=== PATIENT | male | born 1965 ===

== ENCOUNTER 2016-11-27 22:53 | Inpatient (IN) | payer MEDICARE, MEDICAID ==
[2016-11-27 22:53] VITALS: BMI 21.9
--- NOTE | 2016-11-27 23:18 | C.PDOC ---
History Of Present Illness pt with increased anasarca, c/o fall about 5 days ago. Denies loc and remembers the event. States that he has been "swelling up" worse than usual . Speaking in complete sentences. No f/c/n/v. no chest pain or palpitations Time Seen by Provider: 11/27/16 23:18 Chief Complaint (Nursing): Back Pain History Per: Patient, EMS History/Exam Limitations: no limitations Onset/Duration Of Symptoms: Days (5) Current Symptoms Are (Timing): Still Present Quality Of Discomfort: Dull, Aching Severity: Moderate Pain Scale Rating Of: 4 Previous Symptoms: Back Pain Associated Symptoms: None Exacerbating Factor(s): Movement Recent travel outside of the [place]: No Additional History Per: Patient Past Medical History Reviewed: Historical Data, Nursing Documentation, Vital Signs Vital Signs: Last Vital Signs Temp 98.1 F 11/27/16 23:15 Pulse 97 H 11/27/16 23:15 Resp 18 11/27/16 23:15 BP 164/115 H 11/27/16 23:15 Pulse Ox 97 11/28/16 00:12 - Medical History PMH: Anemia, Anxiety, Arthritis (hands and legs), Asthma, Back Problems, CAD, CHF (chronic LV Sys EF 39% on Mugga evaluated by EP for possible ICD), Depression, Diabetes, Gastritis, HTN, Hypercholesterolemia, Pneumonia Denies: Chronic Kidney Disease - [facility] Procedures CENTRAL VENOUS CATHETER PLACEMENT WITH GUIDANCE (10/12/13) CORONAR ARTERIOGR-2 CATH (10/17/14) INFLUENZA VACCINATION (09/24/13) LEFT HEART CARDIAC CATH (10/17/14) LT HEART ANGIOCARDIOGRAM (10/17/14) VACCINATION NEC (09/24/13) Family History: States: Diabetes - Social History Hx Tobacco Use: No Hx Alcohol Use: No Hx Substance Use: No - Immunization History Hx Tetanus Toxoid Vaccination: No Hx Influenza Vaccination: No Hx Pneumococcal Vaccination: No Review Of Systems Constitutional: Negative for: Fever, Chills ENT: Negative for: Throat Pain Cardiovascular: Negative for: Chest Pain, Palpitations Respiratory: Positive for: Shortness of Breath (mild) Gastrointestinal: Positive for: Abdominal Pain. Negative for: Nausea, Vomiting Genitourinary: Negative for: Dysuria Musculoskeletal: Positive for: Back Pain Skin: Positive for: Bruising (right lat abd). Negative for: Rash, Lesions Neurological: Negative for: Altered Mental Status Psych: Negative for: Anxiety Physical Exam - Physical Exam Appears: Non-toxic Skin: Warm, Dry, Ecchymosis (r lower abd) Head: Atraumatic Eye(s): bilateral: Normal Inspection Oral Mucosa: Moist Neck: Supple Chest: Symmetrical Cardiovascular: Rhythm Regular Respiratory: Decreased Breath Sounds, Rales (bases), Rhonchi (few), No Wheezing Gastrointestinal/Abdominal: Soft, Distention, No Guarding, Other (3x5 cm abrassion r lower abd) ED Course And Treatment - Laboratory Results Result Diagrams: 11/28/16 00:29 11/28/16 00:29 ECG: Interpreted By Me, Viewed By Me ECG Rhythm: Sinus Rhythm (95), Nonspecific Changes O2 Sat by Pulse Oximetry: 97 Pulse Ox Interpretation: Normal - Radiology CXR: Interpreted by Me, Viewed By Me CXR Interpretation: Yes: Other (top nl heart unchnaged from 03/07). No: Infiltrates, Fracture, Pnemothorax Progress Note: cardiac work up, vbg, lasix Critical Care Time - Critical Care Note Total Time (in mins): 40 Documented critical care: time excludes all time spent performing seperately billable procedures. Disposition Discussed With Dr.: Chino Whitt Comment: accepted the pt [facility] is service and took over the care at 1:35 AM Doctor Will See Patient In The: ED Counseled Patient/Family Regarding: Studies Performed, Diagnosis - Disposition Disposition: HOSPITALIZED Disposition Time: 23:18 Condition: GUARDED - POA Present On Arrival: Poor Glycemic Control - Clinical Impression Clinical Impression: Low back pain, Diabetes mellitus, Congestive heart failure (CHF), Hyperkalemia , Anasarca, Acute renal failure Decision To Admit - Pt Status Changed To: Hospital Disposition Of: Inpatient - Admit Certification Admit to Inpatient:: After my assessment, the patient will require hospitalization for at least two midnights. This is because of the severity of symptoms shown, intensity of services needed, and/or the medical risk in this patient being treated as an outpatient. - InPatient: Physician Admission Certification:: After my assessment, the patient will require hospitalization for at least two midnights. This is because of the severity of symptoms shown, intensity of services needed, and/or the medical risk in this patient being treated as an outpatient. - . Bed Request Type: Telemetry Admitting Physician: Chino Whitt Patient Diagnosis: Low back pain, Diabetes mellitus, Congestive heart failure (CHF), Hyperkalemia , Anasarca, Acute renal failure
[2016-11-28 00:32] LABS: BASO # 0.1 K/uL (0.0-0.2); BASO % 0.7 % (0.0-2.0); EOS # 0.1 K/uL (0.0-0.7); EOS % 1.6 % (0.0-4.0); HEMATOCRIT 27.5 % (35.0-51.0); LYMPH # 0.6 K/uL (1.0-4.3); LYMPH % 7.4 % (20.0-40.0); MEAN CORPUSCULAR HEMOGLOBIN 29.2 pg (27.0-31.0); MEAN CORPUSCULAR HGB CONC 31.4 g/dL (33.0-37.0); MEAN PLATELET VOLUME 10.6 fL (7.2-11.7); MONO # 0.9 K/uL (0.0-0.8); MONO % 11.2 % (0.0-10.0); NRBC % 0.1 % (0.0-2.0); PLATELET COUNT 234 K/uL (130-400); RED CELL DISTRIBUTION WIDTH 16.6 % (11.5-14.5); WHITE BLOOD COUNT 7.6 K/uL (4.8-10.8)
[2016-11-28 00:45] LABS: VENOUS BLOOD GAS BASE EXCESS -7.9 mmol/L (0.0-2.0); VENOUS BLOOD GAS PCO2 31 mmHg (40-60); VENOUS BLOOD PH 7.34 (7.32-7.43)
[2016-11-28 00:55] LABS: CHLORIDE 104 mmol/L (98-107); SODIUM 135 mmol/L (132-148)
[2016-11-28 00:57] LABS: GFR AFRICAN-AMERICAN 26
[2016-11-28 00:58] LABS: ALB/GLOB RATIO 0.7 (1.0-2.1); ALKALINE PHOSPHATASE 666 U/L (38-126); ALT/SGPT 52 U/L (21-72); AST/SGOT 39 U/L (17-59); BILIRUBIN,TOTAL 0.6 mg/dL (0.2-1.3); BLOOD UREA NITROGEN 68 mg/dL (9-20); CALCIUM 7.7 mg/dl (8.6-10.4); CARBON DIOXIDE 16 mmol/L (22-30); GLUCOSE,RANDOM 246 mg/dL (75-110); TOTAL PROTEIN 6.3 g/dL (6.3-8.3)
[2016-11-28 01:18] LABS: POTASSIUM 6.8 mmol/L (3.6-5.2)
[2016-11-28] MEDS ORDERED: Calcium Gluconate 4.65 MEQ in Dextrose 5% In Water 100 ML IVPB STA (01:20)
[2016-11-28] MEDS ORDERED: Sod Polystyrene Sulf 15 gm/60 ml Oral Susp PO ONE ×2 (01:20→21:07)
[2016-11-28] MEDS ORDERED: Albuterol-Ipratrop 3 mg / 0.5 (3 ml) UD ONE ×2 (01:32→02:00)
[2016-11-28] MEDS ORDERED: Calcium Gluconate 4.65 mEq/10 ml Inj ONE (01:33)
[2016-11-28] MEDS ORDERED: Sod Polystyrene Sulf 15 gm/60 ml Oral Susp ONE (01:33)
[2016-11-28 01:34] LABS: EOSINOPHIL 1 % (0-4); NEUTROPHIL 86 % (50-75); TOTAL CELLS COUNTED 100
[2016-11-28] MEDS: Albuterol-Ipratrop 3 mg / 0.5 (3 ml) UD IH SCH ×3 (01:44→03:38)
[2016-11-28] MEDS ORDERED: Nitroglycerin 2% Ointment Foilpak UD TOP ONE ×2 (03:23→03:24)
[2016-11-28] MEDS ORDERED: metOLazone 2.5 MG TAB PO ONE (03:24)
--- NOTE | 2016-11-28 03:50 | CT ---
EXAM: CT Abdomen and Pelvis Without Intravenous Contrast CLINICAL HISTORY: 51 years old, male; Pain; Abdominal pain; Additional info: Ac renal failure TECHNIQUE: Axial computed tomography images of the abdomen and pelvis without intravenous contrast. This CT exam was performed using one or more of the following dose reduction techniques: automated exposure control, adjustment of the mA and/or kV according to patient size, and/or use of iterative reconstruction technique. Coronal and sagittal reformatted images were created and reviewed. EXAM DATE/TIME: 11/28/2016 1:31 AM COMPARISON: No relevant prior studies available. FINDINGS: There are small bilateral pleural effusions. There is a small pericardial effusion. Cardiomegaly. Left lower lung infiltrate. Consolidation in the lingula and left lower lung. The liver, spleen, and pancreas appear grossly normal on this non-contrast study. Bilateral mild perinephric stranding. No hydronephrosis. No obstructing calculi. Urinary bladder is distended. Punctate calcification along the anterior aspect. The bowel appears grossly normal. A normal appendix is identified series 2 images 73 through 78. Diffuse extensive subcutaneous edema. Line and intravenous contrast limits evaluation for walled off fluid collection. IMPRESSION: Findings as described above supportive of diffuse edematous state. Findings include pleural and pericardial effusions, extensive subcutaneous edema. Bilateral perinephric stranding. This may be a chronic finding however urinalysis could be performed to exclude infectious/inflammatory process. Left lung infiltrate/atelectasis.
[2016-11-28] MEDS ORDERED: Oxycodone/Acetaminophen 5/325 mg Tab PO STA (04:27)
[2016-11-28] MEDS ORDERED: Oxycodone/Acetaminophen 5/325 mg Tab ONE (04:34)
[2016-11-28 04:40] LABS: RBC URINE 2 /hpf (0-3); URINE BILIRUBIN NEGATIVE (NEGATIVE); URINE BLOOD NEGATIVE (NEGATIVE); URINE COLOR Yellow (YELLOW); URINE GLUCOSE (UA) 3+ mg/dL (Normal); URINE KETONE NEGATIVE (NEGATIVE); URINE LEUKOCYTE ESTERASE NEG Leu/uL (Negative); URINE PROTEIN 3+ mg/dL (NEGATIVE); URINE UROBILINOGEN NORMAL mg/dL (0.2-1.0); WBC URINE 2 /hpf (0-5)
[2016-11-28 04:44] LABS: CREATININE, RANDOM URINE 23.5 mg/dL
[2016-11-28 05:40] LABS: BASO % 0.4 % (0.0-2.0); EOS % 0.4 % (0.0-4.0); HEMATOCRIT 28.3 % (35.0-51.0); LYMPH # 0.6 K/uL (1.0-4.3); LYMPH % 5.6 % (20.0-40.0); MEAN CELL VOLUME 92.1 fL (80.0-94.0); MEAN CORPUSCULAR HEMOGLOBIN 29.1 pg (27.0-31.0); MEAN CORPUSCULAR HGB CONC 31.6 g/dL (33.0-37.0); MEAN PLATELET VOLUME 10.1 fL (7.2-11.7); MONO # 1.1 K/uL (0.0-0.8); PLATELET COUNT 274 K/uL (130-400); RED CELL DISTRIBUTION WIDTH 16.5 % (11.5-14.5); WHITE BLOOD COUNT 9.9 K/uL (4.8-10.8)
[2016-11-28 05:46] LABS: INR 1.1
[2016-11-28 05:51] LABS: BILIRUBIN,TOTAL 0.6 mg/dL (0.2-1.3); TOTAL PROTEIN 6.9 g/dL (6.3-8.3)
[2016-11-28 05:52] LABS: CALCIUM 8.2 mg/dl (8.6-10.4)
[2016-11-28 06:03] LABS: ALB/GLOB RATIO 0.8 (1.0-2.1); POTASSIUM 6.3 mmol/L (3.6-5.2)
--- NOTE | 2016-11-28 06:09 | CP.PCM.HP ---
History of Present Illness - History of Present Illness History of Present Illness: This is a 51 yo M with PMH significant for CHF (EF 34%), HTN and DM that presented to the ED with a chief complaint of leg swelling and sob. He states that this has been going on for the last four days but that it has just gotten too much and he needed to come in. He states that at baseline he gets tired/sob with ADLs. Pt states that he has had no changes in his medications. He admits to needing to sleep with 4 pillows at night and even then he does not sleep well. Pt has had no recent fevers, chills, chest pain, nausea, vomiting, diarrhea or headaches. He does admit to not making that much urine recently and states that he was recently seen over at [facility] [place] and was told that his kidneys are not working well. PSHx: Left hallux amputation (2011), left inguinal hernia repairs x 2, left eye surgery "for retina" (Mar 2014) PMHx: CHF, HTN, DM FHx: Mom - DM, alive. Dad- DM, at age 73 Social Hx: nonsmoker, last drink 1 year ago - denies heavy drinking in past, denies illicit drug use. Lives with mom, unemployed Allergies: PCN - swelling and rash PMD: Dr. Lynda Ng Present on Admission - Present on Admission Any Indicators Present on Admission: No Review of Systems - Constitutional Constitutional: absent: Chills, Fever - EENT Eyes: absent: Blurred Vision, Dry Eye - Cardiovascular Cardiovascular: absent: Chest Pain, Palpitations - Respiratory Respiratory: absent: Cough, Dyspnea - Gastrointestinal Gastrointestinal: absent: Diarrhea, Nausea, Vomiting - Genitourinary Genitourinary: Voiding Freq/Small Amts - Musculoskeletal Musculoskeletal: absent: Muscle Weakness, Stiffness - Integumentary Integumentary: absent: Pruritus, Rash - Neurological Neurological: absent: Numbness, Tingling Past Patient History - Infectious Disease Hx of Infectious Diseases: None - Tetanus Immunizations Tetanus Immunization: Unknown - Past Medical History & Family History Past Medical History?: Yes - Past Social History Smoking Status: Never Smoked - CARDIAC Hx Congestive Heart Failure: Yes (chronic LV Sys EF 39% on Mugga evaluated by EP for possible ICD) Hx Hypercholesterolemia: Yes Hx Hypertension: Yes - PULMONARY Hx Asthma: Yes Hx Pneumonia: Yes - NEUROLOGICAL Hx Neurological Disorder: No - HEENT Hx HEENT Problems: Yes Other/Comment: left eye blind, Rt. eye vision blurred, uses eyeglasses for reading - RENAL Hx Chronic Kidney Disease: No - ENDOCRINE/METABOLIC Hx Endocrine Disorders: Yes Hx Diabetes Mellitus Type 2: Yes (for 15 years) - HEMATOLOGICAL/ONCOLOGICAL Hx Anemia: Yes - INTEGUMENTARY Hx Dermatological Problems: No - MUSCULOSKELETAL/RHEUMATOLOGICAL Hx Arthritis: Yes (hands and legs) - GASTROINTESTINAL Hx Gastritis: Yes - GENITOURINARY/GYNECOLOGICAL Hx Genitourinary Disorders: No - PSYCHIATRIC Hx Anxiety: Yes Hx Depression: Yes Hx Substance Use: No - SURGICAL HISTORY Hx Amputation: Yes (left big toe) Other/Comment: hernia surgery, left knee surgery - ANESTHESIA Hx Anesthesia: Yes Hx Anesthesia Reactions: No Hx Malignant Hyperthermia: No Meds Allergies/Adverse Reactions: Allergies Allergy/AdvReac Type Severity Reaction Status Date / Time Penicillins Allergy Verified 03/09/16 13:01 Physical Exam - Constitutional Appears: Non-toxic, No Acute Distress - Head Exam Head Exam: ATRAUMATIC, NORMOCEPHALIC - Eye Exam Eye Exam: Normal appearance Pupil Exam: PERRL - ENT Exam ENT Exam: Mucous Membranes Moist - Neck Exam Additional comments: JVD present - Respiratory Exam Respiratory Exam: Rales - Cardiovascular Exam Cardiovascular Exam: +S1, +S2 - GI/Abdominal Exam GI & Abdominal Exam: Normal Bowel Sounds, Soft - Extremities Exam Extremities exam: Positive for: pedal edema - Back Exam Back exam: NORMAL INSPECTION - Neurological Exam Neurological exam: Alert, Oriented x3 - Skin Skin Exam: Dry, Warm Additional comments: Significant and diffuse anasarca. 4+ pitting edema in his extremities. Results - Vital Signs Recent Vital Signs: Last Vital Signs Temp 98.2 F 11/28/16 04:35 Pulse 119 H 11/28/16 04:35 Resp 16 11/28/16 04:35 BP 176/87 H 11/28/16 04:35 Pulse Ox 94 L 11/28/16 04:35 - Labs Result Diagrams: 11/28/16 05:36 11/28/16 05:36 Labs: Laboratory Results - last 24 hr 11/28/16 11/28/16 04:33 05:36 WBC 9.9 RBC 3.07 L Hgb 8.9 L Hct 28.3 L MCV 92.1 MCH 29.1 MCHC 31.6 L RDW 16.5 H Plt Count 274 MPV 10.1 Neut % (Auto) 82.6 H Lymph % (Auto) 5.6 L Anson % (Auto) 11.0 H Eos % (Auto) 0.4 Baso % (Auto) 0.4 Neut # 8.2 H Lymph # 0.6 L Anson # 1.1 H Eos # 0.0 Baso # 0.0 PT 11.8 INR 1.1 APTT 25 Sodium 133 Potassium 6.3 H* Chloride 106 Carbon Dioxide 13 L Anion Gap 20 BUN 64 H Creatinine 3.2 H Est GFR ( Amer) 25 Est GFR (Non-Af Amer) 21 Random Glucose 268 H Calcium 8.2 L Total Bilirubin 0.6 AST 32 ALT 55 Alkaline Phosphatase 712 H Total Protein 6.9 Albumin 3.0 L Globulin 4.0 H Albumin/Globulin Ratio 0.8 L Urine Color Yellow Urine Clarity Clear Urine pH 6.0 Ur Specific Deland 1.010 Urine Protein 3+ H Urine Glucose (UA) 3+ H Urine Ketones Negative Urine Blood Negative Urine Nitrate Negative Urine Bilirubin Negative Urine Urobilinogen Normal Ur Leukocyte Esterase Neg Urine WBC (Auto) 2 Urine RBC (Auto) 2 Ur Random Creatinine 23.5 U Random Total Protein 850.0 H Ur Random Sodium 45 Assessment & Plan - Assessment and Plan (Free Text) Assessment: Acute on chronic systolic heart failure - Significant anasarca, 4+ pitting on all extremities - BNP - [id number] - CXR - cardiomegaly, venous congestion - f/u official read - CT abd/pelvis - Findings as described above supportive of diffuse edematous state. Findings include pleural and pericardial effusions, extensive subcutaneous edema.Bilateral perinephric stranding. This may be a chronic finding however urinalysis could be performed to exclude infectious/ inflammatory process. Left lung infiltrate/atelectasis. Please see full report - Cardio consult (Sukumar) - help appreciate - f/u recs - Echo - f/u results - AM labs - f/u - Lasix 80mg BID - Metolazone 2.5mg daily - Coreg 6.25mg BID Anasarca - Likely due to CHF exacerbation - See above AMINA - Cr 3.1 - AM labs - Continue to diurese - Nephro (Isidro) consulted - help appreciated - f/u recs - Greco inserted Hyperkalemia - 6.8 on admission - Given Ca gluconate and kayexelate in ED - Lasix 80mg BID - AM labs - f/u HTN - 164/115 on admission, persisting on repeats - Coreg 6.25mg BID - Lasix 80mg BID - Metolazone 2.5mg daily DM - Restart home regimen - Levemir 16 units HS - Novolog 8 units TID PPX - Heparin - Protonix
[2016-11-28 06:30] LABS: BASOPHIL 1 % (0-2); EOSINOPHIL 1 % (0-4); NEUTROPHIL 82 % (50-75); TOTAL CELLS COUNTED 100
[2016-11-28] MEDS ORDERED: (Novolog) Insulin Aspart, Recombinant 100 u/ml 10 ml vial ONE (08:08)
[2016-11-28] MEDS: (Novolog) Insulin Aspart, Recombinant 100 u/ml 10 ml vial SC SCH ×3 (08:08→17:02)
[2016-11-28] MEDS ORDERED: Sod Polystyrene Sulf 15 gm/60 ml Oral Susp PO STA ×2 (09:16→09:35)
--- NOTE | 2016-11-28 09:21 | RAD ---
PROCEDURE: CHEST RADIOGRAPH, 1 VIEW HISTORY: Abdominal pain COMPARISON: None available. FINDINGS: LUNGS: Mild venous congestion. Patchy airspace opacity in the left mid to lower lung zone with associated small left pleural effusion. Right hilar prominence. PLEURA: As above. CARDIOVASCULAR: Cardiomegaly. OSSEOUS STRUCTURES: No significant abnormalities. VISUALIZED UPPER ABDOMEN: Normal. OTHER FINDINGS: None. IMPRESSION: Mild venous congestion. Patchy airspace opacity in the left mid to lower lung zone with associated small left pleural effusion. Right hilar prominence.
--- NOTE | 2016-11-28 09:41 | CP.PCM.PN ---
<Tj Albarran - Last Filed: 11/28/16 20:53> Subjective - Date & Time of Evaluation Date of Evaluation: 11/28/16 Time of Evaluation: 07:50 - Subjective Subjective: PGY1 Medicine Note - Dr. Burgos Patient seen and examined at bedside. No overnight events per nursing. Patient resting comfortably, no acute distress. Tolerating diet, +BM. Produces minimal urine (was told [place] [facility] [place] Patient c/o b/l numbness/tingling in his toes (chronic). Denies f/c, chest pain, abdominal pain , n/v, d/c, or any additional complaints. Objective - Vital Signs/Intake and Output Vital Signs (last 24 hours): Temp Pulse Resp BP Pulse Ox 97.7 F 95 H 14 142/77 95 11/28/16 06:45 11/28/16 08:55 11/28/16 08:55 11/28/16 08:55 11/28/16 08:55 Intake and Output: 11/28/16 11/28/16 06:59 18:59 Output Total 900 Balance -900 - Medications Medications: Current Medications Carvedilol (Coreg) 6.25 mg PO BID LONG Furosemide (Lasix) 80 mg IVP BID LONG Heparin Sodium (Porcine) (Heparin) 5,000 units SC Q8 LONG Calcium Gluconate 2,000 mg/ (Sodium Chloride) 270 mls @ 100 mls/hr IVPB ONCE ONE Stop: 11/28/16 12:00 Insulin Aspart (Novolog) 8 unit SC TIDAC [facility] Last Admin: 11/28/16 08:08 Dose: 8 unit Insulin Detemir (Levemir) 16 unit SC HS LONG Metolazone (Zaroxolyn) 2.5 mg PO DAILY LONG Pantoprazole Sodium (Protonix Inj) 40 mg IVP DAILY LONG - Labs Labs: 11/28/16 05:36 11/28/16 05:36 PT 11.8 SECONDS (9.7-12.2) 11/28/16 05:36 INR 1.1 11/28/16 05:36 APTT 25 SECONDS (21-34) 11/28/16 05:36 - Additional Findings Additional findings: - Constitutional Appears: Non-toxic, No Acute Distress - Head Exam Head Exam: ATRAUMATIC, NORMOCEPHALIC - Eye Exam Eye Exam: Normal appearance Pupil Exam: PERRL - ENT Exam ENT Exam: Mucous Membranes Moist - Neck Exam Additional comments: JVD present - Respiratory Exam Respiratory Exam: Rales - Cardiovascular Exam Cardiovascular Exam: +S1, +S2 - GI/Abdominal Exam GI & Abdominal Exam: Normal Bowel Sounds, Soft - Extremities Exam Extremities exam: Positive for: pedal edema -L Foot 1st Toe amputation -R Foot 2nd Toe darkened, cool to touch, with 2 eschars on dorsal surface. - Back Exam Back exam: NORMAL INSPECTION - Neurological Exam Neurological exam: Alert, Oriented x3 - Skin Skin Exam: Dry, Warm Additional comments: Significant and diffuse anasarca. 4+ pitting edema in his extremities. Assessment and Plan - Assessment and Plan (Free Text) Assessment: Acute on chronic systolic heart failure 11/28: Echo - f/u results (pending read); - Significant anasarca, 4+ pitting on all extremities - BNP - [id number] - CXR - cardiomegaly, venous congestion - f/u official read - CT abd/pelvis - Findings as described above supportive of diffuse edematous state. Findings include pleural and pericardial effusions, extensive subcutaneous edema.Bilateral perinephric stranding. This may be a chronic finding however urinalysis could be performed to exclude infectious/ inflammatory process. Left lung infiltrate/atelectasis. 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 Add on Hydralazine 20mg PO Q12 LONG + Nitro paste 1inch Q12 PRN, SBP >160 - 164/115 on admission, persisting on repeats - Coreg 6.25mg BID - Lasix 80mg BID - Metolazone 2.5mg daily DM - Restart home regimen - Levemir 16 units HS - Novolog 8 units TID - ISS PPX - Heparin - Protonix <Matthew Burgos - Last Filed: 01/05/17 15:39> Objective - Vital Signs/Intake and Output Vital Signs (last 24 hours): Temp Pulse Resp BP Pulse Ox 97 F L 77 20 118/76 96 12/04/16 18:15 12/04/16 18:15 12/04/16 18:15 12/04/16 18:16 12/04/16 18:15 - Labs Labs: 12/04/16 06:59 12/04/16 06:59 PT 12.0 SECONDS (9.7-12.2) 12/03/16 19:46 INR 1.1 12/03/16 19:46 APTT 35 SECONDS (21-34) H 12/03/16 19:46 Attending/Attestation - Attestation I have personally seen and examined this patient.: Yes I have fully participated in the care of the patient.: Yes I have reviewed all pertinent clinical information, including history, physical exam and plan: Yes Notes (Text): Patient seen and examined with the resident. Agree with the resident's evaluation, assessment and plan. Acute on chronic systolic heart failure 11/28: Echo - f/u results (pending read); - Significant anasarca, 4+ pitting on all extremities
[2016-11-28] MEDS ORDERED: metOLazone 2.5 MG TAB PO SCH ×2 (10:00→11:07)
--- NOTE | 2016-11-28 10:51 | CP.PCM.CON ---
History of Present Illness - History of Present Illness History of Present Illness: History of Present Illness: This is a 51 yo M with PMH significant for CHF (EF 34%), HTN and DM that presented to the ED with a chief complaint of leg swelling and sob. He states that this has been going on for the last four days but that it has just gotten too much and he needed to come in. He states that at baseline he gets tired/sob with ADLs. Pt states that he has had no changes in his medications. He admits to needing to sleep with 4 pillows at night and even then he does not sleep well. Pt has had no recent fevers, chills, chest pain, nausea, vomiting, diarrhea or headaches. He does admit to not making that much urine recently and states that he was recently seen over at [facility] and was told that his kidneys are not working well. PSHx: Left hallux amputation (2011), left inguinal hernia repairs x 2, left eye surgery "for retina" (Mar 2014) PMHx: CHF, HTN, DM FHx: Mom - DM, alive. Dad- DM, at age 73 Social Hx: nonsmoker, last drink 1 year ago - denies heavy drinking in past, denies illicit drug use. Lives with mom, unemployed Allergies: PCN - swelling and rash PMD: Dr. Lynda Ng CONSULT DICTATED LIKELY WILL NEED DIALYSIS SOON DUE TO RECURRENT CHF, HYPERKALEMIA AGREE WITH PRESENT MEDS WILL PURSUE RENAL WORKUP LIKELY HAS DIABETIC NEPHROPATHY WITH NEPHROTIC SYNDROME WILL DISCUSS RENAL OPTIONS FURTHER WITH PATIENT Review of Systems - Review of Systems Systems not reviewed;Unavailable: Respiratory Distress - Constitutional Constitutional: Weakness - EENT Eyes: Blurred Vision, Change in Vision - Cardiovascular Cardiovascular: Chest Pain, Dyspnea on Exertion, Pedal Edema - Respiratory Respiratory: Cough, Dyspnea on Exertion - Gastrointestinal Gastrointestinal: Nausea, Vomiting - Genitourinary Genitourinary: Difficulty Urinating, Voiding Freq/Small Amts - Musculoskeletal Musculoskeletal: Muscle Weakness, Stiffness - Neurological Neurological: Abnormal Gait, Weakness - Endocrine Endocrine: Change in Body Appearance, Fatigue Past Patient History - Infectious Disease Hx of Infectious Diseases: None - Tetanus Immunizations Tetanus Immunization: Unknown - Past Medical History & Family History Past Medical History?: Yes - Past Social History Smoking Status: Never Smoked - CARDIAC Hx Congestive Heart Failure: Yes (chronic LV Sys EF 39% on Mugga evaluated by EP for possible ICD) Hx Hypercholesterolemia: Yes Hx Hypertension: Yes - PULMONARY Hx Asthma: Yes Hx Pneumonia: Yes - NEUROLOGICAL Hx Neurological Disorder: No - HEENT Hx HEENT Problems: Yes Other/Comment: left eye blind, Rt. eye vision blurred, uses eyeglasses for reading - RENAL Hx Chronic Kidney Disease: No - ENDOCRINE/METABOLIC Hx Endocrine Disorders: Yes Hx Diabetes Mellitus Type 2: Yes (for 15 years) - HEMATOLOGICAL/ONCOLOGICAL Hx Anemia: Yes - INTEGUMENTARY Hx Dermatological Problems: No - MUSCULOSKELETAL/RHEUMATOLOGICAL Hx Arthritis: Yes (hands and legs) - GASTROINTESTINAL Hx Gastritis: Yes - GENITOURINARY/GYNECOLOGICAL Hx Genitourinary Disorders: No - PSYCHIATRIC Hx Anxiety: Yes Hx Depression: Yes Hx Substance Use: No - SURGICAL HISTORY Hx Amputation: Yes (left big toe) Other/Comment: hernia surgery, left knee surgery - ANESTHESIA Hx Anesthesia: Yes Hx Anesthesia Reactions: No Hx Malignant Hyperthermia: No Meds Allergies/Adverse Reactions: Allergies Allergy/AdvReac Type Severity Reaction Status Date / Time Penicillins Allergy Verified 03/09/16 13:01 - Medications Medications: Current Medications Carvedilol (Coreg) 6.25 mg PO BID [facility] Last Admin: 11/28/16 10:29 Dose: 6.25 mg Furosemide (Lasix) 80 mg IVP BID [facility] Heparin Sodium (Porcine) (Heparin) 5,000 units SC Q8 [facility] Calcium Gluconate 2,000 mg/ (Sodium Chloride) 270 mls @ 100 mls/hr IVPB ONCE ONE Stop: 11/28/16 12:00 Insulin Aspart (Novolog) 8 unit SC TIDAC [facility] Last Admin: 11/28/16 08:08 Dose: 8 unit Insulin Detemir (Levemir) 16 unit SC HS [facility] Metolazone (Zaroxolyn) 2.5 mg PO DAILY [facility] Pantoprazole Sodium (Protonix Inj) 40 mg IVP DAILY [facility] Last Admin: 11/28/16 10:29 Dose: 40 mg Physical Exam - Constitutional Appears: Non-toxic, Chronically Ill - Head Exam Head Exam: ATRAUMATIC, NORMAL INSPECTION - Eye Exam Eye Exam: EOMI, Periorbital swelling - Neck Exam Neck exam: Positive for: Normal Inspection. Negative for: Tenderness - Respiratory Exam Respiratory Exam: Clear to Auscultation Bilateral, NORMAL BREATHING PATTERN - GI/Abdominal Exam GI & Abdominal Exam: Distended, Soft - Extremities Exam Extremities exam: Positive for: pedal edema, tenderness - Neurological Exam Neurological exam: Alert, CN II-XII Intact - Skin Skin Exam: Dry, Warm Results - Vital Signs Recent Vital Signs: Last Vital Signs Temp 97.7 F 11/28/16 09:41 Pulse 93 H 11/28/16 09:41 Resp 17 11/28/16 09:41 BP 158/93 H 11/28/16 09:41 Pulse Ox 95 11/28/16 09:41 - Labs Result Diagrams: 11/28/16 05:36 11/28/16 05:36 Labs: Laboratory Results - last 24 hr 11/28/16 11/28/16 11/28/16 04:33 05:36 07:28 WBC 9.9 RBC 3.07 L Hgb 8.9 L Hct 28.3 L MCV 92.1 MCH 29.1 MCHC 31.6 L RDW 16.5 H Plt Count 274 MPV 10.1 Neut % (Auto) 82.6 H Lymph % (Auto) 5.6 L [place] % (Auto) 11.0 H Eos % (Auto) 0.4 Baso % (Auto) 0.4 Neut # 8.2 H Lymph # 0.6 L [place] # 1.1 H Eos # 0.0 Baso # 0.0 Neutrophils % (Manual) 82 H Lymphocytes % (Manual) 6 L Monocytes % (Manual) 10 Eosinophils % (Manual) 1 Basophils % (Manual) 1 Platelet Estimate Normal PT 11.8 INR 1.1 APTT 25 Sodium 133 Potassium 6.3 H* Chloride 106 Carbon Dioxide 13 L Anion Gap 20 BUN 64 H Creatinine 3.2 H Est GFR ( Amer) 25 Est GFR (Non-Af Amer) 21 POC Glucose (mg/dL) 258 H Random Glucose 268 H Calcium 8.2 L Total Bilirubin 0.6 AST 32 ALT 55 Alkaline Phosphatase 712 H Total Protein 6.9 Albumin 3.0 L Globulin 4.0 H Albumin/Globulin Ratio 0.8 L Urine Color Yellow Urine Clarity Clear Urine pH 6.0 Ur Specific [place] 1.010 Urine Protein 3+ H Urine Glucose (UA) 3+ H Urine Ketones Negative Urine Blood Negative Urine Nitrate Negative Urine Bilirubin Negative Urine Urobilinogen Normal Ur Leukocyte Esterase Neg Urine WBC (Auto) 2 Urine RBC (Auto) 2 Ur Random Creatinine 23.5 U Random Total Protein 850.0 H Ur Random Sodium 45 Assessment & Plan (1) Congestive heart failure (CHF) Status: Chronic (2) Hypertension Status: Chronic (3) Type 2 diabetes mellitus with diabetic nephropathy Status: Acute (4) Proteinuria due to type 2 diabetes mellitus Status: Acute (5) Chronic anemia Status: Acute - Assessment and Plan (Free Text) Plan: Agree with IV lasix Pursue renal workup Will consider [employer] due to recurrent CHF, hyperkalemia
--- NOTE | 2016-11-28 12:02 | CON ---
DATE: 11/28/2016 The patient is a 51-year-old man with past history of diabetes mellitus type 2, diabetic nephropathy, hypertension, recurrent congestive heart failure with ejection fraction of 34%. He presents with le g swelling, increased dyspnea on exertion. This has been going on for at least 4 days; not been able to really ambulate well because of that. He was very weak and short of breath. No fevers, chills, or sweats. He has had nausea and vomiting. No diarrhea. PAST MEDICAL HISTORY: Diabetes mellitus, hypertension, congestive heart failure, and proteinuria due to diabetes mellitus. PAST SURGICAL HISTORY: Left hallux amputation, left inguinal hernia repair, left eye surgery for gla ucoma or possible diabetic retinopathy. FAMILY HISTORY: Two brothers; one on maintenance dialysis. SOCIAL HISTORY: Significant for moderately heavy alcohol abuse in the past. No history of smoking o r illicit drug use. MEDICATIONS: Include Carvedilol, now he is on IV Lasix, on Protonix, metolazone, Kayexalate was give n for the hyperkalemia. REVIEW OF SYSTEMS: Significant for increased dyspnea on exertion, poor vision. He has had chest mariola ns, decreased urine output, nausea and vomiting, and difficulty ambulating. Other review of systems is all negative. On physical exam he is a well-developed man. Blood pressure 158/93, temperature 97.7, pulse 93, pulse ox 95% on room air. VASCULAR EXAMINATION: Shows no JVD. LUNG PORTILLO: Clear. HEART: Regular rhythm, no murmur. ABDOMEN: Soft, benign. No mass or organomegaly. He had a general anasarca, 3-4+ pitting edema all the way up to the thighs and in the presacral area. NEUROLOGIC: No focal deficits. He had a Greco catheter in place. Chest x-ray again showed mild congestive heart failure. he hemoglobin 8.9. Urinalysis showed 3+ protein. The chemistries showed a BUN of 64, creatinine 3.2 . GFR of 21, albumin of 3.0. IMPRESSION: The patient has recurrent congestive heart failure, diabetic nephropathy, likely has nep hrotic syndrome, hypertension, chronic anemia. PLAN: Will pursue a renal workup. I agree with IV Lasix and metolazone. He probably will need hemo dialysis due to recurrent congestive heart failure and the recent hyperkalemia which is uncontrolled. Will follow up. Low Felix MD cc: [id number] TT: 11/28/2016 12:01:18 Confirmation # [id number] Dictation # [id number]
--- NOTE | 2016-11-28 13:55 | US ---
Renal ultrasound History: Chronic kidney disease. Comparison: None available. Technique: Real-time sonography was performed through the kidneys. Findings: Right kidney: 11.6 x 5.2 x 6.2 centimeters. Increased echogenicity suggestive for medical renal disease. No calculi or hydronephrosis. Left kidney: 13.5 x 7.2 x 6.2 centimeters. Increased echogenicity suggestive for medical renal disease. No calculi or hydronephrosis. Visualized aorta is preserved. Greco catheter in the urinary bladder patter. Impression: Increased echogenicity of the bilateral renal cortices suggestive for medical renal disease.
[2016-11-28 17:08] LABS: POTASSIUM 5.5 mmol/L (3.6-5.2)
[2016-11-28 17:12] LABS: CALCIUM 7.9 mg/dl (8.6-10.4)
[2016-11-28] MEDS ORDERED: Nitroglycerin 2% Ointment Foilpak UD TOP PRN ×2 (18:57→19:05)
[2016-11-28] MEDS ORDERED: Insulin Detemir 100 units/ml Vial (Levemir) SC SCH (22:00)
[2016-11-29] MEDS: Dextrose 50% SYRINGE Inj (50 ml) ONE ×2 (07:06→07:07)
[2016-11-29] MEDS: (Novolog) Insulin Aspart, Recombinant 100 u/ml 10 ml vial SC SCH ×6 (07:51→21:46)
[2016-11-29 08:14] LABS: CHLORIDE 106 mmol/L (98-107); POTASSIUM 4.7 mmol/L (3.6-5.2); SODIUM 135 mmol/L (132-148)
[2016-11-29 08:16] LABS: BILIRUBIN,TOTAL 0.3 mg/dL (0.2-1.3); GFR AFRICAN-AMERICAN 26
[2016-11-29 08:17] LABS: ALB/GLOB RATIO 0.7 (1.0-2.1); ALKALINE PHOSPHATASE 550 U/L (38-126); ALT/SGPT 46 U/L (21-72); AST/SGOT 36 U/L (17-59); BLOOD UREA NITROGEN 67 mg/dL (9-20); CARBON DIOXIDE 18 mmol/L (22-30); GLUCOSE,RANDOM 100 mg/dL (75-110); PHOSPHOROUS 6.3 mg/dL (2.5-4.5); TOTAL PROTEIN 5.6 g/dL (6.3-8.3)
[2016-11-29 08:18] LABS: CALCIUM 7.7 mg/dl (8.6-10.4)
--- NOTE | 2016-11-29 08:28 | CP.PCM.CON ---
History of Present Illness - History of Present Illness History of Present Illness: 51 year old male seen for ulcers on toe 2 right with discoloration of toe . Past Patient History - Infectious Disease Hx of Infectious Diseases: None - Tetanus Immunizations Tetanus Immunization: Unknown - Past Medical History & Family History Past Medical History?: Yes - Past Social History Smoking Status: Never Smoked - CARDIAC Hx Congestive Heart Failure: Yes (chronic LV Sys EF 39% on Mugga evaluated by EP for possible ICD) Hx Hypercholesterolemia: Yes Hx Hypertension: Yes - PULMONARY Hx Asthma: Yes Hx Pneumonia: Yes - NEUROLOGICAL Hx Neurological Disorder: No - HEENT Hx HEENT Problems: Yes Other/Comment: left eye blind, Rt. eye vision blurred, uses eyeglasses for reading - RENAL Hx Chronic Kidney Disease: No - ENDOCRINE/METABOLIC Hx Endocrine Disorders: Yes Hx Diabetes Mellitus Type 2: Yes (for 15 years) - HEMATOLOGICAL/ONCOLOGICAL Hx Anemia: Yes - INTEGUMENTARY Hx Dermatological Problems: No - MUSCULOSKELETAL/RHEUMATOLOGICAL Hx Arthritis: Yes (hands and legs) Hx Falls: Yes (fell x5 days ago) - GASTROINTESTINAL Hx Gastritis: Yes - GENITOURINARY/GYNECOLOGICAL Hx Genitourinary Disorders: No - PSYCHIATRIC Hx Anxiety: Yes Hx Depression: Yes Hx Substance Use: No - SURGICAL HISTORY Hx Amputation: Yes (left big toe) Other/Comment: hernia surgery, left knee surgery - ANESTHESIA Hx Anesthesia: Yes Hx Anesthesia Reactions: No Hx Malignant Hyperthermia: No Meds Allergies/Adverse Reactions: Allergies Allergy/AdvReac Type Severity Reaction Status Date / Time Penicillins Allergy Verified 03/09/16 13:01 - Medications Medications: Current Medications Carvedilol (Coreg) 6.25 mg PO BID [facility] Last Admin: 11/28/16 18:13 Dose: 6.25 mg Furosemide (Lasix) 80 mg IVP BID [facility] Last Admin: 11/28/16 18:13 Dose: 80 mg Heparin Sodium (Porcine) (Heparin) 5,000 units SC Q8 [facility] Last Admin: 11/29/16 06:53 Dose: 5,000 units Hydralazine HCl (Apresoline) 25 mg PO Q12H [facility] Last Admin: 11/29/16 06:46 Dose: 25 mg Insulin Aspart (Novolog) 8 unit SC TIDAC [facility] Last Admin: 11/29/16 07:51 Dose: Not Given Insulin Detemir (Levemir) 16 unit SC HS [facility] Last Admin: 11/28/16 21:34 Dose: 16 unit Metolazone (Zaroxolyn) 5 mg PO DAILY [facility] Nitroglycerin (Nitro-Bid 2% Oint) 1 ea TOP 1100,2300 PRN PRN Reason: SBP > 160 Pantoprazole Sodium (Protonix Inj) 40 mg IVP DAILY [facility] Last Admin: 11/28/16 10:29 Dose: 40 mg Physical Exam - Extremities Exam Extremities exam: Positive for: pedal edema Additional comments: O/Toe 2 dorsum 2 small ulcers proximal wound burch 1 /Distal wound ungradable with eschar . Feet are warm to touch with neuropathy b/l .Hallux amp left noted 2011. Results - Vital Signs Recent Vital Signs: Last Vital Signs Temp 97.6 F 11/29/16 00:00 Pulse 83 11/29/16 00:21 Resp 20 11/29/16 00:00 BP 158/89 H 11/29/16 00:00 Pulse Ox 98 11/29/16 00:00 - Labs Result Diagrams: 11/28/16 05:36 11/29/16 07:57 Labs: Laboratory Results - last 24 hr 11/28/16 11/28/16 11/28/16 12:14 16:06 16:51 Sodium 133 Potassium 5.5 H Chloride 103 Carbon Dioxide 15 L Anion Gap 21 H BUN 66 H Creatinine 3.1 H Est GFR ( Amer) 26 Est GFR (Non-Af Amer) 21 POC Glucose (mg/dL) 247 H 214 H Random Glucose 174 H Calcium 7.9 L Phosphorus Total Bilirubin AST ALT Alkaline Phosphatase Total Protein Albumin Globulin Albumin/Globulin Ratio 11/28/16 11/29/16 11/29/16 21:28 06:57 07:10 Sodium Potassium Chloride Carbon Dioxide Anion Gap BUN Creatinine Est GFR ( Amer) Est GFR (Non-Af Amer) POC Glucose (mg/dL) 150 H 29 L* 105 Random Glucose Calcium Phosphorus Total Bilirubin AST ALT Alkaline Phosphatase Total Protein Albumin Globulin Albumin/Globulin Ratio 11/29/16 07:57 Sodium 135 Potassium 4.7 Chloride 106 Carbon Dioxide 18 L Anion Gap 16 BUN 67 H Creatinine 3.1 H Est GFR ( Amer) 26 Est GFR (Non-Af Amer) 21 POC Glucose (mg/dL) Random Glucose 100 Calcium 7.7 L Phosphorus 6.3 H Total Bilirubin 0.3 AST 36 ALT 46 Alkaline Phosphatase 550 H D Total Protein 5.6 L Albumin 2.3 L D Globulin 3.3 Albumin/Globulin Ratio 0.7 L Assessment & Plan - Assessment and Plan (Free Text) Assessment: A/Ulcers toe 2 right Burch 1and ungradable small /R/O Ischemia /PAD right Plan: P/ Bactroban dressing daily right toe 2 . Awaiting Doppler exams and Eval by Dr Mckeon.
--- NOTE | 2016-11-29 09:27 | CP.PCM.CON ---
History of Present Illness - History of Present Illness History of Present Illness: Vascular Surgery Consult Dr. Mckeon HPI: 51 y/o M w/ PMHx of CHF, HTN, DM, presented to the ED w/ CC of leg swelling and SOB. Pt stated Sx had been worsening x4days. At baseline, pt gets fatigued/SOB w/ ADLs. Pt admitted to orthopnea and FILIPE. History from H&P at time of admission. Upon interview of pt this AM, pt was minimally responsive and was found to have BG of 26. 1amp D50 was ordered and pt became more responsive however unable or unwilling to answer questions. Per H&P, pt admitted to decreased UOP but denied recent fevers, chills, chest pain, nausea, vomiting, diarrhea or headaches. Surgery was consulted for evaluation of PVD. PMHx: CHF w/ EF 32%, HTN, DM Meds: reviewed in chart Allergies: PCN - swelling, hives PSHx: L hallux amputation, LIH repair x2, L retinal surgery SHx: denies tobacco, drug use. previous heavy EtOH - last drink 1yr ago FHx: DM Review of Systems - Review of Systems Systems not reviewed;Unavailable: Altered Mental Status Past Patient History - Infectious Disease Hx of Infectious Diseases: None - Tetanus Immunizations Tetanus Immunization: Unknown - Past Medical History & Family History Past Medical History?: Yes - Past Social History Smoking Status: Never Smoked - CARDIAC Hx Congestive Heart Failure: Yes (chronic LV Sys EF 39% on Mugga evaluated by EP for possible ICD) Hx Hypercholesterolemia: Yes Hx Hypertension: Yes - PULMONARY Hx Asthma: Yes Hx Pneumonia: Yes - NEUROLOGICAL Hx Neurological Disorder: No - HEENT Hx HEENT Problems: Yes Other/Comment: left eye blind, Rt. eye vision blurred, uses eyeglasses for reading - RENAL Hx Chronic Kidney Disease: No - ENDOCRINE/METABOLIC Hx Endocrine Disorders: Yes Hx Diabetes Mellitus Type 2: Yes (for 15 years) - HEMATOLOGICAL/ONCOLOGICAL Hx Anemia: Yes - INTEGUMENTARY Hx Dermatological Problems: No - MUSCULOSKELETAL/RHEUMATOLOGICAL Hx Arthritis: Yes (hands and legs) Hx Falls: Yes (fell x5 days ago) - GASTROINTESTINAL Hx Gastritis: Yes - GENITOURINARY/GYNECOLOGICAL Hx Genitourinary Disorders: No - PSYCHIATRIC Hx Anxiety: Yes Hx Depression: Yes Hx Substance Use: No - SURGICAL HISTORY Hx Amputation: Yes (left big toe) Other/Comment: hernia surgery, left knee surgery - ANESTHESIA Hx Anesthesia: Yes Hx Anesthesia Reactions: No Hx Malignant Hyperthermia: No Meds Allergies/Adverse Reactions: Allergies Allergy/AdvReac Type Severity Reaction Status Date / Time Penicillins Allergy Verified 03/09/16 13:01 - Medications Medications: Current Medications Carvedilol (Coreg) 6.25 mg PO BID [facility] Last Admin: 11/28/16 18:13 Dose: 6.25 mg Furosemide (Lasix) 80 mg IVP BID [facility] Last Admin: 11/28/16 18:13 Dose: 80 mg Heparin Sodium (Porcine) (Heparin) 5,000 units SC Q8 [facility] Last Admin: 11/29/16 06:53 Dose: 5,000 units Hydralazine HCl (Apresoline) 25 mg PO Q12H [facility] Last Admin: 11/29/16 06:46 Dose: 25 mg Insulin Aspart (Novolog) 8 unit SC TIDAC [facility] Last Admin: 11/29/16 07:51 Dose: Not Given Insulin Detemir (Levemir) 16 unit SC HS [facility] Last Admin: 11/28/16 21:34 Dose: 16 unit Metolazone (Zaroxolyn) 5 mg PO DAILY [facility] Mupirocin (Bactroban Ointment) 1 gm TOP BID [facility] Nitroglycerin (Nitro-Bid 2% Oint) 1 ea TOP 1100,2300 PRN PRN Reason: SBP > 160 Pantoprazole Sodium (Protonix Inj) 40 mg IVP DAILY [facility] Last Admin: 11/28/16 10:29 Dose: 40 mg Physical Exam - Constitutional Appears: Non-toxic, No Acute Distress - Head Exam Head Exam: NORMAL INSPECTION - Eye Exam Eye Exam: Normal appearance - ENT Exam ENT Exam: Mucous Membranes Moist - Respiratory Exam Respiratory Exam: NORMAL BREATHING PATTERN. absent: Accessory Muscle Use, Respiratory Distress - Cardiovascular Exam Cardiovascular Exam: REGULAR RHYTHM. absent: Bradycardia, Tachycardia - GI/Abdominal Exam GI & Abdominal Exam: Soft. absent: Distended, Guarding, Rebound, Tenderness - Extremities Exam Additional comments: 3+ pitting edema B/L LE up to hips/pannus 2+ pitting edema B/L UE scar from L hallux amputation scabs present B/L feet. L sole R toes 4&5 no pallor or callor pulses difficult to palpate 2/2 edema - Neurological Exam Neurological exam: Altered - Skin Skin Exam: Dry, Intact, Normal Color, Warm Results - Vital Signs Recent Vital Signs: Last Vital Signs Temp 97.6 F 11/29/16 00:00 Pulse 83 11/29/16 00:21 Resp 20 11/29/16 00:00 BP 158/89 H 11/29/16 00:00 Pulse Ox 98 11/29/16 00:00 - Labs Result Diagrams: 11/28/16 05:36 11/29/16 07:57 Labs: Laboratory Results - last 24 hr 11/28/16 11/28/16 11/28/16 12:14 16:06 16:51 Sodium 133 Potassium 5.5 H Chloride 103 Carbon Dioxide 15 L Anion Gap 21 H BUN 66 H Creatinine 3.1 H Est GFR ( Amer) 26 Est GFR (Non-Af Amer) 21 POC Glucose (mg/dL) 247 H 214 H Random Glucose 174 H Calcium 7.9 L Phosphorus % Saturation Total Bilirubin AST ALT Alkaline Phosphatase Total Protein Albumin Globulin Albumin/Globulin Ratio 11/28/16 11/29/16 11/29/16 21:28 06:57 07:10 Sodium Potassium Chloride Carbon Dioxide Anion Gap BUN Creatinine Est GFR ( Amer) Est GFR (Non-Af Amer) POC Glucose (mg/dL) 150 H 29 L* 105 Random Glucose Calcium Phosphorus % Saturation Total Bilirubin AST ALT Alkaline Phosphatase Total Protein Albumin Globulin Albumin/Globulin Ratio 11/29/16 11/29/16 07:57 08:06 Sodium 135 Potassium 4.7 Chloride 106 Carbon Dioxide 18 L Anion Gap 16 BUN 67 H Creatinine 3.1 H Est GFR ( Amer) 26 Est GFR (Non-Af Amer) 21 POC Glucose (mg/dL) Random Glucose 100 Calcium 7.7 L Phosphorus 6.3 H % Saturation 16 L Total Bilirubin 0.3 AST 36 ALT 46 Alkaline Phosphatase 550 H D Total Protein 5.6 L Albumin 2.3 L D Globulin 3.3 Albumin/Globulin Ratio 0.7 L - Imaging and Cardiology Chest x-ray Status: Report reviewed by me CT scan - abdomen Status: Report reviewed by me US - renal Status: Report reviewed by me Assessment & Plan - Assessment and Plan (Free Text) Assessment: 51 y/o M w/ CHF, HTN, DM in anasarca - f/u venous and arterial dopplers - will likely need dialysis - further plans pending results of imaging Pt discussed w/ Dr. Linda Napier DO PGY1
[2016-11-29] MEDS: metOLazone 5 MG TAB PO SCH (09:43)
[2016-11-29 10:13] LABS: CHLORIDE URINE 61 mmol/L (32-290)
[2016-11-29 11:41] LABS: BASO % 0.4 % (0.0-2.0); EOS # 0.2 K/uL (0.0-0.7); EOS % 2.2 % (0.0-4.0); LYMPH # 0.4 K/uL (1.0-4.3); LYMPH % 4.2 % (20.0-40.0); MEAN CELL VOLUME 92.4 fL (80.0-94.0); MEAN CORPUSCULAR HEMOGLOBIN 28.8 pg (27.0-31.0); MEAN CORPUSCULAR HGB CONC 31.2 g/dL (33.0-37.0); MEAN PLATELET VOLUME 10.4 fL (7.2-11.7); MONO % 9.6 % (0.0-10.0); PLATELET COUNT 265 K/uL (130-400); RED CELL DISTRIBUTION WIDTH 16.4 % (11.5-14.5); WHITE BLOOD COUNT 10.2 K/uL (4.8-10.8)
[2016-11-29 13:38] LABS: EOSINOPHIL 1 % (0-4); NEUTROPHIL 88 % (50-75); TOTAL CELLS COUNTED 100
--- NOTE | 2016-11-29 14:02 | CP.PCM.PN ---
<Tj Albarran - Last Filed: 11/29/16 16:07> Subjective - Date & Time of Evaluation Date of Evaluation: 11/29/16 Time of Evaluation: 07:40 - Subjective Subjective: PGY1 Medicine Note - Dr. Burgos Patient seen and examined at bedside. No overnight events per nursing. Patient resting comfortably, no acute distress. He appeared more lethargic today, but was arousable and participated in exam. Tolerating diet, +BM. Produces minimal urine (was told his kidney function is poor at [facility] recently). Patient c/o b/l numbness/tingling in his toes (chronic). Denies f/c, chest pain, abdominal pain , n/v, d/c, or any additional complaints. Objective - Vital Signs/Intake and Output Vital Signs (last 24 hours): Temp Pulse Resp BP Pulse Ox 98 F 86 20 190/109 H 98 11/29/16 08:00 11/29/16 08:00 11/29/16 08:00 11/29/16 09:45 11/29/16 08:00 Intake and Output: 11/29/16 11/29/16 06:59 18:59 Intake Total 120 Balance 120 - Medications Medications: Current Medications Carvedilol (Coreg) 6.25 mg PO BID [facility] Last Admin: 11/29/16 09:43 Dose: 6.25 mg Furosemide (Lasix) 80 mg IVP BID [facility] Last Admin: 11/29/16 09:45 Dose: 80 mg Heparin Sodium (Porcine) (Heparin) 5,000 units SC Q8 [facility] Last Admin: 11/29/16 06:53 Dose: 5,000 units Hydralazine HCl (Apresoline) 25 mg PO Q6 [facility] Last Admin: 11/29/16 12:41 Dose: 25 mg Insulin Aspart (Novolog) 4 unit SC TIDAC [facility] Last Admin: 11/29/16 12:54 Dose: Not Given Insulin Aspart (Novolog) 0 unit SC ACHS [facility] PRN Reason: Protocol Last Admin: 11/29/16 12:54 Dose: Not Given Insulin Detemir (Levemir) 10 unit SC HS [facility] Metolazone (Zaroxolyn) 5 mg PO DAILY [facility] Last Admin: 11/29/16 09:43 Dose: 5 mg Mupirocin (Bactroban Ointment) 1 gm TOP BID [facility] Last Admin: 11/29/16 10:00 Dose: Not Given Nitroglycerin (Nitro-Bid 2% Oint) 1 ea TOP 1100,2300 PRN PRN Reason: SBP > 160 Pantoprazole Sodium (Protonix Inj) 40 mg IVP DAILY [facility] Last Admin: 11/29/16 09:43 Dose: 40 mg - Labs Labs: 11/29/16 11:23 11/29/16 07:57 PT 11.8 SECONDS (9.7-12.2) 11/28/16 05:36 INR 1.1 11/28/16 05:36 APTT 25 SECONDS (21-34) 11/28/16 05:36 - Additional Findings Additional findings: - Constitutional Appears: Non-toxic, No Acute Distress - Head Exam Head Exam: ATRAUMATIC, NORMOCEPHALIC - Eye Exam Eye Exam: Normal appearance Pupil Exam: PERRL - ENT Exam ENT Exam: Mucous Membranes Moist - Neck Exam Additional comments: JVD present - Respiratory Exam Respiratory Exam: Rales - Cardiovascular Exam Cardiovascular Exam: +S1, +S2 - GI/Abdominal Exam GI & Abdominal Exam: Normal Bowel Sounds, Soft - Extremities Exam Extremities exam: Positive for: pedal edema -L Foot 1st Toe amputation -R Foot 2nd Toe darkened, cool to touch, with 2 eschars on dorsal surface. - Back Exam Back exam: NORMAL INSPECTION - Neurological Exam Neurological exam: Alert, Oriented x3 - Skin Skin Exam: Dry, Warm Additional comments: Significant and diffuse anasarca. 4+ pitting edema in his extremities. Assessment and Plan - Assessment and Plan (Free Text) Assessment: Acute on chronic systolic heart failure 11/28-11/29: Echo (not yet performed) - Significant anasarca, 4+ pitting on all extremities - BNP - [id number] - CXR - cardiomegaly, venous congestion - f/u official read - CT abd/pelvis - Findings as described above supportive of diffuse edematous state. Findings include pleural and pericardial effusions, extensive subcutaneous edema.Bilateral perinephric stranding. This may be a chronic finding however urinalysis could be performed to exclude infectious/ inflammatory process. Left lung infiltrate/atelectasis. Please see full report - Cardio consult (Sukumar) - help appreciate - Lasix 80mg BID - Metolazone 2.5mg daily - Coreg 6.25mg BID Anasarca - Likely due to CHF exacerbation - See above AMINA 11/29: f/u Hep panel. Patient lethargic, consider uremia. 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 - Renal ultrasound - increased echogenicity consistent with medical renal dz - Cr 3.1 - AM labs - Continue to diurese - Greco inserted HTN 11/29: BP elevated 190/109 - Increase to Hydralazine 25mg PO Q6H LONG 11/28: BP elevated at 182/114. Add on Hydralazine 20mg PO Q12 LONG + Nitro paste 1inch Q12 PRN, SBP >160 - 164/115 on admission, persisting on repeats - Coreg 6.25mg BID - Lasix 80mg BID - Metolazone 2.5mg daily -Nitro paste 1inch Q12 PRN, SBP >160 -Hydralazine 25mg PO Q6H LONG Diabetes 11/29: Glucose 29 -> decreased Levemir and Novolog, added ISS coverage. - Levemir 10 units HS - Novolog 4 units TIDAC - ISS Possible PAD -Ulcers of R 2nd toe, Burch 1, ungradable small; R/O Ischemia and PAD -prior amputation of left hallux. - Consulted Podiatry, Dr. Maradiaga (11/28) -Will change the dressing with Bactroban and DSD daily - Consulted Vascular surgery, Dr. Mckeon (11/28) - f/u venous and arterial dopplers - further plans pending results of imaging Hyperkalemia - resolved 11/29: K 4.7, WNL, monitor 11/28: Kayexelate 30 - 6.8 on admission -> 6.3 -> 5.5 - Given Ca gluconate and kayexelate in ED - Lasix 80mg BID PPX - Heparin - Protonix <Loretta,Matthew - Last Filed: 01/11/17 11:57> Objective - Vital Signs/Intake and Output Vital Signs (last 24 hours): Temp Pulse Resp BP Pulse Ox 97 F L 77 20 118/76 96 12/04/16 18:15 12/04/16 18:15 12/04/16 18:15 12/04/16 18:16 12/04/16 18:15 - Labs Labs: 12/04/16 06:59 12/04/16 06:59 PT 12.0 SECONDS (9.7-12.2) 12/03/16 19:46 INR 1.1 12/03/16 19:46 APTT 35 SECONDS (21-34) H 12/03/16 19:46 Attending/Attestation - Attestation I have personally seen and examined this patient.: Yes I have fully participated in the care of the patient.: Yes I have reviewed all pertinent clinical information, including history, physical exam and plan: Yes Notes (Text): Patient seen and examined with the resident. Agree with the resident's evaluation, assessment and plan. Acute on chronic systolic heart failure 11/28-11/29: Echo (not yet performed)
--- NOTE | 2016-11-29 14:12 | CP.PCM.CON ---
History of Present Illness - History of Present Illness History of Present Illness: 51 y/o male patient with PMH significant for CHF (EF 34%), HTN and DM seen and evaluated at bedside after request for podiatry consult. Patient states that he came to [facility] ED because of lower extremity swelling and SOB. Podiatry was consulted for right foot 2nd digit discoloration. Patient states that he was seen by early this morning. Right foot dressing was intact, clean and dry. Patient denies any pedal pain at this time. Patient denies any symptoms of N/V/F/SOB/Chest pain. Past Patient History - Infectious Disease Hx of Infectious Diseases: None - Tetanus Immunizations Tetanus Immunization: Unknown - Past Medical History & Family History Past Medical History?: Yes - Past Social History Smoking Status: Never Smoked - CARDIAC Hx Congestive Heart Failure: Yes (chronic LV Sys EF 39% on Mugga evaluated by EP for possible ICD) Hx Hypercholesterolemia: Yes Hx Hypertension: Yes - PULMONARY Hx Asthma: Yes Hx Pneumonia: Yes - NEUROLOGICAL Hx Neurological Disorder: No - HEENT Hx HEENT Problems: Yes Other/Comment: left eye blind, Rt. eye vision blurred, uses eyeglasses for reading - RENAL Hx Chronic Kidney Disease: No - ENDOCRINE/METABOLIC Hx Endocrine Disorders: Yes Hx Diabetes Mellitus Type 2: Yes (for 15 years) - HEMATOLOGICAL/ONCOLOGICAL Hx Anemia: Yes - INTEGUMENTARY Hx Dermatological Problems: No - MUSCULOSKELETAL/RHEUMATOLOGICAL Hx Arthritis: Yes (hands and legs) Hx Falls: Yes (fell x5 days ago) - GASTROINTESTINAL Hx Gastritis: Yes - GENITOURINARY/GYNECOLOGICAL Hx Genitourinary Disorders: No - PSYCHIATRIC Hx Anxiety: Yes Hx Depression: Yes Hx Substance Use: No - SURGICAL HISTORY Hx Amputation: Yes (left big toe) Other/Comment: hernia surgery, left knee surgery - ANESTHESIA Hx Anesthesia: Yes Hx Anesthesia Reactions: No Hx Malignant Hyperthermia: No Meds Allergies/Adverse Reactions: Allergies Allergy/AdvReac Type Severity Reaction Status Date / Time Penicillins Allergy Verified 03/09/16 13:01 - Medications Medications: Current Medications Carvedilol (Coreg) 6.25 mg PO BID [facility] Last Admin: 11/29/16 09:43 Dose: 6.25 mg Furosemide (Lasix) 80 mg IVP BID [facility] Last Admin: 11/29/16 09:45 Dose: 80 mg Heparin Sodium (Porcine) (Heparin) 5,000 units SC Q8 [facility] Last Admin: 11/29/16 06:53 Dose: 5,000 units Hydralazine HCl (Apresoline) 25 mg PO Q6 [facility] Last Admin: 11/29/16 12:41 Dose: 25 mg Insulin Aspart (Novolog) 4 unit SC TIDAC [facility] Last Admin: 11/29/16 12:54 Dose: Not Given Insulin Aspart (Novolog) 0 unit SC ACHS [facility] PRN Reason: Protocol Last Admin: 11/29/16 12:54 Dose: Not Given Insulin Detemir (Levemir) 10 unit SC HS [facility] Metolazone (Zaroxolyn) 5 mg PO DAILY [facility] Last Admin: 11/29/16 09:43 Dose: 5 mg Mupirocin (Bactroban Ointment) 1 gm TOP BID [facility] Last Admin: 11/29/16 10:00 Dose: Not Given Nitroglycerin (Nitro-Bid 2% Oint) 1 ea TOP 1100,2300 PRN PRN Reason: SBP > 160 Pantoprazole Sodium (Protonix Inj) 40 mg IVP DAILY [facility] Last Admin: 11/29/16 09:43 Dose: 40 mg Physical Exam - Constitutional Appears: Well, Non-toxic, No Acute Distress - Extremities Exam Additional comments: Right lower extremity CFT is less than 3 seconds, ( x5), Skin temp-Warm, Dressing intact, clean and dry, Lower extremity edema noted. - Neurological Exam Neurological exam: Alert, CN II-XII Intact, Oriented x3 - Psychiatric Exam Psychiatric exam: Normal Affect, Normal Mood Results - Vital Signs Recent Vital Signs: Last Vital Signs Temp 98 F 11/29/16 08:00 Pulse 86 11/29/16 08:00 Resp 20 11/29/16 08:00 BP 190/109 H 11/29/16 09:45 Pulse Ox 98 11/29/16 08:00 - Labs Result Diagrams: 11/29/16 11:23 11/29/16 07:57 Labs: Laboratory Results - last 24 hr 11/28/16 11/28/16 11/28/16 04:33 16:06 16:51 WBC RBC Hgb Hct MCV MCH MCHC RDW Plt Count MPV Neut % (Auto) Lymph % (Auto) [place] % (Auto) Eos % (Auto) Baso % (Auto) Neut # Lymph # [place] # Eos # Baso # Neutrophils % (Manual) Lymphocytes % (Manual) Monocytes % (Manual) Eosinophils % (Manual) Platelet Estimate Hypochromasia (manual) Poikilocytosis (manual Anisocytosis (manual) Marta Cells Sodium 133 Potassium 5.5 H Chloride 103 Carbon Dioxide 15 L Anion Gap 21 H BUN 66 H Creatinine 3.1 H Est GFR ( Amer) 26 Est GFR (Non-Af Amer) 21 POC Glucose (mg/dL) 214 H Random Glucose 174 H Calcium 7.9 L Phosphorus % Saturation Ferritin Total Bilirubin AST ALT Alkaline Phosphatase Total Protein Albumin Globulin Albumin/Globulin Ratio Urine Chloride 61 11/28/16 11/29/16 11/29/16 21:28 06:57 07:10 WBC RBC Hgb Hct MCV MCH MCHC RDW Plt Count MPV Neut % (Auto) Lymph % (Auto) [place] % (Auto) Eos % (Auto) Baso % (Auto) Neut # Lymph # [place] # Eos # Baso # Neutrophils % (Manual) Lymphocytes % (Manual) Monocytes % (Manual) Eosinophils % (Manual) Platelet Estimate Hypochromasia (manual) Poikilocytosis (manual Anisocytosis (manual) [place] Cells Sodium Potassium Chloride Carbon Dioxide Anion Gap BUN Creatinine Est GFR ( Amer) Est GFR (Non-Af Amer) POC Glucose (mg/dL) 150 H 29 L* 105 Random Glucose Calcium Phosphorus % Saturation Ferritin Total Bilirubin AST ALT Alkaline Phosphatase Total Protein Albumin Globulin Albumin/Globulin Ratio Urine Chloride 11/29/16 11/29/16 11/29/16 07:57 08:06 11:23 WBC 10.2 RBC 3.14 L Hgb 9.1 L Hct 29.0 L MCV 92.4 MCH 28.8 MCHC 31.2 L RDW 16.4 H Plt Count 265 MPV 10.4 Neut % (Auto) 83.6 H Lymph % (Auto) 4.2 L [place] % (Auto) 9.6 Eos % (Auto) 2.2 Baso % (Auto) 0.4 Neut # 8.6 H Lymph # 0.4 L [place] # 1.0 H Eos # 0.2 Baso # 0.0 Neutrophils % (Manual) 88 H Lymphocytes % (Manual) 4 L Monocytes % (Manual) 7 Eosinophils % (Manual) 1 Platelet Estimate Normal Hypochromasia (manual) Slight Poikilocytosis (manual Slight Anisocytosis (manual) Slight Marta Cells Slight Sodium 135 Potassium 4.7 Chloride 106 Carbon Dioxide 18 L Anion Gap 16 BUN 67 H Creatinine 3.1 H Est GFR ( Amer) 26 Est GFR (Non-Af Amer) 21 POC Glucose (mg/dL) Random Glucose 100 Calcium 7.7 L Phosphorus 6.3 H % Saturation 16 L Ferritin 319.0 Total Bilirubin 0.3 AST 36 ALT 46 Alkaline Phosphatase 550 H D Total Protein 5.6 L Albumin 2.3 L D Globulin 3.3 Albumin/Globulin Ratio 0.7 L Urine Chloride 11/29/16 11:25 WBC RBC Hgb Hct MCV MCH MCHC RDW Plt Count MPV Neut % (Auto) Lymph % (Auto) [place] % (Auto) Eos % (Auto) Baso % (Auto) Neut # Lymph # [place] # Eos # Baso # Neutrophils % (Manual) Lymphocytes % (Manual) Monocytes % (Manual) Eosinophils % (Manual) Platelet Estimate Hypochromasia (manual) Poikilocytosis (manual Anisocytosis (manual) Marta Cells Sodium Potassium Chloride Carbon Dioxide Anion Gap BUN Creatinine Est GFR ( Amer) Est GFR (Non-Af Amer) POC Glucose (mg/dL) 103 Random Glucose Calcium Phosphorus % Saturation Ferritin Total Bilirubin AST ALT Alkaline Phosphatase Total Protein Albumin Globulin Albumin/Globulin Ratio Urine Chloride Assessment & Plan - Assessment and Plan (Free Text) Assessment: 51 y/o male patient with right foot 2nd digit with Burch 1 ulcer and unstageble small ulcer/Possible PAD Plan: Patient seen and evaluated at bedside All the question and concerns were addressed Discussed with attending Dr. Maradiaga Labs and vitals were reviewed Awaiting Doppler and vascular exam/evaluation by Dr. Mckeon Will change the dressing with Bactroban and DSD daily Podiatry will continue to follow while patient remains in house.
--- NOTE | 2016-11-29 16:55 | CON ---
DATE: 11/29/2016 HISTORY OF PRESENT ILLNESS: This is a 51-year-old gentleman with a history of hypertension, diabetes, chronic kidney disease, and congestive heart failure who presented with worsening of the e leesa all over the body. He was short of breath. For the past few days prior to admission, shortness of breath and edema was getting worse. PAST SURGICAL HISTORY: History of left hallux amputation, inguinal hernia surgery, left eye surgery and currently he has no vision in the left eye. PAST MEDICAL HISTORY: History of CHF, hypertension, diabetes, chronic kidney disease. He had a card iac cath done about a year ago at [facility] and was told to have no significant CAD. This is as per patient. FAMILY HISTORY: Mother has diabetes. Father also had diabetes and in his 70s. PERSONAL HISTORY: Never smoked. No ETOH abuse currently, used to drink heavily in the past. ALLERGIES: PENICILLIN. REVIEW OF SYSTEMS: Generalized weakness is noted. No fever, no chills. Blurred vision in the right eye. No vision in the left eye. Dyspnea on exertion, sleeps on 3 pillows. Nonproductive cough. N o hemoptysis. No hematemesis, no melena, nausea, difficulty urinating. MUSCULOSKELETAL: Generalized weakness is noted. Difficulty in voiding. NEUROLOGIC: Generalized weakness, but no TIAs. No CVAs, no history of depression. ENDOCRINE: Increased fatigue. PHYSICAL EXAMINATION: GENERAL: Shows a middle-aged gentleman, chronically sick looking, in no distress. He is 5 feet 10 i nches, weighs 180 pounds. VITAL SIGNS: His blood pressure was 190/109. Currently, is 163/101, heart rate 96, respiratory rate 20, temperature of 97.7. O2 sat is 95% on room air. HEAD: Normocephalic. EYES: No pallor, no icterus. NECK: Supple. LUNGS: Decreased air entry at the bases. HEART: PMI is not localized. S1, S2 is distant with a grade 1-2/6 systolic murmur in mitral area. ABDOMEN: Distended. EXTREMITIES: 2-3+ edema which is generalized. Dressing on the right foot. NEUROLOGIC: Awake, alert, oriented. LABORATORY DATA: His hemoglobin is 8.8, BUN is 64, creatinine is 3.2, potassium was 3.0. EKG: Sinu s tachycardia, nonspecific ST-T changes. ASSESSMENT: A 51-year-old gentleman with history of hypertension, diabetes, chronic kidney disease. Hyperkalemia, which is being taken care. The patient has seen by Dr. Felix. RECOMMENDATIONS: I think the patient needs an echocardiogram with Doppler studies to evaluate LV siz e and function if not done. We will obtain cardiac [facility] report from [facility]. I thank you kindly. Will follow on a p.r.n. basis. Chino Patino MD cc: [phone] TT: 11/29/2016 16:55:19 Confirmation # [id number] Dictation # [id number]
[2016-11-29] MEDS ORDERED: Insulin Detemir 100 units/ml Vial (Levemir) SC SCH (22:00)
[2016-11-30] MEDS ORDERED: Dextrose 50% SYRINGE Inj (50 ml) IV STA (06:05)
[2016-11-30] MEDS: (Novolog) Insulin Aspart, Recombinant 100 u/ml 10 ml vial SC SCH ×8 (07:28→22:37)
[2016-11-30 07:49] LABS: BASO % 0.3 % (0.0-2.0); EOS # 0.2 K/uL (0.0-0.7); EOS % 1.8 % (0.0-4.0); HEMATOCRIT 26.2 % (35.0-51.0); LYMPH # 0.3 K/uL (1.0-4.3); MEAN CELL VOLUME 91.7 fL (80.0-94.0); MEAN CORPUSCULAR HEMOGLOBIN 29.3 pg (27.0-31.0); MEAN CORPUSCULAR HGB CONC 31.9 g/dL (33.0-37.0); MEAN PLATELET VOLUME 9.7 fL (7.2-11.7); MONO # 0.8 K/uL (0.0-0.8); MONO % 10.2 % (0.0-10.0); NRBC % 0.1 % (0.0-2.0); PLATELET COUNT 230 K/uL (130-400); RED CELL DISTRIBUTION WIDTH 16.5 % (11.5-14.5); WHITE BLOOD COUNT 8.2 K/uL (4.8-10.8)
[2016-11-30 08:05] LABS: BILIRUBIN,TOTAL 0.3 mg/dL (0.2-1.3)
[2016-11-30 08:06] LABS: ALB/GLOB RATIO 0.7 (1.0-2.1); CALCIUM 7.5 mg/dl (8.6-10.4); TOTAL PROTEIN 5.8 g/dL (6.3-8.3)
[2016-11-30 08:35] LABS: EOSINOPHIL 1 % (0-4); NEUTROPHIL 90 % (50-75); TOTAL CELLS COUNTED 100
[2016-11-30] MEDS: metOLazone 5 MG TAB PO SCH (09:46)
--- NOTE | 2016-11-30 11:18 | CP.PCM.PN ---
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- will arrange labs reviewed Will need IV Fe, ESAs Objective - Vital Signs/Intake and Output Vital Signs (last 24 hours): Temp Pulse Resp BP Pulse Ox 97.7 F 76 20 166/101 H 95 11/29/16 23:43 11/30/16 08:00 11/29/16 23:43 11/30/16 09:46 11/29/16 23:43 Intake and Output: 11/30/16 11/30/16 06:59 18:59 Intake Total 240 Output Total 1800 Balance -1560 - Medications Medications: Current Medications Carvedilol (Coreg) 6.25 mg PO BID [facility] Last Admin: 11/30/16 09:46 Dose: 6.25 mg Furosemide (Lasix) 80 mg IVP BID [facility] Last Admin: 11/30/16 09:46 Dose: 80 mg Heparin Sodium (Porcine) (Heparin) 5,000 units SC Q8 [facility] Last Admin: 11/30/16 05:55 Dose: 5,000 units Hydralazine HCl (Apresoline) 25 mg PO Q6 [facility] Last Admin: 11/30/16 05:53 Dose: 25 mg Insulin Aspart (Novolog) 4 unit SC TIDAC [facility] Last Admin: 11/30/16 07:28 Dose: Not Given Insulin Aspart (Novolog) 0 unit SC ACHS [facility] PRN Reason: Protocol Last Admin: 11/30/16 08:50 Dose: 2 unit Insulin Detemir (Levemir) 10 unit SC HS [facility] Last Admin: 11/29/16 21:49 Dose: 10 unit Metolazone (Zaroxolyn) 5 mg PO DAILY [facility] Last Admin: 11/30/16 09:46 Dose: 5 mg Mupirocin (Bactroban Ointment) 1 gm TOP BID [facility] Last Admin: 11/29/16 18:46 Dose: 1 applic Nitroglycerin (Nitro-Bid 2% Oint) 1 ea TOP 1100,2300 PRN PRN Reason: SBP > 160 Pantoprazole Sodium (Protonix Inj) 40 mg IVP DAILY [facility] Last Admin: 11/30/16 09:46 Dose: 40 mg - Labs Labs: 11/30/16 07:30 04/10/17 07:30 PT 11.8 SECONDS (9.7-12.2) 11/28/16 05:36 INR 1.1 11/28/16 05:36 APTT 25 SECONDS (21-34) 11/28/16 05:36 - Constitutional Appears: No Acute Distress, Chronically Ill - Head Exam Head Exam: ATRAUMATIC, NORMAL INSPECTION - Eye Exam Eye Exam: EOMI, Normal appearance - Neck Exam Neck Exam: Normal Inspection. absent: Tenderness - Respiratory Exam Respiratory Exam: Decreased Breath Sounds, NORMAL BREATHING PATTERN - Cardiovascular Exam Cardiovascular Exam: REGULAR RHYTHM, +S1 - GI/Abdominal Exam GI & Abdominal Exam: Soft. absent: Tenderness - Extremities Exam Extremities Exam: Pedal Edema, Tenderness - Neurological Exam Neurological Exam: Alert, CN II-XII Intact - Skin Skin Exam: Dry, Warm Assessment and Plan (1) Congestive heart failure (CHF) Status: Chronic (2) Hypertension Status: Chronic (3) Type 2 diabetes mellitus with diabetic nephropathy Status: Acute (4) Proteinuria due to type 2 diabetes mellitus Status: Acute (5) Chronic anemia Status: Acute - Assessment and Plan (Free Text) Plan: Add IV Fe, ESAs Will set up for dialysis
--- NOTE | 2016-11-30 11:39 | CARD ---
APPROVED REPORT EKG Measurement Heart [id number] <Conclusion> Normal sinus rhythm Possible Left atrial enlargement Rightward axis Nonspecific T wave abnormality Abnormal ECG
--- NOTE | 2016-11-30 11:43 | CP.PCM.PN ---
Subjective - Date & Time of Evaluation Date of Evaluation: 11/30/16 Time of Evaluation: 11:41 - Subjective Subjective: Surgery: Dr Mckeon Patient is lethargic which is baseline. Patient denies any pain in the legs. He complains of swelling, persistent unchanged. Denies chest pain or SOB. Objective - Vital Signs/Intake and Output Vital Signs (last 24 hours): Temp Pulse Resp BP Pulse Ox 97.6 F 77 20 166/101 H 96 11/30/16 08:00 11/30/16 08:00 11/30/16 08:00 11/30/16 09:46 11/30/16 08:00 Intake and Output: 11/30/16 11/30/16 06:59 18:59 Intake Total 240 Output Total 1800 Balance -1560 - Medications Medications: Current Medications Carvedilol (Coreg) 6.25 mg PO BID [facility] Last Admin: 11/30/16 09:46 Dose: 6.25 mg Epoetin Nash (Procrit) 10,000 unit IV TTS [facility] Ferric Sodium Gluconate Complex (Ferrlecit) 125 mg IVPB DAILY [facility] Stop: 12/09/16 10:01 Furosemide (Lasix) 80 mg IVP BID [facility] Last Admin: 11/30/16 09:46 Dose: 80 mg Heparin Sodium (Porcine) (Heparin) 5,000 units SC Q8 [facility] Last Admin: 11/30/16 05:55 Dose: 5,000 units Hydralazine HCl (Apresoline) 25 mg PO Q6 [facility] Last Admin: 11/30/16 05:53 Dose: 25 mg Insulin Aspart (Novolog) 4 unit SC TIDAC [facility] Last Admin: 11/30/16 07:28 Dose: Not Given Insulin Aspart (Novolog) 0 unit SC ACHS [facility] PRN Reason: Protocol Last Admin: 11/30/16 08:50 Dose: 2 unit Insulin Detemir (Levemir) 10 unit SC HS [facility] Last Admin: 11/29/16 21:49 Dose: 10 unit Metolazone (Zaroxolyn) 5 mg PO DAILY [facility] Last Admin: 11/30/16 09:46 Dose: 5 mg Mupirocin (Bactroban Ointment) 1 gm TOP BID [facility] Last Admin: 11/29/16 18:46 Dose: 1 applic Nitroglycerin (Nitro-Bid 2% Oint) 1 ea TOP 1100,2300 PRN PRN Reason: SBP > 160 Pantoprazole Sodium (Protonix Inj) 40 mg IVP DAILY [facility] Last Admin: 11/30/16 09:46 Dose: 40 mg - Labs Labs: 11/30/16 07:30 11/30/16 07:30 PT 11.8 SECONDS (9.7-12.2) 11/28/16 05:36 INR 1.1 11/28/16 05:36 APTT 25 SECONDS (21-34) 11/28/16 05:36 - Constitutional Appears: Non-toxic, No Acute Distress - Head Exam Head Exam: ATRAUMATIC, NORMOCEPHALIC - Eye Exam Eye Exam: EOMI - ENT Exam ENT Exam: Mucous Membranes Moist - Respiratory Exam Respiratory Exam: NORMAL BREATHING PATTERN. absent: Respiratory Distress - Cardiovascular Exam Cardiovascular Exam: REGULAR RHYTHM - Extremities Exam Additional comments: missing left great toe amputation, bilateral LE are warm - Back Exam Additional comments: 3+ pitting edema pulses faint bilateral - Skin Skin Exam: Dry, Warm Assessment and Plan - Assessment and Plan (Free Text) Assessment: 51 y/o M w/ anasarca - f/u venous and arterial dopplers - will likely need dialysis, plan for dialysis catheter insertion on Wednesday - further plans pending results of imaging - further recs per Dr. Linda Pacheco PGY1
--- NOTE | 2016-11-30 12:15 | CP.PCM.PN ---
Subjective - Date & Time of Evaluation Date of Evaluation: 11/30/16 Time of Evaluation: 12:10 - Subjective Subjective: pt seen for ulcers toe 2 right .no complaints today .Bandages intact. Objective - Vital Signs/Intake and Output Vital Signs (last 24 hours): Temp Pulse Resp BP Pulse Ox 97.6 F 77 20 166/101 H 96 11/30/16 08:00 11/30/16 08:00 11/30/16 08:00 11/30/16 09:46 11/30/16 08:00 Intake and Output: 11/30/16 11/30/16 06:59 18:59 Intake Total 240 Output Total 1800 Balance -1560 - Medications Medications: Current Medications Carvedilol (Coreg) 6.25 mg PO BID [facility] Last Admin: 11/30/16 09:46 Dose: 6.25 mg Epoetin Nash (Procrit) 10,000 unit IV TTS [facility] Ferric Sodium Gluconate Complex (Ferrlecit) 125 mg IVPB DAILY [facility] Stop: 12/09/16 10:01 Furosemide (Lasix) 80 mg IVP BID [facility] Last Admin: 11/30/16 09:46 Dose: 80 mg Heparin Sodium (Porcine) (Heparin) 5,000 units SC Q8 [facility] Last Admin: 11/30/16 05:55 Dose: 5,000 units Hydralazine HCl (Apresoline) 25 mg PO Q6 [facility] Last Admin: 11/30/16 05:53 Dose: 25 mg Insulin Aspart (Novolog) 4 unit SC TIDAC [facility] Last Admin: 11/30/16 07:28 Dose: Not Given Insulin Aspart (Novolog) 0 unit SC ACHS [facility] PRN Reason: Protocol Last Admin: 11/30/16 08:50 Dose: 2 unit Insulin Detemir (Levemir) 10 unit SC HS [facility] Last Admin: 11/29/16 21:49 Dose: 10 unit Metolazone (Zaroxolyn) 5 mg PO DAILY [facility] Last Admin: 11/30/16 09:46 Dose: 5 mg Mupirocin (Bactroban Ointment) 1 gm TOP BID [facility] Last Admin: 11/29/16 18:46 Dose: 1 applic Nitroglycerin (Nitro-Bid 2% Oint) 1 ea TOP 1100,2300 PRN PRN Reason: SBP > 160 Pantoprazole Sodium (Protonix Inj) 40 mg IVP DAILY [facility] Last Admin: 11/30/16 09:46 Dose: 40 mg - Labs Labs: 11/30/16 07:30 11/30/16 07:30 PT 11.8 SECONDS (9.7-12.2) 11/28/16 05:36 INR 1.1 11/28/16 05:36 APTT 25 SECONDS (21-34) 11/28/16 05:36 - Extremities Exam Additional comments: O/Burch 1 ulcers x2 dorsal aspect toe 2 right .Improved .Vascular status grossly intact however pedal pulses N.P. b/l . Assessment and Plan - Assessment and Plan (Free Text) Assessment: A/Burch 1 ulcers x2 toe 2 right foot. Plan: P/Bactroban/Xeroform DSD toe 2 right foot. Vascular Management as per .
--- NOTE | 2016-11-30 13:10 | CP.PCM.PN ---
<Connie Shrestah - Last Filed: 11/30/16 13:07> Subjective - Date & Time of Evaluation Date of Evaluation: 11/30/16 Time of Evaluation: 08:00 - Subjective Subjective: Internal medicine progress note for Hospitalist service- Connie Shrestha, PGY-1 Pt S & E at bedside. Pt reports continued B/L LE pain/swelling, some SOB. Denies N/V/F/C, SOB, VALDEZ, abdominal pain. Objective - Vital Signs/Intake and Output Vital Signs (last 24 hours): Temp Pulse Resp BP Pulse Ox 97.6 F 80 20 166/101 H 96 11/30/16 08:00 11/30/16 12:07 11/30/16 08:00 11/30/16 09:46 11/30/16 12:07 Intake and Output: 11/30/16 11/30/16 06:59 18:59 Intake Total 240 Output Total 1800 Balance -1560 - Medications Medications: Current Medications Carvedilol (Coreg) 6.25 mg PO BID [facility] Last Admin: 11/30/16 09:46 Dose: 6.25 mg Epoetin Nash (Procrit) 10,000 unit IV TTS [facility] Ferric Sodium Gluconate Complex (Ferrlecit) 125 mg IVPB DAILY [facility] Stop: 12/09/16 10:01 Furosemide (Lasix) 80 mg IVP BID [facility] Last Admin: 11/30/16 09:46 Dose: 80 mg Heparin Sodium (Porcine) (Heparin) 5,000 units SC Q8 [facility] Last Admin: 11/30/16 05:55 Dose: 5,000 units Hydralazine HCl (Apresoline) 25 mg PO Q6 [facility] Last Admin: 11/30/16 12:31 Dose: 25 mg Insulin Aspart (Novolog) 4 unit SC TIDAC [facility] Last Admin: 11/30/16 12:38 Dose: Not Given Insulin Aspart (Novolog) 0 unit SC ACHS [facility] PRN Reason: Protocol Last Admin: 11/30/16 12:39 Dose: Not Given Insulin Detemir (Levemir) 10 unit SC HS [facility] Last Admin: 11/29/16 21:49 Dose: 10 unit Metolazone (Zaroxolyn) 5 mg PO DAILY [facility] Last Admin: 11/30/16 09:46 Dose: 5 mg Mupirocin (Bactroban Ointment) 1 gm TOP BID [facility] Last Admin: 11/30/16 12:30 Dose: Not Given Nitroglycerin (Nitro-Bid 2% Oint) 1 ea TOP 1100,2300 PRN PRN Reason: SBP > 160 Pantoprazole Sodium (Protonix Inj) 40 mg IVP DAILY [facility] Last Admin: 11/30/16 09:46 Dose: 40 mg - Labs Labs: 11/30/16 07:30 11/30/16 07:30 PT 11.8 SECONDS (9.7-12.2) 11/28/16 05:36 INR 1.1 11/28/16 05:36 APTT 25 SECONDS (21-34) 11/28/16 05:36 - Constitutional Appears: Non-toxic, No Acute Distress - Head Exam Head Exam: ATRAUMATIC, NORMAL INSPECTION, NORMOCEPHALIC - Eye Exam Eye Exam: EOMI, Normal appearance, PERRL Pupil Exam: NORMAL ACCOMODATION, PERRL - ENT Exam ENT Exam: Mucous Membranes Moist, Normal Exam - Neck Exam Neck Exam: Full ROM, Normal Inspection - Respiratory Exam Respiratory Exam: Decreased Breath Sounds (B/L diffuse), NORMAL BREATHING PATTERN. absent: Clear to Ausculation Bilateral, Rales, Rhonchi, Wheezes, Respiratory Distress, Stridor - Cardiovascular Exam Cardiovascular Exam: REGULAR RHYTHM (distant heart sounds), +S1, +S2 - GI/Abdominal Exam GI & Abdominal Exam: Distended, Soft, Normal Bowel Sounds. absent: Firm, Guarding, Rigid, Tenderness - Exam Additional comments: Greco catheter in place with dark yesi urine output in bag - Extremities Exam Extremities Exam: Pedal Edema (3+ pitting B/L), Tenderness. absent: Normal Inspection - Back Exam Back Exam: Full ROM, NORMAL INSPECTION. absent: paraspinal tenderness, tenderness - Neurological Exam Neurological Exam: Alert, Awake, CN II-XII Intact, Oriented x3 - Psychiatric Exam Psychiatric exam: Normal Affect, Normal Mood - Skin Skin Exam: Dry, Intact, Normal Color, Warm Additional comments: Right foot w/dressing in place- C/D/I Assessment and Plan - Assessment and Plan (Free Text) Assessment: Acute on chronic systolic heart failure 11/28-11/29: Echo -pending - Significant anasarca, 4+ pitting on all extremities - BNP - [id number] - CXR -Mild venous congestion. Patchy airspace opacity in the left mid to lower lung zone with associated small left pleural effusion. Right hilar prominence. - CT abd/pelvis - Findings as described above supportive of diffuse edematous state. Findings include pleural and pericardial effusions, extensive subcutaneous edema.Bilateral perinephric stranding. This may be a chronic finding however urinalysis could be performed to exclude infectious/ inflammatory process. Left lung infiltrate/atelectasis. Please see full report - Lasix 80mg BID - Metolazone 2.5mg daily - Coreg 6.25mg BID - Cardio consult (Sukumar) Anasarca - Likely due to CHF exacerbation - pt agreeable to dialysis now - See above AMINA-more likely CKD- oliguria, ESRD, needs dialysis 11/30: Hep negative, pt now agreeable to HD- will go for HD catheter placement tomorrow. Nephro recs- pt now agreeable to HD-will set up, add IV Fe, ESAs 11/29: f/u Hep panel. Patient lethargic, consider uremia. -Total urine random protein 850 H. - Renal ultrasound - increased echogenicity consistent with medical renal dz - Cr 3.1 - Cont Greco - I/Os HTN 11/30: BP 154/94- cont Hydralazine 25mg PO Q6H [facility], coreg, lasix, metolazone, 11/29: BP elevated 190/109 - Increase to Hydralazine 25mg PO Q6H [facility] 11/28: BP elevated at 182/114. Add on Hydralazine 20mg PO Q12 [facility] + Nitro paste 1inch Q12 PRN, SBP >160 - 164/115 on admission, persisting on repeats - Coreg 6.25mg BID - Lasix 80mg BID - Metolazone 2.5mg daily -Nitro paste 1inch Q12 PRN, SBP >160 -Hydralazine 25mg PO Q6H [facility] Diabetes 11/30: blood sugar 147, few episodes of hypoglycemia - BS 33, 35- holding Levemir HS 11/29: Glucose 29 -> decreased Levemir and Novolog, added ISS coverage. Levemir 10 units HS Novolog 4 units TIDAC ISS Possible PAD Ulcers of R 2nd toe, Burch 1, ungradable small; R/O Ischemia and PAD s/p amputation of left hallux Vascular surgery recs- FU venous & arterial dopplers, plan for HD catheter Wednesday, further recs pending imaging Pods recs- P/Bactroban/Xeroform DSD toe 2 right foot. Vascular Management as per . PPX Heparin Protonix Dispo: For HD cath tomorrow NPO after [facility] HD as per nephro DW attending <Don Ferraro M - Last Filed: 11/30/16 16:09> Objective - Vital Signs/Intake and Output Vital Signs (last 24 hours): Temp Pulse Resp BP Pulse Ox 97.6 F 80 20 166/101 H 96 11/30/16 08:00 11/30/16 12:07 11/30/16 08:00 11/30/16 09:46 11/30/16 12:07 Intake and Output: 11/30/16 11/30/16 06:59 18:59 Intake Total 240 Output Total 1800 Balance -1560 - Medications Medications: Current Medications Carvedilol (Coreg) 6.25 mg PO BID [facility] Last Admin: 11/30/16 09:46 Dose: 6.25 mg Epoetin Nash (Procrit) 10,000 unit IV TTS [facility] Ferric Sodium Gluconate Complex (Ferrlecit) 125 mg IVPB DAILY [facility] Stop: 12/09/16 10:01 Furosemide (Lasix) 80 mg IVP BID [facility] Last Admin: 11/30/16 09:46 Dose: 80 mg Heparin Sodium (Porcine) (Heparin) 5,000 units SC Q8 [facility] Last Admin: 11/30/16 14:26 Dose: 5,000 units Hydralazine HCl (Apresoline) 25 mg PO Q6 [facility] Last Admin: 11/30/16 12:31 Dose: 25 mg Insulin Aspart (Novolog) 4 unit SC TIDAC [facility] Last Admin: 11/30/16 12:38 Dose: Not Given Insulin Aspart (Novolog) 0 unit SC ACHS [facility] PRN Reason: Protocol Last Admin: 11/30/16 12:39 Dose: Not Given Insulin Detemir (Levemir) 10 unit SC HS [facility] Last Admin: 11/29/16 21:49 Dose: 10 unit Metolazone (Zaroxolyn) 5 mg PO DAILY [facility] Last Admin: 11/30/16 09:46 Dose: 5 mg Mupirocin (Bactroban Ointment) 1 gm TOP BID [facility] Last Admin: 11/30/16 12:30 Dose: Not Given Nitroglycerin (Nitro-Bid 2% Oint) 1 ea TOP 1100,2300 PRN PRN Reason: SBP > 160 Pantoprazole Sodium (Protonix Inj) 40 mg IVP DAILY [facility] Last Admin: 11/30/16 09:46 Dose: 40 mg - Labs Labs: 11/30/16 07:30 11/30/16 07:30 PT 11.8 SECONDS (9.7-12.2) 11/28/16 05:36 INR 1.1 11/28/16 05:36 APTT 25 SECONDS (21-34) 11/28/16 05:36 Attending/Attestation - Attestation I have personally seen and examined this patient.: Yes I have fully participated in the care of the patient.: Yes I have reviewed all pertinent clinical information, including history, physical exam and plan: Yes Notes (Text): 11/30/16 16:06 Patient was seen and examined at bedside with the resident Patient is diffusely edematous. Continue diuresis with the Lasix and Zaroxolyn Discussed with nephrology. Patient is scheduled for a permacath placement tomorrow and will be started on [employer] Continue local wound care for the right second toe ulcer. Podiatry is on board. Vascular surgery evaluation also in progress. I reviewed the patient's medical record, labs, senior energy consultant recommendations and discussed the plan of care with the resident and I agree with the above history and physical and assessment/plan by the resident.
[2016-11-30] MEDS ORDERED: Tramadol 25 mg PO ONE (13:30)
--- NOTE | 2016-11-30 17:25 | CARD ---
APPROVED REPORT EXAM: Two-dimensional and M-mode echocardiogram with Doppler and color Doppler. INDICATION Chest Pain Congestive Heart Failure RISK FACTORS Hypertension Hyperlipidemia Diabetes M-Mode DIMENSIONS RVDd2.30 (2.1-3.2cm)Left Atrium (MM)3.98 (2.5-4.0cm) IVSd1.29 (0.7-1.1cm)Aortic Root3.01 (2.2-3.7cm) LVDd5.90 (4.0-5.6cm)Aortic Cusp Exc.1.80 (1.5-2.0cm) PWd1.09 (0.7-1.1cm)FS (%) 23 % LVDs4.53 (2.0-3.8cm)LVEF (%)46 (>50%) Mitral Valve MV E Amsakpgl231.7cm/sMV A Zpydrcaj85.8cm/sE/A ratio2.5 TDI E/Lateral E'0.0E/Medial E'0.0 Tricuspid Valve TR Peak [id number]/sTR Peak Gr.[id number] LEFT VENTRICLE The Left Ventricle is moderately dilated. There is mild to moderate concentric left ventricular hypertrophy. Left ventricle systolic function is mildly impaired. The Ejection Fraction is - 46% There is global hypokinesis of the left ventricle. Transmitral Doppler flow pattern is Grade II-pseudonormal filling dynamics. RIGHT VENTRICLE The right ventricle is mildly to moderately dilated. Systolic function is mildly reduced. ATRIA The left atrium is moderately dilated. The right atrium is moderately dilated. AORTIC VALVE The aortic valve is normal in structure. No aortic regurgitation is present. MITRAL VALVE The mitral valve is normal in structure. There is no mitral valve regurgitation noted. TRICUSPID VALVE The tricuspid valve is normal in structure. There is moderate tricuspid regurgitation. Right ventricular systolic pressure is estimated at 48 mmHg. PULMONIC VALVE The pulmonary valve is normal in structure. GREAT VESSELS The aortic root is normal in size. The IVC is normal in size and collapses >50% with inspiration. PERICARDIAL EFFUSION There is a trace pericardial effusion. <Conclusion> The Left Ventricle is moderately dilated with global hypokinesis. There is mild to moderate concentric left ventricular hypertrophy. Left ventricle systolic function is mildly impaired. The Ejection Fraction is - 46%. Transmitral Doppler flow pattern is Grade II-pseudonormal filling dynamics. The right ventricle is mildly to moderately dilated with mildly reduced contractility. Right ventricular systolic pressure is estimated at 48 mmHg compatible with moderate pulmonary hypertension. There is a trace pericardial effusion.
[2016-12-01] MEDS: (Novolog) Insulin Aspart, Recombinant 100 u/ml 10 ml vial SC SCH ×7 (07:35→21:46)
[2016-12-01 07:41] LABS: BASO % 0.5 % (0.0-2.0); EOS # 0.2 K/uL (0.0-0.7); EOS % 2.4 % (0.0-4.0); HEMATOCRIT 28.1 % (35.0-51.0); LYMPH # 0.5 K/uL (1.0-4.3); LYMPH % 7.6 % (20.0-40.0); MEAN CELL VOLUME 91.5 fL (80.0-94.0); MEAN CORPUSCULAR HEMOGLOBIN 29.2 pg (27.0-31.0); MEAN CORPUSCULAR HGB CONC 31.9 g/dL (33.0-37.0); MEAN PLATELET VOLUME 9.9 fL (7.2-11.7); MONO # 0.9 K/uL (0.0-0.8); MONO % 12.6 % (0.0-10.0); PLATELET COUNT 278 K/uL (130-400); RED CELL DISTRIBUTION WIDTH 16.5 % (11.5-14.5); WHITE BLOOD COUNT 7.1 K/uL (4.8-10.8)
[2016-12-01 07:52] LABS: POTASSIUM 4.5 mmol/L (3.6-5.2)
[2016-12-01 07:55] LABS: ALB/GLOB RATIO 0.7 (1.0-2.1); BILIRUBIN,TOTAL 0.2 mg/dL (0.2-1.3); CALCIUM 7.6 mg/dl (8.6-10.4); TOTAL PROTEIN 5.9 g/dL (6.3-8.3)
[2016-12-01 09:14] LABS: EOSINOPHIL 1 % (0-4); NEUTROPHIL 77 % (50-75); TOTAL CELLS COUNTED 100
[2016-12-01 09:15] LABS: GIANT PLATELETS PRESENT; LARGE PLATELETS PRESENT
--- NOTE | 2016-12-01 10:45 | CP.PCM.PN ---
Subjective - Date & Time of Evaluation Date of Evaluation: 12/01/16 Time of Evaluation: 10:41 - Subjective Subjective: 51 y/o male with right 2nd digit ulceration with ischemia. Patient is awake in bed at time of exam. States no pain. With family at the time. States that his leg is to heavy to place up in the bed. Denies any acute overnight events. Denies f/cn/v/sob. Objective - Vital Signs/Intake and Output Vital Signs (last 24 hours): Temp Pulse Resp BP Pulse Ox 97.4 F L 77 20 166/97 H 95 12/01/16 07:00 12/01/16 07:00 12/01/16 07:00 12/01/16 07:00 12/01/16 07:00 Intake and Output: 12/01/16 12/01/16 06:59 18:59 Intake Total 300 Output Total 1400 Balance -1100 - Medications Medications: Current Medications Carvedilol (Coreg) 6.25 mg PO BID [facility] Last Admin: 11/30/16 17:55 Dose: 6.25 mg Epoetin Nash (Procrit) 10,000 unit IV TTS [facility] Ferric Sodium Gluconate Complex (Ferrlecit) 125 mg IVPB DAILY [facility] Stop: 12/09/16 10:01 Furosemide (Lasix) 80 mg IVP BID [facility] Last Admin: 11/30/16 17:55 Dose: 80 mg Heparin Sodium (Porcine) (Heparin) 5,000 units SC Q8 [facility] Last Admin: 11/30/16 14:26 Dose: 5,000 units Hydralazine HCl (Apresoline) 25 mg PO Q6 [facility] Last Admin: 12/01/16 06:05 Dose: 25 mg Insulin Aspart (Novolog) 4 unit SC TIDAC [facility] Last Admin: 12/01/16 07:35 Dose: Not Given Insulin Aspart (Novolog) 0 unit SC ACHS [facility] PRN Reason: Protocol Last Admin: 12/01/16 07:35 Dose: Not Given Insulin Detemir (Levemir) 10 unit SC HS [facility] Last Admin: 11/29/16 21:49 Dose: 10 unit Metolazone (Zaroxolyn) 5 mg PO DAILY [facility] Last Admin: 11/30/16 09:46 Dose: 5 mg Mupirocin (Bactroban Ointment) 1 gm TOP BID [facility] Last Admin: 11/30/16 18:29 Dose: 1 applic Nitroglycerin (Nitro-Bid 2% Oint) 1 ea TOP 1100,2300 PRN PRN Reason: SBP > 160 Pantoprazole Sodium (Protonix Inj) 40 mg IVP DAILY [facility] Last Admin: 11/30/16 09:46 Dose: 40 mg - Labs Labs: 12/01/16 07:36 12/01/16 07:36 PT 11.8 SECONDS (9.7-12.2) 11/28/16 05:36 INR 1.1 11/28/16 05:36 APTT 25 SECONDS (21-34) 11/28/16 05:36 - Constitutional Appears: Well, Non-toxic - Neurological Exam Neurological Exam: Alert, Awake, Oriented x3 - Psychiatric Exam Psychiatric exam: Normal Affect, Normal Mood - Skin Skin Exam: Normal Color, Warm - Additional Findings Additional findings: Vasc: DP/PT non plapable due to edema, Temp gradient wnl, CAp fill time < 5 s x 10 Derm: Diffuse +2 pitting edema noted, small roughly .5cm x.5cm open ulceraiton noted on dorsal aspect of 2nd digit pIPJ , mild erythema note surrounding, does not probe to bone, mild maceration noted in 2/3/4 interspace Neuro: Grossly diminished Ortho: hammering of 2nd digit PIPJ Assessment and Plan - Assessment and Plan (Free Text) Assessment: 51 y/o male seen and evaluated with right 2nd digit ulceration with mild ischemia. Plan: Patient evaluated and chart reviewd. discussed with Dr. Maradiaga. Toe does seem to be stable is for HD tomorrow placement tomrorow. Redressed with betadine DSD. Will continue to follow while admitted.
[2016-12-01] MEDS: metOLazone 5 MG TAB PO SCH (11:26)
[2016-12-01] MEDS: Ferric Sodium Gluconat Complex 62.5 mg/5 ml Vial IVPB SCH (11:28)
--- NOTE | 2016-12-01 11:41 | VASCLAB ---
PROCEDURE: HISTORY: Peripheral Artery Disease COMPARISON: None available. TECHNIQUE: Grayscale and duplex Doppler evaluation of the bilateral common femoral, femoral, profunda femoral, popliteal, posterior tibial, anterior tibial and dorsalis pedis arteries was performed. Report prepared by WILL Baez FINDINGS: RIGHT LOWER EXTREMITY: * Common Femoral Artery: Peak Systolic Velocity - 108: Doppler Waveform: Triphasic.: Plaque description - * Profunda Femoral Artery: Peak Systolic Velocity - 65: Doppler Waveform: Triphasic.: Plaque description - * Femoral Artery o Proximal Segment: Peak Systolic Velocity - 91: Doppler Waveform: Triphasic.: Plaque description - o Middle Segment: Peak Systolic Velocity - 92: Doppler Waveform: Triphasic.: Plaque description - o Distal Segment: Peak Systolic Velocity - 86: Doppler Waveform: Triphasic.: Plaque description - * Popliteal Artery o Proximal Segment: Peak Systolic Velocity - 71: Doppler Waveform: Triphasic.: Plaque description - o Middle Segment: Peak Systolic Velocity - 86: Doppler Waveform: Triphasic.: Plaque description - o Distal Segment: Peak Systolic Velocity - 89: Doppler Waveform: Triphasic.: Plaque description - * Posterior Tibial Artery: Peak Systolic Velocity - 103: Doppler Waveform: Triphasic.: Plaque description - * Anterior Tibial Artery: Peak Systolic Velocity - 98: Doppler Waveform: Triphasic.: Plaque description - LEFT LOWER EXTREMITY: * Common Femoral Artery: Peak Systolic Velocity - 89: Doppler Waveform: Triphasic.: Plaque description - * Profunda Femoral Artery: Peak Systolic Velocity - 82: Doppler Waveform: Triphasic.: Plaque description - * Femoral Artery o Proximal Segment: Peak Systolic Velocity - 103: Doppler Waveform: Triphasic.: Plaque description - o Middle Segment: Peak Systolic Velocity - 83: Doppler Waveform: Triphasic.: Plaque description - o Distal Segment: Peak Systolic Velocity - 80: Doppler Waveform: Triphasic.: Plaque description - * Popliteal Artery o Proximal Segment: Peak Systolic Velocity - 69: Doppler Waveform: Triphasic.: Plaque description - o Middle Segment: Peak Systolic Velocity - 69: Doppler Waveform: Triphasic.: Plaque description - o Distal Segment: Peak Systolic Velocity - 95: Doppler Waveform: Triphasic.: Plaque description - * Posterior Tibial Artery: Peak Systolic Velocity - 85: Doppler Waveform: Triphasic.: Plaque description - * Anterior Tibial Artery: Peak Systolic Velocity - 85: Doppler Waveform: Triphasic.: Plaque description - OTHER FINDINGS: Ankle brachial indices could not be performed. IMPRESSION: 1. There is no evidence of hemodynamically significant arterial insufficiency in both lower extremities. 2. Lower extremity arteries appear patent bilaterally. No evidence of increased velocities.
--- NOTE | 2016-12-01 11:48 | CP.PCM.PN ---
Subjective - Date & Time of Evaluation Date of Evaluation: 12/01/16 Time of Evaluation: 11:47 - Subjective Subjective: Alert BP elevated Good UO Creat increased to 3.3 For dialysis cath soon Objective - Vital Signs/Intake and Output Vital Signs (last 24 hours): Temp Pulse Resp BP Pulse Ox 97.4 F L 77 20 176/126 H 95 12/01/16 07:00 12/01/16 07:00 12/01/16 07:00 12/01/16 11:26 12/01/16 07:00 Intake and Output: 12/01/16 12/01/16 06:59 18:59 Intake Total 300 Output Total 1400 Balance -1100 - Medications Medications: Current Medications Carvedilol (Coreg) 12.5 mg PO BID [facility] Epoetin Nash (Procrit) 10,000 unit IV TTS [facility] Ferric Sodium Gluconate Complex (Ferrlecit) 125 mg IVPB DAILY [facility] Stop: 12/09/16 10:01 Last Admin: 12/01/16 11:28 Dose: 125 mg Furosemide (Lasix) 80 mg IVP BID [facility] Last Admin: 12/01/16 11:26 Dose: 80 mg Heparin Sodium (Porcine) (Heparin) 5,000 units SC Q8 [facility] Last Admin: 11/30/16 14:26 Dose: 5,000 units Hydralazine HCl (Apresoline) 25 mg PO Q6 [facility] Last Admin: 12/01/16 06:05 Dose: 25 mg Insulin Aspart (Novolog) 4 unit SC TIDAC [facility] Last Admin: 12/01/16 07:35 Dose: Not Given Insulin Aspart (Novolog) 0 unit SC ACHS [facility] PRN Reason: Protocol Last Admin: 12/01/16 07:35 Dose: Not Given Insulin Detemir (Levemir) 10 unit SC HS [facility] Last Admin: 11/29/16 21:49 Dose: 10 unit Mupirocin (Bactroban Ointment) 1 gm TOP BID [facility] Last Admin: 12/01/16 11:34 Dose: 1 applic Nitroglycerin (Nitro-Bid 2% Oint) 1 ea TOP 1100,2300 PRN PRN Reason: SBP > 160 Pantoprazole Sodium (Protonix Inj) 40 mg IVP DAILY [facility] Last Admin: 12/01/16 11:26 Dose: 40 mg - Labs Labs: 12/01/16 07:36 12/01/16 07:36 PT 11.8 SECONDS (9.7-12.2) 11/28/16 05:36 INR 1.1 11/28/16 05:36 APTT 25 SECONDS (21-34) 11/28/16 05:36 - Constitutional Appears: No Acute Distress, Chronically Ill - Head Exam Head Exam: ATRAUMATIC, NORMAL INSPECTION - Eye Exam Eye Exam: EOMI, Normal appearance - Neck Exam Neck Exam: Normal Inspection. absent: Tenderness - Respiratory Exam Respiratory Exam: Clear to Ausculation Bilateral, NORMAL BREATHING PATTERN - Cardiovascular Exam Cardiovascular Exam: REGULAR RHYTHM, +S1 - GI/Abdominal Exam GI & Abdominal Exam: Soft. absent: Tenderness - Extremities Exam Extremities Exam: Pedal Edema. absent: Tenderness - Neurological Exam Neurological Exam: Alert, CN II-XII Intact - Skin Skin Exam: Dry, Warm Assessment and Plan (1) Congestive heart failure (CHF) Status: Chronic (2) Hypertension Status: Chronic (3) Type 2 diabetes mellitus with diabetic nephropathy Status: Acute (4) Proteinuria due to type 2 diabetes mellitus Status: Acute (5) Chronic anemia Status: Acute - Assessment and Plan (Free Text) Plan: Dialysis cath Dialysis later Increase BP meds
[2016-12-01] MEDS ORDERED: Dextrose 25% Inj (10ml) IV PRN (12:18)
--- NOTE | 2016-12-01 12:19 | CARD ---
APPROVED REPORT EKG Measurement Heart [id number] <Conclusion> Normal sinus rhythm Possible Left atrial enlargement Nonspecific T wave abnormality Abnormal ECG
[2016-12-01] MEDS ORDERED: Dextrose 50% SYRINGE Inj (50 ml) IV PRN (12:20)
--- NOTE | 2016-12-01 12:20 | CARD ---
APPROVED REPORT EKG Measurement Heart [id number] <Conclusion> Normal sinus rhythm Possible Left atrial enlargement Nonspecific T wave abnormality Abnormal ECG
--- NOTE | 2016-12-01 13:38 | CP.PCM.PN ---
<Connie Shrestha - Last Filed: 12/01/16 13:35> Subjective - Date & Time of Evaluation Date of Evaluation: 12/01/16 Time of Evaluation: 08:00 - Subjective Subjective: Internal medicine progress note for Hospitalist service- Connie Shrestha, PGY-1 Pt S & E at bedside. Pt continues to c/o B/L LE pain/swelling, some SOB, but improved. Denies N/V/F/ C, VALDEZ, ab pain. Has not eaten since [place] for OR today. Objective - Vital Signs/Intake and Output Vital Signs (last 24 hours): Temp Pulse Resp BP Pulse Ox 97.4 F L 77 20 176/126 H 95 12/01/16 07:00 12/01/16 09:00 12/01/16 07:00 12/01/16 11:26 12/01/16 07:00 Intake and Output: 12/01/16 12/01/16 06:59 18:59 Intake Total 300 Output Total 1400 Balance -1100 - Medications Medications: Current Medications Carvedilol (Coreg) 12.5 mg PO BID [facility] Dextrose (Dextrose 50% Inj) 25 ml IV ONCE PRN PRN Reason: Hypoglycemia Epoetin Nash (Procrit) 10,000 unit IV TTS [facility] Ferric Sodium Gluconate Complex (Ferrlecit) 125 mg IVPB DAILY [facility] Stop: 12/09/16 10:01 Last Admin: 12/01/16 11:28 Dose: 125 mg Furosemide (Lasix) 80 mg IVP BID [facility] Last Admin: 12/01/16 11:26 Dose: 80 mg Heparin Sodium (Porcine) (Heparin) 5,000 units SC Q8 [facility] Last Admin: 11/30/16 14:26 Dose: 5,000 units Hydralazine HCl (Apresoline) 25 mg PO Q6 [facility] Last Admin: 12/01/16 06:05 Dose: 25 mg Insulin Aspart (Novolog) 4 unit SC TIDAC [facility] Last Admin: 12/01/16 07:35 Dose: Not Given Insulin Aspart (Novolog) 0 unit SC ACHS [facility] PRN Reason: Protocol Last Admin: 12/01/16 07:35 Dose: Not Given Insulin Detemir (Levemir) 10 unit SC HS [facility] Last Admin: 11/29/16 21:49 Dose: 10 unit Mupirocin (Bactroban Ointment) 1 gm TOP BID [facility] Last Admin: 12/01/16 11:34 Dose: 1 applic Nitroglycerin (Nitro-Bid 2% Oint) 1 ea TOP 1100,2300 PRN PRN Reason: SBP > 160 Pantoprazole Sodium (Protonix Inj) 40 mg IVP DAILY [facility] Last Admin: 12/01/16 11:26 Dose: 40 mg - Labs Labs: 12/01/16 07:36 12/01/16 07:36 PT 11.8 SECONDS (9.7-12.2) 11/28/16 05:36 INR 1.1 11/28/16 05:36 APTT 25 SECONDS (21-34) 11/28/16 05:36 - Constitutional Appears: Non-toxic, No Acute Distress - Head Exam Head Exam: ATRAUMATIC, NORMAL INSPECTION, NORMOCEPHALIC - Eye Exam Eye Exam: EOMI, Normal appearance, PERRL Pupil Exam: NORMAL ACCOMODATION, PERRL - ENT Exam ENT Exam: Mucous Membranes Moist, Normal Exam - Neck Exam Neck Exam: Full ROM, Normal Inspection - Respiratory Exam Respiratory Exam: Decreased Breath Sounds, NORMAL BREATHING PATTERN. absent: Clear to Ausculation Bilateral, Rales, Rhonchi, Wheezes, Respiratory Distress, Stridor - Cardiovascular Exam Cardiovascular Exam: REGULAR RHYTHM (distant heart sounds), +S1, +S2 - GI/Abdominal Exam GI & Abdominal Exam: Soft, Normal Bowel Sounds. absent: Distended, Firm, Guarding, Rigid, Tenderness - Extremities Exam Extremities Exam: Pedal Edema (3+ B/L pitting ), Tenderness. absent: Normal Inspection (Right foot with dressing in place as per podiatry - clean/dry/intact ) - Back Exam Back Exam: Full ROM, NORMAL INSPECTION - Neurological Exam Neurological Exam: Alert, Awake, CN II-XII Intact, Oriented x3 - Psychiatric Exam Psychiatric exam: Normal Affect, Normal Mood - Skin Skin Exam: Dry, Intact, Normal Color, Warm Assessment and Plan - Assessment and Plan (Free Text) Assessment: Acute on chronic systolic heart failure 12/01: Echo - LV mod dilated w/global hyokinesis, mild- mod concentric LVH, LV systolic function mildly impaired, EF 46%, RV mild-mod dilated w/mildly reduced contractility, RV systolic pressure ~48mmHg = mod pulm HTN, trace pericardial effusion - Significant anasarca, 3+ pitting on all extremities - BNP - [id number] - CXR -Mild venous congestion. Patchy airspace opacity in the left mid to lower lung zone with associated small left pleural effusion. Right hilar prominence. - CT abd/pelvis - Findings as described above supportive of diffuse edematous state. Findings include pleural and pericardial effusions, extensive subcutaneous edema.Bilateral perinephric stranding. This may be a chronic finding however urinalysis could be performed to exclude infectious/ inflammatory process. Left lung infiltrate/atelectasis. Please see full report - Lasix 80mg BID - Metolazone 2.5mg daily - Coreg 6.25mg BID increased to 12.5mg BID per nephro - Cardio consult (Sukumar) Anasarca - Likely due to CHF exacerbation - pt agreeable to dialysis now - See above ESRD, not currently on HD 12/01:oliguria, ESRD, needs dialysis- cather placement today, HD afterwards 11/30: Hep negative, pt now agreeable to HD- will go for HD catheter placement tomorrow. Nephro recs- pt now agreeable to HD-will set up, add IV Fe, ESAs 11/29: f/u Hep panel. Patient lethargic, consider uremia. -Total urine random protein 850 H. - Renal ultrasound - increased echogenicity consistent with medical renal dz - Cr 3.3 - Cont Greco - I/Os Nephro following- HD after HD catheter placed today, ferric sodium gluconate 125mg IVBP daily, Procrit 10,000 units IV TTS For HD catheter placement today - - D50% given x 1 per surgery HTN 12/01 BP 166/97- cont Hydralazine 25mg PO Q6H LONG, coreg- increased by nephro, lasix, metolazone - d/c'd by nephro -likely due to fluid overload, pt with oliguria 11/30: BP 154/94- cont Hydralazine 25mg PO Q6H LONG, coreg, lasix, metolazone, 11/29: BP elevated 190/109 - Increase to Hydralazine 25mg PO Q6H LONG 11/28: BP elevated at 182/114. Add on Hydralazine 20mg PO Q12 LONG + Nitro paste 1inch Q12 PRN, SBP >160 - 164/115 on admission, persisting on repeats - Coreg 6.25mg BID - Lasix 80mg BID - Metolazone 2.5mg daily -Nitro paste 1inch Q12 PRN, SBP >160 -Hydralazine 25mg PO Q6H [facility] Diabetes 12/01: no hypoglycemia over last 24hrs, given D50% x 1 per surgery 11/30: blood sugar 147, few episodes of hypoglycemia - BS 33, 35- holding Levemir HS 11/29: Glucose 29 -> decreased Levemir and Novolog, added ISS coverage. Levemir 10 units HS Novolog 4 units TIDAC ISS Possible PAD Ulcers of R 2nd toe, Burch 1, ungradable small; R/O Ischemia and PAD s/p amputation of left hallux Arterial duplex U/S - neg for hemodynamically sig arterial insuffiency B/L, LE arteries appear patent B/L- no evidence of increased velocities Vascular surgery recs- FU venous & arterial dopplers, plan for HD catheter today , further recs pending imaging Pod- toes stable, for HD tomorrow after HD catheter placement today, right foot re-dressed with betadine DSD, following PPX Heparin Protonix Dispo: For HD cath today HD as per nephro after cath placement DW attending <Don Ferraro - Last Filed: 12/02/16 08:41> Objective - Vital Signs/Intake and Output Vital Signs (last 24 hours): Temp Pulse Resp BP Pulse Ox 97.4 F L 72 20 134/80 95 12/01/16 23:35 12/01/16 23:35 12/01/16 23:35 12/01/16 23:35 12/01/16 23:35 Intake and Output: 12/02/16 12/02/16 06:59 18:59 Output Total 500 Balance -500 - Medications Medications: Current Medications Carvedilol (Coreg) 12.5 mg PO BID [facility] Last Admin: 12/01/16 19:58 Dose: 12.5 mg Dextrose (Dextrose 50% Inj) 25 ml IV ONCE PRN PRN Reason: Hypoglycemia Epoetin Nash (Procrit) 10,000 unit IV TTS [facility] Last Admin: 12/01/16 17:09 Dose: 10,000 unit Ferric Sodium Gluconate Complex (Ferrlecit) 125 mg IVPB DAILY [facility] Stop: 12/09/16 10:01 Last Admin: 12/01/16 11:28 Dose: 125 mg Furosemide (Lasix) 80 mg IVP BID [facility] Last Admin: 12/01/16 19:58 Dose: 80 mg Heparin Sodium (Porcine) (Heparin) 5,000 units SC Q8 [facility] Last Admin: 12/02/16 05:23 Dose: 5,000 units Hydralazine HCl (Apresoline) 25 mg PO Q6 [facility] Last Admin: 12/02/16 05:21 Dose: 25 mg Insulin Aspart (Novolog) 4 unit SC TIDAC [facility] Last Admin: 12/01/16 19:42 Dose: Not Given Insulin Aspart (Novolog) 0 unit SC ACHS [facility] PRN Reason: Protocol Last Admin: 12/01/16 21:46 Dose: Not Given Insulin Detemir (Levemir) 10 unit SC HS [facility] Last Admin: 11/29/16 21:49 Dose: 10 unit Mupirocin (Bactroban Ointment) 1 gm TOP BID [facility] Last Admin: 12/01/16 20:04 Dose: 1 applic Nitroglycerin (Nitro-Bid 2% Oint) 1 ea TOP 1100,2300 PRN PRN Reason: SBP > 160 Oxycodone/Acetaminophen (Percocet 5/325 Mg Tab) 1 tab PO Q4H PRN PRN Reason: Pain, moderate (4-7) Stop: 12/04/16 15:15 Last Admin: 12/02/16 05:31 Dose: 1 tab Pantoprazole Sodium (Protonix Inj) 40 mg IVP DAILY [facility] Last Admin: 12/01/16 11:26 Dose: 40 mg - Labs Labs: 12/01/16 07:36 12/01/16 07:36 PT 11.8 SECONDS (9.7-12.2) 11/28/16 05:36 INR 1.1 11/28/16 05:36 APTT 25 SECONDS (21-34) 11/28/16 05:36 Attending/Attestation - Attestation I have personally seen and examined this patient.: Yes I have fully participated in the care of the patient.: Yes I have reviewed all pertinent clinical information, including history, physical exam and plan: Yes Notes (Text): 12/02/16 08:41 Patient was seen and examined at bedside with the resident Patient denies any shortness of breath at this time Plan is for placement of hemodialysis catheter today and for starting hemodialysis Continue diuresis with IV Lasix for now. I discussed the plan of care with the resident and agree with the history and physical and assessment/plan as documented above.
[2016-12-01] MEDS ORDERED: Lidocaine 1% Inj (20ml) ONE (13:44)
[2016-12-01] MEDS ORDERED: Midazolam 2 MG/2 ML VIAL ONE (14:08)
[2016-12-01] MEDS ORDERED: Propofol 10 mg/ml Inj (20 ML) ONE (14:09)
[2016-12-01] MEDS ORDERED: Sodium Chloride 0.9% 500 ML IV ONE (14:10)
[2016-12-01] MEDS ORDERED: Iodixanol 320 MG/ML 200 ML BOTTLE IV ONE (14:12)
[2016-12-01] MEDS ORDERED: HEPARIN-NS 5,000 UNITS/500 ML 500 ML IV ONE (14:12)
[2016-12-01] MEDS ORDERED: Etomidate 20 mg/10ml Inj IV ONE (14:15)
[2016-12-01] MEDS: Vancomycin 1 gm/D5W 200 ml 200 ML IVPB ONE ×2 (14:25→14:31)
--- NOTE | 2016-12-01 15:17 | PCM.SURG1 ---
Surgeon's Initial Post Op Note - Surgeon's Notes Surgeon: Dr. Mckeon [employer] Specialist: Dr. Napier PGY1, Dylan Richardson OMS3 Type of Anesthesia: IV Sedation Pre-Operative Diagnosis: renal failure; fluid overload Operative Findings: see dictation Post-Operative Diagnosis: same Operation Performed: US-guided Permacath placement w/ Fluoro Specimen/Specimens Removed: none Estimated Blood Loss: EBL {In ML}: 20 Blood Products Given: N/A Drains Used: No Drains Post-Op Condition: Good Date of Surgery/Procedure: 12/01/16 Time of Surgery/Procedure: 14:30
[2016-12-01] MEDS ORDERED: HYDROmorphone 0.5 mg/0.5 ml ISec IVP PRN (15:31)
--- NOTE | 2016-12-01 15:34 | OP ---
PROCEDURE DATE: 12/01/2016 PREOPERATIVE DIAGNOSIS: Renal failure. POSTOPERATIVE DIAGNOSIS: Renal failure. PROCEDURE CARRIED OUT: Placement of PermCath, right jugular vein, with C-arm fluoroscopy and ultraso und-guided puncture, micropuncture technique. SURGEON: Timothy Mckeon Jr., MD GRAIN FARMWORKER: Dr. Napier, resident. ANESTHESIOLOGIST: . ____. INDICATIONS: The patient is a 51-year-old man with renal insufficiency, now requires dialysis. OPERATIVE FINDINGS: Catheter was inserted uneventfully via jugular vein. PROCEDURE: The patient was given local anesthesia. Using ultrasound guidance, the right jugular vei n was cannulated. Under fluoroscopic control, the guidewire was advanced centrally. A sheath dilato r was then passed over this and the catheter was positioned in the appropriate location, tip in the s uperior vena cava. It was flushed with heparinized saline and had good return. It was sutured to th e skin. There were no operative complications or problems. OPERATION CARRIED OUT: Placement of PermCath, right jugular vein, with C-arm fluoroscopy and ultraso und-guided puncture. Ultrasound images from the neck showed that the vein was approximately 18 mm in diameter with normal compressibility and no evidence of intraluminal thrombosis Timothy Mckeon Jr., MD cc: 56 TT: 12/01/2016 15:33:33 nd
--- NOTE | 2016-12-01 16:07 | RAD ---
HISTORY: s/p permacath placement COMPARISON: Chest x-ray performed 03/29/17 TECHNIQUE: Chest, one view. FINDINGS: Right-sided dialysis catheter extends to the expected location of the right atrium. LUNGS: Pulmonary venous congestion. Please note that chest x-ray has limited sensitivity for the detection of pulmonary masses. PLEURA: No significant pleural effusion identified. No definite pneumothorax . CARDIOVASCULAR: Cardiomegaly. OSSEOUS STRUCTURES: Degenerative changes. VISUALIZED UPPER ABDOMEN: Unremarkable. OTHER FINDINGS: None. IMPRESSION: Pulmonary venous congestion. Cardiomegaly. Right-sided dialysis catheter extends to the expected location of the right atrium.
[2016-12-01] MEDS: Epoetin Alfa 10,000 unit/ml Dialysis IV SCH (17:09)
[2016-12-01] MEDS: Oxycodone/Acetaminophen 5/325 mg Tab PO PRN (19:01)
--- NOTE | 2016-12-01 19:42 | CP.PCM.PN ---
Subjective - Date & Time of Evaluation Date of Evaluation: 12/01/16 Time of Evaluation: 19:40 - Subjective Subjective: weak,s/p dialysis Objective - Vital Signs/Intake and Output Vital Signs (last 24 hours): Temp Pulse Resp BP Pulse Ox 97.2 F L 73 20 166/108 H 99 12/01/16 19:30 12/01/16 17:18 12/01/16 17:18 12/01/16 19:30 12/01/16 16:30 Intake and Output: 12/01/16 12/02/16 18:59 06:59 Output Total 575 Balance -575 - Medications Medications: Current Medications Carvedilol (Coreg) 12.5 mg PO BID [facility] Dextrose (Dextrose 50% Inj) 25 ml IV ONCE PRN PRN Reason: Hypoglycemia Epoetin Nash (Procrit) 10,000 unit IV TTS [facility] Last Admin: 12/01/16 17:09 Dose: 10,000 unit Ferric Sodium Gluconate Complex (Ferrlecit) 125 mg IVPB DAILY [facility] Stop: 12/09/16 10:01 Last Admin: 12/01/16 11:28 Dose: 125 mg Furosemide (Lasix) 80 mg IVP BID [facility] Last Admin: 12/01/16 11:26 Dose: 80 mg Heparin Sodium (Porcine) (Heparin) 5,000 units SC Q8 [facility] Last Admin: 11/30/16 14:26 Dose: 5,000 units Hydralazine HCl (Apresoline) 25 mg PO Q6 [facility] Last Admin: 12/01/16 13:44 Dose: 25 mg Insulin Aspart (Novolog) 4 unit SC TIDAC [facility] Last Admin: 12/01/16 13:36 Dose: Not Given Insulin Aspart (Novolog) 0 unit SC ACHS [facility] PRN Reason: Protocol Last Admin: 12/01/16 13:37 Dose: Not Given Insulin Detemir (Levemir) 10 unit SC HS [facility] Last Admin: 11/29/16 21:49 Dose: 10 unit Mupirocin (Bactroban Ointment) 1 gm TOP BID [facility] Last Admin: 12/01/16 11:34 Dose: 1 applic Nitroglycerin (Nitro-Bid 2% Oint) 1 ea TOP 1100,2300 PRN PRN Reason: SBP > 160 Oxycodone/Acetaminophen (Percocet 5/325 Mg Tab) 1 tab PO Q4H PRN PRN Reason: Pain, moderate (4-7) Stop: 12/04/16 15:15 Last Admin: 12/01/16 19:01 Dose: 1 tab Pantoprazole Sodium (Protonix Inj) 40 mg IVP DAILY [facility] Last Admin: 12/01/16 11:26 Dose: 40 mg - Labs Labs: 12/01/16 07:36 12/01/16 07:36 PT 11.8 SECONDS (9.7-12.2) 11/28/16 05:36 INR 1.1 11/28/16 05:36 APTT 25 SECONDS (21-34) 11/28/16 05:36 - Constitutional Appears: No Acute Distress, Chronically Ill - ENT Exam ENT Exam: Mucous Membranes Moist - Respiratory Exam Respiratory Exam: Clear to Ausculation Bilateral - Cardiovascular Exam Cardiovascular Exam: REGULAR RHYTHM - GI/Abdominal Exam GI & Abdominal Exam: Soft - Extremities Exam Extremities Exam: Pedal Edema - Neurological Exam Neurological Exam: Alert Assessment and Plan - Assessment and Plan (Free Text) Assessment: htn,ckd
[2016-12-02] MEDS: Oxycodone/Acetaminophen 5/325 mg Tab PO PRN (05:31)
[2016-12-02] MEDS: (Novolog) Insulin Aspart, Recombinant 100 u/ml 10 ml vial SC SCH ×7 (09:33→22:44)
[2016-12-02] MEDS: Ferric Sodium Gluconat Complex 62.5 mg/5 ml Vial IVPB SCH (09:36)
--- NOTE | 2016-12-02 10:44 | CP.PCM.PN ---
Subjective - Date & Time of Evaluation Date of Evaluation: 12/02/16 Time of Evaluation: 10:44 - Subjective Subjective: Patient away from room for procedure? during time of exam. Will f/u tomorrow. Order placed for dressing change with bacitracin dsd. Wound is stable. Objective - Vital Signs/Intake and Output Vital Signs (last 24 hours): Temp Pulse Resp BP Pulse Ox 98.2 F 89 20 144/87 98 12/02/16 08:00 12/02/16 08:00 12/02/16 08:00 12/02/16 09:36 12/02/16 08:00 Intake and Output: 12/02/16 12/02/16 06:59 18:59 Output Total 500 Balance -500 - Medications Medications: Current Medications Carvedilol (Coreg) 12.5 mg PO BID [facility] Last Admin: 12/02/16 09:36 Dose: 12.5 mg Dextrose (Dextrose 50% Inj) 25 ml IV ONCE PRN PRN Reason: Hypoglycemia Epoetin Nash (Procrit) 10,000 unit IV TTS [facility] Last Admin: 12/01/16 17:09 Dose: 10,000 unit Ferric Sodium Gluconate Complex (Ferrlecit) 125 mg IVPB DAILY [facility] Stop: 12/09/16 10:01 Last Admin: 12/02/16 09:36 Dose: 125 mg Furosemide (Lasix) 80 mg IVP BID [facility] Last Admin: 12/02/16 09:36 Dose: 80 mg Heparin Sodium (Porcine) (Heparin) 5,000 units SC Q8 [facility] Last Admin: 12/02/16 05:23 Dose: 5,000 units Hydralazine HCl (Apresoline) 25 mg PO Q6 [facility] Last Admin: 12/02/16 05:21 Dose: 25 mg Insulin Aspart (Novolog) 4 unit SC TIDAC [facility] Last Admin: 12/02/16 09:33 Dose: 4 unit Insulin Aspart (Novolog) 0 unit SC ACHS [facility] PRN Reason: Protocol Last Admin: 12/02/16 09:34 Dose: 4 unit Insulin Detemir (Levemir) 10 unit SC HS [facility] Last Admin: 11/29/16 21:49 Dose: 10 unit Mupirocin (Bactroban Ointment) 1 gm TOP BID [facility] Last Admin: 12/01/16 20:04 Dose: 1 applic Nitroglycerin (Nitro-Bid 2% Oint) 1 ea TOP 1100,2300 PRN PRN Reason: SBP > 160 Oxycodone/Acetaminophen (Percocet 5/325 Mg Tab) 1 tab PO Q4H PRN PRN Reason: Pain, moderate (4-7) Stop: 12/04/16 15:15 Last Admin: 12/02/16 05:31 Dose: 1 tab Pantoprazole Sodium (Protonix Inj) 40 mg IVP DAILY [facility] Last Admin: 12/02/16 09:36 Dose: 40 mg - Labs Labs: 12/01/16 07:36 12/01/16 07:36 PT 11.8 SECONDS (9.7-12.2) 11/28/16 05:36 INR 1.1 11/28/16 05:36 APTT 25 SECONDS (21-34) 11/28/16 05:36
--- NOTE | 2016-12-02 11:34 | CP.PCM.PN ---
<Connie Shrestha - Last Filed: 12/02/16 11:36> Subjective - Date & Time of Evaluation Date of Evaluation: 12/02/16 Time of Evaluation: 07:00 - Subjective Subjective: Internal medicine progress note for Hospitalist service- Connie Shrestha, PGY-1 Pt S & E at bedside. Pt c/o R chest wall pain - HD catheter site. Continues with SOB, B/L LE edema/ pain. Denies N/V/F/C, CP, abdominal pain. Is eating ok, sleeping ok. Objective - Vital Signs/Intake and Output Vital Signs (last 24 hours): Temp Pulse Resp BP Pulse Ox 98.2 F 89 20 144/87 98 12/02/16 08:00 12/02/16 08:00 12/02/16 08:00 12/02/16 09:36 12/02/16 08:00 Intake and Output: 12/02/16 12/02/16 06:59 18:59 Output Total 500 Balance -500 - Medications Medications: Current Medications Carvedilol (Coreg) 12.5 mg PO BID [facility] Last Admin: 12/02/16 09:36 Dose: 12.5 mg Dextrose (Dextrose 50% Inj) 25 ml IV ONCE PRN PRN Reason: Hypoglycemia Epoetin Nash (Procrit) 10,000 unit IV TTS [facility] Last Admin: 12/01/16 17:09 Dose: 10,000 unit Ferric Sodium Gluconate Complex (Ferrlecit) 125 mg IVPB DAILY [facility] Stop: 12/09/16 10:01 Last Admin: 12/02/16 09:36 Dose: 125 mg Furosemide (Lasix) 80 mg IVP BID [facility] Last Admin: 12/02/16 09:36 Dose: 80 mg Heparin Sodium (Porcine) (Heparin) 5,000 units SC Q8 [facility] Last Admin: 12/02/16 05:23 Dose: 5,000 units Hydralazine HCl (Apresoline) 25 mg PO Q6 [facility] Last Admin: 12/02/16 05:21 Dose: 25 mg Insulin Aspart (Novolog) 4 unit SC TIDAC [facility] Last Admin: 12/02/16 09:33 Dose: 4 unit Insulin Aspart (Novolog) 0 unit SC ACHS [facility] PRN Reason: Protocol Last Admin: 12/02/16 09:34 Dose: 4 unit Insulin Detemir (Levemir) 10 unit SC HS [facility] Last Admin: 11/29/16 21:49 Dose: 10 unit Mupirocin (Bactroban Ointment) 1 gm TOP BID [facility] Last Admin: 12/01/16 20:04 Dose: 1 applic Nitroglycerin (Nitro-Bid 2% Oint) 1 ea TOP 1100,2300 PRN PRN Reason: SBP > 160 Oxycodone/Acetaminophen (Percocet 5/325 Mg Tab) 1 tab PO Q4H PRN PRN Reason: Pain, moderate (4-7) Stop: 12/04/16 15:15 Last Admin: 12/02/16 05:31 Dose: 1 tab Pantoprazole Sodium (Protonix Inj) 40 mg IVP DAILY [facility] Last Admin: 12/02/16 09:36 Dose: 40 mg - Labs Labs: 12/01/16 07:36 12/01/16 07:36 PT 11.8 SECONDS (9.7-12.2) 11/28/16 05:36 INR 1.1 11/28/16 05:36 APTT 25 SECONDS (21-34) 11/28/16 05:36 - Constitutional Appears: Non-toxic, No Acute Distress - Head Exam Head Exam: ATRAUMATIC, NORMAL INSPECTION, NORMOCEPHALIC - Eye Exam Eye Exam: EOMI, Normal appearance, PERRL Pupil Exam: NORMAL ACCOMODATION, PERRL - ENT Exam ENT Exam: Mucous Membranes Moist, Normal Exam - Neck Exam Neck Exam: Full ROM, Normal Inspection - Respiratory Exam Respiratory Exam: Chest Wall Tenderness (over R chest wall with HD catheter in place), Decreased Breath Sounds (B/L- improving), NORMAL BREATHING PATTERN. absent: Clear to Ausculation Bilateral, Rhonchi, Wheezes, Respiratory Distress, Stridor - Cardiovascular Exam Cardiovascular Exam: REGULAR RHYTHM (distant heart sounds), +S1, +S2 - GI/Abdominal Exam GI & Abdominal Exam: Soft, Normal Bowel Sounds. absent: Tenderness - Extremities Exam Extremities Exam: Pedal Edema (3+ pitting edema), Tenderness. absent: Normal Inspection - Neurological Exam Neurological Exam: Alert, Awake, Oriented x3 - Psychiatric Exam Psychiatric exam: Normal Affect, Normal Mood - Skin Skin Exam: Dry, Normal Color, Warm. absent: Intact (HD catheter in place in Right chest wall, no erythema or drainage noted) Assessment and Plan - Assessment and Plan (Free Text) Assessment: Acute on chronic systolic heart failure 12/02: FU cardio recs 12/01: Echo - LV mod dilated w/global hyokinesis, mild- mod concentric LVH, LV systolic function mildly impaired, EF 46%, RV mild-mod dilated w/mildly reduced contractility, RV systolic pressure ~48mmHg = mod pulm HTN, trace pericardial effusion - Significant anasarca, 3+ pitting on all extremities - BNP - [id number] - CXR -Mild venous congestion. Patchy airspace opacity in the left mid to lower lung zone with associated small left pleural effusion. Right hilar prominence. - CT abd/pelvis - Findings as described above supportive of diffuse edematous state. Findings include pleural and pericardial effusions, extensive subcutaneous edema.Bilateral perinephric stranding. This may be a chronic finding however urinalysis could be performed to exclude infectious/ inflammatory process. Left lung infiltrate/atelectasis. Please see full report - Lasix 80mg BID - Metolazone 2.5mg daily - Coreg 6.25mg BID increased to 12.5mg BID per nephro - Cardio consult (Sukumar) Anasarca - Likely due to CHF exacerbation - pt agreeable to dialysis now - See above ESRD, started on HD 12/02: Had HD yesterday- FU nephro recs 12/01:oliguria, ESRD, needs dialysis- cather placement today, HD afterwards 11/30: Hep negative, pt now agreeable to HD- will go for HD catheter placement tomorrow. Nephro recs- pt now agreeable to HD-will set up, add IV Fe, ESAs 11/29: f/u Hep panel. Patient lethargic, consider uremia. -Total urine random protein 850 H. - Renal ultrasound - increased echogenicity consistent with medical renal dz - Cr 3.3 - Cont Greco - I/Os HTN 12/02: BP 134/80 12/01 BP 166/97- cont Hydralazine 25mg PO Q6H [facility], coreg- increased by nephro, lasix, metolazone - d/c'd by nephro -likely due to fluid overload, pt with oliguria 11/30: BP 154/94- cont Hydralazine 25mg PO Q6H LONG, coreg, lasix, metolazone, 11/29: BP elevated 190/109 - Increase to Hydralazine 25mg PO Q6H [facility] 11/28: BP elevated at 182/114. Add on Hydralazine 20mg PO Q12 [facility] + Nitro paste 1inch Q12 PRN, SBP >160 - 164/115 on admission, persisting on repeats - Coreg 6.25mg BID - Lasix 80mg BID - Metolazone 2.5mg daily -Nitro paste 1inch Q12 PRN, SBP >160 -Hydralazine 25mg PO Q6H [facility] Diabetes 12/02: Blood sugars in 100-250's 12/01: no hypoglycemia over last 24hrs, given D50% x 1 per surgery 11/30: blood sugar 147, few episodes of hypoglycemia - BS 33, 35- holding Levemir HS 11/29: Glucose 29 -> decreased Levemir and Novolog, added ISS coverage. Levemir 10 units HS Novolog 4 units TIDAC ISS Possible PAD Ulcers of R 2nd toe, Burch 1, ungradable small; R/O Ischemia and PAD s/p amputation of left hallux Arterial duplex U/S - neg for hemodynamically sig arterial insuffiency B/L, LE arteries appear patent B/L- no evidence of increased velocities Vascular surgery recs- FU venous & arterial dopplers, plan for HD catheter today , further recs pending imaging Pods recs- dressing change to right foot PPX Heparin Protonix Dispo: Cont medical mgmt COnt HD as per nephro Right foot care as per podiatry FU cardio recs SW eval for HD placement DW attending <Don Ferraro - Last Filed: 12/02/16 16:58> Objective - Vital Signs/Intake and Output Vital Signs (last 24 hours): Temp Pulse Resp BP Pulse Ox 98.3 F 78 20 131/81 94 L 12/02/16 15:00 12/02/16 15:00 12/02/16 15:00 12/02/16 15:00 12/02/16 15:00 Intake and Output: 12/02/16 12/02/16 06:59 18:59 Intake Total 300 Output Total 500 500 Balance -500 -200 - Medications Medications: Current Medications Carvedilol (Coreg) 12.5 mg PO BID [facility] Last Admin: 04/12/17 09:36 Dose: 12.5 mg Dextrose (Dextrose 50% Inj) 25 ml IV ONCE PRN PRN Reason: Hypoglycemia Epoetin Nash (Procrit) 10,000 unit IV TTS [facility] Last Admin: 12/01/16 17:09 Dose: 10,000 unit Ferric Sodium Gluconate Complex (Ferrlecit) 125 mg IVPB TuThSa [facility] Stop: 12/11/16 10:01 Furosemide (Lasix) 80 mg IVP BID [facility] Last Admin: 12/02/16 09:36 Dose: 80 mg Heparin Sodium (Porcine) (Heparin) 5,000 units SC Q8 [facility] Last Admin: 12/02/16 13:34 Dose: 5,000 units Hydralazine HCl (Apresoline) 25 mg PO Q6 [facility] Last Admin: 12/02/16 12:18 Dose: 25 mg Insulin Aspart (Novolog) 4 unit SC TIDAC [facility] Last Admin: 12/02/16 12:18 Dose: 4 unit Insulin Aspart (Novolog) 0 unit SC ACHS [facility] PRN Reason: Protocol Last Admin: 12/02/16 12:19 Dose: 2 unit Insulin Detemir (Levemir) 10 unit SC HS [facility] Last Admin: 11/29/16 21:49 Dose: 10 unit Mupirocin (Bactroban Ointment) 1 gm TOP BID [facility] Last Admin: 12/02/16 13:34 Dose: 1 applic Nitroglycerin (Nitro-Bid 2% Oint) 1 ea TOP 1100,2300 PRN PRN Reason: SBP > 160 Oxycodone/Acetaminophen (Percocet 5/325 Mg Tab) 1 tab PO Q4H PRN PRN Reason: Pain, moderate (4-7) Stop: 12/04/16 15:15 Last Admin: 12/02/16 05:31 Dose: 1 tab Pantoprazole Sodium (Protonix Inj) 40 mg IVP DAILY [facility] Last Admin: 12/02/16 09:36 Dose: 40 mg - Labs Labs: 12/01/16 07:36 12/01/16 07:36 PT 11.8 SECONDS (9.7-12.2) 11/28/16 05:36 INR 1.1 11/28/16 05:36 APTT 25 SECONDS (21-34) 11/28/16 05:36 Attending/Attestation - Attestation I have personally seen and examined this patient.: Yes I have fully participated in the care of the patient.: Yes I have reviewed all pertinent clinical information, including history, physical exam and plan: Yes Notes (Text): 12/02/16 16:57 Patient seen and examined at bedside with the resident today Patient still has anasarca Hemodialysis catheter is in place and patient received hemodialysis yesterday and Further plan for hemodialysis as per renal Patient complains of mild pain at the site of dialysis catheter and we'll start the patient on pain medication as needed I discussed the plan of care with the resident and agree with the history and physical and assessment/plan as documented above
--- NOTE | 2016-12-02 12:00 | CP.PCM.PN ---
Subjective - Date & Time of Evaluation Date of Evaluation: 12/02/16 Time of Evaluation: 07:00 - Subjective Subjective: VASCULAR SURGERY PROGRESS NOTE FOR DR. CHRISTY Patient seen and examined at bedside. He is s/p permacath insertion and had dialysis yesterday. He denies SOB or chest pain but states that he has some pain at the catheter insertion site. Objective - Vital Signs/Intake and Output Vital Signs (last 24 hours): Temp Pulse Resp BP Pulse Ox 98.2 F 89 20 144/87 98 12/02/16 08:00 12/02/16 08:00 12/02/16 08:00 12/02/16 09:36 12/02/16 08:00 Intake and Output: 12/02/16 12/02/16 06:59 18:59 Output Total 500 Balance -500 - Medications Medications: Current Medications Carvedilol (Coreg) 12.5 mg PO BID [facility] Last Admin: 12/02/16 09:36 Dose: 12.5 mg Dextrose (Dextrose 50% Inj) 25 ml IV ONCE PRN PRN Reason: Hypoglycemia Epoetin Nash (Procrit) 10,000 unit IV TTS [facility] Last Admin: 12/01/16 17:09 Dose: 10,000 unit Ferric Sodium Gluconate Complex (Ferrlecit) 125 mg IVPB DAILY [facility] Stop: 12/09/16 10:01 Last Admin: 12/02/16 09:36 Dose: 125 mg Furosemide (Lasix) 80 mg IVP BID [facility] Last Admin: 12/02/16 09:36 Dose: 80 mg Heparin Sodium (Porcine) (Heparin) 5,000 units SC Q8 [facility] Last Admin: 12/02/16 05:23 Dose: 5,000 units Hydralazine HCl (Apresoline) 25 mg PO Q6 [facility] Last Admin: 12/02/16 05:21 Dose: 25 mg Insulin Aspart (Novolog) 4 unit SC TIDAC [facility] Last Admin: 12/02/16 09:33 Dose: 4 unit Insulin Aspart (Novolog) 0 unit SC ACHS [facility] PRN Reason: Protocol Last Admin: 12/02/16 09:34 Dose: 4 unit Insulin Detemir (Levemir) 10 unit SC HS [facility] Last Admin: 11/29/16 21:49 Dose: 10 unit Mupirocin (Bactroban Ointment) 1 gm TOP BID [facility] Last Admin: 12/01/16 20:04 Dose: 1 applic Nitroglycerin (Nitro-Bid 2% Oint) 1 ea TOP 1100,2300 PRN PRN Reason: SBP > 160 Oxycodone/Acetaminophen (Percocet 5/325 Mg Tab) 1 tab PO Q4H PRN PRN Reason: Pain, moderate (4-7) Stop: 12/04/16 15:15 Last Admin: 12/02/16 05:31 Dose: 1 tab Pantoprazole Sodium (Protonix Inj) 40 mg IVP DAILY [facility] Last Admin: 12/02/16 09:36 Dose: 40 mg - Labs Labs: 12/01/16 07:36 12/01/16 07:36 PT 11.8 SECONDS (9.7-12.2) 11/28/16 05:36 INR 1.1 11/28/16 05:36 APTT 25 SECONDS (21-34) 11/28/16 05:36 - Constitutional Appears: Non-toxic, No Acute Distress - Head Exam Head Exam: ATRAUMATIC, NORMAL INSPECTION - Eye Exam Eye Exam: EOMI, Normal appearance - Respiratory Exam Respiratory Exam: NORMAL BREATHING PATTERN. absent: Respiratory Distress - Cardiovascular Exam Cardiovascular Exam: +S1, +S2 - Neurological Exam Neurological Exam: Alert, Awake - Psychiatric Exam Psychiatric exam: Normal Affect, Normal Mood Assessment and Plan - Assessment and Plan (Free Text) Assessment: 51yo M with ESRD, s/p Permacath insertion POD#1 - Afebrile, VSS - Received dialysis yesterday, going tomorrow as well per Dr. Felix's note - Left arm precautions - Going for vein mapping today - Will discuss plan with Dr. Linda Shay PGY-2
--- NOTE | 2016-12-02 14:26 | CP.PCM.PN ---
Subjective - Date & Time of Evaluation Date of Evaluation: 12/02/16 Time of Evaluation: 14:23 - Subjective Subjective: Alert; NAD LEs remain with 4+ edema Stable dialysis 12/01- UF 1500ml Fair UO still BP better controlled No new complaints Objective - Vital Signs/Intake and Output Vital Signs (last 24 hours): Temp Pulse Resp BP Pulse Ox 98.2 F 83 20 125/81 98 12/02/16 08:00 12/02/16 12:20 12/02/16 08:00 12/02/16 12:20 12/02/16 08:00 Intake and Output: 12/02/16 12/02/16 06:59 18:59 Output Total 500 Balance -500 - Medications Medications: Current Medications Carvedilol (Coreg) 12.5 mg PO BID [facility] Last Admin: 12/02/16 09:36 Dose: 12.5 mg Dextrose (Dextrose 50% Inj) 25 ml IV ONCE PRN PRN Reason: Hypoglycemia Epoetin Nash (Procrit) 10,000 unit IV TTS [facility] Last Admin: 12/01/16 17:09 Dose: 10,000 unit Ferric Sodium Gluconate Complex (Ferrlecit) 125 mg IVPB DAILY [facility] Stop: 12/09/16 10:01 Last Admin: 12/02/16 09:36 Dose: 125 mg Furosemide (Lasix) 80 mg IVP BID [facility] Last Admin: 12/02/16 09:36 Dose: 80 mg Heparin Sodium (Porcine) (Heparin) 5,000 units SC Q8 [facility] Last Admin: 12/02/16 13:34 Dose: 5,000 units Hydralazine HCl (Apresoline) 25 mg PO Q6 [facility] Last Admin: 12/02/16 12:18 Dose: 25 mg Insulin Aspart (Novolog) 4 unit SC TIDAC [facility] Last Admin: 12/02/16 12:18 Dose: 4 unit Insulin Aspart (Novolog) 0 unit SC ACHS [facility] PRN Reason: Protocol Last Admin: 12/02/16 12:19 Dose: 2 unit Insulin Detemir (Levemir) 10 unit SC HS [facility] Last Admin: 11/29/16 21:49 Dose: 10 unit Mupirocin (Bactroban Ointment) 1 gm TOP BID [facility] Last Admin: 12/02/16 13:34 Dose: 1 applic Nitroglycerin (Nitro-Bid 2% Oint) 1 ea TOP 1100,2300 PRN PRN Reason: SBP > 160 Oxycodone/Acetaminophen (Percocet 5/325 Mg Tab) 1 tab PO Q4H PRN PRN Reason: Pain, moderate (4-7) Stop: 12/04/16 15:15 Last Admin: 12/02/16 05:31 Dose: 1 tab Pantoprazole Sodium (Protonix Inj) 40 mg IVP DAILY [facility] Last Admin: 12/02/16 09:36 Dose: 40 mg - Labs Labs: 12/01/16 07:36 12/01/16 07:36 PT 11.8 SECONDS (9.7-12.2) 11/28/16 05:36 INR 1.1 11/28/16 05:36 APTT 25 SECONDS (21-34) 11/28/16 05:36 - Constitutional Appears: No Acute Distress, Chronically Ill - Head Exam Head Exam: ATRAUMATIC, NORMAL INSPECTION - Eye Exam Eye Exam: EOMI, Normal appearance - Neck Exam Neck Exam: Normal Inspection. absent: Tenderness - Respiratory Exam Respiratory Exam: Decreased Breath Sounds, Clear to Ausculation Bilateral, NORMAL BREATHING PATTERN - Cardiovascular Exam Cardiovascular Exam: REGULAR RHYTHM, +S1 - GI/Abdominal Exam GI & Abdominal Exam: Soft. absent: Tenderness - Extremities Exam Extremities Exam: Pedal Edema. absent: Tenderness - Neurological Exam Neurological Exam: Alert, CN II-XII Intact - Skin Skin Exam: Dry, Warm Assessment and Plan (1) Congestive heart failure (CHF) Status: Chronic (2) Hypertension Status: Chronic (3) Type 2 diabetes mellitus with diabetic nephropathy Status: Acute (4) Proteinuria due to type 2 diabetes mellitus Status: Acute (5) Chronic anemia Status: Acute (6) ESRD (end stage renal disease) Status: Acute - Assessment and Plan (Free Text) Plan: Repeat dialysis in aM- increase UF rate Monitor BP eventually change to oral diuretics
--- NOTE | 2016-12-02 14:26 | VASCLAB ---
PROCEDURE: Upper Extremity Venous Duplex Exam HISTORY: Pre-evaluation for AVF PRIORS: None. TECHNIQUE: Bilateral upper extremity, internal jugular, subclavian, axillary, brachial, ulnar, radial, basilic and upper cephalic veins were evaluated. Flow was assessed with color Doppler, compressibility, assessment of phasic flow and augmentation response. Report prepared by WILL Baez FINDINGS: RIGHT: 1. Internal Jugular Vein: Not examined due to dialysis catheter 2. Subclavian Vein:Compressibility - Not examined due to dialysis catheter 3. Axillary Vein: Compressibility - Fully compressible: Thrombus - None 4. Brachial Vein: Compressibility - Fully compressible: Thrombus - None 5. Ulnar Vein:Compressibility - Fully compressible: Thrombus - None 6. Radial Vein:Compressibility - Fully compressible: Thrombus - None 7. Cephalic Vein: Compressibility - Fully compressible: thrombus - None 7.1. Upper Arm: Proximal Diameter: 0.34cm. Mid Diameter: 0.41cm. Distal Diameter: 0.23cm. 7.2. Forearm: Proximal Diameter: 0.21cm. Not visualized further 8. Basilic Vein:Compressibility - Fully compressible: thrombus - None 8.1. Upper Arm:Proximal Diameter: 0.43cm. Mid Diameter: 0.59cm. Distal Diameter: 0.44cm. 8.2. Forearm: Proximal Diameter: 0.31cm. Mid Diameter:0.30cm. Distal Diameter: 0.28cm. LEFT: 1. Internal Jugular Vein: Compressibility - Fully compressible: Thrombus - None : Flow - Phasic 2. Subclavian Vein:Compressibility - Fully compressible: Thrombus - None : Flow - Phasic 3. Axillary Vein: Compressibility - Fully compressible: Thrombus - None 4. Brachial Vein: Compressibility - Fully compressible: Thrombus - None 5. Ulnar Vein:Compressibility - Fully compressible: Thrombus - None 6. Radial Vein:Compressibility - Fully compressible: Thrombus - None 7. Cephalic Vein: Compressibility - Fully compressible: thrombus - None 7.1. Upper Arm: Proximal Diameter: 0.31cm. Mid Diameter: 0.22cm. Distal Diameter: 0.15cm. 7.2. Forearm: Not visualized further 8. Basilic Vein: Not visualized. OTHER FINDINGS: IMPRESSION: 1. No evidence of venous thrombosis in bilateral upper extremities. 2. Please refer to the measurements listed above, for vein sizes.
[2016-12-02 20:44] LABS: POTASSIUM 4.5 mmol/L (3.6-5.2)
[2016-12-02 20:46] LABS: ALB/GLOB RATIO 0.7 (1.0-2.1); BILIRUBIN,TOTAL 0.2 mg/dL (0.2-1.3); TOTAL PROTEIN 5.6 g/dL (6.3-8.3)
[2016-12-02 20:47] LABS: CALCIUM 7.2 mg/dl (8.6-10.4)
[2016-12-03] MEDS: (Novolog) Insulin Aspart, Recombinant 100 u/ml 10 ml vial SC SCH ×7 (08:02→21:35)
[2016-12-03 08:51] LABS: POTASSIUM 4.6 mmol/L (3.6-5.2)
[2016-12-03 08:53] LABS: BILIRUBIN,TOTAL 0.3 mg/dL (0.2-1.3)
[2016-12-03 08:54] LABS: ALB/GLOB RATIO 0.7 (1.0-2.1); CALCIUM 7.4 mg/dl (8.6-10.4); TOTAL PROTEIN 5.7 g/dL (6.3-8.3)
[2016-12-03 09:57] LABS: BASO # 0.1 K/uL (0.0-0.2); BASO % 0.8 % (0.0-2.0); EOS # 0.1 K/uL (0.0-0.7); EOS % 2.3 % (0.0-4.0); HEMATOCRIT 27.6 % (35.0-51.0); LYMPH # 0.8 K/uL (1.0-4.3); MEAN CELL VOLUME 92.1 fL (80.0-94.0); MEAN CORPUSCULAR HEMOGLOBIN 29.4 pg (27.0-31.0); MEAN CORPUSCULAR HGB CONC 31.9 g/dL (33.0-37.0); MEAN PLATELET VOLUME 9.6 fL (7.2-11.7); MONO # 1.3 K/uL (0.0-0.8); MONO % 19.8 % (0.0-10.0); NRBC % 0.1 % (0.0-2.0); WHITE BLOOD COUNT 6.7 K/uL (4.8-10.8)
[2016-12-03] MEDS ORDERED: Ferric Sodium Gluconat Complex 62.5 mg/5 ml Vial IVPB SCH (10:00)
[2016-12-03 10:09] LABS: PHOSPHOROUS 4.9 mg/dL (2.5-4.5)
[2016-12-03] MEDS: Epoetin Alfa 10,000 unit/ml Dialysis IV SCH (10:18)
--- NOTE | 2016-12-03 10:21 | CP.PCM.PN ---
Subjective - Date & Time of Evaluation Date of Evaluation: 12/03/16 Time of Evaluation: 10:19 - Subjective Subjective: Seen at dialysis- to UF 3000ml BP still high Appears sl less edematous No new complaints Objective - Vital Signs/Intake and Output Vital Signs (last 24 hours): Temp Pulse Resp BP Pulse Ox 98.1 F 82 18 181/113 H 100 12/03/16 09:40 12/03/16 09:40 12/03/16 09:40 12/03/16 10:10 12/03/16 09:40 Intake and Output: 12/03/16 12/03/16 06:59 18:59 Output Total 300 Balance -300 - Medications Medications: Current Medications Carvedilol (Coreg) 12.5 mg PO BID [facility] Last Admin: 12/02/16 18:24 Dose: 12.5 mg Dextrose (Dextrose 50% Inj) 25 ml IV ONCE PRN PRN Reason: Hypoglycemia Epoetin Nash (Procrit) 10,000 unit IV TTS [facility] Last Admin: 12/03/16 10:18 Dose: 10,000 unit Ferric Sodium Gluconate Complex (Ferrlecit) 125 mg IVPB TuThSa [facility] Stop: 12/11/16 10:01 Furosemide (Lasix) 80 mg IVP BID [facility] Last Admin: 12/02/16 18:05 Dose: 80 mg Heparin Sodium (Porcine) (Heparin) 5,000 units SC Q8 [facility] Last Admin: 12/03/16 05:51 Dose: 5,000 units Hydralazine HCl (Apresoline) 25 mg PO Q6 [facility] Last Admin: 12/03/16 05:50 Dose: 25 mg Insulin Aspart (Novolog) 4 unit SC TIDAC [facility] Last Admin: 12/03/16 08:02 Dose: Not Given Insulin Aspart (Novolog) 0 unit SC ACHS [facility] PRN Reason: Protocol Last Admin: 12/03/16 08:02 Dose: Not Given Insulin Detemir (Levemir) 10 unit SC HS [facility] Last Admin: 11/29/16 21:49 Dose: 10 unit Mupirocin (Bactroban Ointment) 1 gm TOP BID [facility] Last Admin: 12/02/16 18:17 Dose: 1 applic Nitroglycerin (Nitro-Bid 2% Oint) 1 ea TOP 1100,2300 PRN PRN Reason: SBP > 160 Oxycodone/Acetaminophen (Percocet 5/325 Mg Tab) 1 tab PO Q4H PRN PRN Reason: Pain, moderate (4-7) Stop: 12/04/16 15:15 Last Admin: 12/02/16 05:31 Dose: 1 tab Pantoprazole Sodium (Protonix Inj) 40 mg IVP DAILY [facility] Last Admin: 12/02/16 09:36 Dose: 40 mg - Labs Labs: 12/03/16 09:51 12/03/16 08:06 PT 11.8 SECONDS (9.7-12.2) 11/28/16 05:36 INR 1.1 11/28/16 05:36 APTT 25 SECONDS (21-34) 11/28/16 05:36 - Constitutional Appears: No Acute Distress, Chronically Ill - Head Exam Head Exam: ATRAUMATIC, NORMAL INSPECTION - Eye Exam Eye Exam: EOMI, Normal appearance - Neck Exam Neck Exam: Normal Inspection. absent: Tenderness - Respiratory Exam Respiratory Exam: Clear to Ausculation Bilateral, NORMAL BREATHING PATTERN - Cardiovascular Exam Cardiovascular Exam: REGULAR RHYTHM, +S1 - GI/Abdominal Exam GI & Abdominal Exam: Soft. absent: Tenderness - Extremities Exam Extremities Exam: Pedal Edema. absent: Tenderness - Neurological Exam Neurological Exam: Alert, CN II-XII Intact - Skin Skin Exam: Dry, Warm Assessment and Plan (1) Congestive heart failure (CHF) Status: Chronic (2) Hypertension Status: Chronic (3) Type 2 diabetes mellitus with diabetic nephropathy Status: Acute (4) Proteinuria due to type 2 diabetes mellitus Status: Acute (5) Chronic anemia Status: Acute (6) ESRD (end stage renal disease) Status: Acute - Assessment and Plan (Free Text) Plan: Dialysis now- increase UF Increase BP meds
--- NOTE | 2016-12-03 10:22 | CP.PCM.PN ---
Addendum entered and electronically signed by Connie Shrestha DO 12/03/16 15:02: Pt for OR in AM for AVF creation, NPO after MN, holding anticoagulation after MN. Original Note: <Connie Shrestha - Last Filed: 12/03/16 10:34> Subjective - Date & Time of Evaluation Date of Evaluation: 12/03/16 Time of Evaluation: 10:00 - Subjective Subjective: Internal medicine progress note for Hospitalist service- Connie Shrestha, PGY-1 Pt S & E at bedside. Pt reports improvement in SOB, B/L LE pain/swelling, Right chest wall pain. Overall is feeling improved. Denies N/V/F/C, abdominal pain. Is for HD today. Objective - Vital Signs/Intake and Output Vital Signs (last 24 hours): Temp Pulse Resp BP Pulse Ox 98.1 F 82 18 181/113 H 100 12/03/16 09:40 12/03/16 09:40 12/03/16 09:40 12/03/16 10:10 12/03/16 09:40 Intake and Output: 12/03/16 12/03/16 06:59 18:59 Output Total 300 Balance -300 - Medications Medications: Current Medications Carvedilol (Coreg) 12.5 mg PO BID [facility] Last Admin: 12/02/16 18:24 Dose: 12.5 mg Dextrose (Dextrose 50% Inj) 25 ml IV ONCE PRN PRN Reason: Hypoglycemia Epoetin Nash (Procrit) 10,000 unit IV TTS [facility] Last Admin: 12/03/16 10:18 Dose: 10,000 unit Ferric Sodium Gluconate Complex (Ferrlecit) 125 mg IVPB TuThSa [facility] Stop: 12/11/16 10:01 Last Admin: 12/03/16 10:19 Dose: 125 mg Furosemide (Lasix) 80 mg IVP BID [facility] Last Admin: 12/02/16 18:05 Dose: 80 mg Heparin Sodium (Porcine) (Heparin) 5,000 units SC Q8 [facility] Last Admin: 12/03/16 05:51 Dose: 5,000 units Hydralazine HCl (Apresoline) 25 mg PO Q6 [facility] Last Admin: 12/03/16 05:50 Dose: 25 mg Insulin Aspart (Novolog) 4 unit SC TIDAC [facility] Last Admin: 12/03/16 08:02 Dose: Not Given Insulin Aspart (Novolog) 0 unit SC ACHS [facility] PRN Reason: Protocol Last Admin: 12/03/16 08:02 Dose: Not Given Insulin Detemir (Levemir) 10 unit SC HS [facility] Last Admin: 11/29/16 21:49 Dose: 10 unit Mupirocin (Bactroban Ointment) 1 gm TOP BID [facility] Last Admin: 12/02/16 18:17 Dose: 1 applic Nitroglycerin (Nitro-Bid 2% Oint) 1 ea TOP 1100,2300 PRN PRN Reason: SBP > 160 Oxycodone/Acetaminophen (Percocet 5/325 Mg Tab) 1 tab PO Q4H PRN PRN Reason: Pain, moderate (4-7) Stop: 12/04/16 15:15 Last Admin: 12/02/16 05:31 Dose: 1 tab Pantoprazole Sodium (Protonix Inj) 40 mg IVP DAILY [facility] Last Admin: 12/02/16 09:36 Dose: 40 mg - Labs Labs: 12/03/16 09:51 12/03/16 08:06 PT 11.8 SECONDS (9.7-12.2) 11/28/16 05:36 INR 1.1 11/28/16 05:36 APTT 25 SECONDS (21-34) 11/28/16 05:36 - Constitutional Appears: Non-toxic, No Acute Distress - Head Exam Head Exam: ATRAUMATIC, NORMAL INSPECTION, NORMOCEPHALIC - Eye Exam Eye Exam: EOMI, Normal appearance, PERRL Pupil Exam: NORMAL ACCOMODATION, PERRL - ENT Exam ENT Exam: Mucous Membranes Moist, Normal Exam - Neck Exam Neck Exam: Full ROM, Normal Inspection - Respiratory Exam Respiratory Exam: Decreased Breath Sounds (B/L), NORMAL BREATHING PATTERN. absent: Chest Wall Tenderness (Right chest with HD catheter ), Rales, Rhonchi, Wheezes, Stridor - Cardiovascular Exam Cardiovascular Exam: REGULAR RHYTHM, +S1, +S2 - GI/Abdominal Exam GI & Abdominal Exam: Soft, Normal Bowel Sounds. absent: Distended, Firm, Guarding, Rigid, Tenderness - Extremities Exam Extremities Exam: Pedal Edema (3+ pitting B/L). absent: Normal Inspection ( Right foot with dressing in place over dorsal aspect- C/D/I, toes visible, 1st toe with slightly dusky coloring, pt able to move all toes), Tenderness - Neurological Exam Neurological Exam: Alert, Awake, CN II-XII Intact, Oriented x3 - Psychiatric Exam Psychiatric exam: Normal Affect, Normal Mood - Skin Skin Exam: Dry, Intact, Normal Color, Warm Assessment and Plan - Assessment and Plan (Free Text) Assessment: Acute on chronic systolic heart failure 12/03: Fluid overloaded, for HD today 12/02: FU cardio recs 12/01: Echo - LV mod dilated w/global hyokinesis, mild- mod concentric LVH, LV systolic function mildly impaired, EF 46%, RV mild-mod dilated w/mildly reduced contractility, RV systolic pressure ~48mmHg = mod pulm HTN, trace pericardial effusion - Significant anasarca, 3+ pitting on all extremities - BNP - [id number] - CXR -Mild venous congestion. Patchy airspace opacity in the left mid to lower lung zone with associated small left pleural effusion. Right hilar prominence. - CT abd/pelvis - Findings as described above supportive of diffuse edematous state. Findings include pleural and pericardial effusions, extensive subcutaneous edema.Bilateral perinephric stranding. This may be a chronic finding however urinalysis could be performed to exclude infectious/ inflammatory process. Left lung infiltrate/atelectasis. Please see full report - Lasix 80mg BID - Metolazone 2.5mg daily - Coreg 6.25mg BID increased to 12.5mg BID per nephro - Cardio consult (Sukumar) Anasarca - improving - Likely due to CHF exacerbation - HD on TTS - Per nephro, will remove more fluid today - See above ESRD on HD (TTS) 12/03: HD today, will increase UF rate per nephro, take off more fluid; vein mapping completed; BUN 63, Cr 2.8 12/02: Had HD yesterday- FU nephro recs 12/01:oliguria, ESRD, needs dialysis- cather placement today, HD afterwards 11/30: Hep negative, pt now agreeable to HD- will go for HD catheter placement tomorrow. Nephro recs- pt now agreeable to HD-will set up, add IV Fe, ESAs 11/29: f/u Hep panel. Patient lethargic, consider uremia. -Total urine random protein 850 H. - Renal ultrasound - increased echogenicity consistent with medical renal dz - Cont Greco - I/Os Vascular Surgery recs- vein mapping done, will DW Dr. Mckeon HTN BP 169/100- for HD today, cont Hydralazine 25mg PO Q6H LONG Cont Coreg 12.5mg BID Cont Lasix 80mg BID Diabetes Blood sugars still in 100-250's Levemir 10 units HS Novolog 4 units TIDAC ISS Monitor Possible PAD Ulcers of R 2nd toe, Burch 1, ungradable small; R/O Ischemia and PAD s/p amputation of left hallux Arterial duplex U/S - neg for hemodynamically sig arterial insuffiency B/L, LE arteries appear patent B/L- no evidence of increased velocities FU Vascular surgery recs Pods recs- dressing change to right foot, wound care PPX Heparin Protonix Dispo: Cont medical mgmt COnt HD as per nephro Right foot care as per podiatry FU cardio recs FU vascular surgery recs SW eval for HD placement DW attending <Don Ferraro - Last Filed: 12/03/16 16:36> Objective - Vital Signs/Intake and Output Vital Signs (last 24 hours): Temp Pulse Resp BP Pulse Ox 98.2 F 92 H 20 135/68 95 12/03/16 15:35 12/03/16 15:35 12/03/16 15:35 12/03/16 15:35 12/03/16 15:35 Intake and Output: 12/03/16 12/03/16 06:59 18:59 Intake Total 250 Output Total 300 500 Balance -300 -250 - Medications Medications: Current Medications Carvedilol (Coreg) 25 mg PO BID [facility] Dextrose (Dextrose 50% Inj) 25 ml IV ONCE PRN PRN Reason: Hypoglycemia Epoetin Nash (Procrit) 10,000 unit IV TTS [facility] Last Admin: 12/03/16 10:18 Dose: 10,000 unit Ferric Sodium Gluconate Complex (Ferrlecit) 125 mg IVPB TuThSa [facility] Stop: 12/11/16 10:01 Last Admin: 12/03/16 10:19 Dose: 125 mg Furosemide (Lasix) 80 mg IVP BID [facility] Last Admin: 12/03/16 14:11 Dose: 80 mg Heparin Sodium (Porcine) (Heparin) 5,000 units SC Q8 [facility] Last Admin: 12/03/16 14:10 Dose: 5,000 units Hydralazine HCl (Apresoline) 25 mg PO Q6 [facility] Last Admin: 12/03/16 14:09 Dose: 25 mg Insulin Aspart (Novolog) 4 unit SC TIDAC [facility] Last Admin: 12/03/16 12:15 Dose: Not Given Insulin Aspart (Novolog) 0 unit SC ACHS [facility] PRN Reason: Protocol Last Admin: 12/03/16 12:15 Dose: Not Given Insulin Detemir (Levemir) 10 unit SC HS [facility] Last Admin: 11/29/16 21:49 Dose: 10 unit Mupirocin (Bactroban Ointment) 1 gm TOP BID [facility] Last Admin: 12/03/16 14:09 Dose: 1 applic Nitroglycerin (Nitro-Bid 2% Oint) 1 ea TOP 1100,2300 PRN PRN Reason: SBP > 160 Oxycodone/Acetaminophen (Percocet 5/325 Mg Tab) 1 tab PO Q4H PRN PRN Reason: Pain, moderate (4-7) Stop: 12/04/16 15:15 Last Admin: 12/02/16 05:31 Dose: 1 tab Pantoprazole Sodium (Protonix Inj) 40 mg IVP DAILY [facility] Last Admin: 12/03/16 14:11 Dose: 40 mg - Labs Labs: 12/03/16 09:51 12/03/16 08:06 PT 11.8 SECONDS (9.7-12.2) 11/28/16 05:36 INR 1.1 11/28/16 05:36 APTT 25 SECONDS (21-34) 11/28/16 05:36 Attending/Attestation - Attestation I have personally seen and examined this patient.: Yes I have fully participated in the care of the patient.: Yes I have reviewed all pertinent clinical information, including history, physical exam and plan: Yes Notes (Text): 12/03/16 16:27 Patient was seen and examined at bedside with the resident during hemodialysis. Patient is tolerating hemodialysis well. Edema has improved Discussed with the nephrology. Plan for AV fistula placement tomorrow Discharge planning in progress. Discussed the plan of care with the resident and agree with the above history and physical and assessment/plan by the resident.
--- NOTE | 2016-12-03 11:34 | RAD ---
PROCEDURE: PermCath placement. HISTORY: RENAL FAILURE COMPARISON: None TECHNIQUE: Standard protocol for this study/examination. FINDINGS: Submitted images from the current procedure: 2.0 Total fluoroscopic time (continuous mode) utilized during the procedure: 48.6 seconds. IMPRESSION: Less than 1 hr fluoroscopic time utilized during performance of the procedure.
--- NOTE | 2016-12-03 13:09 | CP.PCM.PN ---
Subjective - Date & Time of Evaluation Date of Evaluation: 12/03/16 Time of Evaluation: 13:08 - Subjective Subjective: bp high.on dialysis. Objective - Vital Signs/Intake and Output Vital Signs (last 24 hours): Temp Pulse Resp BP Pulse Ox 98.1 F 82 18 176/112 H 100 12/03/16 09:40 12/03/16 09:40 12/03/16 09:40 12/03/16 12:40 12/03/16 09:40 Intake and Output: 12/03/16 12/03/16 06:59 18:59 Output Total 300 Balance -300 - Medications Medications: Current Medications Carvedilol (Coreg) 25 mg PO BID [facility] Dextrose (Dextrose 50% Inj) 25 ml IV ONCE PRN PRN Reason: Hypoglycemia Epoetin Nash (Procrit) 10,000 unit IV TTS [facility] Last Admin: 12/03/16 10:18 Dose: 10,000 unit Ferric Sodium Gluconate Complex (Ferrlecit) 125 mg IVPB TuThSa [facility] Stop: 12/11/16 10:01 Last Admin: 12/03/16 10:19 Dose: 125 mg Furosemide (Lasix) 80 mg IVP BID [facility] Last Admin: 12/02/16 18:05 Dose: 80 mg Heparin Sodium (Porcine) (Heparin) 5,000 units SC Q8 [facility] Last Admin: 12/03/16 05:51 Dose: 5,000 units Hydralazine HCl (Apresoline) 25 mg PO Q6 [facility] Last Admin: 12/03/16 05:50 Dose: 25 mg Insulin Aspart (Novolog) 4 unit SC TIDAC [facility] Last Admin: 12/03/16 12:15 Dose: Not Given Insulin Aspart (Novolog) 0 unit SC ACHS [facility] PRN Reason: Protocol Last Admin: 12/03/16 12:15 Dose: Not Given Insulin Detemir (Levemir) 10 unit SC HS [facility] Last Admin: 11/29/16 21:49 Dose: 10 unit Mupirocin (Bactroban Ointment) 1 gm TOP BID [facility] Last Admin: 12/02/16 18:17 Dose: 1 applic Nitroglycerin (Nitro-Bid 2% Oint) 1 ea TOP 1100,2300 PRN PRN Reason: SBP > 160 Oxycodone/Acetaminophen (Percocet 5/325 Mg Tab) 1 tab PO Q4H PRN PRN Reason: Pain, moderate (4-7) Stop: 12/04/16 15:15 Last Admin: 12/02/16 05:31 Dose: 1 tab Pantoprazole Sodium (Protonix Inj) 40 mg IVP DAILY [facility] Last Admin: 12/02/16 09:36 Dose: 40 mg - Labs Labs: 12/03/16 09:51 12/03/16 08:06 PT 11.8 SECONDS (9.7-12.2) 11/28/16 05:36 INR 1.1 11/28/16 05:36 APTT 25 SECONDS (21-34) 11/28/16 05:36 - Constitutional Appears: No Acute Distress, Chronically Ill - Eye Exam Eye Exam: Normal appearance - Respiratory Exam Respiratory Exam: Clear to Ausculation Bilateral - Cardiovascular Exam Cardiovascular Exam: REGULAR RHYTHM, Murmur - GI/Abdominal Exam GI & Abdominal Exam: Soft - Extremities Exam Extremities Exam: Pedal Edema - Neurological Exam Neurological Exam: Alert Assessment and Plan - Assessment and Plan (Free Text) Assessment: ckd,htn.ct dialysis.will follow prn
--- NOTE | 2016-12-03 14:48 | CP.PCM.PN ---
Subjective - Date & Time of Evaluation Date of Evaluation: 12/03/16 Time of Evaluation: 14:46 - Subjective Subjective: 51 y/o male with right 2nd digit ulceration. Patient with family at bedside. Feeling better today after HD. Denies any acute events. States he may be leaving hostpital today. Objective - Vital Signs/Intake and Output Vital Signs (last 24 hours): Temp Pulse Resp BP Pulse Ox 98.4 F 81 18 161/111 H 100 12/03/16 13:10 12/03/16 13:10 12/03/16 13:10 12/03/16 14:11 12/03/16 13:10 Intake and Output: 12/03/16 12/03/16 06:59 18:59 Intake Total 250 Output Total 300 500 Balance -300 -250 - Medications Medications: Current Medications Carvedilol (Coreg) 25 mg PO BID [facility] Dextrose (Dextrose 50% Inj) 25 ml IV ONCE PRN PRN Reason: Hypoglycemia Epoetin Nash (Procrit) 10,000 unit IV TTS [facility] Last Admin: 12/03/16 10:18 Dose: 10,000 unit Ferric Sodium Gluconate Complex (Ferrlecit) 125 mg IVPB TuThSa [facility] Stop: 12/11/16 10:01 Last Admin: 12/03/16 10:19 Dose: 125 mg Furosemide (Lasix) 80 mg IVP BID [facility] Last Admin: 12/03/16 14:11 Dose: 80 mg Heparin Sodium (Porcine) (Heparin) 5,000 units SC Q8 [facility] Last Admin: 12/03/16 14:10 Dose: 5,000 units Hydralazine HCl (Apresoline) 25 mg PO Q6 [facility] Last Admin: 12/03/16 14:09 Dose: 25 mg Insulin Aspart (Novolog) 4 unit SC TIDAC [facility] Last Admin: 12/03/16 12:15 Dose: Not Given Insulin Aspart (Novolog) 0 unit SC ACHS [facility] PRN Reason: Protocol Last Admin: 12/03/16 12:15 Dose: Not Given Insulin Detemir (Levemir) 10 unit SC HS [facility] Last Admin: 11/29/16 21:49 Dose: 10 unit Mupirocin (Bactroban Ointment) 1 gm TOP BID [facility] Last Admin: 12/03/16 14:09 Dose: 1 applic Nitroglycerin (Nitro-Bid 2% Oint) 1 ea TOP 1100,2300 PRN PRN Reason: SBP > 160 Oxycodone/Acetaminophen (Percocet 5/325 Mg Tab) 1 tab PO Q4H PRN PRN Reason: Pain, moderate (4-7) Stop: 12/04/16 15:15 Last Admin: 12/02/16 05:31 Dose: 1 tab Pantoprazole Sodium (Protonix Inj) 40 mg IVP DAILY [facility] Last Admin: 12/03/16 14:11 Dose: 40 mg - Labs Labs: 12/03/16 09:51 12/03/16 08:06 PT 11.8 SECONDS (9.7-12.2) 11/28/16 05:36 INR 1.1 11/28/16 05:36 APTT 25 SECONDS (21-34) 11/28/16 05:36 - Constitutional Appears: Well, Non-toxic, No Acute Distress - Skin Skin Exam: Normal Color, Warm - Additional Findings Additional findings: Vasc: DP/PT non plapable due to edema, Temp gradient wnl, CAp fill time < 5 s x 10 Derm: Diffuse +2 pitting edema noted, small roughly .2 x .2 ulceration that is healed over on dorsum of 2nd digit PIPJ , mild erythema note surrounding, does not probe to bone, Neuro: Grossly diminished Ortho: hammering of 2nd digit PIPJ Assessment and Plan - Assessment and Plan (Free Text) Assessment: 51 y/o male with right 2nd digit healed ulceration. Plan: Patient evaluated and chart reivewd. Discussed with Dr. Maradiaga Wound is stable Upon d/c patient will need to call Dr. Maradiaga for f/u. Can do daily dressing changes at home as needed with bacitracin and DSD. Will continue to follow while admitted
--- NOTE | 2016-12-03 15:16 | CP.PCM.PN ---
Subjective - Date & Time of Evaluation Date of Evaluation: 12/03/16 Time of Evaluation: 09:00 - Subjective Subjective: VASCULAR SURGERY PROGRESS NOTE FOR DR. CHRISTY Patient seen and examined at bedside. He is s/p permacath insertion and is having dialysis currently. Objective - Vital Signs/Intake and Output Vital Signs (last 24 hours): Temp Pulse Resp BP Pulse Ox 98.4 F 81 18 161/111 H 100 12/03/16 13:10 12/03/16 13:10 12/03/16 13:10 12/03/16 14:11 12/03/16 13:10 Intake and Output: 12/03/16 12/03/16 06:59 18:59 Intake Total 250 Output Total 300 500 Balance -300 -250 - Medications Medications: Current Medications Carvedilol (Coreg) 25 mg PO BID [facility] Dextrose (Dextrose 50% Inj) 25 ml IV ONCE PRN PRN Reason: Hypoglycemia Epoetin Nash (Procrit) 10,000 unit IV TTS [facility] Last Admin: 12/03/16 10:18 Dose: 10,000 unit Ferric Sodium Gluconate Complex (Ferrlecit) 125 mg IVPB TuThSa [facility] Stop: 12/11/16 10:01 Last Admin: 12/03/16 10:19 Dose: 125 mg Furosemide (Lasix) 80 mg IVP BID [facility] Last Admin: 12/03/16 14:11 Dose: 80 mg Heparin Sodium (Porcine) (Heparin) 5,000 units SC Q8 [facility] Last Admin: 12/03/16 14:10 Dose: 5,000 units Hydralazine HCl (Apresoline) 25 mg PO Q6 [facility] Last Admin: 12/03/16 14:09 Dose: 25 mg Insulin Aspart (Novolog) 4 unit SC TIDAC [facility] Last Admin: 12/03/16 12:15 Dose: Not Given Insulin Aspart (Novolog) 0 unit SC ACHS [facility] PRN Reason: Protocol Last Admin: 12/03/16 12:15 Dose: Not Given Insulin Detemir (Levemir) 10 unit SC HS [facility] Last Admin: 11/29/16 21:49 Dose: 10 unit Mupirocin (Bactroban Ointment) 1 gm TOP BID [facility] Last Admin: 12/03/16 14:09 Dose: 1 applic Nitroglycerin (Nitro-Bid 2% Oint) 1 ea TOP 1100,2300 PRN PRN Reason: SBP > 160 Oxycodone/Acetaminophen (Percocet 5/325 Mg Tab) 1 tab PO Q4H PRN PRN Reason: Pain, moderate (4-7) Stop: 12/04/16 15:15 Last Admin: 12/02/16 05:31 Dose: 1 tab Pantoprazole Sodium (Protonix Inj) 40 mg IVP DAILY [facility] Last Admin: 12/03/16 14:11 Dose: 40 mg - Labs Labs: 12/03/16 09:51 12/03/16 08:06 PT 11.8 SECONDS (9.7-12.2) 11/28/16 05:36 INR 1.1 11/28/16 05:36 APTT 25 SECONDS (21-34) 11/28/16 05:36 - Constitutional Appears: Non-toxic, No Acute Distress - Head Exam Head Exam: ATRAUMATIC, NORMAL INSPECTION - Eye Exam Eye Exam: Normal appearance - Respiratory Exam Respiratory Exam: NORMAL BREATHING PATTERN. absent: Respiratory Distress - Cardiovascular Exam Cardiovascular Exam: +S1, +S2 Assessment and Plan - Assessment and Plan (Free Text) Assessment: 51yo M with ESRD, s/p Permacath insertion POD#2, plan for OR tomorrow - Afebrile, remains hypertensive - Receiving dialysis currently - Left arm precautions - Had vein mapping - Plan for AV Fistula tomorrow morning - NPO after midnight - Hold heparin at midnight - Discussed plan with Dr. Linda Shay PGY-2
[2016-12-03 20:15] LABS: INR 1.1
[2016-12-04 07:11] LABS: BASO # 0.1 K/uL (0.0-0.2); BASO % 0.9 % (0.0-2.0); EOS # 0.2 K/uL (0.0-0.7); EOS % 2.7 % (0.0-4.0); HEMATOCRIT 26.8 % (35.0-51.0); LYMPH # 0.8 K/uL (1.0-4.3); LYMPH % 13.8 % (20.0-40.0); MEAN CELL VOLUME 91.1 fL (80.0-94.0); MEAN CORPUSCULAR HEMOGLOBIN 30.6 pg (27.0-31.0); MEAN CORPUSCULAR HGB CONC 33.6 g/dL (33.0-37.0); MEAN PLATELET VOLUME 9.8 fL (7.2-11.7); MONO # 1.3 K/uL (0.0-0.8); MONO % 21.9 % (0.0-10.0); NRBC % 0.3 % (0.0-2.0); PLATELET COUNT 190 K/uL (130-400); WHITE BLOOD COUNT 5.8 K/uL (4.8-10.8)
[2016-12-04] MEDS ORDERED: Papaverine Hydrochloride 30 mg/ml (2ml) ONE (07:22)
[2016-12-04] MEDS ORDERED: HEPARIN-NS 5,000 UNITS/500 ML 500 ML IV ONE (07:22)
[2016-12-04 07:36] LABS: POTASSIUM 4.2 mmol/L (3.6-5.2)
[2016-12-04 07:38] LABS: BILIRUBIN,TOTAL 0.2 mg/dL (0.2-1.3)
[2016-12-04 07:39] LABS: ALB/GLOB RATIO 0.7 (1.0-2.1); CALCIUM 7.3 mg/dl (8.6-10.4); TOTAL PROTEIN 5.6 g/dL (6.3-8.3)
[2016-12-04] MEDS: (Novolog) Insulin Aspart, Recombinant 100 u/ml 10 ml vial SC SCH ×4 (07:52→18:18)
[2016-12-04] MEDS ORDERED: Lidocaine 1% Inj (20ml) ONE (08:01)
[2016-12-04] MEDS ORDERED: Etomidate 20 mg/10ml Inj IV ONE (08:03)
[2016-12-04] MEDS ORDERED: Vancomycin 1 gm/D5W 200 ml 200 ML IVPB ONE (08:11)
[2016-12-04] MEDS ORDERED: Midazolam 2 MG/2 ML VIAL ONE (08:12)
[2016-12-04] MEDS ORDERED: Sodium Chloride 0.9% 500 ML IV ONE (08:15)
[2016-12-04 08:39] LABS: EOSINOPHIL 1 % (0-4); NEUTROPHIL 56 % (50-75); REACTIVE LYMPHOCYTES 5 % (0-0); TOTAL CELLS COUNTED 100
[2016-12-04 08:41] LABS: LARGE PLATELETS PRESENT
[2016-12-04] MEDS ORDERED: HYDROmorphone 0.5 mg/0.5 ml ISec IVP PRN ×2 (09:47→09:48)
--- NOTE | 2016-12-04 09:47 | PCM.SURG1 ---
Surgeon's Initial Post Op Note - Surgeon's Notes Surgeon: Dr. Mckeon [employer]: Dr. Killian PGY-2, Dr. Wilson PGY-1 Type of Anesthesia: General Endo Pre-Operative Diagnosis: Renal failure Operative Findings: see operative report Post-Operative Diagnosis: see operative report Operation Performed: brachio-brachial AVF Specimen/Specimens Removed: none Estimated Blood Loss: EBL {In ML}: 20 Blood Products Given: N/A Drains Used: No Drains Post-Op Condition: Good Date of Surgery/Procedure: 12/04/16 Time of Surgery/Procedure: 08:00
--- NOTE | 2016-12-04 10:06 | OP ---
PROCEDURE DATE: 12/04/2016 PREOPERATIVE DIAGNOSIS: Renal failure. POSTOPERATIVE DIAGNOSIS: Renal failure. PROCEDURE CARRIED OUT: Brachial /brachial fistula, left elbow. SURGEON: Dr. Timothy Mckeon. HAND COREMAKER: Dr. Wilson and Dr. Killian. ANESTHESIA: Local with sedation. INDICATIONS: The patient is a 51-year-old man with renal insufficiency who now requires dialysis. He had a catheter inserted prior to discharge. A fistula was created at the left elbow. Preoperative ultrasound suggested that there was an adequate basilic vein in the left arm; however, are in the operating room and immediate reevaluation of this did not reveal any evidence of a significant basilic vein to which a fistula could be created. PROCEDURE: The patient was given local anesthesia after ultrasound marking on the skin. The brachial vein and an artery were anastomosed in a [id number] fashion with ligation of the distal branch of the vein under loupe magnification and heparin anticoagulation. At the end of the procedure, there was good pulse at the wrist and good flow through the fistula. It remains to be seen how well this develops for use of dialysis, and the chance is high that it may require elevation in the future. Timothy Mckeon Jr., MD cc: Low Felix MD 56 TT: 12/04/2016 10:05:30 mn [id number]
--- NOTE | 2016-12-04 13:01 | CP.PCM.PN ---
Subjective - Date & Time of Evaluation Date of Evaluation: 12/04/16 Time of Evaluation: 12:58 - Subjective Subjective: s/p AV fistula placement- +bruit BP controlled Stable dialysis so far Feels better- no dysnea, CPs, n, v, diarrhea,HAs For dialysis later today Possible discharge as outpatient dialysis arranged for 12/07 Objective - Vital Signs/Intake and Output Vital Signs (last 24 hours): Temp Pulse Resp BP Pulse Ox 98.6 F 75 17 127/83 99 12/04/16 11:31 12/04/16 11:31 12/04/16 11:31 12/04/16 11:37 12/04/16 11:31 Intake and Output: 12/04/16 12/04/16 06:59 18:59 Intake Total 120 200 Output Total 300 50 Balance -180 150 - Medications Medications: Current Medications Carvedilol (Coreg) 25 mg PO BID [facility] Last Admin: 12/04/16 11:37 Dose: 25 mg Dextrose (Dextrose 50% Inj) 25 ml IV ONCE PRN PRN Reason: Hypoglycemia Epoetin Nash (Procrit) 10,000 unit IV TTS [facility] Last Admin: 12/03/16 10:18 Dose: 10,000 unit Ferric Sodium Gluconate Complex (Ferrlecit) 125 mg IVPB TuThSa [facility] Stop: 12/11/16 10:01 Last Admin: 12/03/16 10:19 Dose: 125 mg Furosemide (Lasix) 80 mg IVP BID [facility] Last Admin: 12/03/16 17:35 Dose: 80 mg Heparin Sodium (Porcine) (Heparin) 5,000 units SC Q8 [facility] Last Admin: 12/03/16 14:10 Dose: 5,000 units Hydralazine HCl (Apresoline) 25 mg PO Q6 [facility] Last Admin: 12/04/16 11:39 Dose: 25 mg Hydromorphone HCl (Dilaudid) 0.5 mg IVP Q6H PRN PRN Reason: Pain, severe (8-10) Insulin Aspart (Novolog) 4 unit SC TIDAC [facility] Last Admin: 12/04/16 07:52 Dose: Not Given Insulin Aspart (Novolog) 0 unit SC ACHS [facility] PRN Reason: Protocol Last Admin: 12/04/16 07:53 Dose: Not Given Insulin Detemir (Levemir) 10 unit SC HS [facility] Last Admin: 11/29/16 21:49 Dose: 10 unit Mupirocin (Bactroban Ointment) 1 gm TOP BID [facility] Last Admin: 12/03/16 17:59 Dose: 1 applic Nitroglycerin (Nitro-Bid 2% Oint) 1 ea TOP 1100,2300 PRN PRN Reason: SBP > 160 Oxycodone/Acetaminophen (Percocet 5/325 Mg Tab) 1 tab PO Q4H PRN PRN Reason: Pain, moderate (4-7) Stop: 12/04/16 15:15 Last Admin: 12/02/16 05:31 Dose: 1 tab Pantoprazole Sodium (Protonix Inj) 40 mg IVP DAILY [facility] Last Admin: 12/04/16 11:38 Dose: 40 mg - Labs Labs: 12/04/16 06:59 12/04/16 06:59 PT 12.0 SECONDS (9.7-12.2) 12/03/16 19:46 INR 1.1 12/03/16 19:46 APTT 35 SECONDS (21-34) H 12/03/16 19:46 - Constitutional Appears: No Acute Distress, Chronically Ill - Head Exam Head Exam: ATRAUMATIC, NORMAL INSPECTION - Eye Exam Eye Exam: EOMI, Normal appearance - Neck Exam Neck Exam: Normal Inspection. absent: Tenderness - Respiratory Exam Respiratory Exam: Clear to Ausculation Bilateral, NORMAL BREATHING PATTERN - Cardiovascular Exam Cardiovascular Exam: REGULAR RHYTHM, +S1 - GI/Abdominal Exam GI & Abdominal Exam: Soft. absent: Tenderness - Extremities Exam Extremities Exam: Pedal Edema, Tenderness - Neurological Exam Neurological Exam: Alert, CN II-XII Intact - Skin Skin Exam: Dry, Intact Assessment and Plan (1) Congestive heart failure (CHF) Status: Chronic (2) Hypertension Status: Chronic (3) Type 2 diabetes mellitus with diabetic nephropathy Status: Acute (4) Proteinuria due to type 2 diabetes mellitus Status: Acute (5) Chronic anemia Status: Acute (6) ESRD (end stage renal disease) Status: Acute - Assessment and Plan (Free Text) Plan: Change to po lasix Oupt dialysis MWF Await AV access maturation- use permcath for now
[2016-12-04 14:01] VITALS: PULSE 77
--- NOTE | 2016-12-04 15:44 | CP.PCM.DIS ---
<HenriettaConnie - Last Filed: 12/04/16 15:41> Provider - Provider Date of Admission: 11/28/16 01:33 Attending physician: Don Ferraro MD Primary care physician: None Consults: Vascular surgery- [place] Nephro- Isidro Cardio-Sukumar Snyder- Ashwini Time Spent in preparation of Discharge (in minutes): 60 Hospital Course - Lab Results Lab Results: Most Recent Lab Values WBC 5.8 K/uL (4.8-10.8) 12/04/16 06:59 RBC 2.94 Mil/uL (4.40-5.90) L 12/04/16 06:59 Hgb 9.0 g/dL (12.0-18.0) L 12/04/16 06:59 Hct 26.8 % (35.0-51.0) L 12/04/16 06:59 MCV 91.1 fL (80.0-94.0) 12/04/16 06:59 MCH 30.6 pg (27.0-31.0) 12/04/16 06:59 MCHC 33.6 g/dL (33.0-37.0) 12/04/16 06:59 RDW 16.0 % (11.5-14.5) H 12/04/16 06:59 Plt Count 190 K/uL (130-400) 12/04/16 06:59 MPV 9.8 fL (7.2-11.7) 12/04/16 06:59 Neut % (Auto) 60.7 % (50.0-75.0) 12/04/16 06:59 Lymph % (Auto) 13.8 % (20.0-40.0) L 12/04/16 06:59 Mcleod % (Auto) 21.9 % (0.0-10.0) H 12/04/16 06:59 Eos % (Auto) 2.7 % (0.0-4.0) 12/04/16 06:59 Baso % (Auto) 0.9 % (0.0-2.0) 12/04/16 06:59 Neut # 3.5 K/uL (1.8-7.0) 12/04/16 06:59 Lymph # 0.8 K/uL (1.0-4.3) L 12/04/16 06:59 Mcleod # 1.3 K/uL (0.0-0.8) H 12/04/16 06:59 Eos # 0.2 K/uL (0.0-0.7) 12/04/16 06:59 Baso # 0.1 K/uL (0.0-0.2) 12/04/16 06:59 Neutrophils % (Manual) 56 % (50-75) 12/04/16 06:59 Band Neutrophils % 5 % (0-2) H 12/04/16 06:59 Lymphocytes % (Manual) 11 % (20-40) L 12/04/16 06:59 Reactive Lymphs % 5 % (0-0) H 12/04/16 06:59 Monocytes % (Manual) 22 % (0-10) H 12/04/16 06:59 Eosinophils % (Manual) 1 % (0-4) 12/04/16 06:59 Basophils % (Manual) 1 % (0-2) 11/28/16 05:36 Platelet Estimate Normal (NORMAL) 12/04/16 06:59 Large Platelets Present 12/04/16 06:59 Giant Platelets Present 12/01/16 07:36 Polychromasia Slight 11/30/16 07:30 Hypochromasia (manual) Slight 12/01/16 07:36 Poikilocytosis (manual Slight 12/01/16 07:36 Anisocytosis (manual) Slight 12/04/16 06:59 Ovalocytes Slight 12/04/16 06:59 Marta Cells Slight 12/01/16 07:36 PT 12.0 SECONDS (9.7-12.2) 12/03/16 19:46 INR 1.1 12/03/16 19:46 APTT 35 SECONDS (21-34) H 12/03/16 19:46 pO2 52 mm/Hg (30-55) 11/27/16 00:40 VBG pH 7.34 (7.32-7.43) 11/27/16 00:40 VBG pCO2 31 mmHg (40-60) L 11/27/16 00:40 VBG HCO3 18.4 mmol/L 11/27/16 00:40 VBG Total CO2 17.7 mmol/L (22-28) L 11/27/16 00:40 VBG O2 Sat (Calc) 89.7 % (40-65) H 11/27/16 00:40 VBG Base Excess -7.9 mmol/L (0.0-2.0) L 11/27/16 00:40 VBG Potassium 6.8 mmol/L (3.6-5.2) H* 11/27/16 00:40 Sodium 134.0 mmol/l (132-148) 11/27/16 00:40 Chloride 113.0 mmol/L (98-107) H 11/27/16 00:40 Glucose 248 mg/dl (75-110) H 11/27/16 00:40 Lactate 1.3 mmol/L (0.7-2.1) 11/27/16 00:40 Crit Value Called To Dr nova/er 11/27/16 00:40 Crit Value Called By Jeremy johnson/rt 11/27/16 00:40 Crit Value Read Back Y 11/27/16 00:40 Blood Gas Notified Time 50 11/27/16 00:40 Sodium 134 mmol/L (132-148) 12/04/16 06:59 Potassium 4.2 mmol/L (3.6-5.2) 12/04/16 06:59 Chloride 101 mmol/L (98-107) 12/04/16 06:59 Carbon Dioxide 26 mmol/L (22-30) 12/04/16 06:59 Anion Gap 11 (10-20) 12/04/16 06:59 BUN 42 mg/dL (9-20) H 12/04/16 06:59 Creatinine 2.3 MG/DL (0.8-1.5) H 12/04/16 06:59 Est GFR ( Amer) 37 12/04/16 06:59 Est GFR (Non-Af Amer) 30 12/04/16 06:59 POC Glucose (mg/dL) 129 mg/dL (65-110) H 12/04/16 11:18 Random Glucose 113 mg/dL (75-110) H 12/04/16 06:59 Calcium 7.3 mg/dl (8.6-10.4) L 12/04/16 06:59 Phosphorus 4.9 mg/dL (2.5-4.5) H 12/03/16 09:50 Magnesium 2.0 mg/dL (1.6-2.3) 12/03/16 09:50 % Saturation 16 (20-55) L 11/29/16 08:06 Ferritin 319.0 ng/mL 11/29/16 07:57 Total Bilirubin 0.2 mg/dL (0.2-1.3) 12/04/16 06:59 AST 23 U/L (17-59) 12/04/16 06:59 ALT 30 U/L (21-72) 12/04/16 06:59 Alkaline Phosphatase 438 U/L (38-126) H 12/04/16 06:59 Ammonia 24 umol/L (9-33) 11/28/16 00:34 NT-Pro-B Natriuret Pep 453261 pg/mL (0-900) H 11/28/16 00:29 Total Protein 5.6 g/dL (6.3-8.3) L 12/04/16 06:59 Albumin 2.3 g/dL (3.5-5.0) L 12/04/16 06:59 Globulin 3.3 gm/dL (2.2-3.9) 12/04/16 06:59 Albumin/Globulin Ratio 0.7 (1.0-2.1) L 12/04/16 06:59 Lipase 75 U/L (23-300) 11/28/16 00:29 PTH Intact Whole Molec 153 pg/mL (14-64) H 11/29/16 08:06 Venous Blood Potassium 6.8 mmol/L (3.6-5.2) H* 11/27/16 00:40 Urine Color Yellow (YELLOW) 11/28/16 04:33 Urine Clarity Clear (Clear) 11/28/16 04:33 Urine pH 6.0 (5.0-8.0) 11/28/16 04:33 Ur Specific Mazama 1.010 (1.003-1.030) 11/28/16 04:33 Urine Protein 3+ mg/dL (NEGATIVE) H 11/28/16 04:33 Urine Glucose (UA) 3+ mg/dL (Normal) H 11/28/16 04:33 Urine Ketones Negative mg/dL (NEGATIVE) 11/28/16 04:33 Urine Blood Negative (NEGATIVE) 11/28/16 04:33 Urine Nitrate Negative (NEGATIVE) 11/28/16 04:33 Urine Bilirubin Negative (NEGATIVE) 11/28/16 04:33 Urine Urobilinogen Normal mg/dL (0.2-1.0) 11/28/16 04:33 Ur Leukocyte Esterase Neg Wan/uL (Negative) 11/28/16 04:33 Urine WBC (Auto) 2 /hpf (0-5) 11/28/16 04:33 Urine RBC (Auto) 2 /hpf (0-3) 11/28/16 04:33 Ur Random Creatinine 23.5 mg/dL 11/28/16 04:33 U Random Total Protein 850.0 mg/dL (0.0-12.0) H 11/28/16 04:33 Ur Random Sodium 45 mmol/L 11/28/16 04:33 Urine Chloride 61 mmol/L (32-290) 11/28/16 04:33 Serum Ketones Negative (NEGATIVE) 11/28/16 00:29 Hep Bs Antigen Negative (NEGATIVE) 11/29/16 07:57 Hep Bs Antibody Negative (NEGATIVE) 11/29/16 08:06 Hep B Core IgM Ab Negative (NEGATIVE) 11/29/16 07:57 Hepatitis C Antibody Negative (NEGATIVE) 11/29/16 07:57 - Hospital Course Hospital Course: This is a 51 yo M with PMH significant for CHF (EF 34%), HTN and DM that presented to the ED with a chief complaint of leg swelling and sob. He states that this has been going on for the last four days but that it has just gotten too much and he needed to come in. He states that at baseline he gets tired/sob with ADLs. Pt states that he has had no changes in his medications. He admits to needing to sleep with 4 pillows at night and even then he does not sleep well. Pt has had no recent fevers, chills, chest pain, nausea, vomiting, diarrhea or headaches. He does admit to not making that much urine recently and states that he was recently seen over at [facility] and was told that his kidneys are not working well. Hospital Course Pt admitted to hospital for acute on chronic systolic heart failure, renal failure and DM management. Pt started on medical diuresis, with strict I/Os. CXR 11/27 revealed mild left pleural effusion and right hilar prominence. Abdominal/pelvis CT 11/28 revealed pleural and pericardial effusions as well as extensive subcutaneous edema and left lung infiltrate. Echo 11/28 showed right ventricular dilation w/ pulmonary hypertension. Cardiology consulted, Lasix 80 BID, Metolazone 2.5mg QD, and COreg 6.25mg BID. AMINA tx w/ nephrology consulted- recommendations for dialysis. Pt with electrolyte imbalances- medically treated. Pt initially refusing dialysis, on hospital day 2 pt agreeable to dialysis. Pt taken to OR for HD catheter placement on hospital day 3 with emergent dialysis given. Podiatry saw/evaluated pt with recommmendations for wound care of right foot and vascular imaging studies to be done. Diabetes management provided with few episodes of hypoglycemia- regimen adjusted with improvement. Pt taken to OR on hospital day 7 for AVF creation. Wound care to Right foot applied daily during hospitalization. Patient to be discharged to [facility] for rehabilitation and receive outpatient Dialysis with [facility] in [place]. Pt medically stable for transfer to [facility], to continue all medications as per EMR. Diagnoses DM HTN ESRD on HD ansarca Acute on chronic systolic HF Right foot wound uremia hyperkalemia - transient Please see EMR for full details of hospitalization - Date & Time of H&P Date of H&P: 11/27/16 Time of H&P: 06:05 Discharge Exam - Head Exam Head Exam: ATRAUMATIC, NORMAL INSPECTION - Eye Exam Eye Exam: EOMI, Normal appearance, PERRL Pupil Exam: NORMAL ACCOMODATION, PERRL - ENT Exam ENT Exam: Mucous Membranes Moist, Normal Exam - Neck Exam Neck exam: Full Rom, Normal Inspection - Respiratory Exam Respiratory Exam: Clear to PA & Lateral, NORMAL BREATHING PATTERN, UNREMARKABLE. absent: Chest Wall Tenderness (Dialysis cathere in right chest wall- non tender, no drainage noted) - Cardiovascular Exam Cardiovascular Exam: REGULAR RHYTHM, +S1, +S2 - GI/Abdominal Exam GI & Abdominal Exam: Normal Bowel Sounds, Soft, Unremarkable. absent: Tenderness - Exam Exam: Scrotal Swelling - Extremities Exam Extremities exam: pedal edema (3+ pitting) - Neurological Exam Neurological exam: Alert, CN II-XII Intact, Oriented x3 - Psychiatric Exam Psychiatric exam: Anxious, Normal Affect, Normal Mood - Skin Skin Exam: Dry, Intact, Normal Color, Warm Additional comments: excluding right 1st toe- which is dusky Discharge Plan - Follow Up Plan Condition: STABLE Disposition: REHAB FACILITY/REHAB UNIT Instructions: Heart Failure (DC), Hemodialysis (DC), Renal Failure Diet (DC), Dialysis Diet (DC), Diabetes Mellitus Type 2 in Adults (DC), Hypertension (DC), End Stage Kidney Disease (DC) Additional Instructions: Patient medically stable for transfer to [facility] after dialysis today. Please continue all medications as specified in the EMR. Patient is to have wound care as specified by podiatry to right foot: do daily dressing changes as needed with bacitracin and DSD. Please call Dr. Maradiaga for follow up appointment. Please follow up with your primary care physician within 1 week after discharge from hospital. Per surgery - pt is to please follow up with Dr. Christy in his office in 10 days to have sutures removed. DO NOT REMOVE THE DRESSING UNTIL PATIENT IS SEEN BY DR. CHRISTY. Patient is to have outpatient dialysis at [facility] in [place] starting Wednesday, will have dialysis every Wednesday, Wednesday, Wednesday. Please return to hospital if symptoms recur. Referrals: Don Ferraro MD [Staff Provider] - Low Felix MD [Staff Provider] - Clinical Quality Measures - CQM - Heart Failure Ejection Fraction: 40 % or Greater Left Ventricular Function to be assessed after discharge: No PAMELA Inhibitor Prescribed: No Contraindication/Reason for not providing: Not indicated Beta-Prabhakar Prescribed: Carvedilol Angiotensin II Receptor Prabhakar Prescribed: No Contraindication/Reason for not providing: Not indicated AnticoagulationTherapy for Atrial Fibrillation/Atrialflutter: No Contraindication/Reason for not providing: Not indicated Aldosterone Antagonist Prescribed: No Contraindication/Reason for not providing: Not indicated Hydralazine Nitrate Prescribed: Yes Implantable Cardioverter Defibrillator Therapy: No Contraindication/Reason for not providing: Not indicated Cardiac Resynchronization Therapy Prescribed: No Contraindication/Reason for not providing: Not indicated Will be discharged to: [facility] Facility Follow Up Date (must be within 7 days from discharge): 12/04/16 Follow Up Time: 09:00 - Date & Time of Discharge Summary Date of Discharge Summary: 12/04/16 Time of Discharge Summary: 15:47 <Don Ferraro - Last Filed: 12/05/16 14:21> Provider - Provider Date of Admission: 11/28/16 01:33 Attending physician: Don Ferraro MD Hospital Course - Lab Results Lab Results: Most Recent Lab Values WBC 5.8 K/uL (4.8-10.8) 12/04/16 06:59 RBC 2.94 Mil/uL (4.40-5.90) L 12/04/16 06:59 Hgb 9.0 g/dL (12.0-18.0) L 12/04/16 06:59 Hct 26.8 % (35.0-51.0) L 12/04/16 06:59 MCV 91.1 fL (80.0-94.0) 12/04/16 06:59 MCH 30.6 pg (27.0-31.0) 12/04/16 06:59 MCHC 33.6 g/dL (33.0-37.0) 12/04/16 06:59 RDW 16.0 % (11.5-14.5) H 12/04/16 06:59 Plt Count 190 K/uL (130-400) 12/04/16 06:59 MPV 9.8 fL (7.2-11.7) 12/04/16 06:59 Neut % (Auto) 60.7 % (50.0-75.0) 12/04/16 06:59 Lymph % (Auto) 13.8 % (20.0-40.0) L 12/04/16 06:59 Mcleod % (Auto) 21.9 % (0.0-10.0) H 12/04/16 06:59 Eos % (Auto) 2.7 % (0.0-4.0) 12/04/16 06:59 Baso % (Auto) 0.9 % (0.0-2.0) 12/04/16 06:59 Neut # 3.5 K/uL (1.8-7.0) 12/04/16 06:59 Lymph # 0.8 K/uL (1.0-4.3) L 12/04/16 06:59 Mcleod # 1.3 K/uL (0.0-0.8) H 12/04/16 06:59 Eos # 0.2 K/uL (0.0-0.7) 12/04/16 06:59 Baso # 0.1 K/uL (0.0-0.2) 12/04/16 06:59 Neutrophils % (Manual) 56 % (50-75) 12/04/16 06:59 Band Neutrophils % 5 % (0-2) H 12/04/16 06:59 Lymphocytes % (Manual) 11 % (20-40) L 12/04/16 06:59 Reactive Lymphs % 5 % (0-0) H 12/04/16 06:59 Monocytes % (Manual) 22 % (0-10) H 12/04/16 06:59 Eosinophils % (Manual) 1 % (0-4) 12/04/16 06:59 Basophils % (Manual) 1 % (0-2) 11/28/16 05:36 Platelet Estimate Normal (NORMAL) 12/04/16 06:59 Large Platelets Present 12/04/16 06:59 Giant Platelets Present 12/01/16 07:36 Polychromasia Slight 11/30/16 07:30 Hypochromasia (manual) Slight 12/01/16 07:36 Poikilocytosis (manual Slight 12/01/16 07:36 Anisocytosis (manual) Slight 12/04/16 06:59 Ovalocytes Slight 12/04/16 06:59 Marta Cells Slight 12/01/16 07:36 PT 12.0 SECONDS (9.7-12.2) 12/03/16 19:46 INR 1.1 12/03/16 19:46 APTT 35 SECONDS (21-34) H 12/03/16 19:46 pO2 52 mm/Hg (30-55) 11/27/16 00:40 VBG pH 7.34 (7.32-7.43) 11/27/16 00:40 VBG pCO2 31 mmHg (40-60) L 11/27/16 00:40 VBG HCO3 18.4 mmol/L 11/27/16 00:40 VBG Total CO2 17.7 mmol/L (22-28) L 11/27/16 00:40 VBG O2 Sat (Calc) 89.7 % (40-65) H 11/27/16 00:40 VBG Base Excess -7.9 mmol/L (0.0-2.0) L 11/27/16 00:40 VBG Potassium 6.8 mmol/L (3.6-5.2) H* 11/27/16 00:40 Sodium 134.0 mmol/l (132-148) 11/27/16 00:40 Chloride 113.0 mmol/L (98-107) H 11/27/16 00:40 Glucose 248 mg/dl (75-110) H 11/27/16 00:40 Lactate 1.3 mmol/L (0.7-2.1) 11/27/16 00:40 Crit Value Called To Dr nova/er 11/27/16 00:40 Crit Value Called By Jeremy johnson/rt 11/27/16 00:40 Crit Value Read Back Y 11/27/16 00:40 Blood Gas Notified Time 50 11/27/16 00:40 Sodium 134 mmol/L (132-148) 12/04/16 06:59 Potassium 4.2 mmol/L (3.6-5.2) 12/04/16 06:59 Chloride 101 mmol/L (98-107) 12/04/16 06:59 Carbon Dioxide 26 mmol/L (22-30) 12/04/16 06:59 Anion Gap 11 (10-20) 12/04/16 06:59 BUN 42 mg/dL (9-20) H 12/04/16 06:59 Creatinine 2.3 MG/DL (0.8-1.5) H 12/04/16 06:59 Est GFR ( Amer) 37 12/04/16 06:59 Est GFR (Non-Af Amer) 30 12/04/16 06:59 POC Glucose (mg/dL) 252 mg/dL (65-110) H 12/04/16 16:36 Random Glucose 113 mg/dL (75-110) H 12/04/16 06:59 Calcium 7.3 mg/dl (8.6-10.4) L 12/04/16 06:59 Phosphorus 4.9 mg/dL (2.5-4.5) H 12/03/16 09:50 Magnesium 2.0 mg/dL (1.6-2.3) 12/03/16 09:50 % Saturation 16 (20-55) L 11/29/16 08:06 Ferritin 319.0 ng/mL 11/29/16 07:57 Total Bilirubin 0.2 mg/dL (0.2-1.3) 12/04/16 06:59 AST 23 U/L (17-59) 12/04/16 06:59 ALT 30 U/L (21-72) 12/04/16 06:59 Alkaline Phosphatase 438 U/L (38-126) H 12/04/16 06:59 Ammonia 24 umol/L (9-33) 11/28/16 00:34 NT-Pro-B Natriuret Pep 822176 pg/mL (0-900) H 11/28/16 00:29 Total Protein 5.6 g/dL (6.3-8.3) L 12/04/16 06:59 Albumin 2.3 g/dL (3.5-5.0) L 12/04/16 06:59 Globulin 3.3 gm/dL (2.2-3.9) 12/04/16 06:59 Albumin/Globulin Ratio 0.7 (1.0-2.1) L 12/04/16 06:59 Lipase 75 U/L (23-300) 11/28/16 00:29 PTH Intact Whole Molec 153 pg/mL (14-64) H 11/29/16 08:06 Venous Blood Potassium 6.8 mmol/L (3.6-5.2) H* 11/27/16 00:40 Urine Color Yellow (YELLOW) 11/28/16 04:33 Urine Clarity Clear (Clear) 11/28/16 04:33 Urine pH 6.0 (5.0-8.0) 11/28/16 04:33 Ur Specific Mazama 1.010 (1.003-1.030) 11/28/16 04:33 Urine Protein 3+ mg/dL (NEGATIVE) H 11/28/16 04:33 Urine Glucose (UA) 3+ mg/dL (Normal) H 11/28/16 04:33 Urine Ketones Negative mg/dL (NEGATIVE) 11/28/16 04:33 Urine Blood Negative (NEGATIVE) 11/28/16 04:33 Urine Nitrate Negative (NEGATIVE) 11/28/16 04:33 Urine Bilirubin Negative (NEGATIVE) 11/28/16 04:33 Urine Urobilinogen Normal mg/dL (0.2-1.0) 11/28/16 04:33 Ur Leukocyte Esterase Neg Wan/uL (Negative) 11/28/16 04:33 Urine WBC (Auto) 2 /hpf (0-5) 11/28/16 04:33 Urine RBC (Auto) 2 /hpf (0-3) 11/28/16 04:33 Ur Random Creatinine 23.5 mg/dL 11/28/16 04:33 U Random Total Protein 850.0 mg/dL (0.0-12.0) H 11/28/16 04:33 Ur Random Sodium 45 mmol/L 11/28/16 04:33 Urine Chloride 61 mmol/L (32-290) 11/28/16 04:33 Serum Ketones Negative (NEGATIVE) 11/28/16 00:29 Hep Bs Antigen Negative (NEGATIVE) 11/29/16 07:57 Hep Bs Antibody Negative (NEGATIVE) 11/29/16 08:06 Hep B Core IgM Ab Negative (NEGATIVE) 11/29/16 07:57 Hepatitis C Antibody Negative (NEGATIVE) 11/29/16 07:57 Attending/Attestation - Attestation I have personally seen and examined this patient.: Yes I have fully participated in the care of the patient.: Yes I have reviewed all pertinent clinical information, including history, physical exam and plan: Yes Notes (Text): 12/05/16 14:21 Patient was seen and examined at bedside with the resident Patient is awake alert not in any acute distress Plan for hemodialysis today Patient clear for discharge to subacute rehabilitation Center We will discharge patient to [facility] after hemodialysis today I discussed the discharge plan with the resident and agree with the above discharge note by the resident.
[2016-12-04 18:16] VITALS: BP 118/76; RESP 20; TEMP 97; O2SAT 96
--- NOTE | 2016-12-10 08:37 | CARD ---
APPROVED REPORT EKG Measurement Heart [id number] <Conclusion> Normal sinus rhythm Possible Anterior infarct, age undetermined Abnormal ECG
== END 2016-12-04 20:30 | DRG 673 ==
LOC: C.ER 22:53 → C.9E 11-28 01:33 → C.5T 11-28 06:35 → C.6T 12-03 22:31
PROVIDERS: ADMIT Internal Medicine; ATTEND Internal Medicine
PROC: 5A1D60Z (ICD-10-PCS; 2016-12-01)
PROC: 02HV33Z Insertion of Infusion Device into Superior Vena Cava, Percutaneous Approach (ICD-10-PCS; principal; 2016-12-01 14:00)
PROC: 03180ZD Bypass Left Brachial Artery to Upper Arm Vein, Open Approach (ICD-10-PCS; 2016-12-04)
DX: N17.9 Acute kidney failure, unspecified (principal); I50.23 Acute on chronic systolic (congestive) heart failure; E11.621 Type 2 diabetes mellitus with foot ulcer; E11.21 Type 2 diabetes mellitus with diabetic nephropathy; I27.2 Other secondary pulmonary hypertension; I13.2 Hypertensive heart and chronic kidney disease with heart failure and with stage 5 chronic kidney disease, or end stage renal disease; E87.5 Hyperkalemia; D53.9 Nutritional anemia, unspecified; F32.9 Major depressive disorder, single episode, unspecified; N18.6 End stage renal disease; F41.9 Anxiety disorder, unspecified; J45.909 Unspecified asthma, uncomplicated; I25.10 Atherosclerotic heart disease of native coronary artery without angina pectoris; E78.00 Pure hypercholesterolemia, unspecified; Z79.4 Long term (current) use of insulin; Z88.0 Allergy status to penicillin; H54.12 Blindness, left eye, low vision right eye; M19.90 Unspecified osteoarthritis, unspecified site; R80.9 Proteinuria, unspecified; L97.519 Non-pressure chronic ulcer of other part of right foot with unspecified severity; E11.22 Type 2 diabetes mellitus with diabetic chronic kidney disease; Z99.2 Dependence on renal dialysis; E11.649 Type 2 diabetes mellitus with hypoglycemia without coma

== ENCOUNTER 2017-01-28 08:24 | Day surgery (SDC) | payer MEDICARE, OTHER ==
[2017-01-21 11:19] VITALS: BMI 25.1
[~2017-01-28 08:24] MED LIST: HEPARIN-NS 5,000 UNITS/500 ML 5,000 UNIT/500 ML BAG IV ONE; Iodixanol 320 MG/ML 200 ML BOTTLE IV ONE; Midazolam 2 MG/2 ML VIAL ONE; Propofol 10 mg/ml Inj (20 ML) ONE; Vancomycin 1 gm/D5W 200 ml 1 GM/200 ML BAG IVPB ONE; ceFAZolin IV 1 gm in Dextrose 0 GM/0 ML BAG IVPB ONE
[2017-01-28] MEDS ORDERED: Etomidate 20 mg/10ml Inj IV ONE (09:30)
[2017-01-28 09:32] LABS: POTASSIUM 4.7 mmol/L (3.6-5.2)
[2017-01-28] MEDS ORDERED: Phenylephrine 10 mg/ml Inj ONE (09:32)
[2017-01-28] MEDS ORDERED: Lidocaine 2% Inj (20ml) ONE (09:49)
[2017-01-28] MEDS ORDERED: Sodium Chloride 0.9% 500 ML IV ONE (09:50)
[2017-01-28] MEDS ORDERED: Bupivacaine 0.5% Inj(30mL) ONE (09:57)
[2017-01-28] MEDS ORDERED: HEPARIN-NS 5,000 UNITS/500 ML 5,000 UNIT/500 ML BAG IV ONE (10:34)
[2017-01-28] MEDS ORDERED: HYDROmorphone 0.5 mg/0.5 ml ISec IVP PRN (12:07)
[2017-01-28] MEDS ORDERED: Oxycodone/Acetaminophen 5/325 mg Tab PO PRN (12:09)
--- NOTE | 2017-01-28 12:11 | PCM.SURG1 ---
Surgeon's Initial Post Op Note - Surgeon's Notes Surgeon: Linda Control Clerk Head: Carmen Pre-Operative Diagnosis: Renal Failure Operative Findings: AVF Post-Operative Diagnosis: renal failure Operation Performed: AVF repair with Hybrid shunt Specimen/Specimens Removed: n/a Estimated Blood Loss: EBL {In ML}: 200 Date of Surgery/Procedure: 01/28/17 Time of Surgery/Procedure: 10:00
--- NOTE | 2017-01-28 12:25 | OP ---
PROCEDURE DATE: 01/28/2017 PREOPERATIVE DIAGNOSES: Renal failure; immature fistula, left arm. PROCEDURE CARRIED OUT: Placement of hybrid shunt, left arm. SURGEON: Timothy Mckeon Jr., MD ROUTE SUPERVISOR: ____. ANESTHESIOLOGIST: ____. INDICATIONS: The patient is a middle-aged man with renal insufficiency. He had no vein suitable in his arm for either basilic or a cephalic vein fistula. We initially did it to the brachial vein. He has developed some edema in the arm. OPERATIVE FINDINGS: Again, we scanned. There was no suitable vein for a creation of a surface fistu la and the basilic vein was not identified. We then identified the brachial vein up in the arm and w e based the fistula off the proximal portion of the previous AV fistula. Thus, at the end, at the ve nous end we had a hybrid shunt and at the arterial end this began just after the origin of the fistul a and we ligated cephalad to that. PROCEDURE: The patient was given general anesthesia and intravenous antibiotics. The veins and jessy jane were carefully marked on the skin. After this had been all dissected free, we then dissected it out and identified the vessels. We dissected out the arterialized side of the vein. We then anasto mosed these using loupe magnification and heparin anticoagulation to the adjacent vessels. This went quite well. Subsequently had to dilate the balloon at the venous anastomosis to fully expand the st ent, which went uneventfully. After this had been done, there was excellent flow. A completion veno gram was taken which did not show any evidence of central vein stenosis and showed a satisfactory poly ous side. Skin was then closed with skin clips and nylon sutures. OPERATION CARRIED OUT: Placement of hybrid shunt, left arm. Timothy Mckeon Jr., MD cc:Brendan Kate MD 57 TT: 01/28/2017 12:24:43 md
[2017-01-28] MEDS ORDERED: Propofol 10 mg/ml Inj (20 ML) ONE (13:17)
[2017-01-28] MEDS ORDERED: Neostigmine Methylsulfate 3mg/3ml Syringe IV ONE (13:54)
[2017-01-28] MEDS ORDERED: Esmolol 100 mg/10ml Inj IV ONE (14:01)
[2017-01-28 15:19] VITALS: RESP 9; TEMP 97.5
--- NOTE | 2017-01-28 17:07 | RAD ---
PROCEDURE: Left arm hybrid fluoroscopy for HISTORY: As above COMPARISON: None TECHNIQUE: Fluoroscopy of the left upper extremity was performed by the referring clinician for left arm hybrid -history renal failure . Cumulative dose 5.38 mGy FINDINGS: Please refer to the procedural report IMPRESSION: Fluoroscopy provided.
[2017-01-28 17:37] VITALS: O2SAT 98
[2017-01-28 17:39] VITALS: BP 123/71; PULSE 65
== END 2017-01-28 17:20 | disposition home or self-care (01) ==
LOC: C.SDS 08:24
PROVIDERS: ATTEND Surgery Vascular Surgery
DX: N18.6 End stage renal disease (principal)
CPT/HCPCS: 36415; 36821; 76000; 80048; 82948; C1725; C1768; C1769; C1894; J2250; J2370; J2405; J2704; J2710; J3010; J3370; J7040

== ENCOUNTER 2017-05-07 11:01 | Inpatient (IN) | payer MEDICARE, OTHER ==
[2017-05-07 11:08] VITALS: BMI 21.5
[2017-05-07 11:39] LABS: BASO # 0.2 K/uL (0.0-0.2); BASO % 2.5 % (0.0-2.0); EOS # 0.2 K/uL (0.0-0.7); EOS % 3.5 % (0.0-4.0); HEMATOCRIT 28.4 % (35.0-51.0); LYMPH # 1.1 K/uL (1.0-4.3); LYMPH % 17.3 % (20.0-40.0); MEAN CELL VOLUME 94.9 fL (80.0-94.0); MEAN CORPUSCULAR HEMOGLOBIN 31.6 pg (27.0-31.0); MEAN CORPUSCULAR HGB CONC 33.3 g/dL (33.0-37.0); MEAN PLATELET VOLUME 9.8 fL (7.2-11.7); MONO # 1.2 K/uL (0.0-0.8); MONO % 19.5 % (0.0-10.0); RED CELL DISTRIBUTION WIDTH 15.7 % (11.5-14.5); WHITE BLOOD COUNT 6.3 K/uL (4.8-10.8)
--- NOTE | 2017-05-07 11:42 | C.PDOC ---
History Of Present Illness 51 y/o male with hx of renal disease, HTN and CHF presents to ED with complaints of chest pain developed today prior to going to dialysis. Patient received Nitro by ALS prior to arrival. Poor historian and denies fever, chills , sob, n/v or any other complaints at this time. Time Seen by Provider: 05/07/17 11:19 Chief Complaint (Nursing): Chest Pain History Per: Patient History/Exam Limitations: no limitations Onset/Duration Of Symptoms: Hrs Current Symptoms Are (Timing): Still Present Past Medical History Reviewed: Historical Data, Nursing Documentation, Vital Signs Vital Signs: Last Vital Signs Temp 98.6 F 05/07/17 11:02 Pulse 76 05/07/17 16:59 Resp 18 05/07/17 16:59 BP 130/87 05/07/17 16:59 Pulse Ox 98 05/07/17 16:59 - Medical History PMH: Anemia, Anxiety, Arthritis (hands and legs), Asthma, Back Problems, CAD, CHF (chronic LV Sys EF 39% on Mugga evaluated by EP for possible ICD), Depression, Diabetes, Gastritis, HTN, Hypercholesterolemia, Pneumonia, Chronic Kidney Disease Surgical History: No Surg Hx - [facility] Procedures BYPASS LEFT BRACHIAL ARTERY TO UPPER ARM VEIN, OPEN APPROACH (11/28/16) CENTRAL VENOUS CATHETER PLACEMENT WITH GUIDANCE (10/12/13) CORONAR ARTERIOGR-2 CATH (10/17/14) INFLUENZA VACCINATION (09/24/13) INSERTION OF INFUSION DEV INTO SUP VENA CAVA, PERC APPROACH (11/28/16) LEFT HEART CARDIAC CATH (10/17/14) LT HEART ANGIOCARDIOGRAM (10/17/14) PERFORMANCE OF URINARY FILTRATION, MULTIPLE (11/28/16) VACCINATION NEC (09/24/13) Family History: States: Diabetes - Social History Hx Tobacco Use: No Hx Alcohol Use: No Hx Substance Use: No - Immunization History Hx Tetanus Toxoid Vaccination: No Hx Influenza Vaccination: No Hx Pneumococcal Vaccination: No Review Of Systems Except As Marked, All Systems Reviewed And Found Negative. Cardiovascular: Positive for: Chest Pain Physical Exam - Physical Exam Appears: Non-toxic, No Acute Distress Skin: Normal Color, Warm, Dry, No Rash Head: Atraumatic, Normacephalic Eye(s): bilateral: Normal Inspection Oral Mucosa: Moist Neck: Normal ROM, Supple Chest: Symmetrical Cardiovascular: Rhythm Regular, No Murmur Respiratory: Normal Breath Sounds, No Rales, No Rhonchi, No Wheezing Gastrointestinal/Abdominal: Soft, No Tenderness, No Guarding, No Rebound Neurological/Psych: Oriented x3 ED Course And Treatment - Laboratory Results Result Diagrams: 05/07/17 11:33 05/07/17 11:33 ECG: Interpreted By Me, Viewed By Me ECG Rhythm: Sinus Rhythm, Nonspecific Changes ECG Interpretation: Normal Rate From EC (BPM) O2 Sat by Pulse Oximetry: 95 (RA) Pulse Ox Interpretation: Normal Medical Decision Making Medical Decision Making: cp r/o acs abd pain, elevated lfts r/o choledolithaisis, cholangitis Plan: * ECG * CXR * UA * Blood work case discssued with dr arnold. arrangements made for hd as pt missed hd. will get after iv contrast. case discussed with dr bradford, accepts for admission for jaundice, r/o acs Disposition - Disposition Disposition: HOSPITALIZED Disposition Time: 03:00 Condition: STABLE - Clinical Impression Clinical Impression: Chest pain, Hyperbilirubinemia, Jaundice - Scribe Statement The provider has reviewed the documentation as recorded by the Jose Gibedna Wilson All medical record entries made by the Jose Gibedna were at my direction and personally dictated by me. I have reviewed the chart and agree that the record accurately reflects my personal performance of the history, physical exam, medical decision making, and the department course for this patient. I have also personally directed, reviewed, and agree with the discharge instructions and disposition.
[2017-05-07 11:48] LABS: CHLORIDE 93 mmol/L (98-107)
[2017-05-07 11:49] LABS: SODIUM 134 mmol/L (132-148)
[2017-05-07 11:50] LABS: POTASSIUM 4.6 mmol/L (3.6-5.2)
[2017-05-07 11:51] LABS: AST/SGOT 48 U/L (17-59); BILIRUBIN,TOTAL 6.1 mg/dL (0.2-1.3); BLOOD UREA NITROGEN 27 mg/dL (9-20); CARBON DIOXIDE 28 mmol/L (22-30); GFR AFRICAN-AMERICAN 32; TOTAL PROTEIN 7.6 g/dL (6.3-8.3)
[2017-05-07 11:52] LABS: ALB/GLOB RATIO 0.7 (1.0-2.1); ALKALINE PHOSPHATASE 739 U/L (38-126); ALT/SGPT 30 U/L (21-72); GLUCOSE,RANDOM 186 mg/dL (75-110)
[2017-05-07 11:53] LABS: CALCIUM 7.9 mg/dl (8.6-10.4)
[2017-05-07 11:57] LABS: INR 1.2
[2017-05-07] MEDS ORDERED: Iodixanol 320 MG/ML 100 ML BOTTLE IV ONE (14:12)
--- NOTE | 2017-05-07 14:24 | RAD ---
PROCEDURE: CHEST RADIOGRAPH, 1 VIEW Technique: Single view portable semi erect @ 11:30. HISTORY: chest pain COMPARISON: 01/21/2017. FINDINGS: LUNGS: Clear. PLEURA: No pneumothorax or pleural fluid seen. CARDIOVASCULAR: Cardiomegaly. No evidence of acute, significant cardiovascular disease. Removal of support apparatus since the prior study: Dialysis catheter. OSSEOUS STRUCTURES: No significant abnormalities. VISUALIZED UPPER ABDOMEN: Normal. OTHER FINDINGS: None. IMPRESSION: No active disease.
--- NOTE | 2017-05-07 15:21 | CT ---
PROCEDURE: CT Abdomen and Pelvis with contrast HISTORY: abd pain COMPARISON: Abdomen pelvis CT with contrast 10/11/2013 prior TECHNIQUE: Contrast dose: Visipaque 320, 100 cc Radiation dose: Total exam DLP = 41 mGy-cm. This CT exam was performed using one or more of the following dose reduction techniques: Automated exposure control, adjustment of the mA and/or kV according to patient size, and/or use of iterative reconstruction technique. FINDINGS: LOWER THORAX: Cardiomegaly is again seen as well as minimal interval or recurrent pleural effusion. A mild left pleural effusion identified and a chronic or recurrent minimal pericardial effusions noted. Cardiomegaly appears stable nevertheless. A small hiatal hernia is also noted. LIVER: UnremarkableThere is a subtle nodular pattern to the surface of the liver suspicious for cirrhosis. No definitive mass is seen throughout the liver however. Liver is diminished in attenuation however the study is performed in arterial phase of enhancement. An element of diffuse fatty infiltration is in question nevertheless. . No gross lesion or ductal dilatation. GALLBLADDER AND BILE DUCTS: Cholelithiasis identified within a mildly distended gallbladder once again with no pericholecystic fluid collection or prominent mural thickening related. PANCREAS: Unremarkable. No gross lesion or ductal dilatation. SPLEEN: Unremarkable. ADRENALS: Unremarkable. No mass. KIDNEYS AND URETERS: Unremarkable. No hydronephrosis. No solid mass. VASCULATURE: Unremarkable. No aortic aneurysm. BOWEL: Occasional sigmoid diverticular are identified however this segment of bowel is collapsed. Is difficult to exclude an element of diverticulitis given the ascites and questionable mural thickening. Lack oral contrast also limits interpretation. Bowel loops in the left yaneli abdomen are collapsed and the wall is difficult evaluate. Element of an enteritis is not excluded completely. APPENDIX: Limited ascites seen associated appendix however the appendix is not definitively inflamed. Clinically correlate further here. PERITONEUM: Mild left greater the right abdominal ascites is appreciate, particularly at the lower abdomen. No free intrarenal gas identified. LYMPH NODES: Unremarkable. No enlarged lymph nodes. BLADDER: Urine bladder is distended with fluid and a significant amount nondependent gas. The wall appears mildly thickened and cystitis is in question. Further clinical correlation is advised. Consider recent instrumentation. REPRODUCTIVE: Mildly enlarged prostate gland BONES: Limited multilevel lumbar spondylosis identified. OTHER FINDINGS: None. IMPRESSION: 1. Mild also ascites appreciate the left greater the right yaneli abdomen. Bowel loops are not distended at the sigmoid colon with a few diverticular are associated there appears difficult to exclude an element of colitis or even enterocolitis in this patient though these segments appear separate at the left yaneli abdomen. Further clinical correlation is advised. No bowel obstruction or free intraperitoneal gas. 2. Cholelithiasis. 3. Resolution of prior pyelonephritis and right psoas muscle phlegmon. 4. Urinary bladder is distended with with an air-fluid level and somewhat thickened wall suspicious for cystitis or recent instrumentation. Clinically correlate. 5. Other lesser findings as discussed above.
--- NOTE | 2017-05-07 16:01 | CP.PCM.HP ---
<Tj Albarran - Last Filed: 05/07/17 19:16> History of Present Illness - History of Present Illness History of Present Illness: CC: "I had chest pain 3 times today" HPI: This 51 yo Male with PMHx significant for CHF (EF 46%), ESRD, HTN and DM - presents to the ED c/o 3 episodes of chest pain today. He states that his first episode of chest pain occurred this morning at 10am, 30 minutes after starting his Dialysis session as an outpatient. He describes the pain as sub- sternal, dull and pressure-like, rated a 6/10. He denies any radiation of pain, and reports that this is his first such episode (despite prior admissions for chest pain). He received nitro in route by ALS, and that helped resolve his pain. He admits his other 2 episodes of chest pain resolved spontaneously. During our encounter, he denied any current chest pain. Overall, he reports he has been doing well with his medical therapy and HD-MWF. Since he has been attending dialysis regularly, he only requires 1-2 pillows to sleep at night ( previously required 4). He denies f/c, headache, dizziness, current CP, SOB, cough, n/v, d/c, overt swelling in his abdomen or LE, or any additional complaints. PMHx: ESRD, CHF, HTN, DM PSHx: Left hallux amputation (2011), left inguinal hernia repairs x 2, left eye surgery "for retina" (Mar 2014) FHx: Mom - DM, alive. Dad- DM, at age 73 Social Hx: nonsmoker, last drink 1 year ago - denies heavy drinking in past, denies illicit drug use. Lives with mom, unemployed Allergies: PCN - swelling and rash PMD: Dr. Lynda Ng Review of Systems: -Gen: +lethargy; denies fever, chills, headache, weakness. -HEENT: denies dizziness, change in vision, change in hearing, sore throat, dysphagia, nasal congestion, mucous. -Cardio: +lower extremity edema; denies chest pain, palpitations -Resp: denies cough, dyspnea, hemoptysis, wheezing, pain on inspiration. -GI: +abdominal pain (mild, RUQ), denies: nausea/vomiting, diarrhea/ constipation, hematochezia, hematemesis. -: denies dysuria, urinary freq, incontinence, hematuria, change in urinary stream. -MSK: denies back pain, muscle weakness, radiating pain. -Skin: denies itching, rash, lesions. -Neuro: denies confusion, numbness, tingling, focal weakness, radicular pain, syncope. -Psych: denies anxiety, depression, H/I, S/I, hallucinations. Present on Admission - Present on Admission Any Indicators Present on Admission: No Past Patient History - Infectious Disease Hx of Infectious Diseases: None - Tetanus Immunizations Tetanus Immunization: Unknown - Past Medical History & Family History Past Medical History?: Yes - Past Social History Smoking Status: Never Smoked - CARDIAC Hx Congestive Heart Failure: Yes (chronic LV Sys EF 39% on Mugga evaluated by EP for possible ICD) Hx Hypercholesterolemia: Yes Hx Hypertension: Yes - PULMONARY Hx Asthma: Yes Hx Pneumonia: Yes - HEENT Hx HEENT Problems: Yes Other/Comment: left eye blind, Rt. eye vision blurred, uses eyeglasses for reading - RENAL Hx Chronic Kidney Disease: Yes - ENDOCRINE/METABOLIC Hx Endocrine Disorders: Yes Hx Diabetes Mellitus Type 2: Yes (for 15 years) - HEMATOLOGICAL/ONCOLOGICAL Hx Anemia: Yes - MUSCULOSKELETAL/RHEUMATOLOGICAL Hx Arthritis: Yes (hands and legs) - GASTROINTESTINAL Hx Gastritis: Yes - PSYCHIATRIC Hx Anxiety: Yes Hx Depression: Yes Hx Substance Use: No - SURGICAL HISTORY Hx Vascular Access Device: Yes - ANESTHESIA Hx Anesthesia: Yes Hx Anesthesia Reactions: No Hx Malignant Hyperthermia: No Meds Allergies/Adverse Reactions: Allergies Allergy/AdvReac Type Severity Reaction Status Date / Time Penicillins Allergy Verified 03/09/16 13:01 Physical Exam - Additional Findings Additional findings: - Constitutional Appears: Non-toxic, Chronically Ill - Head Exam Head Exam: ATRAUMATIC, NORMAL INSPECTION - Eye Exam Eye Exam: EOMI, Scleral icterus - ENT Exam ENT Exam: Mucous Membranes Moist - Neck Exam Neck exam: Positive for: Normal Inspection. Negative for: Tenderness, JVD - Respiratory Exam Respiratory Exam: Clear to Auscultation Bilateral, NORMAL BREATHING PATTERN - Cardiovascular Exam Cardiovascular Exam: REGULAR RHYTHM, +S1, +S2 +tenderness to palpation of anterior chest wall along L sternal border rib 4 - GI/Abdominal Exam GI & Abdominal Exam: Distended, Soft, Tenderness (+RUQ, negative darling's sign) - Extremities Exam Extremities exam: Positive for: pedal edema (mild, 1+ pitting b/l). Negative for: tenderness +L arm shunt (+palpable Thrill, +Bruit auscultated) - Neurological Exam Neurological exam: Alert, Oriented x3 - Skin Skin Exam: Dry, Warm, Intact R permacath removed from R chest wall. Site bandaged, CDI. Results - Vital Signs Recent Vital Signs: Last Vital Signs Temp 98.6 F 05/07/17 11:02 Pulse 88 05/07/17 11:07 Resp 20 05/07/17 11:07 BP 121/79 05/07/17 11:07 Pulse Ox 95 05/07/17 11:44 - Labs Result Diagrams: 05/07/17 11:33 05/07/17 11:33 Labs: Laboratory Results - last 24 hr 05/07/17 05/07/17 05/07/17 11:33 11:33 11:33 WBC 6.3 RBC 3.00 L Hgb 9.5 L Hct 28.4 L MCV 94.9 H MCH 31.6 H MCHC 33.3 RDW 15.7 H Plt Count 223 MPV 9.8 Neut % (Auto) 57.2 Lymph % (Auto) 17.3 L Cotton % (Auto) 19.5 H Eos % (Auto) 3.5 Baso % (Auto) 2.5 H Neut # 3.6 Lymph # 1.1 Cotton # 1.2 H Eos # 0.2 Baso # 0.2 PT 14.3 H INR 1.2 APTT 33 Sodium 134 Potassium 4.6 Chloride 93 L Carbon Dioxide 28 Anion Gap 17 BUN 27 H Creatinine 2.6 H Est GFR ( Amer) 32 Est GFR (Non-Af Amer) 26 Random Glucose 186 H Calcium 7.9 L Total Bilirubin 6.1 H Direct Bilirubin AST 48 ALT 30 Alkaline Phosphatase 739 H Troponin I < 0.0120 Total Protein 7.6 Albumin 3.0 L D Globulin 4.6 H Albumin/Globulin Ratio 0.7 L Lipase 67 05/07/17 13:36 WBC RBC Hgb Hct MCV MCH MCHC RDW Plt Count MPV Neut % (Auto) Lymph % (Auto) Cotton % (Auto) Eos % (Auto) Baso % (Auto) Neut # Lymph # Cotton # Eos # Baso # PT INR APTT Sodium Potassium Chloride Carbon Dioxide Anion Gap BUN Creatinine Est GFR ( Amer) Est GFR (Non-Af Amer) Random Glucose Calcium Total Bilirubin Direct Bilirubin 6.6 H AST ALT Alkaline Phosphatase Troponin I Total Protein Albumin Globulin Albumin/Globulin Ratio Lipase Assessment & Plan - Assessment and Plan (Free Text) Assessment: Chest Pain -Cardio consult, Dr. Mantilla, f/u recs -Troponin negative x1 -EKG - nsr, 88bpm, non-specific changes, f/u official read. -f/u ROMIx2 and EKGx2 at 19:00, 3:00 -Oxygen 2L NC -ASA 81 -f/u UDS ESRD on HD (MWF) -Nephro consult, Dr. Felix, f/u recs -Patient has not missed any HD sessions this week - [facility] outpt dialysis -Patient received dialysis 05/07 at [facility] after coming to the ED -L arm shunt in place Systolic heart failure -Cardio consult, Dr. Mantilla, f/u recs -12/01: Echo - LV mod dilated w/global hyokinesis, mild- mod concentric LVH, LV systolic function mildly impaired, EF 46%, RV mild-mod dilated w/mildly reduced contractility, RV systolic pressure ~48mmHg = mod pulm HTN, trace pericardial effusion -Lasix 80mg PO BID changed to Lasix 40mg IVP BID -f/u ECHO 05/08 Cholelithiasis / Hyperbilirubinemia -GI consult, Dr. Leach, f/u recs -Possible MRCP 05/08 - patient NPO AM (to start D5-1/2NS at 80cc/hr while NPO) -CT Abd/Pelv w/Contrast 05/07 - 1. ascites appreciate the left greater the right yaneli abdomen. 2. Cholelithiasis. 3. subtle nodular pattern to the surface of the liver suspicious for cirrhosis 4. Resolution of prior pyelonephritis and right psoas muscle phlegmon. 5. Urinary bladder is distended with with an air- fluid level and somewhat thickened wall suspicious for cystitis or recent instrumentation. see full report -f/u hepatitis profile, AFP, HOPE, Anti smooth muscle, anti mitochondrial, HIV -f/u ammonia Anemia -Hgb 9.5 on admission - roughly his baseline -Likely 2/2 chronic disease -f/u TIBC, Fe, Riticulocyte count, %sat, ferritin HTN -BP 121/79 -Well controlled on current regimen -Lasix 80mg PO BID changed to Lasix 40mg IVP BID -Hydralazine 50mg PO TID LONG -Imdur 60mg PO qD Diabetes Blood sugar 186 Continue home meds: Levemir 15u SC HS; Novolog 8u SC TIDAC; Gabapentin 300mg PO TID ISS Monitor Prophylaxis Heparin 5k u SC q8H Pepcid 20mg IVP qd SCDs Calcitriol 0.25mcg PO qD MVI - Date & Time Date: 05/07/17 Time: 15:58 <Lynda Ang V - Last Filed: 05/09/17 13:36> Results - Vital Signs Recent Vital Signs: Last Vital Signs Temp 98.0 F 05/09/17 10:11 Pulse 74 05/09/17 10:11 Resp 20 05/09/17 10:11 BP 129/74 05/09/17 11:14 Pulse Ox 96 05/09/17 10:11 - Labs Result Diagrams: 05/09/17 08:15 05/09/17 08:15 Labs: Laboratory Results - last 24 hr 05/08/17 05/08/17 05/08/17 13:05 13:05 13:05 WBC RBC Hgb Hct MCV MCH MCHC RDW Plt Count MPV Neut % (Auto) Lymph % (Auto) Cotton % (Auto) Eos % (Auto) Baso % (Auto) Neut # Lymph # Cotton # Eos # Baso # Sodium Potassium Chloride Carbon Dioxide Anion Gap BUN Creatinine Est GFR ( Amer) Est GFR (Non-Af Amer) POC Glucose (mg/dL) Random Glucose Calcium Phosphorus Magnesium Total Bilirubin AST ALT Alkaline Phosphatase Ammonia Total Creatine Kinase 51 L CK-MB (Mass) 3.52 H Troponin I, Quant < 0.0120 Total Protein Albumin Globulin Albumin/Globulin Ratio Carcinoembryonic Ag 3.7 H Urine Opiates Screen Urine Methadone Screen Ur Barbiturates Screen Ur Phencyclidine Scrn Ur Amphetamines Screen U Benzodiazepines Scrn U Oth Cocaine Metabols U Cannabinoids Screen Infectious Cotton Assay Negative 05/08/17 05/08/17 05/09/17 16:37 20:56 06:49 WBC RBC Hgb Hct MCV MCH MCHC RDW Plt Count MPV Neut % (Auto) Lymph % (Auto) Cotton % (Auto) Eos % (Auto) Baso % (Auto) Neut # Lymph # Cotton # Eos # Baso # Sodium Potassium Chloride Carbon Dioxide Anion Gap BUN Creatinine Est GFR ( Amer) Est GFR (Non-Af Amer) POC Glucose (mg/dL) 237 H 133 H 106 Random Glucose Calcium Phosphorus Magnesium Total Bilirubin AST ALT Alkaline Phosphatase Ammonia Total Creatine Kinase CK-MB (Mass) Troponin I, Quant Total Protein Albumin Globulin Albumin/Globulin Ratio Carcinoembryonic Ag Urine Opiates Screen Urine Methadone Screen Ur Barbiturates Screen Ur Phencyclidine Scrn Ur Amphetamines Screen U Benzodiazepines Scrn U Oth Cocaine Metabols U Cannabinoids Screen Infectious Cotton Assay 05/09/17 05/09/17 05/09/17 08:15 08:15 08:47 WBC 6.4 RBC 2.81 L Hgb 8.9 L Hct 26.8 L MCV 95.4 H MCH 31.6 H MCHC 33.2 RDW 15.5 H Plt Count 222 MPV 10.4 Neut % (Auto) 59.6 Lymph % (Auto) 17.2 L Cotton % (Auto) 17.6 H Eos % (Auto) 3.9 Baso % (Auto) 1.7 Neut # 3.8 Lymph # 1.1 Cotton # 1.1 H Eos # 0.3 Baso # 0.1 Sodium 131 L Potassium 4.0 Chloride 94 L Carbon Dioxide 27 Anion Gap 14 BUN 24 H Creatinine 2.8 H Est GFR ( Amer) 29 Est GFR (Non-Af Amer) 24 POC Glucose (mg/dL) Random Glucose 83 Calcium 7.8 L Phosphorus 4.7 H Magnesium 2.1 Total Bilirubin 4.6 H AST 24 ALT 21 D Alkaline Phosphatase 517 H D Ammonia Total Creatine Kinase CK-MB (Mass) Troponin I, Quant Total Protein 6.3 Albumin 2.6 L Globulin 3.7 Albumin/Globulin Ratio 0.7 L Carcinoembryonic Ag Urine Opiates Screen Negative Urine Methadone Screen Negative Ur Barbiturates Screen Negative Ur Phencyclidine Scrn Negative Ur Amphetamines Screen Negative U Benzodiazepines Scrn Negative U Oth Cocaine Metabols Negative U Cannabinoids Screen Negative Infectious Cotton Assay 05/09/17 05/09/17 12:09 12:21 WBC RBC Hgb Hct MCV MCH MCHC RDW Plt Count MPV Neut % (Auto) Lymph % (Auto) Cotton % (Auto) Eos % (Auto) Baso % (Auto) Neut # Lymph # Cotton # Eos # Baso # Sodium Potassium Chloride Carbon Dioxide Anion Gap BUN Creatinine Est GFR ( Amer) Est GFR (Non-Af Amer) POC Glucose (mg/dL) 130 H Random Glucose Calcium Phosphorus Magnesium Total Bilirubin AST ALT Alkaline Phosphatase Ammonia 43 H D Total Creatine Kinase CK-MB (Mass) Troponin I, Quant Total Protein Albumin Globulin Albumin/Globulin Ratio Carcinoembryonic Ag Urine Opiates Screen Urine Methadone Screen Ur Barbiturates Screen Ur Phencyclidine Scrn Ur Amphetamines Screen U Benzodiazepines Scrn U Oth Cocaine Metabols U Cannabinoids Screen Infectious Cotton Assay Attending/Attestation - Attestation I have personally seen and examined this patient.: Yes I have fully participated in the care of the patient.: Yes I have reviewed all pertinent clinical information: Yes Notes (Text): This is late computer entry for 05/07/17. Patient seen, examined, and case discussed with day-time resident. Discussed with ED physician, patient came in for chest pain, abdominal pain, and new onset-jaundice. patient completed CT abdomen/pelvis with IV contrast and went to dialysis thereafter. Patient reporting he notice the jaundice today and that his belly got bigger. Patient denies drugs/denies alcohol. Assessment/Plan 1) Chest Pain * Cardiology consult, Dr. Mantilla, f/u recs * Troponin negative x1 * EKG - nsr, 88bpm, non-specific changes, f/u official read. * f/u ROMIx2 and EKGx2 at 19:00 at 05/07, 3:00AM at 05/08 * Oxygen 2L NC * ASA 81mg PO daily * f/u UDS * Lasix 40mg IV Q 12H * Hydralazine 50mg PO TID * Imdur 60mg PO daily * Echocardiogram ordered 2) ESRD on HD (MWF) * Nephrology consult, Dr. Felix, f/u recs * Patient has not missed any HD sessions this week - [facility] outpt dialysis * Patient received dialysis 05/07 at [facility] after coming to the ED * L arm shunt in place 3) Acute on Chronic Systolic Heart failure * Cardiology consult, Dr. Mantilla, f/u recs * 12/01/16: Echo - LV mod dilated w/global hyokinesis, mild- mod concentric LVH, LV systolic function mildly impaired, EF 46%, RV mild-mod dilated w/mildly reduced contractility, RV systolic pressure ~48mmHg = mod pulm HTN, trace pericardial effusion * ordered for new Echo * Lasix 40mg IVP BID * Aspirin 81mg PO daily * Hydralazine 50mg PO TID * Imdur 60mg PO daily * Off [facility]-->patient is ESRD * Intake and output * Elevated proBNP 4) New Onset Jaundice Hyperbilirubinemia Cholelithiasis * GI operations manager (Dr. Leach) help appreciated * General Surgery (Dr. Zuniga) help appreciated * Patient going for MRCP tomorrow 05/08/17 * Hepatitis profile, AFP, HOPE, Anti-smooth muscle, anti-mitochondrial, HIV, ammonia * Negative Darling's sign * CT Abdomen/Pelvis (05/07/17): mild also ascites appreciate the left greater the right hemiabdomen. Bowel loops are not distended at the sigmoid colon with a few diverticular are associated-->difficult to exclude colitis or enterocolitis. Cholelithiasis. Resolution of prior pyelonephritis and right psoas msucle phlegmon. Urinary bladder is distended with air fluid level and somewhat thicken suspicious for cystitis. * Elevated total and direct bilirubin 4) Anemia * Hgb 9.5 on admission * Likely 2/2 chronic disease * f/u TIBC, Fe, Riticulocyte count, %sat, ferritin 5) Hypertension * ESRD MWF * Hydralazine 50mg PO TID * Imdur 60mg PO daily * Lasix 40mg IV BID 6) Diabetes * Accuchecks QAC and HS * Gabapentin 300mg PO TID * Levemir 15u SC HS * Novolog 8u SC TIDAC * Monitor 7) Prophylaxis * Heparin 5000 u SC q8H for DVT ppx * Pepcid 20mg IVP qdaily for GI ppx * SCDs * Calcitriol 0.25mcg PO qD * MVI
--- NOTE | 2017-05-07 16:04 | CP.PCM.CON ---
History of Present Illness - History of Present Illness History of Present Illness: 51 y/o male with hx of renal disease, HTN and CHF presents to ED with complaints of chest pain developed today prior to going to dialysis. Patient received Nitro by ALS prior to arrival. Poor historian and denies fever, chills , sob, n/v or any other complaints at this time. 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 Review of Systems - Constitutional Constitutional: Weight Gain, Weakness - EENT Eyes: Blurred Vision Ears: absent: As Per HPI, Decreased Hearing, Ear Discharge, Ear Pain, Tinnitus, Abnormal Hearing, Disequilibrium, Dizziness, Other Nose/Mouth/Throat: absent: As Per HPI, Epistaxis, Nasal Congestion, Nasal Discharge, Nasal Obstruction, Nasal Trauma, Nose Pain, Post Nasal Drip, Sinus Pain, Sinus Pressure, Bleeding Gums, Change in Voice, Dental Pain, Dry Mouth, Dysphagia, Halitosis, Hoarsness, Lip Swelling, Mouth Lesions, Mouth Pain, Odynophagia, Sore Throat, Throat Swelling, Tongue Swelling, Facial Pain, Neck Pain, Neck Mass, Other - Cardiovascular Cardiovascular: Dyspnea on Exertion, Leg Edema - Respiratory Respiratory: Dyspnea on Exertion - Gastrointestinal Gastrointestinal: Early Satiety, Nausea - Genitourinary Genitourinary: As Per HPI - Musculoskeletal Musculoskeletal: Muscle Cramps, Stiffness - Neurological Neurological: Confusion, Weakness Past Patient History - Infectious Disease Hx of Infectious Diseases: None - Tetanus Immunizations Tetanus Immunization: Unknown - Past Medical History & Family History Past Medical History?: Yes Past Family History: Reviewed and not pertinent - Past Social History Smoking Status: Never Smoked Chewing Tobacco Use: No Cigar Use: No Alcohol: Occasional Drugs: Denies - CARDIAC Hx Congestive Heart Failure: Yes (chronic LV Sys EF 39% on Mugga evaluated by EP for possible ICD) Hx Hypercholesterolemia: Yes Hx Hypertension: Yes - PULMONARY Hx Asthma: Yes Hx Pneumonia: Yes - HEENT Hx HEENT Problems: Yes Other/Comment: left eye blind, Rt. eye vision blurred, uses eyeglasses for reading - RENAL Hx Chronic Kidney Disease: Yes - ENDOCRINE/METABOLIC Hx Endocrine Disorders: Yes Hx Diabetes Mellitus Type 2: Yes (for 15 years) - HEMATOLOGICAL/ONCOLOGICAL Hx Anemia: Yes - MUSCULOSKELETAL/RHEUMATOLOGICAL Hx Arthritis: Yes (hands and legs) - GASTROINTESTINAL Hx Gastritis: Yes - PSYCHIATRIC Hx Anxiety: Yes Hx Depression: Yes Hx Substance Use: No - SURGICAL HISTORY Hx Vascular Access Device: Yes - ANESTHESIA Hx Anesthesia: Yes Hx Anesthesia Reactions: No Hx Malignant Hyperthermia: No Meds Allergies/Adverse Reactions: Allergies Allergy/AdvReac Type Severity Reaction Status Date / Time Penicillins Allergy Verified 03/09/16 13:01 Physical Exam - Constitutional Appears: Non-toxic, Chronically Ill - Head Exam Head Exam: ATRAUMATIC, NORMAL INSPECTION - Eye Exam Eye Exam: EOMI, Scleral icterus - Neck Exam Neck exam: Positive for: Normal Inspection. Negative for: Tenderness - Respiratory Exam Respiratory Exam: Clear to Auscultation Bilateral, NORMAL BREATHING PATTERN - Cardiovascular Exam Cardiovascular Exam: REGULAR RHYTHM, +S1 - GI/Abdominal Exam GI & Abdominal Exam: Distended, Soft - Extremities Exam Extremities exam: Positive for: pedal edema. Negative for: tenderness - Neurological Exam Neurological exam: Alert, Oriented x3 - Skin Skin Exam: Dry, Warm Results - Vital Signs Recent Vital Signs: Last Vital Signs Temp 98.6 F 05/07/17 11:02 Pulse 88 05/07/17 11:07 Resp 20 05/07/17 11:07 BP 121/79 05/07/17 11:07 Pulse Ox 95 05/07/17 11:44 - Labs Result Diagrams: 05/07/17 11:33 05/07/17 11:33 Labs: Laboratory Results - last 24 hr 05/07/17 05/07/17 05/07/17 11:33 11:33 11:33 WBC 6.3 RBC 3.00 L Hgb 9.5 L Hct 28.4 L MCV 94.9 H MCH 31.6 H MCHC 33.3 RDW 15.7 H Plt Count 223 MPV 9.8 Neut % (Auto) 57.2 Lymph % (Auto) 17.3 L [place] % (Auto) 19.5 H Eos % (Auto) 3.5 Baso % (Auto) 2.5 H Neut # 3.6 Lymph # 1.1 [place] # 1.2 H Eos # 0.2 Baso # 0.2 PT 14.3 H INR 1.2 APTT 33 Sodium 134 Potassium 4.6 Chloride 93 L Carbon Dioxide 28 Anion Gap 17 BUN 27 H Creatinine 2.6 H Est GFR ( Amer) 32 Est GFR (Non-Af Amer) 26 Random Glucose 186 H Calcium 7.9 L Total Bilirubin 6.1 H Direct Bilirubin AST 48 ALT 30 Alkaline Phosphatase 739 H Troponin I < 0.0120 Total Protein 7.6 Albumin 3.0 L D Globulin 4.6 H Albumin/Globulin Ratio 0.7 L Lipase 67 05/07/17 13:36 WBC RBC Hgb Hct MCV MCH MCHC RDW Plt Count MPV Neut % (Auto) Lymph % (Auto) [place] % (Auto) Eos % (Auto) Baso % (Auto) Neut # Lymph # [place] # Eos # Baso # PT INR APTT Sodium Potassium Chloride Carbon Dioxide Anion Gap BUN Creatinine Est GFR ( Amer) Est GFR (Non-Af Amer) Random Glucose Calcium Total Bilirubin Direct Bilirubin 6.6 H AST ALT Alkaline Phosphatase Troponin I Total Protein Albumin Globulin Albumin/Globulin Ratio Lipase Assessment & Plan - Assessment and Plan (Free Text) Assessment: ESRD ATYPICAL CHEST PAIN LIVER FAILURE- LIKELY CIRRHOSIS- ? PASSIVE CONGESTION DM 2 HTN Plan: DIALYSIS MWF GI EVALUATION TO EVALUATE CIRRHOSIS CONSIDER PARACENTESIS CONTINUE PREVIOUS MEDS
--- NOTE | 2017-05-07 17:03 | US ---
HISTORY: abd pain, elevated lfts COMPARISON: None. TECHNIQUE: Sonographic evaluation of the abdomen. FINDINGS: LIVER: Measures 21.1 cm. Diffusely increased echogenicity consistent with fatty infiltration. No focal mass. No biliary ductal dilatation. Nodular contour suggestive of hepatic cirrhosis. GALLBLADDER: Cholelithiasis. Mild mural thickening up to 3 mm common nonspecific. Negative sonographic Darling sign. COMMON BILE DUCT: Measures 4 mm. No stones. No dilatation. PANCREAS: Unremarkable as visualized. No mass. No ductal dilatation. RIGHT KIDNEY: Measures 9.4cm. Normal echogenicity. No calculus, mass, or hydronephrosis. LEFT KIDNEY: Measures 11.5cm. Normal echogenicity. No calculus, mass, or hydronephrosis. SPLEEN: Mild splenomegaly. The spleen measures 13.4 cm in greatest dimension. AORTA: No aneurysmal dilatation. IVC: Unremarkable. OTHER FINDINGS: Generalized ascites. Incidentally noted is debris dependently within the urinary bladder. Please correlate with urinalysis. IMPRESSION: Hepatic cirrhosis. Hepatomegaly. Splenomegaly. Ascites. Cholelithiasis without evidence of cholecystitis. Incidentally noted dependent debris within the urinary bladder. Please correlate with urinalysis.
[2017-05-07] MEDS: (Novolog) Insulin Aspart, Recombinant 100 u/ml 10 ml vial SC SCH ×2 (21:51→21:52)
[2017-05-07] MEDS ORDERED: Dextrose 5%/0.45% NS 1,000 ML IV SCH (23:59)
[2017-05-08 07:04] LABS: BASO # 0.1 K/uL (0.0-0.2); BASO % 1.7 % (0.0-2.0); EOS # 0.2 K/uL (0.0-0.7); EOS % 2.7 % (0.0-4.0); HEMATOCRIT 27.2 % (35.0-51.0); LYMPH # 1.5 K/uL (1.0-4.3); MEAN CELL VOLUME 94.3 fL (80.0-94.0); MEAN CORPUSCULAR HEMOGLOBIN 31.8 pg (27.0-31.0); MEAN CORPUSCULAR HGB CONC 33.8 g/dL (33.0-37.0); MEAN PLATELET VOLUME 10.4 fL (7.2-11.7); MONO # 1.1 K/uL (0.0-0.8); MONO % 13.1 % (0.0-10.0); NRBC % 0.1 % (0.0-2.0); RED CELL DISTRIBUTION WIDTH 15.4 % (11.5-14.5); RETIC% 3.6 % (0.5-1.5); WHITE BLOOD COUNT 8.2 K/uL (4.8-10.8)
[2017-05-08 07:47] LABS: CHLORIDE 92 mmol/L (98-107); POTASSIUM 3.5 mmol/L (3.6-5.2); SODIUM 133 mmol/L (132-148)
[2017-05-08 07:49] LABS: ALB/GLOB RATIO 0.7 (1.0-2.1); AST/SGOT 38 U/L (17-59); BILIRUBIN,TOTAL 6.2 mg/dL (0.2-1.3); CARBON DIOXIDE 28 mmol/L (22-30); GFR AFRICAN-AMERICAN 41; TOTAL PROTEIN 7.5 g/dL (6.3-8.3)
[2017-05-08 07:50] LABS: ALKALINE PHOSPHATASE 783 U/L (38-126); ALT/SGPT 27 U/L (21-72); CALCIUM 8.3 mg/dl (8.6-10.4); GLUCOSE,RANDOM 117 mg/dL (75-110); PHOSPHOROUS 3.3 mg/dL (2.5-4.5)
[2017-05-08 07:51] LABS: IRON 55 ug/dL (49-181)
[2017-05-08 07:56] LABS: BLOOD UREA NITROGEN 16 mg/dL (9-20)
[2017-05-08] MEDS: (Novolog) Insulin Aspart, Recombinant 100 u/ml 10 ml vial SC SCH ×7 (08:16→22:04)
--- NOTE | 2017-05-08 08:41 | CP.PCM.PN ---
Subjective - Date & Time of Evaluation Date of Evaluation: 05/08/17 Time of Evaluation: 08:35 - Subjective Subjective: Surgery 51 M w multiple comorbidity include ESRD on HD, CHF, DM came to ED with abd pain and nausea. Pt also reports diarrhea, low appetite and weight loss of 25kg in 1 month. Pain is located on epigastric area. Non radiating. Denies F/ hematochezia/hematemesis/hematuria/SOB. CT abd shows nodularity of the liver suggesting cirrhosis and gallstone. US shows thicken GB wall 3mm CBD 4mm. No CBD stone seens. T bili was 6.1. Surgery is consulted to evaluate for Cholelithiasis PMH: ESRD CHF DM 2 HTN LIVER FAILURE PSH: AV GRAFT PERMCATH SS: denies heavy drinking. Used to drink occasionally Objective - Vital Signs/Intake and Output Vital Signs (last 24 hours): Temp Pulse Resp BP Pulse Ox 98.5 F 84 20 131/78 96 05/07/17 23:38 05/08/17 05:30 05/07/17 23:38 05/08/17 05:30 05/07/17 23:38 - Medications Medications: Current Medications Aspirin (Ecotrin) 81 mg PO DAILY [facility] Calcitriol (Rocaltrol) 0.25 mcg PO DAILY [facility] Famotidine (Pepcid) 20 mg IVP DAILY [facility] Furosemide (Lasix) 40 mg IVP Q12 [facility] Last Admin: 05/07/17 23:33 Dose: 40 mg Gabapentin (Neurontin) 300 mg PO TID [facility] Last Admin: 05/07/17 21:54 Dose: Not Given Heparin Sodium (Porcine) (Heparin) 5,000 units SC Q8 [facility] Last Admin: 05/08/17 05:32 Dose: 5,000 units Hydralazine HCl (Apresoline) 50 mg PO Q8 [facility] Last Admin: 05/08/17 05:32 Dose: 50 mg Insulin Aspart (Novolog) 8 unit SC ACTID [facility] Last Admin: 05/08/17 08:16 Dose: Not Given Insulin Aspart (Novolog) 0 unit SC ACHS [facility] PRN Reason: Protocol Last Admin: 05/08/17 08:16 Dose: Not Given Insulin Detemir (Levemir) 15 unit SC DAILY [facility] Isosorbide Mononitrate (Imdur) 60 mg PO DAILY [facility] Multivitamins (Hexavitamin) 1 tab PO DAILY [facility] Pneumococcal Polyvalent Vaccine (Pneumovax 23 Vaccine) 0.5 ml SC .ONCE ONE Stop: 05/10/17 10:01 - Labs Labs: 05/08/17 06:48 05/08/17 04:00 PT 14.3 SECONDS (9.7-12.2) H 05/07/17 11:33 INR 1.2 05/07/17 11:33 APTT 33 SECONDS (21-34) 05/08/17 06:48 - Constitutional Appears: Cachectic, Chronically Ill - Head Exam Head Exam: ATRAUMATIC, NORMAL INSPECTION, NORMOCEPHALIC - Eye Exam Eye Exam: EOMI, Normal appearance, PERRL, Scleral icterus Pupil Exam: NORMAL ACCOMODATION, PERRL - ENT Exam ENT Exam: Mucous Membranes Moist, Normal Exam - Neck Exam Neck Exam: Full ROM, Normal Inspection. absent: Lymphadenopathy - Respiratory Exam Respiratory Exam: Clear to Ausculation Bilateral, NORMAL BREATHING PATTERN - Cardiovascular Exam Cardiovascular Exam: REGULAR RHYTHM, +S1, +S2. absent: Murmur - GI/Abdominal Exam GI & Abdominal Exam: Distended, Soft, Tenderness, Normal Bowel Sounds. absent: Firm, Rebound Additional comments: Fluid waves - Extremities Exam Extremities Exam: Full ROM - Back Exam Back Exam: NORMAL INSPECTION - Neurological Exam Neurological Exam: Alert, Awake, CN II-XII Intact, Oriented x3 - Psychiatric Exam Psychiatric exam: Normal Affect, Normal Mood - Skin Skin Exam: Dry, Intact, Normal Color, Warm Assessment and Plan - Assessment and Plan (Free Text) Assessment: CHolelithiasis with multiple co morbidity CT : Cirrhosis, ascites, cholelithiasis US: CHolelithiasis Tbili 6 D bili 6.6 -Pt is poor surgical candidate: CHF, ESRD, cirrhosis, ascites -F/U GI -F/U MRCP -We will follow -Medical management -MOnitor labs DW Dr. Zuniga
--- NOTE | 2017-05-08 08:53 | CP.PCM.CON ---
History of Present Illness - History of Present Illness History of Present Illness: Surgery 51 M w multiple comorbidity include ESRD on HD, CHF, DM came to ED with abd pain and nausea. Pt also reports diarrhea, low appetite and weight loss of 25kg in 1 month. Pain is located on epigastric area. Non radiating. Denies F/ hematochezia/hematemesis/hematuria/SOB. CT abd shows nodularity of the liver suggesting cirrhosis and gallstone. US shows thicken GB wall 3mm CBD 4mm. No CBD stone seens. T bili was 6.1. Surgery is consulted to evaluate for Cholelithiasis PMH: ESRD CHF DM 2 HTN LIVER FAILURE PSH: AV GRAFT PERMCATH SS: denies heavy drinking. Used to drink occasionally Review of Systems - Review of Systems Review of Systems: See HPI Past Patient History - Infectious Disease Hx of Infectious Diseases: None - Tetanus Immunizations Tetanus Immunization: Unknown - Past Medical History & Family History Past Medical History?: Yes - Past Social History Smoking Status: Never Smoked - CARDIAC Hx Cardiac Disorders: Yes Hx Congestive Heart Failure: Yes (chronic LV Sys EF 39% on Mugga evaluated by EP for possible ICD) Hx Hypercholesterolemia: Yes Hx Hypertension: Yes - PULMONARY Hx Asthma: Yes Hx Pneumonia: Yes - NEUROLOGICAL Hx Neurological Disorder: No - HEENT Hx HEENT Problems: Yes 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 eye vision blurred, uses eyeglasses for reading - RENAL Hx Chronic Kidney Disease: Yes Hx Dialysis: Yes Type of Dialysis Access: L arm AV shunt Date of Last Dialysis Treatment: 05/07/17 - ENDOCRINE/METABOLIC Hx Endocrine Disorders: Yes Hx Diabetes Mellitus Type 2: Yes (for 15 years) - HEMATOLOGICAL/ONCOLOGICAL Hx Blood Disorders: Yes Hx Anemia: Yes - INTEGUMENTARY Hx Dermatological Problems: No - MUSCULOSKELETAL/RHEUMATOLOGICAL Hx Musculoskeletal Disorders: Yes Hx Arthritis: Yes (hands and legs) Hx Falls: No - GASTROINTESTINAL Hx Gastrointestinal Disorders: Yes Hx Gastritis: Yes - PSYCHIATRIC Hx Psychophysiologic Disorder: Yes Hx Anxiety: Yes Hx Depression: Yes Hx Substance Use: No - SURGICAL HISTORY Hx Surgeries: Yes Hx Amputation: Yes (L [place] amputation 2011) Hx Vascular Access Device: Yes Other/Comment: L inguinal hernia repairs x 2. L eye surgery - ANESTHESIA Hx Anesthesia: Yes Hx Anesthesia Reactions: No Hx Malignant Hyperthermia: No Meds Allergies/Adverse Reactions: Allergies Allergy/AdvReac Type Severity Reaction Status Date / Time Penicillins Allergy Verified 03/09/16 13:01 - Medications Medications: Current Medications Aspirin (Ecotrin) 81 mg PO DAILY [facility] Calcitriol (Rocaltrol) 0.25 mcg PO DAILY [facility] Famotidine (Pepcid) 20 mg IVP DAILY [facility] Furosemide (Lasix) 40 mg IVP Q12 [facility] Last Admin: 05/07/17 23:33 Dose: 40 mg Gabapentin (Neurontin) 300 mg PO TID [facility] Last Admin: 05/07/17 21:54 Dose: Not Given Heparin Sodium (Porcine) (Heparin) 5,000 units SC Q8 [facility] Last Admin: 05/08/17 05:32 Dose: 5,000 units Hydralazine HCl (Apresoline) 50 mg PO Q8 [facility] Last Admin: 05/08/17 05:32 Dose: 50 mg Insulin Aspart (Novolog) 8 unit SC ACTID [facility] Last Admin: 05/08/17 08:16 Dose: Not Given Insulin Aspart (Novolog) 0 unit SC ACHS [facility] PRN Reason: Protocol Last Admin: 05/08/17 08:16 Dose: Not Given Insulin Detemir (Levemir) 15 unit SC DAILY [facility] Isosorbide Mononitrate (Imdur) 60 mg PO DAILY [facility] Multivitamins (Hexavitamin) 1 tab PO DAILY [facility] Pneumococcal Polyvalent Vaccine (Pneumovax 23 Vaccine) 0.5 ml SC .ONCE ONE Stop: 05/10/17 10:01 Physical Exam - Constitutional Appears: Cachectic, Chronically Ill - Head Exam Head Exam: ATRAUMATIC, NORMAL INSPECTION, NORMOCEPHALIC - Eye Exam Eye Exam: EOMI, Normal appearance, PERRL, Scleral icterus Pupil Exam: NORMAL ACCOMODATION, PERRL - ENT Exam ENT Exam: Mucous Membranes Moist, Normal Exam - Neck Exam Neck exam: Positive for: Normal Inspection - Respiratory Exam Respiratory Exam: Clear to Auscultation Bilateral, NORMAL BREATHING PATTERN - Cardiovascular Exam Cardiovascular Exam: REGULAR RHYTHM - GI/Abdominal Exam GI & Abdominal Exam: Distended, Normal Bowel Sounds, Soft, Tenderness - Extremities Exam Extremities exam: Positive for: full ROM, normal inspection - Back Exam Back exam: NORMAL INSPECTION - Neurological Exam Neurological exam: Alert, CN II-XII Intact, Normal Gait, Oriented x3, Reflexes Normal - Psychiatric Exam Psychiatric exam: Normal Affect, Normal Mood - Skin Skin Exam: Dry, Intact, Normal Color, Warm Results - Vital Signs Recent Vital Signs: Last Vital Signs Temp 98.3 F 05/08/17 07:00 Pulse 78 05/08/17 07:00 Resp 20 05/08/17 07:00 BP 102/60 05/08/17 07:00 Pulse Ox 94 L 05/08/17 07:00 - Labs Result Diagrams: 05/08/17 06:48 05/08/17 04:00 Labs: Laboratory Results - last 24 hr 05/07/17 05/07/17 05/07/17 17:29 19:43 22:59 WBC RBC Hgb Hct MCV MCH MCHC RDW Plt Count MPV Neut % (Auto) Lymph % (Auto) [place] % (Auto) Eos % (Auto) Baso % (Auto) Neut # Lymph # [place] # Eos # Baso # Retic Count APTT Sodium Potassium Chloride Carbon Dioxide Anion Gap BUN Creatinine Est GFR ( Amer) Est GFR (Non-Af Amer) POC Glucose (mg/dL) 169 H Random Glucose Calcium Phosphorus Magnesium Iron Ferritin Total Bilirubin AST ALT Alkaline Phosphatase Ammonia Total Creatine Kinase 47 L CK-MB (Mass) 2.76 Troponin I, Quant < 0.0120 NT-Pro-B Natriuret Pep Total Protein Albumin Globulin Albumin/Globulin Ratio Alpha Fetoprotein Hepatitis A IgM Ab Hep Bs Antigen Negative Hep B Core IgM Ab Hepatitis C Antibody HIV 1&2 Antibody Screen 05/08/17 05/08/17 05/08/17 04:00 06:16 06:48 WBC RBC Hgb Hct MCV MCH MCHC RDW Plt Count MPV Neut % (Auto) Lymph % (Auto) [place] % (Auto) Eos % (Auto) Baso % (Auto) Neut # Lymph # [place] # Eos # Baso # Retic Count APTT Sodium 133 Potassium 3.5 L Chloride 92 L Carbon Dioxide 28 Anion Gap 17 BUN 16 Creatinine 2.1 H Est GFR ( Amer) 41 Est GFR (Non-Af Amer) 34 POC Glucose (mg/dL) 164 H Random Glucose 117 H Calcium 8.3 L Phosphorus 3.3 Magnesium 2.0 Iron Ferritin 537.0 Total Bilirubin 6.2 H AST 38 ALT 27 Alkaline Phosphatase 783 H Ammonia Total Creatine Kinase 48 L CK-MB (Mass) 2.78 Troponin I, Quant < 0.0120 NT-Pro-B Natriuret Pep 913290 H Total Protein 7.5 Albumin 3.0 L Globulin 4.5 H Albumin/Globulin Ratio 0.7 L Alpha Fetoprotein Hepatitis A IgM Ab Hep Bs Antigen Hep B Core IgM Ab Hepatitis C Antibody HIV 1&2 Antibody Screen 05/08/17 05/08/17 05/08/17 06:48 06:48 06:48 WBC 8.2 RBC 2.89 L Hgb 9.2 L Hct 27.2 L MCV 94.3 H MCH 31.8 H MCHC 33.8 RDW 15.4 H Plt Count 213 MPV 10.4 Neut % (Auto) 64.5 Lymph % (Auto) 18.0 L [place] % (Auto) 13.1 H Eos % (Auto) 2.7 Baso % (Auto) 1.7 Neut # 5.3 Lymph # 1.5 [place] # 1.1 H Eos # 0.2 Baso # 0.1 Retic Count 3.6 H APTT 33 Sodium Potassium Chloride Carbon Dioxide Anion Gap BUN Creatinine Est GFR ( Amer) Est GFR (Non-Af Amer) POC Glucose (mg/dL) Random Glucose Calcium Phosphorus Magnesium Iron 55 Ferritin Total Bilirubin AST ALT Alkaline Phosphatase Ammonia Total Creatine Kinase CK-MB (Mass) Troponin I, Quant NT-Pro-B Natriuret Pep Total Protein Albumin Globulin Albumin/Globulin Ratio Alpha Fetoprotein 2.2 Hepatitis A IgM Ab Hep Bs Antigen Hep B Core IgM Ab Hepatitis C Antibody HIV 1&2 Antibody Screen Negative 05/08/17 05/08/17 06:48 06:48 WBC RBC Hgb Hct MCV MCH MCHC RDW Plt Count MPV Neut % (Auto) Lymph % (Auto) [place] % (Auto) Eos % (Auto) Baso % (Auto) Neut # Lymph # [place] # Eos # Baso # Retic Count APTT Sodium Potassium Chloride Carbon Dioxide Anion Gap BUN Creatinine Est GFR ( Amer) Est GFR (Non-Af Amer) POC Glucose (mg/dL) Random Glucose Calcium Phosphorus Magnesium Iron Ferritin Total Bilirubin AST ALT Alkaline Phosphatase Ammonia 54 H D Total Creatine Kinase CK-MB (Mass) Troponin I, Quant NT-Pro-B Natriuret Pep Total Protein Albumin Globulin Albumin/Globulin Ratio Alpha Fetoprotein Hepatitis A IgM Ab Negative Hep Bs Antigen Negative Hep B Core IgM Ab Negative Hepatitis C Antibody Negative HIV 1&2 Antibody Screen Assessment & Plan - Assessment and Plan (Free Text) Assessment: Cholelithiasis with multiple co morbidity CT : Cirrhosis, ascites, cholelithiasis US: Cholelithiasis Tbili 6 D bili 6.6 -Pt is poor surgical candidate: CHF, ESRD, cirrhosis, ascites -F/U GI -F/U MRCP -We will follow -Medical management -MOnitor labs DW Dr. Zuniga
[2017-05-08] MEDS: Multiple Vitamins Tab PO SCH (10:42)
[2017-05-08] MEDS: Insulin Detemir 100 units/ml Vial (Levemir) SC SCH (10:44)
--- NOTE | 2017-05-08 15:50 | MRI ---
PROCEDURE: Magnetic Resonance Cholangiopancreatography HISTORY: Abdominal pain, cholelithiasis. COMPARISON: Comparison is made to the previous ultrasound and CT of the abdomen dated 05/07/2017.. TECHNIQUE: Multiplanar, multisequence MR images of the abdomen were obtained, including heavily T2 weighted MRCP images of the biliary system. Rotating maximum intensity projection images of the biliary system were generated. FINDINGS: MRCP: The common bile duct is of a normal caliber. No evidence of choledocholithiasis. No intrahepatic biliary ductal dilatation. LIVER: No evidence of acute pathology in the liver. Mild hepatomegaly is again noted. Of GALLBLADDER: Gallstones are seen. No evidence of acute cholecystitis. Mild diffuse gallbladder wall thickening is again noted. SPLEEN: Spleen is prominent in size PANCREAS: Atrophic changes in the pancreas associated with fat infiltration. No evidence of mass lesion or dilated main pancreatic duct ADRENALS: Unremarkable. KIDNEYS: Unremarkable. AORTA: No aneurysm. ASCITES: Trace free fluid in the upper abdomen noted P OTHER FINDINGS: None. IMPRESSION: No evidence of choledocholithiasis. The biliary tree is not dilated. Cholelithiasis and mild diffuse gallbladder wall thickening. No definite evidence of acute cholecystitis. Heterogeneous enlarged liver. Prominent size spleen.
--- NOTE | 2017-05-08 18:40 | CP.PCM.PN ---
<Bo Mora - Last Filed: 05/08/17 18:42> Subjective - Date & Time of Evaluation Date of Evaluation: 05/08/17 Time of Evaluation: 18:30 - Subjective Subjective: Progress note. Attending: Dr. Ang Pt seen and examined at bedside. No acute distress. No events overnight. Pt is AOx 3. No fevers, chills, vomiting, diarrhea, cp, sob. MRCP report pending. Objective - Vital Signs/Intake and Output Vital Signs (last 24 hours): Temp Pulse Resp BP Pulse Ox 98.3 F 78 20 126/78 94 L 05/08/17 07:00 05/08/17 07:00 05/08/17 07:00 05/08/17 10:42 05/08/17 07:00 - Medications Medications: Current Medications Aspirin (Ecotrin) 81 mg PO DAILY [facility] Last Admin: 05/08/17 10:42 Dose: 81 mg Calcitriol (Rocaltrol) 0.25 mcg PO DAILY [facility] Last Admin: 05/08/17 10:42 Dose: 0.25 mcg Famotidine (Pepcid) 20 mg IVP DAILY [facility] Last Admin: 05/08/17 10:44 Dose: 20 mg Furosemide (Lasix) 40 mg IVP Q12 [facility] Last Admin: 05/08/17 10:42 Dose: 40 mg Gabapentin (Neurontin) 300 mg PO TID [facility] Last Admin: 05/08/17 17:17 Dose: 300 mg Heparin Sodium (Porcine) (Heparin) 5,000 units SC Q8 [facility] Last Admin: 05/08/17 15:06 Dose: 5,000 units Hydralazine HCl (Apresoline) 50 mg PO Q8 [facility] Last Admin: 05/08/17 15:06 Dose: 50 mg Insulin Aspart (Novolog) 8 unit SC ACTID [facility] Last Admin: 05/08/17 17:17 Dose: 8 unit Insulin Aspart (Novolog) 0 unit SC ACHS [facility] PRN Reason: Protocol Last Admin: 05/08/17 17:16 Dose: 2 unit Insulin Detemir (Levemir) 15 unit SC DAILY [facility] Last Admin: 05/08/17 10:44 Dose: Not Given Isosorbide Mononitrate (Imdur) 60 mg PO DAILY [facility] Last Admin: 05/08/17 10:42 Dose: 60 mg Multivitamins (Hexavitamin) 1 tab PO DAILY [facility] Last Admin: 05/08/17 10:42 Dose: 1 tab Pneumococcal Polyvalent Vaccine (Pneumovax 23 Vaccine) 0.5 ml SC .ONCE ONE Stop: 05/10/17 10:01 - Labs Labs: 05/08/17 06:48 05/08/17 04:00 PT 14.3 SECONDS (9.7-12.2) H 05/07/17 11:33 INR 1.2 05/07/17 11:33 APTT 33 SECONDS (21-34) 05/08/17 06:48 - Constitutional Appears: Non-toxic, No Acute Distress - Head Exam Head Exam: ATRAUMATIC, NORMAL INSPECTION, NORMOCEPHALIC - Eye Exam Eye Exam: EOMI - ENT Exam ENT Exam: Mucous Membranes Moist - Neck Exam Neck Exam: Full ROM, Normal Inspection - Respiratory Exam Respiratory Exam: NORMAL BREATHING PATTERN. absent: Respiratory Distress - Cardiovascular Exam Cardiovascular Exam: +S1, +S2 - GI/Abdominal Exam GI & Abdominal Exam: Soft, Normal Bowel Sounds. absent: Tenderness - Extremities Exam Extremities Exam: Full ROM. absent: Normal Inspection Additional comments: left arm shunt, positive pedal edema - Neurological Exam Neurological Exam: Alert, Awake, CN II-XII Intact, Oriented x3 - Psychiatric Exam Psychiatric exam: Normal Affect, Normal Mood - Skin Skin Exam: Dry, Intact, Normal Color, Warm Assessment and Plan - Assessment and Plan (Free Text) Assessment: Assessment: Chest Pain -Cardio consult, Dr. Mantilla, f/u recs -Troponin negative -EKG - nsr, 88bpm, non-specific changes, -Oxygen 2L NC -ASA 81 -f/u UDS ESRD on HD (MWF) -Nephro consult, Dr. Felix, f/u recs -Patient has not missed any HD sessions this week - [facility] outpt dialysis -Patient received dialysis 05/07 at [facility] after coming to the ED -L arm shunt in place Systolic heart failure -Cardio consult, Dr. Mantilla, f/u recs -12/01: Echo - LV mod dilated w/global hyokinesis, mild- mod concentric LVH, LV systolic function mildly impaired, EF 46%, RV mild-mod dilated w/mildly reduced contractility, RV systolic pressure ~48mmHg = mod pulm HTN, trace pericardial effusion -Lasix 80mg PO BID changed to Lasix 40mg IVP BID -f/u ECHO 05/08 Cholelithiasis / Hyperbilirubinemia -GI consult, Dr. Leach, f/u recs -MRCP report pending -CT Abd/Pelv w/Contrast 05/07 - 1. ascites appreciate the left greater the right yaneli abdomen. 2. Cholelithiasis. 3. subtle nodular pattern to the surface of the liver suspicious for cirrhosis 4. Resolution of prior pyelonephritis and right psoas muscle phlegmon. 5. Urinary bladder is distended with with an air- fluid level and somewhat thickened wall suspicious for cystitis or recent instrumentation. see full report -hepatitis negative -hiv negative -cea elevated -f/u ammonia Anemia -Hgb 9.5 on admission - roughly his baseline -Likely 2/2 chronic disease -f/u TIBC, Fe, Riticulocyte count, %sat, ferritin HTN -BP 121/79 -Well controlled on current regimen -Lasix 80mg PO BID changed to Lasix 40mg IVP BID -Hydralazine 50mg PO TID [facility] -Imdur 60mg PO qD Diabetes Blood sugar 186 Continue home meds: Levemir 15u SC HS; Novolog 8u SC TIDAC; Gabapentin 300mg PO TID ISS Monitor Prophylaxis Heparin 5k u SC q8H Pepcid 20mg IVP qd SCDs Calcitriol 0.25mcg PO qD MVI discussed with Dr. Ang. <Lynda Ang V - Last Filed: 05/09/17 13:43> Objective - Vital Signs/Intake and Output Vital Signs (last 24 hours): Temp Pulse Resp BP Pulse Ox 98.0 F 74 20 129/74 96 05/09/17 10:11 05/09/17 10:11 05/09/17 10:11 05/09/17 11:14 05/09/17 10:11 - Medications Medications: Current Medications Calcitriol (Rocaltrol) 0.25 mcg PO DAILY [facility] Last Admin: 05/09/17 11:09 Dose: 0.25 mcg Famotidine (Pepcid) 20 mg IVP DAILY [facility] Last Admin: 05/09/17 11:09 Dose: 20 mg Furosemide (Lasix) 40 mg IVP Q12 [facility] Last Admin: 05/09/17 11:14 Dose: 40 mg Gabapentin (Neurontin) 300 mg PO TID [facility] Last Admin: 05/09/17 11:09 Dose: 300 mg Heparin Sodium (Porcine) (Heparin) 5,000 units SC Q8 [facility] Last Admin: 05/09/17 06:17 Dose: 5,000 units Hydralazine HCl (Apresoline) 50 mg PO Q8 [facility] Last Admin: 05/09/17 06:17 Dose: 50 mg Ciprofloxacin (Cipro 400mg/200ml Dsw) 400 mg in 200 mls @ 133 mls/hr IVPB Q12H [facility] Last Admin: 05/09/17 11:47 Dose: 133 mls/hr Metronidazole (Flagyl) 500 mg in 100 mls @ 100 mls/hr IVPB Q8H [facility] Insulin Aspart (Novolog) 8 unit SC ACTID [facility] Last Admin: 05/09/17 12:30 Dose: Not Given Insulin Aspart (Novolog) 0 unit SC ACHS [facility] PRN Reason: Protocol Last Admin: 05/09/17 12:30 Dose: Not Given Insulin Detemir (Levemir) 15 unit SC DAILY [facility] Last Admin: 05/09/17 10:50 Dose: 15 unit Isosorbide Mononitrate (Imdur) 60 mg PO DAILY [facility] Last Admin: 05/09/17 11:09 Dose: 60 mg Multivitamins (Hexavitamin) 1 tab PO DAILY [facility] Last Admin: 05/09/17 11:11 Dose: 1 tab Neomycin Sulfate (Neomycin Tab) 500 mg PO Q6 [facility] Last Admin: 05/09/17 11:48 Dose: 500 mg Pneumococcal Polyvalent Vaccine (Pneumovax 23 Vaccine) 0.5 ml SC .ONCE ONE Stop: 05/10/17 10:01 - Labs Labs: 05/09/17 08:15 05/09/17 08:15 PT 14.3 SECONDS (9.7-12.2) H 05/07/17 11:33 INR 1.2 05/07/17 11:33 APTT 33 SECONDS (21-34) 05/08/17 06:48 Attending/Attestation - Attestation I have personally seen and examined this patient.: Yes I have fully participated in the care of the patient.: Yes I have reviewed all pertinent clinical information, including history, physical exam and plan: Yes Notes (Text): This is late computer entry for 05/08/17. Patient seen, examined, and case discussed with day-time resident. Patient underwent MRCP today, awaiting report during my rounds. Per surgery, patient is a poor surgical candidate given his multiple co- morbidities; will follow Discussed with cardiology, patient has history of non-ischemic cardiomyopathy, and is intermediate risk for cardiac standpoint for procedure. Will need to follow-up with GI; no consult resulted in the computer at time of my exam Assessment/Plan 1) Non-ischemic cardiomyopathy Chest Pain * Cardiology consult, Dr. Mantilla, f/u recs * Troponin negative x3 * EKG - nsr, 88bpm, non-specific changes, f/u official read. * Oxygen 2L NC * ASA 81mg PO daily * UDS: negative * Lasix 40mg IV Q 12H * Hydralazine 50mg PO TID * Imdur 60mg PO daily * Echocardiogram ordered-->pending report 2) ESRD on HD (MWF) * Nephrology consult, Dr. Felix, f/u recs * Patient has not missed any HD sessions this week - [facility] outpt dialysis * Patient received dialysis 05/07 at [facility] after coming to the ED * L arm shunt in place 3) Acute on Chronic Systolic Heart failure * Cardiology consult, Dr. Mantilla, f/u recs * 12/01/16: Echo - LV mod dilated w/global hyokinesis, mild- mod concentric LVH, LV systolic function mildly impaired, EF 46%, RV mild-mod dilated w/mildly reduced contractility, RV systolic pressure ~48mmHg = mod pulm HTN, trace pericardial effusion * ordered for new Echo * Lasix 40mg IVP BID * Aspirin 81mg PO daily * Hydralazine 50mg PO TID * Imdur 60mg PO daily * Off [facility]/ARB-->patient is ESRD * Intake and output * Elevated proBNP 4) New Onset Jaundice Hyperbilirubinemia Cholelithiasis * GI remediation bioanalytics consultant (Dr. Leach) help appreciated * General Surgery (Dr. Zuniga) help appreciated * Patient went for MRCP-->pending report * Hepatitis profile, AFP, HOPE, Anti-smooth muscle, anti-mitochondrial, HIV, ammonia * Negative Darling's sign * CT Abdomen/Pelvis (05/07/17): mild also ascites appreciate the left greater the right hemiabdomen. Bowel loops are not distended at the sigmoid colon with a few diverticular are associated-->difficult to exclude colitis or enterocolitis. Cholelithiasis. Resolution of prior pyelonephritis and right psoas msucle phlegmon. Urinary bladder is distended with air fluid level and somewhat thicken suspicious for cystitis. * Abdominal US (05/07/17): hepatic cirrhosis, hepatomegaly. Splenomegaly. Ascites. Cholelithasis without evidence of cholecystitis. Incidentally noted dependent debris within urinary bladder. * Elevated total and direct bilirubin 4) Anemia * Hgb 9.5 on admission * Likely 2/2 chronic disease * f/u TIBC, Fe, Riticulocyte count, %sat, ferritin 5) Hypertension * ESRD MWF * Hydralazine 50mg PO TID * Imdur 60mg PO daily * Lasix 40mg IV BID 6) Diabetes * Accuchecks QAC and HS * Gabapentin 300mg PO TID * Levemir 15u SC HS * Novolog 8u SC TIDAC * Monitor 7) Prophylaxis * Heparin 5000 u SC q8H for DVT ppx * Pepcid 20mg IVP qdaily for GI ppx * SCDs * Calcitriol 0.25mcg PO qD * MVI
--- NOTE | 2017-05-08 22:59 | CP.PCM.CON ---
History of Present Illness - History of Present Illness History of Present Illness: 51 y/o admitted with Gall bladder sx's Abnormal CT abdomen and U/S Elevated Bili, scleral ictus; GI: Nausea, weight loss Cardiac HX: Chronic NICM with interval improved of EF to mild-mod range 40-45% with advanced diastolic dysfunction and mild-mod PULM HTN. NYHA 2 chronically Medical Hx: HTN chronic stable, ESRD chronic on HD, ? cirhhosis, Prior hx of ETOH, COPD, DM Surgical: L, arm AVF, knee arthro Social: Quit ETOH, no drugs, no tobacco ROS: all 12 systems neg except for HPI Review of Systems - Review of Systems All systems: reviewed and no additional remarkable complaints except Past Patient History - Infectious Disease Hx of Infectious Diseases: None - Tetanus Immunizations Tetanus Immunization: Unknown - Past Medical History & Family History Past Medical History?: Yes - Past Social History Smoking Status: Never Smoked - CARDIAC Hx Cardiac Disorders: Yes Hx Congestive Heart Failure: Yes (chronic LV Sys EF 39% on Mugga evaluated by EP for possible ICD) Hx Hypercholesterolemia: Yes Hx Hypertension: Yes - PULMONARY Hx Asthma: Yes Hx Pneumonia: Yes - NEUROLOGICAL Hx Neurological Disorder: No - HEENT Hx HEENT Problems: Yes 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 eye vision blurred, uses eyeglasses for reading - RENAL Hx Chronic Kidney Disease: Yes Hx Dialysis: Yes Type of Dialysis Access: L arm AV shunt Date of Last Dialysis Treatment: 05/07/17 - ENDOCRINE/METABOLIC Hx Endocrine Disorders: Yes Hx Diabetes Mellitus Type 2: Yes (for 15 years) - HEMATOLOGICAL/ONCOLOGICAL Hx Blood Disorders: Yes Hx Anemia: Yes - INTEGUMENTARY Hx Dermatological Problems: No - MUSCULOSKELETAL/RHEUMATOLOGICAL Hx Musculoskeletal Disorders: Yes Hx Arthritis: Yes (hands and legs) Hx Falls: No - GASTROINTESTINAL Hx Gastrointestinal Disorders: Yes Hx Gastritis: Yes - PSYCHIATRIC Hx Psychophysiologic Disorder: Yes Hx Anxiety: Yes Hx Depression: Yes Hx Substance Use: No - SURGICAL HISTORY Hx Surgeries: Yes Hx Amputation: Yes (L Hallux amputation 2011) Hx Vascular Access Device: Yes Other/Comment: L inguinal hernia repairs x 2. L eye surgery - ANESTHESIA Hx Anesthesia: Yes Hx Anesthesia Reactions: No Hx Malignant Hyperthermia: No Meds Allergies/Adverse Reactions: Allergies Allergy/AdvReac Type Severity Reaction Status Date / Time Penicillins Allergy Verified 03/09/16 13:01 - Medications Medications: Current Medications Aspirin (Ecotrin) 81 mg PO DAILY [facility] Last Admin: 05/08/17 10:42 Dose: 81 mg Calcitriol (Rocaltrol) 0.25 mcg PO DAILY [facility] Last Admin: 05/08/17 10:42 Dose: 0.25 mcg Famotidine (Pepcid) 20 mg IVP DAILY [facility] Last Admin: 05/08/17 10:44 Dose: 20 mg Furosemide (Lasix) 40 mg IVP Q12 [facility] Last Admin: 05/08/17 22:03 Dose: 40 mg Gabapentin (Neurontin) 300 mg PO TID [facility] Last Admin: 05/08/17 17:17 Dose: 300 mg Heparin Sodium (Porcine) (Heparin) 5,000 units SC Q8 [facility] Last Admin: 05/08/17 22:03 Dose: 5,000 units Hydralazine HCl (Apresoline) 50 mg PO Q8 [facility] Last Admin: 05/08/17 22:03 Dose: 50 mg Insulin Aspart (Novolog) 8 unit SC ACTID [facility] Last Admin: 05/08/17 17:17 Dose: 8 unit Insulin Aspart (Novolog) 0 unit SC ACHS [facility] PRN Reason: Protocol Last Admin: 05/08/17 22:04 Dose: Not Given Insulin Detemir (Levemir) 15 unit SC DAILY [facility] Last Admin: 05/08/17 10:44 Dose: Not Given Isosorbide Mononitrate (Imdur) 60 mg PO DAILY [facility] Last Admin: 05/08/17 10:42 Dose: 60 mg Multivitamins (Hexavitamin) 1 tab PO DAILY [facility] Last Admin: 05/08/17 10:42 Dose: 1 tab Pneumococcal Polyvalent Vaccine (Pneumovax 23 Vaccine) 0.5 ml SC .ONCE ONE Stop: 05/10/17 10:01 Physical Exam - Constitutional Appears: No Acute Distress, Chronically Ill - Head Exam Head Exam: ATRAUMATIC, NORMAL INSPECTION, NORMOCEPHALIC - Eye Exam Eye Exam: Scleral icterus - ENT Exam ENT Exam: Mucous Membranes Moist - Respiratory Exam Respiratory Exam: Clear to Auscultation Bilateral, NORMAL BREATHING PATTERN. absent: Rhonchi, Wheezes - Cardiovascular Exam Cardiovascular Exam: REGULAR RHYTHM, +S1, +S2. absent: Gallop, JVD, Systolic Murmur - GI/Abdominal Exam GI & Abdominal Exam: Normal Bowel Sounds, Tenderness (ruq) - Extremities Exam Extremities exam: Positive for: normal inspection. Negative for: calf tenderness - Skin Skin Exam: Dry, Rash, Warm Results - Vital Signs Recent Vital Signs: Last Vital Signs Temp 97.4 F L 05/08/17 21:00 Pulse 73 05/08/17 21:00 Resp 20 05/08/17 21:00 BP 122/64 05/08/17 22:03 Pulse Ox 95 05/08/17 21:00 - Labs Result Diagrams: 05/08/17 06:48 05/08/17 04:00 Labs: Laboratory Results - last 24 hr 05/07/17 05/08/17 05/08/17 22:59 04:00 06:16 WBC RBC Hgb Hct MCV MCH MCHC RDW Plt Count MPV Neut % (Auto) Lymph % (Auto) [place] % (Auto) Eos % (Auto) Baso % (Auto) Neut # Lymph # [place] # Eos # Baso # Retic Count APTT Sodium 133 Potassium 3.5 L Chloride 92 L Carbon Dioxide 28 Anion Gap 17 BUN 16 Creatinine 2.1 H Est GFR ( Amer) 41 Est GFR (Non-Af Amer) 34 POC Glucose (mg/dL) 169 H 164 H Random Glucose 117 H Calcium 8.3 L Phosphorus 3.3 Magnesium 2.0 Iron TIBC % Saturation Ferritin 537.0 Total Bilirubin 6.2 H AST 38 ALT 27 Alkaline Phosphatase 783 H Ammonia Total Creatine Kinase 48 L CK-MB (Mass) 2.78 Troponin I, Quant < 0.0120 NT-Pro-B Natriuret Pep Total Protein 7.5 Albumin 3.0 L Globulin 4.5 H Albumin/Globulin Ratio 0.7 L Alpha Fetoprotein Carcinoembryonic Ag Hepatitis A IgM Ab Hep Bs Antigen Hep B Core IgM Ab Hepatitis C Antibody HIV 1&2 Antibody Screen Infectious [place] Assay 05/08/17 05/08/17 05/08/17 06:48 06:48 06:48 WBC 8.2 RBC 2.89 L Hgb 9.2 L Hct 27.2 L MCV 94.3 H MCH 31.8 H MCHC 33.8 RDW 15.4 H Plt Count 213 MPV 10.4 Neut % (Auto) 64.5 Lymph % (Auto) 18.0 L [place] % (Auto) 13.1 H Eos % (Auto) 2.7 Baso % (Auto) 1.7 Neut # 5.3 Lymph # 1.5 [place] # 1.1 H Eos # 0.2 Baso # 0.1 Retic Count 3.6 H APTT 33 Sodium Potassium Chloride Carbon Dioxide Anion Gap BUN Creatinine Est GFR ( Amer) Est GFR (Non-Af Amer) POC Glucose (mg/dL) Random Glucose Calcium Phosphorus Magnesium Iron TIBC % Saturation Ferritin Total Bilirubin AST ALT Alkaline Phosphatase Ammonia Total Creatine Kinase CK-MB (Mass) Troponin I, Quant NT-Pro-B Natriuret Pep [id number] H Total Protein Albumin Globulin Albumin/Globulin Ratio Alpha Fetoprotein Carcinoembryonic Ag Hepatitis A IgM Ab Hep Bs Antigen Hep B Core IgM Ab Hepatitis C Antibody HIV 1&2 Antibody Screen Infectious [place] Assay 05/08/17 05/08/17 05/08/17 06:48 06:48 06:48 WBC RBC Hgb Hct MCV MCH MCHC RDW Plt Count MPV Neut % (Auto) Lymph % (Auto) [place] % (Auto) Eos % (Auto) Baso % (Auto) Neut # Lymph # [place] # Eos # Baso # Retic Count APTT Sodium Potassium Chloride Carbon Dioxide Anion Gap BUN Creatinine Est GFR ( Amer) Est GFR (Non-Af Amer) POC Glucose (mg/dL) Random Glucose Calcium Phosphorus Magnesium Iron 55 TIBC 232 L % Saturation 23 Ferritin Total Bilirubin AST ALT Alkaline Phosphatase Ammonia 54 H D Total Creatine Kinase CK-MB (Mass) Troponin I, Quant NT-Pro-B Natriuret Pep Total Protein Albumin Globulin Albumin/Globulin Ratio Alpha Fetoprotein 2.2 Carcinoembryonic Ag Hepatitis A IgM Ab Negative Hep Bs Antigen Negative Hep B Core IgM Ab Negative Hepatitis C Antibody Negative HIV 1&2 Antibody Screen Negative Infectious [place] Assay 05/08/17 05/08/17 05/08/17 11:46 13:05 13:05 WBC RBC Hgb Hct MCV MCH MCHC RDW Plt Count MPV Neut % (Auto) Lymph % (Auto) [place] % (Auto) Eos % (Auto) Baso % (Auto) Neut # Lymph # [place] # Eos # Baso # Retic Count APTT Sodium Potassium Chloride Carbon Dioxide Anion Gap BUN Creatinine Est GFR ( Amer) Est GFR (Non-Af Amer) POC Glucose (mg/dL) 113 H Random Glucose Calcium Phosphorus Magnesium Iron TIBC % Saturation Ferritin Total Bilirubin AST ALT Alkaline Phosphatase Ammonia Total Creatine Kinase 51 L CK-MB (Mass) 3.52 H Troponin I, Quant < 0.0120 NT-Pro-B Natriuret Pep Total Protein Albumin Globulin Albumin/Globulin Ratio Alpha Fetoprotein Carcinoembryonic Ag Hepatitis A IgM Ab Hep Bs Antigen Hep B Core IgM Ab Hepatitis C Antibody HIV 1&2 Antibody Screen Infectious [place] Assay Negative 05/08/17 05/08/17 05/08/17 13:05 16:37 20:56 WBC RBC Hgb Hct MCV MCH MCHC RDW Plt Count MPV Neut % (Auto) Lymph % (Auto) [place] % (Auto) Eos % (Auto) Baso % (Auto) Neut # Lymph # [place] # Eos # Baso # Retic Count APTT Sodium Potassium Chloride Carbon Dioxide Anion Gap BUN Creatinine Est GFR ( Amer) Est GFR (Non-Af Amer) POC Glucose (mg/dL) 237 H 133 H Random Glucose Calcium Phosphorus Magnesium Iron TIBC % Saturation Ferritin Total Bilirubin AST ALT Alkaline Phosphatase Ammonia Total Creatine Kinase CK-MB (Mass) Troponin I, Quant NT-Pro-B Natriuret Pep Total Protein Albumin Globulin Albumin/Globulin Ratio Alpha Fetoprotein Carcinoembryonic Ag 3.7 H Hepatitis A IgM Ab Hep Bs Antigen Hep B Core IgM Ab Hepatitis C Antibody HIV 1&2 Antibody Screen Infectious [place] Assay - EKG Data EKG Interpreted by: Myself EKG shows normal: Sinus rhythm Assessment & Plan - Assessment and Plan (Free Text) Assessment: NICM Mild-mod LV dysfunction 40-45% No evidence of volume overload No murmurs suggesting No arrythmias No acute ischemic EKG changes Mg 2.0, K+ 3.5; Hco3 28 Patient is compensated and can proceed with any GI procedure with intermediate risk given associated co-morbidities, anemia, COPD. f/u 2D echo Cont maintainence HD Rx ASA, Imdur, Lasix, Hydralazine, Coreg; consider PAMELA-I or ARB as now on HD and K+ normal,
[2017-05-09 08:27] LABS: BASO # 0.1 K/uL (0.0-0.2); BASO % 1.7 % (0.0-2.0); EOS # 0.3 K/uL (0.0-0.7); EOS % 3.9 % (0.0-4.0); HEMATOCRIT 26.8 % (35.0-51.0); LYMPH # 1.1 K/uL (1.0-4.3); LYMPH % 17.2 % (20.0-40.0); MEAN CELL VOLUME 95.4 fL (80.0-94.0); MEAN CORPUSCULAR HEMOGLOBIN 31.6 pg (27.0-31.0); MEAN CORPUSCULAR HGB CONC 33.2 g/dL (33.0-37.0); MEAN PLATELET VOLUME 10.4 fL (7.2-11.7); MONO # 1.1 K/uL (0.0-0.8); MONO % 17.6 % (0.0-10.0); RED CELL DISTRIBUTION WIDTH 15.5 % (11.5-14.5); WHITE BLOOD COUNT 6.4 K/uL (4.8-10.8)
[2017-05-09] MEDS: (Novolog) Insulin Aspart, Recombinant 100 u/ml 10 ml vial SC SCH ×7 (08:30→22:10)
[2017-05-09 08:37] LABS: BILIRUBIN,TOTAL 4.6 mg/dL (0.2-1.3)
[2017-05-09 08:38] LABS: ALB/GLOB RATIO 0.7 (1.0-2.1); CALCIUM 7.8 mg/dl (8.6-10.4); MAGNESIUM 2.1 mg/dL (1.6-2.3); PHOSPHOROUS 4.7 mg/dL (2.5-4.5); TOTAL PROTEIN 6.3 g/dL (6.3-8.3)
--- NOTE | 2017-05-09 10:39 | CP.PCM.PN ---
Subjective - Date & Time of Evaluation Date of Evaluation: 05/09/17 Time of Evaluation: 10:37 - Subjective Subjective: Mild abdominal discomfort: No N/V/D No tenderness, fevers, chills No CP or resting SOB Normal BP, NSR Objective - Vital Signs/Intake and Output Vital Signs (last 24 hours): Temp Pulse Resp BP Pulse Ox 98.0 F 74 20 119/73 96 05/09/17 10:11 05/09/17 10:11 05/09/17 10:11 05/09/17 10:11 05/09/17 10:11 - Medications Medications: Current Medications Aspirin (Ecotrin) 81 mg PO DAILY [facility] Last Admin: 05/08/17 10:42 Dose: 81 mg Calcitriol (Rocaltrol) 0.25 mcg PO DAILY [facility] Last Admin: 05/08/17 10:42 Dose: 0.25 mcg Famotidine (Pepcid) 20 mg IVP DAILY [facility] Last Admin: 05/08/17 10:44 Dose: 20 mg Furosemide (Lasix) 40 mg IVP Q12 [facility] Last Admin: 05/08/17 22:03 Dose: 40 mg Gabapentin (Neurontin) 300 mg PO TID [facility] Last Admin: 05/08/17 17:17 Dose: 300 mg Heparin Sodium (Porcine) (Heparin) 5,000 units SC Q8 [facility] Last Admin: 05/09/17 06:17 Dose: 5,000 units Hydralazine HCl (Apresoline) 50 mg PO Q8 [facility] Last Admin: 05/09/17 06:17 Dose: 50 mg Insulin Aspart (Novolog) 8 unit SC ACTID [facility] Last Admin: 05/09/17 08:30 Dose: Not Given Insulin Aspart (Novolog) 0 unit SC ACHS [facility] PRN Reason: Protocol Last Admin: 05/09/17 08:30 Dose: Not Given Insulin Detemir (Levemir) 15 unit SC DAILY [facility] Last Admin: 05/08/17 10:44 Dose: Not Given Isosorbide Mononitrate (Imdur) 60 mg PO DAILY [facility] Last Admin: 05/08/17 10:42 Dose: 60 mg Multivitamins (Hexavitamin) 1 tab PO DAILY [facility] Last Admin: 05/08/17 10:42 Dose: 1 tab Neomycin Sulfate (Neomycin Tab) 500 mg PO Q6 [facility] Pneumococcal Polyvalent Vaccine (Pneumovax 23 Vaccine) 0.5 ml SC .ONCE ONE Stop: 05/10/17 10:01 - Labs Labs: 05/09/17 08:15 05/09/17 08:15 PT 14.3 SECONDS (9.7-12.2) H 05/07/17 11:33 INR 1.2 05/07/17 11:33 APTT 33 SECONDS (21-34) 05/08/17 06:48 - Constitutional Appears: Chronically Ill - Head Exam Head Exam: ATRAUMATIC, NORMAL INSPECTION, NORMOCEPHALIC - Eye Exam Eye Exam: Scleral icterus - ENT Exam ENT Exam: Mucous Membranes Moist - Neck Exam Neck Exam: Full ROM - Respiratory Exam Respiratory Exam: Clear to Ausculation Bilateral, NORMAL BREATHING PATTERN - Cardiovascular Exam Cardiovascular Exam: REGULAR RHYTHM, +S1, +S2. absent: Murmur - GI/Abdominal Exam GI & Abdominal Exam: Normal Bowel Sounds - Extremities Exam Extremities Exam: Full ROM. absent: Pedal Edema - Neurological Exam Neurological Exam: Alert, Awake, Oriented x3 - Skin Skin Exam: Rash, Warm Assessment and Plan - Assessment and Plan (Free Text) Assessment: NICM Mild-mod LV dysfunction 40-45%, mild LVH, mild LAE, mild-mod inc PASP, grade 3 DD by echo 11/2016 No evidence of volume overload No murmurs suggesting No arrythmias No acute ischemic EKG changes Mg 2.0, K+ 3.5; Hco3 28 Patient is compensated and can proceed with any GI procedure with intermediate risk given associated co-morbidities, anemia, COPD. f/u 2D echo: done images not in system to review. Cont maintainence HD Rx ASA, Imdur, Lasix, Hydralazine, Add Coreg; consider PAMELA-I or ARB as now on HD and K+ normal,
[2017-05-09] MEDS: Insulin Detemir 100 units/ml Vial (Levemir) SC SCH (10:50)
[2017-05-09] MEDS: Multiple Vitamins Tab PO SCH (11:11)
[2017-05-09] MEDS: Ciprofloxacin 400mg/200ml D5W 400 MG/200 ML BAG IVPB SCH ×2 (11:47→23:44)
[2017-05-09] MEDS: metroNIDAZOLE IV 500 mg/100 ml 500 MG/100 ML BAG IVPB SCH ×2 (13:45→21:46)
--- NOTE | 2017-05-09 16:24 | PN ---
DATE: LOCATION: [facility], bed B. SUBJECTIVE: This is a 51-year-old male seen and examined for GI consultation on 05/08/2017, reexamined again this morning without significant clinical changes, but no abdominal pain. The patient is complaining of back pain with mild nausea. Has to be mention clearly that the patient admitted with excessive alcohol intake before and they claimed that he stopped drinking few months ago according per his statement. The entire chart is reviewed including, but not limited to the most recent lab and radiology study results, current and previous medication lists, current and previous medical events as well as allergy to medication list. I ordered an MRCP through the resident staff and nursing staff and outpatient report of MRCP showed no evidence of choledocholithiasis and the biliary tree is not dilated, but there is a gallbladder stone with enlarged liver most likely secondary to alcohol induced liver cirrhosis before, that is the chronic problem, not acute most likely. LABORATORY DATA: Most recent lab results showed low hemoglobin of 9.2, hematocrit 27.2 with normal platelet count with Normal PT and PTT, but low sodium of , creatinine elevated 2.2. Blood glucose level, the latest was 133, with excessive increase of alkaline phosphatase to 783, increased ammonia level to 54, with total bilirubin 6.2. CEA level mildly elevated to 3.7, but normal alpha fetoprotein with hepatitis profile as well as monospot are negative, were ordered by myself with residency, and the ER staff. PHYSICAL EXAMINATION GENERAL: This is a 51-year-old male, awake, alert, and oriented complaining of right sided abdominal pain radiates to the back. VITAL SIGNS: Afebrile with pulse of 72, blood pressure 130/74, with respiratory 20 to 22. HEENT: Showed dry, pale oral mucous membrane with bilateral icteric sclerae. LUNGS: Scattered crepitations with decreased air entry at bases. HEART: Positive S1 and S2. ABDOMEN: Soft with slight distension with mild to moderate right sided abdominal tenderness. No masses or organomegaly. No rebound tenderness or guarding. RECTAL: The patient refused. EXTREMITIES: Without edema, clubbing, or cyanosis. IMPRESSION: 1. Liver cirrhosis, most likely secondary to alcohol use, it is a chronic process. 2. Cholelithiasis with acute cholecystitis. 3. Elevated CEA level with low hemoglobin and hematocrit, the possibility of occult GI malignancy should be ruled in or out versus gastrointestinal blood loss. 4. Multiple past medical history including, but not limited to bronchial asthma, osteoarthritis, chronic lower back pain syndrome with congestive heart failure as well as known history of diabetes mellitus, pneumonia, and mild renal insufficiency with depression by history. SUGGESTIONS: 1. Agree with your plan. 2. PSA. 3. CA-19-9. 4. Guaiac card stool daily x3. 5. Endoscopic evaluation of the gastrointestinal tract. 6. surgical procedure due to the patient's anemia. 7. Patient for upper endoscopy at a.m. Thank you for letting me participate in your patient's case management. This case is to be discussed at length with regulatory services consultant on the case. We will add neomycin p.o. due to the elevated ammonia level. Santiago Aparicio MD cc: Santiago Aparicio MD
--- NOTE | 2017-05-09 16:57 | CP.PCM.PN ---
Subjective - Date & Time of Evaluation Date of Evaluation: 05/09/17 Time of Evaluation: 07:45 - Subjective Subjective: General Surgery- Dr. Zuniga Pt S&E at bedside this AM. No acute events overnight. Tolerating diet. Denies F/ C N/V/D CP/SOB Objective - Vital Signs/Intake and Output Vital Signs (last 24 hours): Temp Pulse Resp BP Pulse Ox 97.4 F L 81 18 127/73 100 05/09/17 15:38 05/09/17 15:38 05/09/17 15:38 05/09/17 15:38 05/09/17 15:38 - Medications Medications: Current Medications Calcitriol (Rocaltrol) 0.25 mcg PO DAILY [facility] Last Admin: 05/09/17 11:09 Dose: 0.25 mcg Carvedilol (Coreg) 3.125 mg PO Q12H [facility] Last Admin: 05/09/17 13:48 Dose: 3.125 mg Famotidine (Pepcid) 20 mg IVP DAILY [facility] Last Admin: 05/09/17 11:09 Dose: 20 mg Furosemide (Lasix) 40 mg IVP Q12 [facility] Last Admin: 05/09/17 11:14 Dose: 40 mg Gabapentin (Neurontin) 300 mg PO TID [facility] Last Admin: 05/09/17 13:47 Dose: 300 mg Heparin Sodium (Porcine) (Heparin) 5,000 units SC Q8 [facility] Last Admin: 05/09/17 13:47 Dose: 5,000 units Hydralazine HCl (Apresoline) 50 mg PO Q8 [facility] Last Admin: 05/09/17 13:46 Dose: 50 mg Ciprofloxacin (Cipro 400mg/200ml Dsw) 400 mg in 200 mls @ 133 mls/hr IVPB Q12H [facility] Last Admin: 05/09/17 11:47 Dose: 133 mls/hr Metronidazole (Flagyl) 500 mg in 100 mls @ 100 mls/hr IVPB Q8H [facility] Last Admin: 05/09/17 13:45 Dose: 100 mls/hr Insulin Aspart (Novolog) 8 unit SC ACTID [facility] Last Admin: 05/09/17 12:30 Dose: Not Given Insulin Aspart (Novolog) 0 unit SC ACHS [facility] Reason: Protocol Last Admin: 05/09/17 12:30 Dose: Not Given Insulin Detemir (Levemir) 15 unit SC DAILY [facility] Last Admin: 05/09/17 10:50 Dose: 15 unit Isosorbide Mononitrate (Imdur) 60 mg PO DAILY [facility] Last Admin: 05/09/17 11:09 Dose: 60 mg Multivitamins (Hexavitamin) 1 tab PO DAILY [facility] Last Admin: 05/09/17 11:11 Dose: 1 tab Neomycin Sulfate (Neomycin Tab) 500 mg PO Q6 [facility] Last Admin: 05/09/17 11:48 Dose: 500 mg Pneumococcal Polyvalent Vaccine (Pneumovax 23 Vaccine) 0.5 ml SC .ONCE ONE Stop: 05/10/17 10:01 - Labs Labs: 05/09/17 08:15 05/09/17 08:15 PT 14.3 SECONDS (9.7-12.2) H 05/07/17 11:33 INR 1.2 05/07/17 11:33 APTT 33 SECONDS (21-34) 05/08/17 06:48 - Constitutional Appears: No Acute Distress - ENT Exam ENT Exam: Mucous Membranes Moist - Respiratory Exam Respiratory Exam: NORMAL BREATHING PATTERN. absent: Accessory Muscle Use, Chest Wall Tenderness, Rhonchi - Cardiovascular Exam Cardiovascular Exam: +S1, +S2 - GI/Abdominal Exam GI & Abdominal Exam: Soft, Tenderness Additional comments: tender to deep palpation RUQ. Palpable liver edge subcostal - Neurological Exam Neurological Exam: Alert, Awake, Oriented x3 - Psychiatric Exam Psychiatric exam: Normal Affect - Skin Skin Exam: Normal Color, Warm Assessment and Plan - Assessment and Plan (Free Text) Assessment: 51M Cholelithiasis & Elevated LFT Plan: - MRCP negative - continue w/ medical management - no acute surgical intervention required at this time - reconsult as need d/w Dr. Nadia Lanier PGY1
--- NOTE | 2017-05-09 18:24 | CP.PCM.PN ---
<Bo Mora - Last Filed: 05/09/17 18:18> Subjective - Date & Time of Evaluation Date of Evaluation: 05/09/17 Time of Evaluation: 18:15 - Subjective Subjective: Progress note. Attending: Dr. Ang Pt seen and examined at bedside. No acute distress. No events overnight. Pt with skin rash. No fevers,chills, vomiting, diarrhea, cp, sob. Cardio following , no sx at this time. Objective - Vital Signs/Intake and Output Vital Signs (last 24 hours): Temp Pulse Resp BP Pulse Ox 97.4 F L 81 18 127/73 100 05/09/17 15:38 05/09/17 15:38 05/09/17 15:38 05/09/17 15:38 05/09/17 15:38 Intake and Output: 05/09/17 05/09/17 06:59 18:59 Intake Total 550 Balance 550 - Medications Medications: Current Medications Calcitriol (Rocaltrol) 0.25 mcg PO DAILY [facility] Last Admin: 05/09/17 11:09 Dose: 0.25 mcg Carvedilol (Coreg) 3.125 mg PO Q12H [facility] Last Admin: 05/09/17 13:48 Dose: 3.125 mg Famotidine (Pepcid) 20 mg IVP DAILY [facility] Last Admin: 05/09/17 11:09 Dose: 20 mg Furosemide (Lasix) 40 mg IVP Q12 [facility] Last Admin: 05/09/17 11:14 Dose: 40 mg Gabapentin (Neurontin) 300 mg PO TID [facility] Last Admin: 05/09/17 18:13 Dose: 300 mg Heparin Sodium (Porcine) (Heparin) 5,000 units SC Q8 [facility] Last Admin: 05/09/17 13:47 Dose: 5,000 units Hydralazine HCl (Apresoline) 50 mg PO Q8 [facility] Last Admin: 05/09/17 13:46 Dose: 50 mg Ciprofloxacin (Cipro 400mg/200ml Dsw) 400 mg in 200 mls @ 133 mls/hr IVPB Q12H [facility] Last Admin: 05/09/17 11:47 Dose: 133 mls/hr Metronidazole (Flagyl) 500 mg in 100 mls @ 100 mls/hr IVPB Q8H [facility] Last Admin: 05/09/17 13:45 Dose: 100 mls/hr Insulin Aspart (Novolog) 8 unit SC ACTID [facility] Last Admin: 05/09/17 18:15 Dose: Not Given Insulin Aspart (Novolog) 0 unit SC ACHS [facility] PRN Reason: Protocol Last Admin: 05/09/17 18:14 Dose: Not Given Insulin Detemir (Levemir) 15 unit SC DAILY [facility] Last Admin: 05/09/17 10:50 Dose: 15 unit Isosorbide Mononitrate (Imdur) 60 mg PO DAILY [facility] Last Admin: 05/09/17 11:09 Dose: 60 mg Multivitamins (Hexavitamin) 1 tab PO DAILY [facility] Last Admin: 05/09/17 11:11 Dose: 1 tab Neomycin Sulfate (Neomycin Tab) 500 mg PO Q6 [facility] Last Admin: 05/09/17 18:13 Dose: 500 mg Pneumococcal Polyvalent Vaccine (Pneumovax 23 Vaccine) 0.5 ml SC .ONCE ONE Stop: 05/10/17 10:01 - Labs Labs: 05/09/17 08:15 05/09/17 08:15 PT 14.3 SECONDS (9.7-12.2) H 05/07/17 11:33 INR 1.2 05/07/17 11:33 APTT 33 SECONDS (21-34) 05/08/17 06:48 - Constitutional Appears: Non-toxic, No Acute Distress - Head Exam Head Exam: ATRAUMATIC, NORMAL INSPECTION, NORMOCEPHALIC - Eye Exam Eye Exam: EOMI - ENT Exam ENT Exam: Mucous Membranes Moist - Neck Exam Neck Exam: Full ROM, Normal Inspection - Respiratory Exam Respiratory Exam: NORMAL BREATHING PATTERN. absent: Respiratory Distress - Cardiovascular Exam Cardiovascular Exam: +S1, +S2 - GI/Abdominal Exam GI & Abdominal Exam: Soft, Normal Bowel Sounds. absent: Tenderness - Extremities Exam Extremities Exam: Full ROM, Normal Inspection - Neurological Exam Neurological Exam: Alert, Awake, Oriented x3 - Psychiatric Exam Psychiatric exam: Normal Affect, Normal Mood - Skin Skin Exam: Rash Additional comments: diffuse macular rash b/l legs and arms Assessment and Plan - Assessment and Plan (Free Text) Assessment: This is a 51 yo male with past medical hx of cardiomyopathy, ESRD, HTN, pulmonary HTN presenting with jaundice 1. Jaundice -GI following. recs appreciated -MRCP shows gallstones and enlarged liver -no sx at this time -sx consulted. recs appreciated 2. Increased CEA -colon cancer marker -continue to monitor 3. Gallstones on MRCP -continue to monitor 4. Cardiomyopathy non ischemic -cardiology following. recs appreciated -echo read pending continue asa 81 mg po daily 5. pulmonary htn -continue treating underlying heart failure and myopathy 6.. Hx of HTN -continue hydralazine 50 po q 8 qing 7. hx of ESRD -on dialysis -continue calcitriol 8. hx of BAND TUMBLER -continue to monitor -duonebs as needed 9. hx of DM -continue gabapentin -novolog 8 units sc ac tid 10. anemia -normocytic continue to monitor 11. gi/dvt ppx -heparin 5000 q 8 -pepcid discussed with Dr. Ang <Lynda Ang V - Last Filed: 05/14/17 16:53> Objective - Vital Signs/Intake and Output Vital Signs (last 24 hours): Temp Pulse Resp BP Pulse Ox 98.1 F 77 20 128/76 95 05/13/17 08:20 05/13/17 08:20 05/13/17 08:20 05/13/17 09:39 05/13/17 08:20 - Labs Labs: 05/13/17 06:15 05/13/17 06:15 PT 14.3 SECONDS (9.7-12.2) H 05/07/17 11:33 INR 1.2 05/07/17 11:33 APTT 33 SECONDS (21-34) 05/08/17 06:48 Attending/Attestation - Attestation I have personally seen and examined this patient.: Yes I have fully participated in the care of the patient.: Yes I have reviewed all pertinent clinical information, including history, physical exam and plan: Yes Notes (Text): This is late computer entry for 05/09/17. Patient seen, examined, and case discussed with day-time resident. Patient underwent MRCP yesterday. Started on IV abx given colitis Per surgery, patient is a poor surgical candidate given his multiple co- morbidities. Discussed with cardiology, patient has history of non-ischemic cardiomyopathy, and is intermediate risk for cardiac standpoint for procedure. Will need to follow-up with GI Assessment/Plan 1) Non-ischemic cardiomyopathy Chest Pain * Cardiology consult, Dr. Mantilla, f/u recs * Troponin negative x3 * EKG - nsr, 88bpm, non-specific changes, f/u official read. * Oxygen 2L NC * ASA 81mg PO daily * UDS: negative * Lasix 40mg IV Q 12H * Hydralazine 50mg PO TID * Imdur 60mg PO daily * Echocardiogram ordered-->pending report 2) ESRD on HD (MWF) * Nephrology consult, Dr. Felix, f/u recs * Patient has not missed any HD sessions this week - [facility] outpt dialysis * Patient received dialysis 05/07 at [facility] after coming to the ED * L arm shunt in place 3) Acute on Chronic Systolic Heart failure * Cardiology consult, Dr. Mantilla, f/u recs * 12/01/16: Echo - LV mod dilated w/global hyokinesis, mild- mod concentric LVH, LV systolic function mildly impaired, EF 46%, RV mild-mod dilated w/mildly reduced contractility, RV systolic pressure ~48mmHg = mod pulm HTN, trace pericardial effusion * Lasix 40mg IVP BID * Aspirin 81mg PO daily * Hydralazine 50mg PO TID * Imdur 60mg PO daily * Off [facility]/ARB-->patient is ESRD * Intake and output * Elevated proBNP 4) New Onset Jaundice Hyperbilirubinemia Cholelithiasis * GI group leader semiconductor testing (Dr. Leach) help appreciated * General Surgery (Dr. Zuniga) help appreciated * Patient went for MRCP-->pending report * Hepatitis profile, AFP, HOPE, Anti-smooth muscle, anti-mitochondrial, HIV, ammonia * Negative Darling's sign * CT Abdomen/Pelvis (05/07/17): mild also ascites appreciate the left greater the right hemiabdomen. Bowel loops are not distended at the sigmoid colon with a few diverticular are associated-->difficult to exclude colitis or enterocolitis. Cholelithiasis. Resolution of prior pyelonephritis and right psoas msucle phlegmon. Urinary bladder is distended with air fluid level and somewhat thicken suspicious for cystitis. * Abdominal US (05/07/17): hepatic cirrhosis, hepatomegaly. Splenomegaly. Ascites. Cholelithasis without evidence of cholecystitis. Incidentally noted dependent debris within urinary bladder.. * MRCP (05/08/17): no evidence of choledocholithiasis. The bilary tree is not dilated. Cholelithiasis and mild diffuse gallbladder wall thickening. No definite evidence of acute cholecystits. * Patient started on Flagyl 500mg IV Q 8H and renal adjust Ciprofloxocin IV to cover for gram negative/anaerobic coverage * Elevated total and direct bilirubin 4) Anemia * Hgb 9.5 on admission * Likely 2/2 chronic disease * f/u TIBC, Fe, Riticulocyte count, %sat, ferritin 5) Hypertension * ESRD MWF * Hydralazine 50mg PO TID * Imdur 60mg PO daily * Lasix 40mg IV BID 6) Diabetes * Accuchecks QAC and HS * Gabapentin 300mg PO TID * Levemir 15u SC HS * Novolog 8u SC TIDAC * Monitor 7) Prophylaxis * Heparin 5000 u SC q8H for DVT ppx * Pepcid 20mg IVP qdaily for GI ppx * SCDs * Calcitriol 0.25mcg PO qD * MVI
--- NOTE | 2017-05-09 20:30 | CON ---
DATE: 05/08/[address] Aparicio to Dr. Flynn. HISTORY OF PRESENT ILLNESS: I was called for GI consultation by the admitting medical team. The patient is seen and fully examined on 05/08/2017 as requested by the ER physician as well as the admitting medical staff. It has to be mentioned that this case discussed at length on 05/07/2017 with admitting medical team and instruction for some orders including MRCP were getting. This is a 51-year-old male who was admitted to the hospital through the emergency room with crampy abdominal pain as well as lower chest pain on and off to his way for dialysis. The patient was noticed to have more jaundice, abnormal liver function tests for which I was called for GI consultation with persistent midepigastric pain. The entire chart is reviewed including, but no limited to the most recent labs and radiologic study results, current and previous medication list, current and previous medical events as well as allergic medication list. After being admitted to the hospital, the patient was found to have low hemoglobin of 9.5 with hematocrit 28.4, increased BUN of 27, creatinine 2.6, increased blood glucose level to 186 with elevated total bilirubin as well as rest of the liver function tests. PAST MEDICAL HISTORY: Including, but no limited to: 1. Hypertension. 2. Coronary artery disease. 3. Bronchial asthma. 4. Osteoarthritis. 5. Congestive heart failure before. 6. Diabetes mellitus. 7. Peptic ulcer disease. 8. Chronic renal disorder. 9. Hyperlipidemia. CURRENT MEDICATIONS: Medication list was reviewed. FAMILY HISTORY: Both for diabetes mellitus, but none for specific GI disorder. SOCIAL HISTORY: Denied any cigarette smoking or alcohol intake. ALLERGY TO MEDICATION: UNCLEAR. PHYSICAL EXAMINATION GENERAL: A 51-year-old male, appears to be somewhat awake, alert, oriented, but somewhat poor historian. VITAL SIGNS: Afebrile with pulse of 80, respiratory rate 20 to 22, blood pressure of 124/84. HEENT: Showed pale, dry oral mucous membrane with bilateral icteric sclerae. LYMPH NODES: No lymphadenitis or lymphadenopathy. LUNGS: Few scattered crepitations, decreased air entry at bases. HEART: Positive S1 and S2. ABDOMEN: Soft with midepigastric as well as right upper quadrant tenderness. No mass or organomegaly. No rebound tenderness or guarding. Based on experience, dyspepsia with nausea during my physical examination. RECTAL EXAMINATION: The patient refused EXTREMITIES: With mild lower extremity edematous changes. No clubbing or cyanosis. NEUROLOGIC: No new reported neurological deficits, sensory or motor. IMPRESSION: 1. Recent patient with peptic ulcer disease. 2. Cholelithiasis by radiology study results with abnormal liver function tests and jaundice, most likely secondary to chronic liver disease, the patient admitted excessive alcohol intake. 3. Alcoholism by recent history as per the patient's statement, the patient stated he stopped drinking alcohol a few weeks to few months ago. 4. Jaundice, most likely secondary to above, no evidence of obstructive jaundice by radiology study results. 5. Multiple past medical history including, but no limited to hypertension, congestive heart failure, coronary artery disease, chronic renal disorder, diabetes mellitus, hyperlipidemia with anxiety, osteoarthritis and anemia. SUGGESTIONS: 1. MRCP for possible small, retained common bile duct stone. 2. Hepatitis profile and monospot. 3. Surgical evaluation. 4. Endoscopic evaluation of upper GI tract due to the patient's anemia. 5. Further recommendation to follow. Thank you for letting me to participate in your patient's case management. Santiago Aparicio MD
[2017-05-10] MEDS: metroNIDAZOLE IV 500 mg/100 ml 500 MG/100 ML BAG IVPB SCH ×3 (05:25→21:56)
[2017-05-10 07:31] LABS: BASO # 0.1 K/uL (0.0-0.2); BASO % 1.6 % (0.0-2.0); EOS # 0.2 K/uL (0.0-0.7); EOS % 3.3 % (0.0-4.0); HEMATOCRIT 27.6 % (35.0-51.0); LYMPH # 0.7 K/uL (1.0-4.3); LYMPH % 13.5 % (20.0-40.0); MEAN CELL VOLUME 94.9 fL (80.0-94.0); MEAN CORPUSCULAR HEMOGLOBIN 31.6 pg (27.0-31.0); MEAN CORPUSCULAR HGB CONC 33.4 g/dL (33.0-37.0); MEAN PLATELET VOLUME 9.9 fL (7.2-11.7); MONO # 0.9 K/uL (0.0-0.8); MONO % 16.5 % (0.0-10.0); NRBC % 0.1 % (0.0-2.0); RED CELL DISTRIBUTION WIDTH 15.4 % (11.5-14.5); WHITE BLOOD COUNT 5.5 K/uL (4.8-10.8)
[2017-05-10 07:56] LABS: POTASSIUM 4.7 mmol/L (3.6-5.2)
[2017-05-10 07:57] LABS: BILIRUBIN,TOTAL 4.4 mg/dL (0.2-1.3)
[2017-05-10 07:58] LABS: ALB/GLOB RATIO 0.6 (1.0-2.1); PHOSPHOROUS 5.6 mg/dL (2.5-4.5); TOTAL PROTEIN 6.7 g/dL (6.3-8.3)
[2017-05-10 07:59] LABS: MAGNESIUM 2.2 mg/dL (1.6-2.3)
[2017-05-10] MEDS: (Novolog) Insulin Aspart, Recombinant 100 u/ml 10 ml vial SC SCH ×8 (08:22→22:00)
[2017-05-10 09:21] LABS: CA 19-9 24.6 U/mL (0-37)
[2017-05-10] MEDS ORDERED: Influenza Virus Vaccine 45 mcg/0.5 ml Syr IM ONE (10:00)
[2017-05-10] MEDS ORDERED: Pneumococcal 23-Valent Vaccine SC ONE (10:00)
[2017-05-10] MEDS: Multiple Vitamins Tab PO SCH ×2 (10:44→13:08)
[2017-05-10] MEDS: Insulin Detemir 100 units/ml Vial (Levemir) SC SCH ×2 (10:45→22:00)
--- NOTE | 2017-05-10 12:50 | CP.PCM.PN ---
<Lynda Ang V - Last Filed: 05/10/17 18:08> Objective - Vital Signs/Intake and Output Vital Signs (last 24 hours): Temp Pulse Resp BP Pulse Ox 97.4 F L 77 20 110/61 99 05/10/17 16:00 05/10/17 16:00 05/10/17 16:00 05/10/17 16:00 05/10/17 16:00 Intake and Output: 05/10/17 05/10/17 06:59 18:59 Intake Total 700 100 Balance 700 100 - Medications Medications: Current Medications Calcitriol (Rocaltrol) 0.25 mcg PO DAILY [facility] Last Admin: 05/10/17 13:09 Dose: 0.25 mcg Carvedilol (Coreg) 3.125 mg PO Q12H [facility] Last Admin: 05/10/17 13:08 Dose: 3.125 mg Famotidine (Pepcid) 20 mg IVP DAILY [facility] Last Admin: 05/10/17 13:10 Dose: 20 mg Furosemide (Lasix) 40 mg IVP Q12 [facility] Last Admin: 05/10/17 10:44 Dose: Not Given Gabapentin (Neurontin) 300 mg PO TID [facility] Last Admin: 05/10/17 17:32 Dose: 300 mg Hydralazine HCl (Apresoline) 50 mg PO Q8 [facility] Last Admin: 05/10/17 13:08 Dose: 50 mg Ciprofloxacin (Cipro 400mg/200ml Dsw) 400 mg in 200 mls @ 133 mls/hr IVPB Q12H [facility] Last Admin: 05/10/17 13:06 Dose: 133 mls/hr Metronidazole (Flagyl) 500 mg in 100 mls @ 100 mls/hr IVPB Q8H [facility] Last Admin: 05/10/17 14:22 Dose: 100 mls/hr Insulin Aspart (Novolog) 8 unit SC ACTID [facility] Last Admin: 05/10/17 17:31 Dose: 8 unit Insulin Aspart (Novolog) 0 unit SC ACHS [facility] PRN Reason: Protocol Last Admin: 05/10/17 17:32 Dose: 3 unit Insulin Detemir (Levemir) 15 unit SC DAILY [facility] Last Admin: 05/10/17 10:45 Dose: Not Given Isosorbide Mononitrate (Imdur) 60 mg PO DAILY [facility] Last Admin: 05/10/17 13:09 Dose: 60 mg Multivitamins (Hexavitamin) 1 tab PO DAILY [facility] Last Admin: 05/10/17 13:08 Dose: 1 tab Neomycin Sulfate (Neomycin Tab) 500 mg PO Q6 [facility] Last Admin: 05/10/17 17:32 Dose: 500 mg - Labs Labs: 05/10/17 07:19 05/10/17 07:19 PT 14.3 SECONDS (9.7-12.2) H 05/07/17 11:33 INR 1.2 05/07/17 11:33 APTT 33 SECONDS (21-34) 05/08/17 06:48 Attending/Attestation - Attestation I have personally seen and examined this patient.: Yes I have fully participated in the care of the patient.: Yes I have reviewed all pertinent clinical information, including history, physical exam and plan: Yes Notes (Text): Patient seen, examined, and case discussed with day-time resident. Patient seen during dialysis today. Patient reports mild epigastric pain, negative Darling's sign. Discussed with GI, patient to have upper endoscopy tomorrow for midepigastric pain; given patient is having dialysis today; avoid risk of hypotension due to anesthesia, so rescheduled for tomorrow. 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 Discussed with cardiology, patient has history of non-ischemic cardiomyopathy, and is intermediate risk for cardiac standpoint for procedure. patient has hx of COPD, reports he does not currently smoke, ordered for ABG and pulm consult. Given half of long acting insulin tonight (15 units subqHS-->7 units subHS) in light of endoscopy for tomorrow. Assessment/Plan 1) Non-ischemic cardiomyopathy Chest Pain * Cardiology consult, Dr. Root (covering for [facility])-->help appreciated * Troponin negative x3 * EKG - nsr, 88bpm, non-specific changes * Oxygen 2L NC * ASA 81mg PO daily * UDS: negative * Lasix 40mg IV Q 12H * Hydralazine 50mg PO TID * Imdur 60mg PO daily * Cancelled discussed cardiology, reviewed echocardiogram from prior visit * Discussed with cardiology, patient has history of non-ischemic cardiomyopathy , and is intermediate risk for cardiac standpoint for GI procedure over the weekend. 2) ESRD on HD (MWF) * Nephrology consult, Dr. Felix-->help appreciated * Patient has not missed any HD sessions this week - [facility] out[facility] dialysis * Patient received dialysis 05/07 at [facility] after coming to the ED * L arm shunt in place * Dialysis M/W/F 3) Acute on Chronic Systolic Heart failure * Cardiology consult, Dr. Mantilla, f/u recs * Discussed with cardiology, patient has history of non-ischemic cardiomyopathy , and is intermediate risk for cardiac standpoint for procedure over the weekend. * 12/01/16: Echo - LV mod dilated w/global hyokinesis, mild- mod concentric LVH, LV systolic function mildly impaired, EF 46%, RV mild-mod dilated w/mildly reduced contractility, RV systolic pressure ~48mmHg = mod pulm HTN, trace pericardial effusion * Lasix 40mg IVP BID * Coreg 3.125mg PO BID * Hydralazine 50mg PO TID * Imdur 60mg PO daily * Off Camilo/ARB-->patient is ESRD * Intake and output * Elevated proBNP 4) New Onset Jaundice Liver cirrhosis Hyperbilirubinemia Cholelithiasis * GI otm consultant (Dr. Leach) help appreciated * General Surgery (Dr. Zuniga) help appreciated * Hepatitis profile: negative, AFP: 2.2, Anti-smooth muscle: negative, anti- mitochondrial: negative, HIV: negative, ammonia; elevated (but is AAOX3) * Negative Darling's sign on exam; + mild tenderness over RUQ; scleral icterus, no asterxis, fluid wave present * CT Abdomen/Pelvis (05/07/17): mild also ascites appreciate the left greater the right hemiabdomen. Bowel loops are not distended at the sigmoid colon with a few diverticular are associated-->difficult to exclude colitis or enterocolitis. Cholelithiasis. Resolution of prior pyelonephritis and right psoas msucle phlegmon. Urinary bladder is distended with air fluid level and somewhat thicken suspicious for cystitis. * Abdominal US (05/07/17): hepatic cirrhosis, hepatomegaly. Splenomegaly. Ascites. Cholelithasis without evidence of cholecystitis. Incidentally noted dependent debris within urinary bladder. * MRCP (05/08/17): no evidence of choledocholithiasis. The bilary tree is not dilated. Cholelithiasis and mild diffuse gallbladder wall thickening. No definite evidence of acute cholecystits. * On Flagyl 500mg IV Q 8H and renal adjust Ciprofloxcin 400mg IV Q24H to cover for gram negative/anaerobic coverage * Endoscopy tomorrow on 05/11/17 rescheduled to avoid anesthesia risk of hypotension on dialysis day 4) Anemia * Hgb 9.5 on admission * Likely 2/2 chronic disease * Reticulocyte count elevated: iron stores are normal 5) Hypertension * ESRD MWF * Hydralazine 50mg PO TID * Imdur 60mg PO daily * Lasix 40mg IV BID 6) Diabetes * Accuchecks QAC and HS * Gabapentin 300mg PO TID * Lowered Levemir 7u SC HS in light of endoscopy tomorrow, NPO overnight * Novolog 8u SC TIDAC * Monitor 7) Prophylaxis * off Heparin 5000 u SC q8H for DVT ppx for endoscopy tomorrow * Off aspirin since admission due to possible intervention * NPO after midnight for endoscopy tomorrow with GI * Pepcid 20mg IVP qdaily for GI ppx * SCDs * Calcitriol 0.25mcg PO qD * MVI <Zohreh Lucas - Last Filed: 05/10/17 20:28> Subjective - Date & Time of Evaluation Date of Evaluation: 05/10/17 Time of Evaluation: 12:50 - Subjective Subjective: Patient seen and examined at dialysis. Patient still complaining of pruritis. Patient thinks he has a rash due to allergy. Patient denies any garner/cp/sob/abd pain/f/c/n/v/d. Objective - Vital Signs/Intake and Output Vital Signs (last 24 hours): Temp Pulse Resp BP Pulse Ox 98.2 F 79 20 109/70 97 05/10/17 09:10 05/10/17 09:10 05/10/17 09:10 05/10/17 10:35 05/10/17 09:10 Intake and Output: 05/10/17 05/10/17 06:59 18:59 Intake Total 700 Balance 700 - Medications Medications: Current Medications Calcitriol (Rocaltrol) 0.25 mcg PO DAILY [facility] Last Admin: 05/10/17 10:45 Dose: Not Given Carvedilol (Coreg) 3.125 mg PO Q12H [facility] Last Admin: 05/10/17 01:39 Dose: 3.125 mg Famotidine (Pepcid) 20 mg IVP DAILY [facility] Last Admin: 05/10/17 10:30 Dose: Not Given Furosemide (Lasix) 40 mg IVP Q12 [facility] Last Admin: 05/10/17 10:44 Dose: Not Given Gabapentin (Neurontin) 300 mg PO TID [facility] Last Admin: 05/10/17 10:45 Dose: Not Given Hydralazine HCl (Apresoline) 50 mg PO Q8 [facility] Last Admin: 05/10/17 05:25 Dose: 50 mg Ciprofloxacin (Cipro 400mg/200ml Dsw) 400 mg in 200 mls @ 133 mls/hr IVPB Q12H [facility] Last Admin: 05/09/17 23:44 Dose: 133 mls/hr Metronidazole (Flagyl) 500 mg in 100 mls @ 100 mls/hr IVPB Q8H [facility] Last Admin: 05/10/17 05:25 Dose: 100 mls/hr Insulin Aspart (Novolog) 8 unit SC ACTID [facility] Last Admin: 05/10/17 08:22 Dose: Not Given Insulin Aspart (Novolog) 0 unit SC ACHS [facility] PRN Reason: Protocol Last Admin: 05/10/17 12:40 Dose: Not Given Insulin Detemir (Levemir) 15 unit SC DAILY [facility] Last Admin: 05/10/17 10:45 Dose: Not Given Isosorbide Mononitrate (Imdur) 60 mg PO DAILY [facility] Last Admin: 05/10/17 10:44 Dose: Not Given Multivitamins (Hexavitamin) 1 tab PO DAILY [facility] Last Admin: 05/10/17 10:44 Dose: Not Given Neomycin Sulfate (Neomycin Tab) 500 mg PO Q6 [facility] Last Admin: 05/10/17 05:25 Dose: 500 mg - Labs Labs: 05/10/17 07:19 05/10/17 07:19 PT 14.3 SECONDS (9.7-12.2) H 05/07/17 11:33 INR 1.2 05/07/17 11:33 APTT 33 SECONDS (21-34) 05/08/17 06:48 - Constitutional Appears: No Acute Distress - Head Exam Head Exam: NORMAL INSPECTION - Eye Exam Eye Exam: EOMI, Scleral icterus - ENT Exam ENT Exam: Mucous Membranes Moist - Respiratory Exam Respiratory Exam: Clear to Ausculation Bilateral, NORMAL BREATHING PATTERN - Cardiovascular Exam Cardiovascular Exam: REGULAR RHYTHM, +S1, +S2 - GI/Abdominal Exam GI & Abdominal Exam: Soft, Normal Bowel Sounds. absent: Distended, Tenderness - Extremities Exam Extremities Exam: Normal Inspection. absent: Pedal Edema, Tenderness - Neurological Exam Neurological Exam: Alert, Awake - Psychiatric Exam Psychiatric exam: Normal Affect, Normal Mood - Skin Skin Exam: Dry, Intact, Warm. absent: Rash Additional comments: Jaundiced Assessment and Plan - Assessment and Plan (Free Text) Assessment: Jaundice -GI following. recs appreciated -MRCP shows gallstones and enlarged liver -sx consulted. recs appreciated * do not recommend surgery at this time - AST and ALT WNL -CA19-9: 24.6 (05/10) -Ammonia: 43 (05/10) -Hep panel negative -HIV negative -Pruritis likely due to hyperbilirubinemia * cholestyramine 4g QD Increased CEA -3.7 (05/08) -AFP: 2.2 -continue to monitor Cardiomyopathy non ischemic -cardiology following. recs appreciated * added coreg * f/u echo -continue asa 81 mg po daily Pulmonary htn -continue treating underlying heart failure and myopathy Hx of HTN -continue hydralazine 50 po q 8 qing Hx of ESRD -Nephrology on board (Isidro) - Cont dialysis -continue calcitriol Hx of COPD -continue to monitor -duonebs as needed Hx of DM -continue gabapentin -novolog 8 units sc ac tid Anemia -normocytic -continue to monitor gi/dvt ppx -heparin 5000 q 8 -pepcid
[2017-05-10] MEDS: Ciprofloxacin 400mg/200ml D5W 400 MG/200 ML BAG IVPB SCH (13:06)
--- NOTE | 2017-05-10 13:51 | CP.PCM.PN ---
Subjective - Date & Time of Evaluation Date of Evaluation: 05/10/17 Time of Evaluation: 13:51 Objective - Vital Signs/Intake and Output Vital Signs (last 24 hours): Temp Pulse Resp BP Pulse Ox 97 F L 82 16 133/74 97 05/10/17 12:05 05/10/17 12:05 05/10/17 12:05 05/10/17 12:05 05/10/17 12:05 Intake and Output: 05/10/17 05/10/17 06:59 18:59 Intake Total 700 Balance 700 - Medications Medications: Current Medications Calcitriol (Rocaltrol) 0.25 mcg PO DAILY [facility] Last Admin: 05/10/17 13:09 Dose: 0.25 mcg Carvedilol (Coreg) 3.125 mg PO Q12H [facility] Last Admin: 05/10/17 13:08 Dose: 3.125 mg Famotidine (Pepcid) 20 mg IVP DAILY [facility] Last Admin: 05/10/17 13:10 Dose: 20 mg Furosemide (Lasix) 40 mg IVP Q12 [facility] Last Admin: 05/10/17 10:44 Dose: Not Given Gabapentin (Neurontin) 300 mg PO TID [facility] Last Admin: 05/10/17 13:09 Dose: 300 mg Hydralazine HCl (Apresoline) 50 mg PO Q8 [facility] Last Admin: 05/10/17 13:08 Dose: 50 mg Ciprofloxacin (Cipro 400mg/200ml Dsw) 400 mg in 200 mls @ 133 mls/hr IVPB Q12H [facility] Last Admin: 05/10/17 13:06 Dose: 133 mls/hr Metronidazole (Flagyl) 500 mg in 100 mls @ 100 mls/hr IVPB Q8H [facility] Last Admin: 05/10/17 05:25 Dose: 100 mls/hr Insulin Aspart (Novolog) 8 unit SC ACTID [facility] Last Admin: 05/10/17 13:07 Dose: 8 unit Insulin Aspart (Novolog) 0 unit SC ACHS [facility] PRN Reason: Protocol Last Admin: 05/10/17 12:40 Dose: Not Given Insulin Detemir (Levemir) 15 unit SC DAILY [facility] Last Admin: 05/10/17 10:45 Dose: Not Given Isosorbide Mononitrate (Imdur) 60 mg PO DAILY [facility] Last Admin: 05/10/17 13:09 Dose: 60 mg Multivitamins (Hexavitamin) 1 tab PO DAILY [facility] Last Admin: 05/10/17 13:08 Dose: 1 tab Neomycin Sulfate (Neomycin Tab) 500 mg PO Q6 [facility] Last Admin: 05/10/17 05:25 Dose: 500 mg - Labs Labs: 05/10/17 07:19 05/10/17 07:19 PT 14.3 SECONDS (9.7-12.2) H 05/07/17 11:33 INR 1.2 05/07/17 11:33 APTT 33 SECONDS (21-34) 05/08/17 06:48
--- NOTE | 2017-05-10 13:59 | CP.PCM.PN ---
Subjective - Date & Time of Evaluation Date of Evaluation: 05/10/17 Time of Evaluation: 13:56 - Subjective Subjective: MRCP showed large liver; no biliary obstruction Feels better for HD today Not dyspneic now Objective - Vital Signs/Intake and Output Vital Signs (last 24 hours): Temp Pulse Resp BP Pulse Ox 97 F L 82 16 133/74 97 05/10/17 12:05 05/10/17 12:05 05/10/17 12:05 05/10/17 12:05 05/10/17 12:05 Intake and Output: 05/10/17 05/10/17 06:59 18:59 Intake Total 700 Balance 700 - Medications Medications: Current Medications Calcitriol (Rocaltrol) 0.25 mcg PO DAILY [facility] Last Admin: 05/10/17 13:09 Dose: 0.25 mcg Carvedilol (Coreg) 3.125 mg PO Q12H [facility] Last Admin: 05/10/17 13:08 Dose: 3.125 mg Famotidine (Pepcid) 20 mg IVP DAILY [facility] Last Admin: 05/10/17 13:10 Dose: 20 mg Furosemide (Lasix) 40 mg IVP Q12 [facility] Last Admin: 05/10/17 10:44 Dose: Not Given Gabapentin (Neurontin) 300 mg PO TID [facility] Last Admin: 05/10/17 13:09 Dose: 300 mg Hydralazine HCl (Apresoline) 50 mg PO Q8 [facility] Last Admin: 05/10/17 13:08 Dose: 50 mg Ciprofloxacin (Cipro 400mg/200ml Dsw) 400 mg in 200 mls @ 133 mls/hr IVPB Q12H [facility] Last Admin: 05/10/17 13:06 Dose: 133 mls/hr Metronidazole (Flagyl) 500 mg in 100 mls @ 100 mls/hr IVPB Q8H [facility] Last Admin: 05/10/17 05:25 Dose: 100 mls/hr Insulin Aspart (Novolog) 8 unit SC ACTID [facility] Last Admin: 05/10/17 13:07 Dose: 8 unit Insulin Aspart (Novolog) 0 unit SC ACHS [facility] PRN Reason: Protocol Last Admin: 05/10/17 12:40 Dose: Not Given Insulin Detemir (Levemir) 15 unit SC DAILY [facility] Last Admin: 05/10/17 10:45 Dose: Not Given Isosorbide Mononitrate (Imdur) 60 mg PO DAILY [facility] Last Admin: 05/10/17 13:09 Dose: 60 mg Multivitamins (Hexavitamin) 1 tab PO DAILY [facility] Last Admin: 05/10/17 13:08 Dose: 1 tab Neomycin Sulfate (Neomycin Tab) 500 mg PO Q6 [facility] Last Admin: 05/10/17 05:25 Dose: 500 mg - Labs Labs: 05/10/17 07:19 05/10/17 07:19 PT 14.3 SECONDS (9.7-12.2) H 05/07/17 11:33 INR 1.2 05/07/17 11:33 APTT 33 SECONDS (21-34) 05/08/17 06:48 - Constitutional Appears: No Acute Distress, Chronically Ill - Head Exam Head Exam: ATRAUMATIC, NORMAL INSPECTION - Eye Exam Eye Exam: EOMI, Scleral icterus - Neck Exam Neck Exam: Normal Inspection. absent: Tenderness - Respiratory Exam Respiratory Exam: Clear to Ausculation Bilateral, NORMAL BREATHING PATTERN - Cardiovascular Exam Cardiovascular Exam: REGULAR RHYTHM, +S1 - GI/Abdominal Exam GI & Abdominal Exam: Distended, Soft - Extremities Exam Extremities Exam: Normal Inspection. absent: Tenderness - Neurological Exam Neurological Exam: Alert, CN II-XII Intact - Skin Skin Exam: Dry, Warm Assessment and Plan (1) Hepatic enlargement Status: Acute (2) Hyperbilirubinemia Status: Acute (3) ESRD (end stage renal disease) Status: Acute (4) Diabetes 1.5, managed as type 2 Status: Chronic - Assessment and Plan (Free Text) Plan: Dialysis today [facility] [id number] GI follow up for liver disease
[2017-05-10 18:44] LABS: ABG ALLEN TEST POS; ARTERIAL BLOOD HGB O2 SAT 94.9 % (95.0-98.0); CARBOXYHEMOGLOBIN 3.2 % (0.5-1.5); DRAW SITE RRADIAL; HHB 0.9 % (0.0-5.0)
[2017-05-11] MEDS: metroNIDAZOLE IV 500 mg/100 ml 500 MG/100 ML BAG IVPB SCH ×3 (06:32→21:35)
--- NOTE | 2017-05-11 06:55 | PN ---
DATE: LOCATION: [facility], [facility]. SUBJECTIVE: This is a 51-year-old male seen and examined early in rounds. The patient was scheduled for upper endoscopy today. Unfortunately, he was sent to dialysis, he is still in dialysis during this morning hours for which upper endoscopy is to be rescheduled for a.m. The entire chart is reviewed including, but not limited to the most recent lab and radiology study results, current and previous medication lists, current and previous medical events were viewed. The patient had no evidence of rectal bleeding in the meantime, but with poor oral intake with periods of dyspepsia and reported skin rash. The entire chart is reviewed including, but not limited to the most recent lab and radiology study results, current and previous medication lists, current and previous medical events. Case discussed at length with the staff. Today, his hemoglobin is 9.2 with hematocrit 27.6, but normal platelet count with a BUN of 34 with elevated creatinine of 4.8. Blood glucose level 161 and the calcium is low at 8 with phosphorus 5.6. Total bilirubin 4.4 and alkaline phosphatase is 536. Ammonia level was reported to be elevated at 43, for which the patient was given neomycin. Albumin is 2.6. PT has been elevated at 14.3. The official report of MRCP was reviewed. PHYSICAL EXAMINATION: GENERAL: A 51-year-old male awake, alert and oriented, still complaining of midepigastric and mid abdominal pain as well as lower back pain on and off. VITAL SIGNS: Afebrile with pulse of 82, respiratory rate 20-22, blood pressure of 130/80. HEENT: Showed pale, dry oral mucous membrane. Bilateral icteric sclerae. LUNGS: Few mild crepitation. Breathing sounds are present bilaterally. HEART: Positive S1 and S2. ABDOMEN: Soft with slight generalized tenderness. No mass or organomegaly. No rebound tenderness or guarding. EXTREMITIES: With lower extremity mild edematous changes. No clubbing or cyanosis. NEUROLOGIC: No reported new neurological deficits, sensory or motor. IMPRESSION: 1. Anemia with episodes of nausea and dyspepsia with re-exacerbation of peptic ulcer disease. 2. Cholelithiasis. 3. Abnormal liver function test with elevated bilirubin associated with jaundice, most likely secondary to chronic liver cirrhosis, secondary to alcoholism, most likely. 4. Multiple past medical history including, but not limited to hypertension, coronary artery disease, congestive heart failure, chronic renal disease on hemodialysis, hyperlipidemia with diabetes mellitus. 5. Known history of severe anxiety syndrome. 6. Known history of osteoarthritis. 7. Anemia secondary to above. SUGGESTIONS: 1. Agree with your plan. 2. Reschedule upper endoscopy when the patient is more stable clinically. 3. Cancer markers including CEA. 4. Further recommendation to follow. It has to be mentioned that due to the elevated CEA, colonoscopy also to be kept in mind when the patient is more stable clinically, according to the patient, never had colonoscopy before. Santiago Aparicio MD cc: Santiago Aparicio MD
[2017-05-11] MEDS: (Novolog) Insulin Aspart, Recombinant 100 u/ml 10 ml vial SC SCH ×7 (07:35→21:37)
[2017-05-11] MEDS: Cholestyramine 4 gm/5.5 gm UD Packet PO SCH ×2 (07:52→10:41)
[2017-05-11 07:59] LABS: BASO # 0.1 K/uL (0.0-0.2); BASO % 1.3 % (0.0-2.0); EOS # 0.2 K/uL (0.0-0.7); HEMATOCRIT 26.9 % (35.0-51.0); LYMPH # 0.8 K/uL (1.0-4.3); LYMPH % 15.2 % (20.0-40.0); MEAN CELL VOLUME 95.3 fL (80.0-94.0); MEAN CORPUSCULAR HEMOGLOBIN 31.5 pg (27.0-31.0); MEAN PLATELET VOLUME 10.1 fL (7.2-11.7); MONO # 0.9 K/uL (0.0-0.8); MONO % 17.9 % (0.0-10.0); NRBC % 0.1 % (0.0-2.0); RED CELL DISTRIBUTION WIDTH 15.2 % (11.5-14.5); WHITE BLOOD COUNT 5.2 K/uL (4.8-10.8)
[2017-05-11 08:12] LABS: POTASSIUM 4.3 mmol/L (3.6-5.2)
[2017-05-11] MEDS ORDERED: Lidocaine Hydrochloride 5 ML INJ ONE (08:12)
[2017-05-11] MEDS ORDERED: Propofol 10 mg/ml Inj (20 ML) ONE (08:12)
[2017-05-11 08:13] LABS: ALB/GLOB RATIO 0.6 (1.0-2.1); BILIRUBIN,TOTAL 4.1 mg/dL (0.2-1.3); TOTAL PROTEIN 6.5 g/dL (6.3-8.3)
[2017-05-11 08:14] LABS: CALCIUM 7.9 mg/dl (8.6-10.4); MAGNESIUM 2.2 mg/dL (1.6-2.3); PHOSPHOROUS 4.7 mg/dL (2.5-4.5)
[2017-05-11] MEDS ORDERED: Midazolam 2 MG/2 ML VIAL ONE (08:14)
--- NOTE | 2017-05-11 10:16 | CP.PCM.PN ---
Subjective - Date & Time of Evaluation Date of Evaluation: 05/11/17 Time of Evaluation: 10:13 - Subjective Subjective: seen and examined egd not done today pt denies any complaints Objective - Vital Signs/Intake and Output Vital Signs (last 24 hours): Temp Pulse Resp BP Pulse Ox 97.1 F L 66 12 105/62 100 05/11/17 08:25 05/11/17 08:55 05/11/17 08:55 05/11/17 08:55 05/11/17 08:55 Intake and Output: 05/11/17 05/11/17 06:59 18:59 Intake Total 60 Balance 60 - Medications Medications: Current Medications Bisacodyl (Dulcolax) 10 mg PO ONCE ONE Stop: 05/11/17 17:01 Calcitriol (Rocaltrol) 0.25 mcg PO DAILY [facility] Last Admin: 05/10/17 13:09 Dose: 0.25 mcg Carvedilol (Coreg) 3.125 mg PO Q12H [facility] Last Admin: 05/11/17 01:44 Dose: 3.125 mg Cholestyramine Resin (Prevalite) 4 gm PO DAILY [facility] Last Admin: 05/11/17 07:52 Dose: Not Given Famotidine (Pepcid) 20 mg IVP DAILY [facility] Last Admin: 05/10/17 13:10 Dose: 20 mg Furosemide (Lasix) 40 mg IVP Q12 [facility] Last Admin: 05/10/17 21:56 Dose: 40 mg Gabapentin (Neurontin) 300 mg PO TID [facility] Last Admin: 05/10/17 17:32 Dose: 300 mg Hydralazine HCl (Apresoline) 50 mg PO Q8 [facility] Last Admin: 05/11/17 06:33 Dose: 50 mg Metronidazole (Flagyl) 500 mg in 100 mls @ 100 mls/hr IVPB Q8H [facility] Last Admin: 05/11/17 06:32 Dose: 100 mls/hr Ciprofloxacin (Cipro 400mg/200ml Dsw) 400 mg in 200 mls @ 133 mls/hr IVPB Q24H [facility] Insulin Aspart (Novolog) 8 unit SC ACTID [facility] Last Admin: 05/11/17 07:35 Dose: Not Given Insulin Aspart (Novolog) 0 unit SC ACHS [facility] PRN Reason: Protocol Last Admin: 05/11/17 07:35 Dose: Not Given Insulin Detemir (Levemir) 8 unit SC HS [facility] Last Admin: 05/10/17 22:00 Dose: Not Given Isosorbide Mononitrate (Imdur) 60 mg PO DAILY [facility] Last Admin: 05/10/17 13:09 Dose: 60 mg Metoclopramide HCl (Reglan) 5 mg IVP Q6 [facility] Multivitamins (Hexavitamin) 1 tab PO DAILY [facility] Last Admin: 05/10/17 13:08 Dose: 1 tab Neomycin Sulfate (Neomycin Tab) 500 mg PO Q6 [facility] Last Admin: 05/11/17 06:33 Dose: 500 mg Polyethylene Glycol/Electrolytes (Golytely) 4,000 ml PO ONCE ONE Stop: 05/11/17 11:01 - Labs Labs: 05/11/17 07:50 05/11/17 07:48 PT 14.3 SECONDS (9.7-12.2) H 05/07/17 11:33 INR 1.2 05/07/17 11:33 APTT 33 SECONDS (21-34) 05/08/17 06:48 - Constitutional Appears: Non-toxic, No Acute Distress, Chronically Ill - Head Exam Head Exam: NORMAL INSPECTION - Eye Exam Eye Exam: Normal appearance - ENT Exam ENT Exam: Mucous Membranes Moist, Normal Exam - Neck Exam Neck Exam: Normal Inspection - Respiratory Exam Respiratory Exam: Decreased Breath Sounds, NORMAL BREATHING PATTERN - Cardiovascular Exam Cardiovascular Exam: REGULAR RHYTHM, RRR - GI/Abdominal Exam GI & Abdominal Exam: Distended, Soft - Extremities Exam Additional comments: chronic stasis Assessment and Plan (1) Hepatic enlargement Status: Acute (2) Hyperbilirubinemia Status: Acute (3) Jaundice Status: Acute (4) ESRD (end stage renal disease) Status: Acute - Assessment and Plan (Free Text) Assessment: hd mwf, later tomorrow. plan for egd and c scope galen noted GI work up may dc iv lasix recommend lowering gabapentin dose
--- NOTE | 2017-05-11 10:21 | CP.PCM.PN ---
<Zohreh Lucas - Last Filed: 05/11/17 17:36> Subjective - Date & Time of Evaluation Date of Evaluation: 05/11/17 Time of Evaluation: 10:19 - Subjective Subjective: Patient seen and examined at bedside. Patient doing well with now new complaints at this time. Patient is going for EGD today. Patient says he is still having some upper back pain but the itching he has yesterday is gone and the cholestyramine helped. Patient also complaining of nonproductive cough. Patient denies fever,chills, VALDEZ, CP, SOB, AP, N/V/D/C. Objective - Vital Signs/Intake and Output Vital Signs (last 24 hours): Temp Pulse Resp BP Pulse Ox 97.1 F L 66 12 105/62 100 05/11/17 08:25 05/11/17 08:55 05/11/17 08:55 05/11/17 08:55 05/11/17 08:55 Intake and Output: 05/11/17 05/11/17 06:59 18:59 Intake Total 60 Balance 60 - Medications Medications: Current Medications Bisacodyl (Dulcolax) 10 mg PO ONCE ONE Stop: 05/11/17 17:01 Calcitriol (Rocaltrol) 0.25 mcg PO DAILY [facility] Last Admin: 05/10/17 13:09 Dose: 0.25 mcg Carvedilol (Coreg) 3.125 mg PO Q12H [facility] Last Admin: 05/11/17 01:44 Dose: 3.125 mg Cholestyramine Resin (Prevalite) 4 gm PO DAILY [facility] Last Admin: 05/11/17 07:52 Dose: Not Given Famotidine (Pepcid) 20 mg IVP DAILY [facility] Last Admin: 05/10/17 13:10 Dose: 20 mg Furosemide (Lasix) 40 mg IVP Q12 [facility] Last Admin: 05/10/17 21:56 Dose: 40 mg Gabapentin (Neurontin) 300 mg PO TID [facility] Last Admin: 05/10/17 17:32 Dose: 300 mg Hydralazine HCl (Apresoline) 50 mg PO Q8 [facility] Last Admin: 05/11/17 06:33 Dose: 50 mg Metronidazole (Flagyl) 500 mg in 100 mls @ 100 mls/hr IVPB Q8H [facility] Last Admin: 05/11/17 06:32 Dose: 100 mls/hr Ciprofloxacin (Cipro 400mg/200ml Dsw) 400 mg in 200 mls @ 133 mls/hr IVPB Q24H [facility] Insulin Aspart (Novolog) 8 unit SC ACTID [facility] Last Admin: 05/11/17 07:35 Dose: Not Given Insulin Aspart (Novolog) 0 unit SC ACHS [facility] PRN Reason: Protocol Last Admin: 05/11/17 07:35 Dose: Not Given Insulin Detemir (Levemir) 8 unit SC HS [facility] Last Admin: 05/10/17 22:00 Dose: Not Given Isosorbide Mononitrate (Imdur) 60 mg PO DAILY [facility] Last Admin: 05/10/17 13:09 Dose: 60 mg Metoclopramide HCl (Reglan) 5 mg IVP Q6 [facility] Multivitamins (Hexavitamin) 1 tab PO DAILY [facility] Last Admin: 05/10/17 13:08 Dose: 1 tab Neomycin Sulfate (Neomycin Tab) 500 mg PO Q6 [facility] Last Admin: 05/11/17 06:33 Dose: 500 mg Polyethylene Glycol/Electrolytes (Golytely) 4,000 ml PO ONCE ONE Stop: 05/11/17 11:01 - Labs Labs: 05/11/17 07:50 05/11/17 07:48 PT 14.3 SECONDS (9.7-12.2) H 05/07/17 11:33 INR 1.2 05/07/17 11:33 APTT 33 SECONDS (21-34) 05/08/17 06:48 - Constitutional Appears: Non-toxic, No Acute Distress - Head Exam Head Exam: ATRAUMATIC, NORMAL INSPECTION - Eye Exam Eye Exam: EOMI, Scleral icterus - ENT Exam ENT Exam: Mucous Membranes Moist - Respiratory Exam Respiratory Exam: Clear to Ausculation Bilateral, NORMAL BREATHING PATTERN - Cardiovascular Exam Cardiovascular Exam: REGULAR RHYTHM, +S1, +S2, Murmur (GUICHO) - GI/Abdominal Exam GI & Abdominal Exam: Distended, Soft, Tenderness (mild LUQ, negative murphys), Normal Bowel Sounds - Extremities Exam Extremities Exam: Pedal Edema (b/l). absent: Tenderness Additional comments: s/p amputation of L great toe - Neurological Exam Neurological Exam: Alert, Awake - Psychiatric Exam Psychiatric exam: Normal Affect, Normal Mood - Skin Skin Exam: Dry, Intact, Warm Additional comments: jaundiced Assessment and Plan - Assessment and Plan (Free Text) Assessment: Liver cirrhosis and Jaundice -GI following (Hany) recs appreciated - EGD tomorrow (05/12) because food in throat delayed today's EGD -MRCP shows gallstones and enlarged liver with gallbladder wall thickening but no signs of acute cholecystitis -CT Abdomen/Pelvis (05/07/17): mild ascites appreciated in the left greater the right hemiabdomen. Bowel loops are not distended at the sigmoid colon with a few diverticular are associated-->difficult to exclude colitis or enterocolitis. Cholelithiasis. Resolution of prior pyelonephritis and right psoas msucle phlegmon. Urinary bladder is distended with air fluid level and somewhat thicken suspicious for cystitis. Abdominal US (05/07/17): hepatic cirrhosis, hepatomegaly. Splenomegaly. Ascites. Cholelithasis without evidence of cholecystitis. Incidentally noted dependent debris within urinary bladder. -Surgery consulted. recs appreciated * do not recommend surgery at this time - AST and ALT WNL -CA19-9: 24.6 (05/10) -Ammonia: 43 (05/10) -Hep panel negative -HIV negative -Pruritis likely due to hyperbilirubinemia * cholestyramine 4g QD Increased CEA -3.7 (05/08) -AFP: 2.2 -continue to monitor Cardiomyopathy non ischemic -cardiology following. recs appreciated * added coreg * f/u echo -continue asa 81 mg po daily Pulmonary htn -continue treating underlying heart failure and myopathy Hx of HTN -continue hydralazine 50 po q 8 qing Hx of ESRD -Nephrology on board (Isidro) - Cont dialysis -continue calcitriol Hx of COPD -continue to monitor -duonebs as needed Hx of DM -continue gabapentin -novolog 8 units sc ac tid Anemia -normocytic -continue to monitor gi/dvt ppx -heparin 5000 q 8 stopped for EGD today -pepcid 20 mg QD -SCDs -Calcitriol 0.25mcg PO qD <Zeferino Ferreira - Last Filed: 05/11/17 18:39> Objective - Vital Signs/Intake and Output Vital Signs (last 24 hours): Temp Pulse Resp BP Pulse Ox 97.3 F L 65 20 101/49 L 96 05/11/17 15:16 05/11/17 15:16 05/11/17 15:16 05/11/17 15:16 05/11/17 15:16 Intake and Output: 05/11/17 05/11/17 06:59 18:59 Intake Total 780 Balance 780 - Medications Medications: Current Medications Calcitriol (Rocaltrol) 0.25 mcg PO DAILY [facility] Last Admin: 05/11/17 10:39 Dose: 0.25 mcg Carvedilol (Coreg) 3.125 mg PO Q12H [facility] Last Admin: 05/11/17 13:46 Dose: 3.125 mg Cholestyramine Resin (Prevalite) 4 gm PO DAILY [facility] Last Admin: 05/11/17 10:41 Dose: 4 gm Famotidine (Pepcid) 20 mg IVP DAILY [facility] Last Admin: 05/11/17 10:39 Dose: 20 mg Furosemide (Lasix) 40 mg IVP Q12 [facility] Last Admin: 05/11/17 10:40 Dose: 40 mg Gabapentin (Neurontin) 300 mg PO TID [facility] Last Admin: 05/11/17 18:17 Dose: Not Given Hydralazine HCl (Apresoline) 50 mg PO Q8 [facility] Last Admin: 05/11/17 13:46 Dose: 50 mg Metronidazole (Flagyl) 500 mg in 100 mls @ 100 mls/hr IVPB Q8H [facility] Last Admin: 05/11/17 13:47 Dose: 100 mls/hr Ciprofloxacin (Cipro 400mg/200ml Dsw) 400 mg in 200 mls @ 133 mls/hr IVPB Q24H [facility] Insulin Aspart (Novolog) 8 unit SC ACTID [facility] Last Admin: 05/11/17 17:30 Dose: Not Given Insulin Aspart (Novolog) 0 unit SC ACHS [facility] PRN Reason: Protocol Last Admin: 05/11/17 18:16 Dose: Not Given Insulin Detemir (Levemir) 8 unit SC HS [facility] Last Admin: 05/10/17 22:00 Dose: Not Given Isosorbide Mononitrate (Imdur) 60 mg PO DAILY [facility] Last Admin: 05/11/17 10:39 Dose: 60 mg Metoclopramide HCl (Reglan) 5 mg IVP Q6 [facility] Last Admin: 05/11/17 18:17 Dose: Not Given Multivitamins (Hexavitamin) 1 tab PO DAILY [facility] Last Admin: 05/11/17 10:39 Dose: 1 tab Neomycin Sulfate (Neomycin Tab) 500 mg PO Q6 [facility] Last Admin: 05/11/17 18:17 Dose: Not Given Fluticasone/Salmeterol (Advair Diskus 250/50) 1 puff INH RQ12 [facility] - Labs Labs: 05/11/17 07:50 05/11/17 07:48 PT 14.3 SECONDS (9.7-12.2) H 05/07/17 11:33 INR 1.2 05/07/17 11:33 APTT 33 SECONDS (21-34) 05/08/17 06:48 Attending/Attestation - Attestation I have personally seen and examined this patient.: Yes I have fully participated in the care of the patient.: Yes I have reviewed all pertinent clinical information, including history, physical exam and plan: Yes Notes (Text): 05/11/17 18:27 Patient was seen and examined at 11:40 AM 05/11/17 Exam, Assessment and Plan were thoroughly gone over with the resident. ROS: Last bowel movement was yesterday Urinates roughly 2x/week with last yesterday NO Other complaints upon FULL ROS HEENT: Scleral Incterus Cardio: Systolic Ejection Murmur heard loudest Left 2nd Intercostal space GI: BSX4, Soft, NO HSM, NO guarding/rebound tenderness, NT Ext: Trace nonpitting edema of the bilateral lower legs, Pulses strong and equal , NO ulcers noted, Capillary Refill is 2 seconds, Left Toe #1 Missing, Left Arm Thrill at AVF site Neuro: CN II through XII are grossly intact Assessments: 1). Chest Pain/Hx of Nonischemia Cardiomyopathy/Systolic Heart Failure Troponin x 3 negative NO need for Echocardiogram as done in November 2016 (please see report) NO ACEI/ARB secondary to ESRD 2). ESRD on HD through Left Arm AVF [facility] as outpatient 3). Cholelithiasis/Hyperbilirubinemia U/S Abdomen: shows evidence of cirrhosis, cholelithiasis, HSM, ascites MRCP did not show dilation of CBD or stone in CBD, no evidence of cholecystitis 4). Anemia of Chronic Disease Likely secondary to ESRD on HD 5). DM 1: Novolog, Novolog ISS, Levemir 6). HTN: Hydralazine, Isosorbide, Lasix 7). Elevated CEA: Antimitochondrial Abs and Antismooth Muscle Abs are negative, CA 19.9 is normal, Hepatitis Panel is negative, HIV is negative Please note that GI had to cancel the EGD today due to presence of food. GI Dr. Leach to perform EGD and Colonoscopy for morning of 05/12/17 and patient was explained the importance of clear liquid diet till midnight and GoLytley administration. 8). Possible Colitis/Entercolitis and Urine Bladder suspicious for Cystitis As seen on CT Abdomen/Pelvis Neomycin, Ciprofloxacin, Metronidazole Zeferino Ferreira D.O.
[2017-05-11] MEDS: Multiple Vitamins Tab PO SCH (10:39)
[2017-05-11] MEDS ORDERED: Peg-Electrolyte Oral Soln 4L (Golytely) PO ONE (11:00)
--- NOTE | 2017-05-11 15:11 | CP.PCM.CON ---
History of Present Illness - History of Present Illness History of Present Illness: 51 yo Male with PMHx significant for CHF (EF 46%), ESRD, HTN and DM initially admitted for CP. Pt is found to have jaundice and the GI w/u is in progress. Pulmonary Consult called for evaluation and clearence. Pt denies fever , chills, chest tightness and wheezing. He does not take any inhalers at home. Denies any recent exacerbations. Echo shows mild to moderate pulm HTN Review of Systems - Review of Systems All systems: reviewed and no additional remarkable complaints except (as mentioned in HPI) Past Patient History - Infectious Disease Hx of Infectious Diseases: None - Tetanus Immunizations Tetanus Immunization: Unknown - Past Medical History & Family History Past Medical History?: Yes - Past Social History Smoking Status: Never Smoked - CARDIAC Hx Cardiac Disorders: Yes (CAD) Hx Congestive Heart Failure: Yes Hx Hypertension: Yes - PULMONARY Hx Asthma: Yes Hx Pneumonia: Yes - NEUROLOGICAL Hx Neurological Disorder: No - HEENT Hx HEENT Problems: Yes 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 eye vision blurred, uses eyeglasses for reading - RENAL Hx Chronic Kidney Disease: Yes Hx Dialysis: Yes Type of Dialysis Access: L arm AV shunt Date of Last Dialysis Treatment: 05/07/17 - ENDOCRINE/METABOLIC Hx Endocrine Disorders: Yes Hx Diabetes Mellitus Type 2: Yes (for 15 years) - HEMATOLOGICAL/ONCOLOGICAL Hx Blood Disorders: Yes Hx Anemia: Yes - INTEGUMENTARY Hx Dermatological Problems: No - MUSCULOSKELETAL/RHEUMATOLOGICAL Hx Arthritis: Yes - GASTROINTESTINAL Hx Gastrointestinal Disorders: Yes Hx Gastritis: Yes - PSYCHIATRIC Hx Psychophysiologic Disorder: Yes Hx Anxiety: Yes Hx Depression: Yes Hx Substance Use: No - SURGICAL HISTORY Hx Surgeries: Yes Hx Amputation: Yes (L Hallux amputation 2011) Hx Vascular Access Device: Yes Other/Comment: L inguinal hernia repairs x 2. L eye surgery - ANESTHESIA Hx Anesthesia: Yes Hx Anesthesia Reactions: No Hx Malignant Hyperthermia: No Meds Allergies/Adverse Reactions: Allergies Allergy/AdvReac Type Severity Reaction Status Date / Time Penicillins Allergy Verified 03/09/16 13:01 - Medications Medications: Current Medications Bisacodyl (Dulcolax) 10 mg PO ONCE ONE Stop: 05/11/17 17:01 Calcitriol (Rocaltrol) 0.25 mcg PO DAILY [facility] Last Admin: 05/11/17 10:39 Dose: 0.25 mcg Carvedilol (Coreg) 3.125 mg PO Q12H [facility] Last Admin: 05/11/17 13:46 Dose: 3.125 mg Cholestyramine Resin (Prevalite) 4 gm PO DAILY [facility] Last Admin: 05/11/17 10:41 Dose: 4 gm Famotidine (Pepcid) 20 mg IVP DAILY [facility] Last Admin: 05/11/17 10:39 Dose: 20 mg Furosemide (Lasix) 40 mg IVP Q12 [facility] Last Admin: 05/11/17 10:40 Dose: 40 mg Gabapentin (Neurontin) 300 mg PO TID [facility] Last Admin: 05/11/17 13:46 Dose: 300 mg Hydralazine HCl (Apresoline) 50 mg PO Q8 [facility] Last Admin: 05/11/17 13:46 Dose: 50 mg Metronidazole (Flagyl) 500 mg in 100 mls @ 100 mls/hr IVPB Q8H [facility] Last Admin: 05/11/17 13:47 Dose: 100 mls/hr Ciprofloxacin (Cipro 400mg/200ml Dsw) 400 mg in 200 mls @ 133 mls/hr IVPB Q24H [facility] Insulin Aspart (Novolog) 8 unit SC ACTID [facility] Last Admin: 05/11/17 12:09 Dose: Not Given Insulin Aspart (Novolog) 0 unit SC ACHS [facility] PRN Reason: Protocol Last Admin: 05/11/17 12:28 Dose: 2 unit Insulin Detemir (Levemir) 8 unit SC HS [facility] Last Admin: 05/10/17 22:00 Dose: Not Given Isosorbide Mononitrate (Imdur) 60 mg PO DAILY [facility] Last Admin: 05/11/17 10:39 Dose: 60 mg Metoclopramide HCl (Reglan) 5 mg IVP Q6 [facility] Last Admin: 05/11/17 12:25 Dose: 5 mg Multivitamins (Hexavitamin) 1 tab PO DAILY [facility] Last Admin: 05/11/17 10:39 Dose: 1 tab Neomycin Sulfate (Neomycin Tab) 500 mg PO Q6 [facility] Last Admin: 05/11/17 12:25 Dose: 500 mg Physical Exam - Head Exam Head Exam: NORMAL INSPECTION - Eye Exam Eye Exam: EOMI - ENT Exam ENT Exam: Mucous Membranes Moist - Respiratory Exam Respiratory Exam: Clear to Auscultation Bilateral, NORMAL BREATHING PATTERN - Cardiovascular Exam Cardiovascular Exam: REGULAR RHYTHM, +S1, +S2 - GI/Abdominal Exam GI & Abdominal Exam: Normal Bowel Sounds, Soft - Extremities Exam Extremities exam: Positive for: normal inspection, pedal edema - Neurological Exam Neurological exam: Alert, Oriented x3 - Psychiatric Exam Psychiatric exam: Normal Affect, Normal Mood Results - Vital Signs Recent Vital Signs: Last Vital Signs Temp 97.1 F L 05/11/17 08:25 Pulse 66 05/11/17 08:55 Resp 12 05/11/17 08:55 BP 117/77 05/11/17 10:40 Pulse Ox 100 05/11/17 08:55 - Labs Result Diagrams: 05/11/17 07:50 05/11/17 07:48 Labs: Laboratory Results - last 24 hr 05/08/17 05/08/17 05/10/17 06:48 06:48 17:02 WBC RBC Hgb Hct MCV MCH MCHC RDW Plt Count MPV Neut % (Auto) Lymph % (Auto) [place] % (Auto) Eos % (Auto) Baso % (Auto) Neut # Lymph # [place] # Eos # Baso # Puncture Site pCO2 pO2 HCO3 ABG pH ABG Total CO2 ABG O2 Saturation ABG Base Excess ABG Hemoglobin ABG Carboxyhemoglobin POC ABG HHb (Measured) ABG Methemoglobin Obed Test A-a O2 Difference Respiratory Index Hgb O2 Saturation FiO2 Sodium Potassium Chloride Carbon Dioxide Anion Gap BUN Creatinine Est GFR ( Amer) Est GFR (Non-Af Amer) POC Glucose (mg/dL) 253 H Random Glucose Calcium Phosphorus Magnesium Total Bilirubin AST ALT Alkaline Phosphatase Total Protein Albumin Globulin Albumin/Globulin Ratio HOPE 6 Profile Positive H HOPE Titer 1:80 H HOPE Pattern Nucleolar H Anti-Mitochondrial Ab Negative Anti-Smooth Muscle Ab Negative 05/10/17 05/10/17 05/11/17 18:40 21:45 02:10 WBC RBC Hgb Hct MCV MCH MCHC RDW Plt Count MPV Neut % (Auto) Lymph % (Auto) [place] % (Auto) Eos % (Auto) Baso % (Auto) Neut # Lymph # [place] # Eos # Baso # Puncture Site Rradial pCO2 42 pO2 73 L HCO3 28.0 ABG pH 7.44 ABG Total CO2 29.8 H ABG O2 Saturation 99.1 H ABG Base Excess 4.0 H ABG Hemoglobin 8.0 L ABG Carboxyhemoglobin 3.2 H POC ABG HHb (Measured) 0.9 ABG Methemoglobin 1.0 Obed Test Pos A-a O2 Difference 24.0 Respiratory Index 0.3 Hgb O2 Saturation 94.9 L FiO2 21.0 Sodium Potassium Chloride Carbon Dioxide Anion Gap BUN Creatinine Est GFR ( Amer) Est GFR (Non-Af Amer) POC Glucose (mg/dL) 72 221 H Random Glucose Calcium Phosphorus Magnesium Total Bilirubin AST ALT Alkaline Phosphatase Total Protein Albumin Globulin Albumin/Globulin Ratio HOPE 6 Profile HOPE Titer HOPE Pattern Anti-Mitochondrial Ab Anti-Smooth Muscle Ab 05/11/17 05/11/17 05/11/17 06:41 07:48 07:50 WBC 5.2 RBC 2.83 L Hgb 8.9 L Hct 26.9 L MCV 95.3 H MCH 31.5 H MCHC 33.0 RDW 15.2 H Plt Count 186 MPV 10.1 Neut % (Auto) 62.6 Lymph % (Auto) 15.2 L [place] % (Auto) 17.9 H Eos % (Auto) 3.0 Baso % (Auto) 1.3 Neut # 3.3 Lymph # 0.8 L [place] # 0.9 H Eos # 0.2 Baso # 0.1 Puncture Site pCO2 pO2 HCO3 ABG pH ABG Total CO2 ABG O2 Saturation ABG Base Excess ABG Hemoglobin ABG Carboxyhemoglobin POC ABG HHb (Measured) ABG Methemoglobin Obed Test A-a O2 Difference Respiratory Index Hgb O2 Saturation FiO2 Sodium 135 Potassium 4.3 Chloride 97 L Carbon Dioxide 25 Anion Gap 17 BUN 33 H Creatinine 4.0 H Est GFR ( Amer) 19 Est GFR (Non-Af Amer) 16 POC Glucose (mg/dL) 268 H Random Glucose 206 H Calcium 7.9 L Phosphorus 4.7 H Magnesium 2.2 Total Bilirubin 4.1 H AST 30 ALT 24 Alkaline Phosphatase 501 H Total Protein 6.5 Albumin 2.5 L Globulin 4.0 H Albumin/Globulin Ratio 0.6 L HOPE 6 Profile HOPE Titer HOPE Pattern Anti-Mitochondrial Ab Anti-Smooth Muscle Ab 05/11/17 12:01 WBC RBC Hgb Hct MCV MCH MCHC RDW Plt Count MPV Neut % (Auto) Lymph % (Auto) [place] % (Auto) Eos % (Auto) Baso % (Auto) Neut # Lymph # [place] # Eos # Baso # Puncture Site pCO2 pO2 HCO3 ABG pH ABG Total CO2 ABG O2 Saturation ABG Base Excess ABG Hemoglobin ABG Carboxyhemoglobin POC ABG HHb (Measured) ABG Methemoglobin Obed Test A-a O2 Difference Respiratory Index Hgb O2 Saturation FiO2 Sodium Potassium Chloride Carbon Dioxide Anion Gap BUN Creatinine Est GFR ( Amer) Est GFR (Non-Af Amer) POC Glucose (mg/dL) 221 H Random Glucose Calcium Phosphorus Magnesium Total Bilirubin AST ALT Alkaline Phosphatase Total Protein Albumin Globulin Albumin/Globulin Ratio HOPE 6 Profile HOPE Titer HOPE Pattern Anti-Mitochondrial Ab Anti-Smooth Muscle Ab Assessment & Plan - Assessment and Plan (Free Text) Assessment: Hx of COPD Pulm HTN Small pleural effusion CM ESRD Pt is cleared for EGD/Colonoscopy with acceptable pulmonary risk Add Advair 250/50 mcg 1 P BID Bronchodilators On HD O2 supplementation as needed DVT/GI prophalaxis
[2017-05-11] MEDS ORDERED: Bisacodyl 5mg EC Tab PO ONE ×2 (17:00→19:42)
[2017-05-11] MEDS: Ciprofloxacin 400mg/200ml D5W 400 MG/200 ML BAG IVPB SCH (20:46)
[2017-05-11] MEDS: Fluticasone-Salmeterol 250-50mcg Diskus INH SCH (21:26)
[2017-05-11] MEDS: Insulin Detemir 100 units/ml Vial (Levemir) SC SCH (21:36)
[2017-05-11 21:59] LABS: TOTAL PSA 0.3 ng/mL (<=4.0)
--- NOTE | 2017-05-11 22:48 | CARD ---
APPROVED REPORT EKG Measurement Heart [id number] <Conclusion> Normal sinus rhythm Possible Left atrial enlargement Low voltage QRS Cannot rule out Anterior infarct, age undetermined Abnormal ECG
--- NOTE | 2017-05-11 22:49 | CARD ---
APPROVED REPORT EKG Measurement Heart [id number] <Conclusion> Normal sinus rhythm Possible Left atrial enlargement Low voltage QRS Cannot rule out Anterior infarct, age undetermined Abnormal ECG
[2017-05-12] MEDS: metroNIDAZOLE IV 500 mg/100 ml 500 MG/100 ML BAG IVPB SCH ×3 (05:17→21:54)
--- NOTE | 2017-05-12 06:57 | CP.PCM.PN ---
<Zohreh Lucas - Last Filed: 05/12/17 18:02> Subjective - Date & Time of Evaluation Date of Evaluation: 05/12/17 Time of Evaluation: 06:55 - Subjective Subjective: Patient seen and examined at bedside. Patient is tired and says he just wants to sleep. Patient wont answer any of my questions because he does not want to wake up. Patients says "I'm tired and I dont want to talk". ROS unattainable. Objective - Vital Signs/Intake and Output Vital Signs (last 24 hours): Temp Pulse Resp BP Pulse Ox 97.5 F L 69 20 117/70 95 05/12/17 05:13 05/12/17 05:13 05/12/17 05:13 05/12/17 05:13 05/12/17 05:13 Intake and Output: 05/11/17 05/12/17 18:59 06:59 Intake Total 780 Balance 780 - Medications Medications: Current Medications Calcitriol (Rocaltrol) 0.25 mcg PO DAILY [facility] Last Admin: 05/11/17 10:39 Dose: 0.25 mcg Carvedilol (Coreg) 3.125 mg PO Q12H [facility] Last Admin: 05/12/17 01:46 Dose: 3.125 mg Cholestyramine Resin (Prevalite) 4 gm PO DAILY [facility] Last Admin: 05/11/17 10:41 Dose: 4 gm Famotidine (Pepcid) 20 mg IVP DAILY [facility] Last Admin: 05/11/17 10:39 Dose: 20 mg Furosemide (Lasix) 40 mg IVP Q12 [facility] Last Admin: 05/11/17 21:37 Dose: Not Given Gabapentin (Neurontin) 300 mg PO TID [facility] Last Admin: 05/11/17 18:17 Dose: Not Given Hydralazine HCl (Apresoline) 50 mg PO Q8 [facility] Last Admin: 05/12/17 05:21 Dose: Not Given Metronidazole (Flagyl) 500 mg in 100 mls @ 100 mls/hr IVPB Q8H [facility] Last Admin: 05/12/17 05:17 Dose: 100 mls/hr Ciprofloxacin (Cipro 400mg/200ml Dsw) 400 mg in 200 mls @ 133 mls/hr IVPB Q24H [facility] Last Admin: 05/11/17 20:46 Dose: 133 mls/hr Insulin Aspart (Novolog) 8 unit SC ACTID [facility] Last Admin: 05/11/17 17:30 Dose: Not Given Insulin Aspart (Novolog) 0 unit SC ACHS [facility] PRN Reason: Protocol Last Admin: 05/11/17 21:37 Dose: Not Given Insulin Detemir (Levemir) 8 unit SC HS [facility] Last Admin: 05/11/17 21:36 Dose: Not Given Isosorbide Mononitrate (Imdur) 60 mg PO DAILY [facility] Last Admin: 05/11/17 10:39 Dose: 60 mg Metoclopramide HCl (Reglan) 5 mg IVP Q6 [facility] Last Admin: 05/12/17 05:50 Dose: 5 mg Multivitamins (Hexavitamin) 1 tab PO DAILY [facility] Last Admin: 05/11/17 10:39 Dose: 1 tab Neomycin Sulfate (Neomycin Tab) 500 mg PO Q6 [facility] Last Admin: 05/12/17 05:21 Dose: Not Given Fluticasone/Salmeterol (Advair Diskus 250/50) 1 puff INH RQ12 [facility] Last Admin: 05/11/17 21:26 Dose: 1 puff - Labs Labs: 05/11/17 07:50 05/11/17 07:48 PT 14.3 SECONDS (9.7-12.2) H 05/07/17 11:33 INR 1.2 05/07/17 11:33 APTT 33 SECONDS (21-34) 05/08/17 06:48 - Constitutional Appears: Non-toxic, No Acute Distress - Head Exam Head Exam: NORMAL INSPECTION - Eye Exam Additional comments: could not assess because patient did not want to open his eyes. - Respiratory Exam Respiratory Exam: Clear to Ausculation Bilateral, NORMAL BREATHING PATTERN. absent: Rales, Rhonchi, Wheezes - Cardiovascular Exam Cardiovascular Exam: REGULAR RHYTHM, +S1, +S2. absent: Bradycardia, Tachycardia - GI/Abdominal Exam GI & Abdominal Exam: Distended, Soft, Normal Bowel Sounds - Extremities Exam Extremities Exam: Pedal Edema (nonpitting ). absent: Joint Swelling Additional comments: s/p left great toe amputation - Skin Skin Exam: Dry, Intact, Warm Assessment and Plan - Assessment and Plan (Free Text) Assessment: Liver cirrhosis and Jaundice -GI following (Hany) recs appreciated - EGD tomorrow (05/12): Sarah esophagitis, hiatal hernia, and acute gastritis - I spoke with Dr. Leach who recommends ERCP if bilirubin continues to rise, othrewise it is likely due to cirrhosis -MRCP shows gallstones and enlarged liver with gallbladder wall thickening but no signs of acute cholecystitis -CT Abdomen/Pelvis (05/07/17): mild ascites appreciated in the left greater the right hemiabdomen. Bowel loops are not distended at the sigmoid colon with a few diverticular are associated-->difficult to exclude colitis or enterocolitis. Cholelithiasis. Resolution of prior pyelonephritis and right psoas msucle phlegmon. Urinary bladder is distended with air fluid level and somewhat thicken suspicious for cystitis. Abdominal US (05/07/17): hepatic cirrhosis, hepatomegaly. Splenomegaly. Ascites. Cholelithasis without evidence of cholecystitis. Incidentally noted dependent debris within urinary bladder. -Surgery consulted. recs appreciated * do not recommend surgery at this time - AST and ALT WNL -CA19-9: 24.6 (05/10) -Ammonia: 43 (05/10) - Neomycin 500 mg Q6 -f/u repeat ammonia (05/13) -Hep panel negative -HIV negative -Pruritis likely due to hyperbilirubinemia 2/2 cirrhosis * cholestyramine 4g QD Possible Colitis and cystitis - as seen on CT A&P (05/07) - neomycin 500 mg q6 - ciprofloxacin 400 QD - flagyl 500 mg Q8h Increased CEA -3.7 (05/08): likely 2/2 cirrhosis -AFP: 2.2 -EGD canceled (05/11), rescheduled for 05/12 - 05/12 patient did not drink all of prep even though it was explained to him the importance of this for his study, so 2 dulcolax were given - Sarah esophagitis, hiatal hernia, and acute gastritis - Colonoscopy: Transverse, descending, and sigmoid colon diverticulosis without bleeding, nonbleeding external and internal hemorrhoids, 1mm polyp in distal ascending colon - f/u polyp pathology Cardiomyopathy non ischemic -cardiology following. recs appreciated * added coreg * f/u Echo report from 11/2016 -continue asa 81 mg po daily -troponin neg x3 Pulmonary htn -continue treating underlying heart failure and myopathy Hx of HTN -continue hydralazine 50 po q 8 [facility] and lasix 40 mg q12 Hx of ESRD -Nephrology on board (Isidro) - Cont dialysis -continue calcitriol Hx of COPD -continue to monitor -duonebs as needed Hx of DM -continue gabapentin -novolog 8 units sc ac tid Anemia -normocytic -likely due to ESRD -continue to monitor gi/dvt ppx -heparin 5000 q 8 stopped for EGD today -pepcid 20 mg QD -SCDs -Calcitriol 0.25mcg PO qD Disposition: patient refusing RADHA but agrees to outpatient PT. <Zeferino Ferreira - Last Filed: 05/12/17 19:54> Objective - Vital Signs/Intake and Output Vital Signs (last 24 hours): Temp Pulse Resp BP Pulse Ox 97.6 F 80 20 136/80 97 05/12/17 19:39 05/12/17 19:39 05/12/17 19:39 05/12/17 19:39 05/12/17 19:39 Intake and Output: 05/12/17 05/13/17 18:59 06:59 Intake Total 460 Balance 460 - Medications Medications: Current Medications Calcitriol (Rocaltrol) 0.25 mcg PO DAILY [facility] Last Admin: 05/12/17 09:21 Dose: Not Given Carvedilol (Coreg) 3.125 mg PO Q12H [facility] Last Admin: 05/12/17 13:54 Dose: Not Given Cholestyramine Resin (Prevalite) 4 gm PO DAILY [facility] Last Admin: 05/12/17 09:21 Dose: Not Given Famotidine (Pepcid) 20 mg IVP DAILY [facility] Last Admin: 05/12/17 09:34 Dose: 20 mg Fluconazole (Diflucan) 200 mg PO STAT [facility] Stop: 05/12/17 19:47 Furosemide (Lasix) 40 mg IVP Q12 [facility] Last Admin: 05/12/17 09:20 Dose: Not Given Gabapentin (Neurontin) 300 mg PO TID [facility] Last Admin: 05/12/17 14:03 Dose: 300 mg Hydralazine HCl (Apresoline) 50 mg PO Q8 [facility] Last Admin: 05/12/17 13:54 Dose: Not Given Metronidazole (Flagyl) 500 mg in 100 mls @ 100 mls/hr IVPB Q8H [facility] Last Admin: 05/12/17 13:53 Dose: 100 mls/hr Ciprofloxacin (Cipro 400mg/200ml Dsw) 400 mg in 200 mls @ 133 mls/hr IVPB Q24H [facility] Last Admin: 05/11/17 20:46 Dose: 133 mls/hr Insulin Aspart (Novolog) 8 unit SC ACTID [facility] Last Admin: 05/12/17 17:20 Dose: Not Given Insulin Aspart (Novolog) 0 unit SC ACHS [facility] PRN Reason: Protocol Last Admin: 05/12/17 16:30 Dose: Not Given Insulin Detemir (Levemir) 8 unit SC HS [facility] Last Admin: 05/11/17 21:36 Dose: Not Given Isosorbide Mononitrate (Imdur) 60 mg PO DAILY [facility] Last Admin: 05/12/17 09:20 Dose: Not Given Metoclopramide HCl (Reglan) 5 mg IVP Q6 [facility] Last Admin: 05/12/17 17:20 Dose: Not Given Multivitamins (Hexavitamin) 1 tab PO DAILY [facility] Last Admin: 05/12/17 09:20 Dose: Not Given Neomycin Sulfate (Neomycin Tab) 500 mg PO Q6 [facility] Last Admin: 05/12/17 14:04 Dose: 500 mg Fluticasone/Salmeterol (Advair Diskus 250/50) 1 puff INH RQ12 [facility] Last Admin: 05/12/17 10:27 Dose: 1 puff - Labs Labs: 05/12/17 11:14 05/12/17 11:14 PT 14.3 SECONDS (9.7-12.2) H 05/07/17 11:33 INR 1.2 05/07/17 11:33 APTT 33 SECONDS (21-34) 05/08/17 06:48 Attending/Attestation - Attestation I have personally seen and examined this patient.: Yes I have fully participated in the care of the patient.: Yes I have reviewed all pertinent clinical information, including history, physical exam and plan: Yes Notes (Text): 05/12/17 19:49 Patient was seen and examined at 10 AM Exam, Assessment and Plan were thoroughly gone over with the resident Also on Exam: 4/5 strength with flexion and extension against my resistance in Bilateral UE and LE. Patient could not get up to standing position on his own. Esophageal Candidiasis: Diflucan 200 mg PO x 1 dose 05/12/17 and then 100 mg PO 1x/day through 06/01/17. F/U Upper Endoscopy Bx to confirm the candidiasis. Explained at length (with [employer] Interpretor #[id number]) to patient that he continues to pull is IV lines out and not follow with prescribed treatment plan that he will be discharged to home I spoke with [employer] Pump Mechanic Yarely and stated that patient will likely need RADHA. However, patient declined and would like outpatient PT. Zeferino Ferreira D.O.
[2017-05-12] MEDS ORDERED: Bisacodyl 5mg EC Tab PO ONE (07:12)
[2017-05-12] MEDS: (Novolog) Insulin Aspart, Recombinant 100 u/ml 10 ml vial SC SCH ×7 (07:47→20:00)
[2017-05-12] MEDS: Multiple Vitamins Tab PO SCH (09:20)
[2017-05-12] MEDS: Cholestyramine 4 gm/5.5 gm UD Packet PO SCH (09:21)
[2017-05-12] MEDS: Fluticasone-Salmeterol 250-50mcg Diskus INH SCH ×2 (10:27→20:04)
[2017-05-12 11:21] LABS: BASO # 0.1 K/uL (0.0-0.2); BASO % 1.7 % (0.0-2.0); EOS # 0.2 K/uL (0.0-0.7); EOS % 4.5 % (0.0-4.0); HEMATOCRIT 28.2 % (35.0-51.0); LYMPH # 0.8 K/uL (1.0-4.3); LYMPH % 17.6 % (20.0-40.0); MEAN CELL VOLUME 93.9 fL (80.0-94.0); MEAN CORPUSCULAR HEMOGLOBIN 31.7 pg (27.0-31.0); MEAN CORPUSCULAR HGB CONC 33.8 g/dL (33.0-37.0); MONO # 0.9 K/uL (0.0-0.8); MONO % 18.8 % (0.0-10.0); NRBC % 0.1 % (0.0-2.0); RED CELL DISTRIBUTION WIDTH 14.8 % (11.5-14.5); WHITE BLOOD COUNT 4.7 K/uL (4.8-10.8)
[2017-05-12 11:34] LABS: POTASSIUM 4.2 mmol/L (3.6-5.2)
[2017-05-12 11:36] LABS: ALB/GLOB RATIO 0.7 (1.0-2.1); BILIRUBIN,TOTAL 4.2 mg/dL (0.2-1.3); TOTAL PROTEIN 6.6 g/dL (6.3-8.3)
[2017-05-12 11:37] LABS: CALCIUM 8.4 mg/dl (8.6-10.4); MAGNESIUM 2.2 mg/dL (1.6-2.3); PHOSPHOROUS 5.6 mg/dL (2.5-4.5)
[2017-05-12] MEDS ORDERED: Lactated Ringer's 1,000 ML IV ONE (12:10)
[2017-05-12] MEDS ORDERED: Propofol 10 mg/ml Inj (20 ML) ONE ×2 (12:11→12:22)
[2017-05-12] MEDS ORDERED: Phenylephrine 10 mg/ml Inj ONE (12:18)
[2017-05-12] MEDS ORDERED: Midazolam 2 MG/2 ML VIAL ONE (12:18)
[2017-05-12] MEDS ORDERED: Etomidate 20 mg/10ml Inj IV ONE (12:18)
[2017-05-12] MEDS ORDERED: EPINEPHrine 1 mg/ml (1:1000) Inj ONE (12:37)
[2017-05-12] MEDS ORDERED: Phytonadione 10 mg/ml Inj (Adult) SC ONE (13:00)
--- NOTE | 2017-05-12 15:24 | CP.PCM.PN ---
Subjective - Date & Time of Evaluation Date of Evaluation: 05/12/17 Time of Evaluation: 15:20 - Subjective Subjective: Stable dialysis course- for repeat dialysis today MRCP- no biliary obstruction mostly c/o nausea- IV reglan started appetite sl better less dyspnea Objective - Vital Signs/Intake and Output Vital Signs (last 24 hours): Temp Pulse Resp BP Pulse Ox 97 F L 69 12 109/67 100 05/12/17 12:50 05/12/17 13:20 05/12/17 13:20 05/12/17 13:20 05/12/17 13:20 - Medications Medications: Current Medications Calcitriol (Rocaltrol) 0.25 mcg PO DAILY [facility] Last Admin: 05/12/17 09:21 Dose: Not Given Carvedilol (Coreg) 3.125 mg PO Q12H [facility] Last Admin: 05/12/17 13:54 Dose: Not Given Cholestyramine Resin (Prevalite) 4 gm PO DAILY [facility] Last Admin: 05/12/17 09:21 Dose: Not Given Famotidine (Pepcid) 20 mg IVP DAILY [facility] Last Admin: 05/12/17 09:34 Dose: 20 mg Furosemide (Lasix) 40 mg IVP Q12 [facility] Last Admin: 05/12/17 09:20 Dose: Not Given Gabapentin (Neurontin) 300 mg PO TID [facility] Last Admin: 05/12/17 14:03 Dose: 300 mg Hydralazine HCl (Apresoline) 50 mg PO Q8 [facility] Last Admin: 05/12/17 13:54 Dose: Not Given Metronidazole (Flagyl) 500 mg in 100 mls @ 100 mls/hr IVPB Q8H [facility] Last Admin: 05/12/17 13:53 Dose: 100 mls/hr Ciprofloxacin (Cipro 400mg/200ml Dsw) 400 mg in 200 mls @ 133 mls/hr IVPB Q24H [facility] Last Admin: 05/11/17 20:46 Dose: 133 mls/hr Insulin Aspart (Novolog) 8 unit SC ACTID [facility] Last Admin: 05/12/17 11:30 Dose: Not Given Insulin Aspart (Novolog) 0 unit SC ACHS [facility] PRN Reason: Protocol Last Admin: 05/12/17 11:30 Dose: Not Given Insulin Detemir (Levemir) 8 unit SC HS [facility] Last Admin: 05/11/17 21:36 Dose: Not Given Isosorbide Mononitrate (Imdur) 60 mg PO DAILY [facility] Last Admin: 05/12/17 09:20 Dose: Not Given Metoclopramide HCl (Reglan) 5 mg IVP Q6 [facility] Last Admin: 05/12/17 13:57 Dose: 5 mg Multivitamins (Hexavitamin) 1 tab PO DAILY [facility] Last Admin: 05/12/17 09:20 Dose: Not Given Neomycin Sulfate (Neomycin Tab) 500 mg PO Q6 [facility] Last Admin: 05/12/17 14:04 Dose: 500 mg Fluticasone/Salmeterol (Advair Diskus 250/50) 1 puff INH RQ12 [facility] Last Admin: 05/12/17 10:27 Dose: 1 puff - Labs Labs: 05/12/17 11:14 05/12/17 11:14 PT 14.3 SECONDS (9.7-12.2) H 05/07/17 11:33 INR 1.2 05/07/17 11:33 APTT 33 SECONDS (21-34) 05/08/17 06:48 - Constitutional Appears: No Acute Distress, Chronically Ill - Head Exam Head Exam: ATRAUMATIC, NORMAL INSPECTION - Eye Exam Eye Exam: EOMI, Scleral icterus - Neck Exam Neck Exam: Normal Inspection. absent: Tenderness - Respiratory Exam Respiratory Exam: Clear to Ausculation Bilateral, NORMAL BREATHING PATTERN - Cardiovascular Exam Cardiovascular Exam: REGULAR RHYTHM, +S1 - GI/Abdominal Exam GI & Abdominal Exam: Distended, Soft - Extremities Exam Extremities Exam: Normal Inspection, Tenderness - Neurological Exam Neurological Exam: Alert, Awake Assessment and Plan (1) Hepatic enlargement Status: Acute (2) Hyperbilirubinemia Status: Acute (3) ESRD (end stage renal disease) Status: Acute (4) Diabetes 1.5, managed as type 2 Status: Chronic - Assessment and Plan (Free Text) Plan: Increase UF at HD; likely has passive liver congestion on IV lasix- consider only short course trial reglan for nausea f/u labs
--- NOTE | 2017-05-12 17:20 | CP.PCM.PN ---
Subjective - Date & Time of Evaluation Date of Evaluation: 05/12/17 Time of Evaluation: 17:20 Objective - Vital Signs/Intake and Output Vital Signs (last 24 hours): Temp Pulse Resp BP Pulse Ox 98 F 71 18 123/83 100 05/12/17 14:06 05/12/17 14:06 05/12/17 14:06 05/12/17 14:06 05/12/17 13:20 Intake and Output: 05/12/17 05/12/17 06:59 18:59 Intake Total 460 Balance 460 - Medications Medications: Current Medications Calcitriol (Rocaltrol) 0.25 mcg PO DAILY [facility] Last Admin: 05/12/17 09:21 Dose: Not Given Carvedilol (Coreg) 3.125 mg PO Q12H [facility] Last Admin: 05/12/17 13:54 Dose: Not Given Cholestyramine Resin (Prevalite) 4 gm PO DAILY [facility] Last Admin: 05/12/17 09:21 Dose: Not Given Famotidine (Pepcid) 20 mg IVP DAILY [facility] Last Admin: 05/12/17 09:34 Dose: 20 mg Furosemide (Lasix) 40 mg IVP Q12 [facility] Last Admin: 05/12/17 09:20 Dose: Not Given Gabapentin (Neurontin) 300 mg PO TID [facility] Last Admin: 05/12/17 14:03 Dose: 300 mg Hydralazine HCl (Apresoline) 50 mg PO Q8 [facility] Last Admin: 05/12/17 13:54 Dose: Not Given Metronidazole (Flagyl) 500 mg in 100 mls @ 100 mls/hr IVPB Q8H [facility] Last Admin: 05/12/17 13:53 Dose: 100 mls/hr Ciprofloxacin (Cipro 400mg/200ml Dsw) 400 mg in 200 mls @ 133 mls/hr IVPB Q24H [facility] Last Admin: 05/11/17 20:46 Dose: 133 mls/hr Insulin Aspart (Novolog) 8 unit SC ACTID [facility] Last Admin: 05/12/17 11:30 Dose: Not Given Insulin Aspart (Novolog) 0 unit SC ACHS [facility] PRN Reason: Protocol Last Admin: 05/12/17 11:30 Dose: Not Given Insulin Detemir (Levemir) 8 unit SC HS [facility] Last Admin: 05/11/17 21:36 Dose: Not Given Isosorbide Mononitrate (Imdur) 60 mg PO DAILY [facility] Last Admin: 05/12/17 09:20 Dose: Not Given Metoclopramide HCl (Reglan) 5 mg IVP Q6 [facility] Last Admin: 05/12/17 13:57 Dose: 5 mg Multivitamins (Hexavitamin) 1 tab PO DAILY [facility] Last Admin: 05/12/17 09:20 Dose: Not Given Neomycin Sulfate (Neomycin Tab) 500 mg PO Q6 [facility] Last Admin: 05/12/17 14:04 Dose: 500 mg Fluticasone/Salmeterol (Advair Diskus 250/50) 1 puff INH RQ12 [facility] Last Admin: 05/12/17 10:27 Dose: 1 puff - Labs Labs: 05/12/17 11:14 05/12/17 11:14 PT 14.3 SECONDS (9.7-12.2) H 05/07/17 11:33 INR 1.2 05/07/17 11:33 APTT 33 SECONDS (21-34) 05/08/17 06:48
[2017-05-12 19:40] VITALS: RESP 20
[2017-05-12] MEDS: Ciprofloxacin 400mg/200ml D5W 400 MG/200 ML BAG IVPB SCH (21:53)
[2017-05-12] MEDS: Insulin Detemir 100 units/ml Vial (Levemir) SC SCH (23:28)
--- NOTE | 2017-05-13 01:08 | CARD ---
APPROVED REPORT EKG Measurement Heart [id number] <Conclusion> Normal sinus rhythm Cannot rule out Inferior infarct, age undetermined Abnormal ECG
[2017-05-13 04:46] VITALS: PULSE 77
[2017-05-13] MEDS: metroNIDAZOLE IV 500 mg/100 ml 500 MG/100 ML BAG IVPB SCH ×2 (05:14→14:11)
[2017-05-13 06:25] LABS: BASO # 0.1 K/uL (0.0-0.2); BASO % 1.4 % (0.0-2.0); EOS # 0.1 K/uL (0.0-0.7); EOS % 1.9 % (0.0-4.0); HEMATOCRIT 27.7 % (35.0-51.0); LYMPH # 0.7 K/uL (1.0-4.3); LYMPH % 12.2 % (20.0-40.0); MEAN CELL VOLUME 94.2 fL (80.0-94.0); MEAN CORPUSCULAR HEMOGLOBIN 31.2 pg (27.0-31.0); MEAN CORPUSCULAR HGB CONC 33.1 g/dL (33.0-37.0); MEAN PLATELET VOLUME 9.6 fL (7.2-11.7); MONO % 18.7 % (0.0-10.0); RED CELL DISTRIBUTION WIDTH 14.7 % (11.5-14.5); WHITE BLOOD COUNT 5.6 K/uL (4.8-10.8)
[2017-05-13 06:36] LABS: ALB/GLOB RATIO 0.7 (1.0-2.1); BILIRUBIN,TOTAL 4.1 mg/dL (0.2-1.3); CALCIUM 8.2 mg/dl (8.6-10.4); MAGNESIUM 2.1 mg/dL (1.6-2.3); PHOSPHOROUS 5.1 mg/dL (2.5-4.5); TOTAL PROTEIN 6.3 g/dL (6.3-8.3)
[2017-05-13] MEDS: Fluticasone-Salmeterol 250-50mcg Diskus INH SCH (07:35)
[2017-05-13] MEDS: (Novolog) Insulin Aspart, Recombinant 100 u/ml 10 ml vial SC SCH ×4 (08:14→12:30)
[2017-05-13 08:21] VITALS: TEMP 98.1; O2SAT 95
[2017-05-13] MEDS: Cholestyramine 4 gm/5.5 gm UD Packet PO SCH (09:36)
[2017-05-13] MEDS: Multiple Vitamins Tab PO SCH (09:36)
[2017-05-13 09:40] VITALS: BP 128/76
--- NOTE | 2017-05-13 09:43 | CP.PCM.PN ---
Subjective - Date & Time of Evaluation Date of Evaluation: 05/13/17 Time of Evaluation: 09:42 - Subjective Subjective: s/p egd and colonoscopy mrcp showed gallstones on diflucan - candidiasis denies any nausea vomiting pain fevers chills sob chest pain rash headache Objective - Vital Signs/Intake and Output Vital Signs (last 24 hours): Temp Pulse Resp BP Pulse Ox 98.1 F 77 20 128/76 95 05/13/17 08:20 05/13/17 08:20 05/13/17 08:20 05/13/17 09:39 05/13/17 08:20 Intake and Output: 05/13/17 05/13/17 06:59 18:59 Intake Total 340 Balance 340 - Medications Medications: Current Medications Calcitriol (Rocaltrol) 0.25 mcg PO DAILY [facility] Last Admin: 05/13/17 09:37 Dose: 0.25 mcg Carvedilol (Coreg) 3.125 mg PO Q12H [facility] Last Admin: 05/13/17 01:47 Dose: 3.125 mg Cholestyramine Resin (Prevalite) 4 gm PO DAILY [facility] Last Admin: 05/13/17 09:36 Dose: 4 gm Famotidine (Pepcid) 20 mg IVP DAILY [facility] Last Admin: 05/13/17 09:37 Dose: 20 mg Fluconazole (Diflucan) 100 mg PO DAILY [facility] Stop: 06/01/17 10:00 Last Admin: 05/13/17 09:38 Dose: 100 mg Furosemide (Lasix) 40 mg IVP Q12 [facility] Last Admin: 05/13/17 09:39 Dose: 40 mg Gabapentin (Neurontin) 300 mg PO TID [facility] Last Admin: 05/13/17 09:36 Dose: 300 mg Hydralazine HCl (Apresoline) 50 mg PO Q8 [facility] Last Admin: 05/13/17 05:14 Dose: 50 mg Metronidazole (Flagyl) 500 mg in 100 mls @ 100 mls/hr IVPB Q8H [facility] Last Admin: 05/13/17 05:14 Dose: 100 mls/hr Ciprofloxacin (Cipro 400mg/200ml Dsw) 400 mg in 200 mls @ 133 mls/hr IVPB Q24H [facility] Last Admin: 05/12/17 21:53 Dose: 133 mls/hr Insulin Aspart (Novolog) 8 unit SC ACTID [facility] Last Admin: 05/13/17 08:14 Dose: 8 unit Insulin Aspart (Novolog) 0 unit SC ACHS [facility] PRN Reason: Protocol Last Admin: 05/13/17 08:14 Dose: 2 unit Insulin Detemir (Levemir) 8 unit SC HS [facility] Last Admin: 05/12/17 23:28 Dose: Not Given Isosorbide Mononitrate (Imdur) 60 mg PO DAILY [facility] Last Admin: 05/13/17 09:36 Dose: 60 mg Metoclopramide HCl (Reglan) 5 mg IVP Q6 [facility] Last Admin: 05/13/17 05:15 Dose: Not Given Multivitamins (Hexavitamin) 1 tab PO DAILY [facility] Last Admin: 05/13/17 09:36 Dose: 1 tab Neomycin Sulfate (Neomycin Tab) 500 mg PO Q6 [facility] Last Admin: 05/13/17 05:14 Dose: 500 mg Fluticasone/Salmeterol (Advair Diskus 250/50) 1 puff INH RQ12 [facility] Last Admin: 05/13/17 07:35 Dose: 1 puff - Labs Labs: 05/13/17 06:15 05/13/17 06:15 PT 14.3 SECONDS (9.7-12.2) H 05/07/17 11:33 INR 1.2 05/07/17 11:33 APTT 33 SECONDS (21-34) 05/08/17 06:48 - Constitutional Appears: Non-toxic, No Acute Distress, Chronically Ill - Head Exam Head Exam: NORMAL INSPECTION - Eye Exam Eye Exam: Normal appearance - ENT Exam ENT Exam: Mucous Membranes Moist, Normal Exam - Neck Exam Neck Exam: Normal Inspection - Respiratory Exam Respiratory Exam: Clear to Ausculation Bilateral, NORMAL BREATHING PATTERN - Cardiovascular Exam Cardiovascular Exam: REGULAR RHYTHM, RRR - GI/Abdominal Exam GI & Abdominal Exam: Distended, Soft, Normal Bowel Sounds - Extremities Exam Extremities Exam: Normal Inspection Assessment and Plan (1) Hepatic enlargement Status: Acute (2) Hyperbilirubinemia Status: Acute (3) Jaundice Status: Acute (4) ESRD (end stage renal disease) Status: Acute - Assessment and Plan (Free Text) Assessment: maintain hd mwf aggressive uf as tolerated f/u w/ GI
--- NOTE | 2017-05-13 09:58 | CP.PCM.PN ---
<Zohreh Lucas - Last Filed: 05/13/17 09:56> Subjective - Date & Time of Evaluation Date of Evaluation: 05/13/17 Time of Evaluation: 09:56 - Subjective Subjective: Patient seen and examined at bedside. Patient doing well with no new complaints at this time. Patient is more cooperative today and answering my questions. Patient says he is tired but otherwise feels good. He denies fever, chills, chest pain, SOB, abdominal pain, nausea, vomiting, diarrhea, constipation. Objective - Vital Signs/Intake and Output Vital Signs (last 24 hours): Temp Pulse Resp BP Pulse Ox 98.1 F 77 20 128/76 95 05/13/17 08:20 05/13/17 08:20 05/13/17 08:20 05/13/17 09:39 05/13/17 08:20 Intake and Output: 05/13/17 05/13/17 06:59 18:59 Intake Total 340 Balance 340 - Medications Medications: Current Medications Calcitriol (Rocaltrol) 0.25 mcg PO DAILY [facility] Last Admin: 05/13/17 09:37 Dose: 0.25 mcg Carvedilol (Coreg) 3.125 mg PO Q12H [facility] Last Admin: 05/13/17 01:47 Dose: 3.125 mg Cholestyramine Resin (Prevalite) 4 gm PO DAILY [facility] Last Admin: 05/13/17 09:36 Dose: 4 gm Famotidine (Pepcid) 20 mg IVP DAILY [facility] Last Admin: 05/13/17 09:37 Dose: 20 mg Fluconazole (Diflucan) 100 mg PO DAILY [facility] Stop: 06/01/17 10:00 Last Admin: 05/13/17 09:38 Dose: 100 mg Furosemide (Lasix) 40 mg IVP Q12 [facility] Last Admin: 05/13/17 09:39 Dose: 40 mg Gabapentin (Neurontin) 300 mg PO TID [facility] Last Admin: 05/13/17 09:36 Dose: 300 mg Hydralazine HCl (Apresoline) 50 mg PO Q8 [facility] Last Admin: 05/13/17 05:14 Dose: 50 mg Metronidazole (Flagyl) 500 mg in 100 mls @ 100 mls/hr IVPB Q8H [facility] Last Admin: 05/13/17 05:14 Dose: 100 mls/hr Ciprofloxacin (Cipro 400mg/200ml Dsw) 400 mg in 200 mls @ 133 mls/hr IVPB Q24H [facility] Last Admin: 05/12/17 21:53 Dose: 133 mls/hr Insulin Aspart (Novolog) 8 unit SC ACTID [facility] Last Admin: 05/13/17 08:14 Dose: 8 unit Insulin Aspart (Novolog) 0 unit SC ACHS [facility] PRN Reason: Protocol Last Admin: 05/13/17 08:14 Dose: 2 unit Insulin Detemir (Levemir) 8 unit SC HS [facility] Last Admin: 05/12/17 23:28 Dose: Not Given Isosorbide Mononitrate (Imdur) 60 mg PO DAILY [facility] Last Admin: 05/13/17 09:36 Dose: 60 mg Metoclopramide HCl (Reglan) 5 mg IVP Q6 [facility] Last Admin: 05/13/17 05:15 Dose: Not Given Multivitamins (Hexavitamin) 1 tab PO DAILY [facility] Last Admin: 05/13/17 09:36 Dose: 1 tab Neomycin Sulfate (Neomycin Tab) 500 mg PO Q6 [facility] Last Admin: 05/13/17 05:14 Dose: 500 mg Fluticasone/Salmeterol (Advair Diskus 250/50) 1 puff INH RQ12 [facility] Last Admin: 05/13/17 07:35 Dose: 1 puff - Labs Labs: 05/13/17 06:15 05/13/17 06:15 PT 14.3 SECONDS (9.7-12.2) H 05/07/17 11:33 INR 1.2 05/07/17 11:33 APTT 33 SECONDS (21-34) 05/08/17 06:48 - Constitutional Appears: Non-toxic, No Acute Distress - Head Exam Head Exam: NORMAL INSPECTION - Eye Exam Eye Exam: EOMI, Scleral icterus - ENT Exam ENT Exam: Mucous Membranes Moist - Respiratory Exam Respiratory Exam: Clear to Ausculation Bilateral, NORMAL BREATHING PATTERN. absent: Rales, Rhonchi, Wheezes - Cardiovascular Exam Cardiovascular Exam: REGULAR RHYTHM, +S1, +S2. absent: Bradycardia, Tachycardia , Murmur - GI/Abdominal Exam GI & Abdominal Exam: Distended, Soft, Normal Bowel Sounds. absent: Tenderness - Extremities Exam Extremities Exam: Normal Inspection. absent: Calf Tenderness, Pedal Edema Additional comments: s/p left great toe amputation - Neurological Exam Neurological Exam: Alert, Awake - Psychiatric Exam Psychiatric exam: Normal Affect, Normal Mood - Skin Skin Exam: Dry, Intact, Warm Additional comments: jaundice Assessment and Plan - Assessment and Plan (Free Text) Assessment: Liver cirrhosis and Jaundice -GI following (Hany) recs appreciated - EGD (05/12): Sarah esophagitis, hiatal hernia, and acute gastritis -Diflucan 200 mg PO x 1 dose 05/12/17 and then 100 mg PO 1x/day through 06/08 - I spoke with Dr. Leach who recommends ERCP if bilirubin continues to rise, othrewise it is likely due to cirrhosis -MRCP shows gallstones and enlarged liver with gallbladder wall thickening but no signs of acute cholecystitis -CT Abdomen/Pelvis (05/07/17): mild ascites appreciated in the left greater the right hemiabdomen. Bowel loops are not distended at the sigmoid colon with a few diverticular are associated-->difficult to exclude colitis or enterocolitis. Cholelithiasis. Resolution of prior pyelonephritis and right psoas msucle phlegmon. Urinary bladder is distended with air fluid level and somewhat thicken suspicious for cystitis. Abdominal US (05/07/17): hepatic cirrhosis, hepatomegaly. Splenomegaly. Ascites. Cholelithasis without evidence of cholecystitis. Incidentally noted dependent debris within urinary bladder. -Surgery consulted. recs appreciated * do not recommend surgery at this time - AST and ALT WNL -CA19-9: 24.6 (05/10) -Ammonia: 43 (05/10) -repeat ammonia: 29 (05/13) - discontinue Neomycin 500 mg Q6 -Hep panel negative -HIV negative -Pruritis likely due to hyperbilirubinemia 2/2 cirrhosis * cholestyramine 4g QD Possible Colitis and cystitis - as seen on CT A&P (05/07) - neomycin 500 mg q6 - ciprofloxacin 400 QD - flagyl 500 mg Q8h Increased CEA -3.7 (05/08): likely 2/2 cirrhosis -AFP: 2.2 -EGD canceled (05/11), rescheduled for 05/12 - 05/12 patient did not drink all of prep even though it was explained to him the importance of this for his study, so 2 dulcolax were given - Sarah esophagitis, hiatal hernia, and acute gastritis - Colonoscopy: Transverse, descending, and sigmoid colon diverticulosis without bleeding, nonbleeding external and internal hemorrhoids, 1mm polyp in distal ascending colon - f/u polyp pathology Cardiomyopathy non ischemic -cardiology following. recs appreciated * added coreg * Echo done 11/2016 -continue asa 81 mg po daily -troponin neg x3 Pulmonary htn -continue treating underlying heart failure and myopathy Hx of HTN -continue hydralazine 50 po q 8 qing and lasix 40 mg q12 Hx of ESRD -Nephrology on board (Isidro) - Cont dialysis -continue calcitriol Hx of COPD -continue to monitor -duonebs as needed Hx of DM -continue gabapentin -novolog 8 units sc ac tid Anemia -normocytic -likely due to ESRD -continue to monitor gi/dvt ppx -heparin 5000 q 8 stopped for EGD today -pepcid 20 mg QD -SCDs -Calcitriol 0.25mcg PO qD Disposition: patient refusing RADHA but agrees to outpatient PT. <Zeferino Ferreira - Last Filed: 05/13/17 11:32> Objective - Vital Signs/Intake and Output Vital Signs (last 24 hours): Temp Pulse Resp BP Pulse Ox 98.1 F 77 20 128/76 95 05/13/17 08:20 05/13/17 08:20 05/13/17 08:20 05/13/17 09:39 05/13/17 08:20 Intake and Output: 05/13/17 05/13/17 06:59 18:59 Intake Total 340 Balance 340 - Medications Medications: Current Medications Calcitriol (Rocaltrol) 0.25 mcg PO DAILY [facility] Last Admin: 05/13/17 09:37 Dose: 0.25 mcg Carvedilol (Coreg) 3.125 mg PO Q12H [facility] Last Admin: 05/13/17 01:47 Dose: 3.125 mg Cholestyramine Resin (Prevalite) 4 gm PO DAILY [facility] Last Admin: 05/13/17 09:36 Dose: 4 gm Famotidine (Pepcid) 20 mg IVP DAILY [facility] Last Admin: 05/13/17 09:37 Dose: 20 mg Fluconazole (Diflucan) 100 mg PO DAILY [facility] Stop: 06/01/17 10:00 Last Admin: 05/13/17 09:38 Dose: 100 mg Furosemide (Lasix) 40 mg IVP Q12 [facility] Last Admin: 05/13/17 09:39 Dose: 40 mg Gabapentin (Neurontin) 300 mg PO TID [facility] Last Admin: 05/13/17 09:36 Dose: 300 mg Hydralazine HCl (Apresoline) 50 mg PO Q8 [facility] Last Admin: 05/13/17 05:14 Dose: 50 mg Metronidazole (Flagyl) 500 mg in 100 mls @ 100 mls/hr IVPB Q8H [facility] Last Admin: 05/13/17 05:14 Dose: 100 mls/hr Ciprofloxacin (Cipro 400mg/200ml Dsw) 400 mg in 200 mls @ 133 mls/hr IVPB Q24H [facility] Last Admin: 05/12/17 21:53 Dose: 133 mls/hr Insulin Aspart (Novolog) 8 unit SC ACTID [facility] Last Admin: 05/13/17 08:14 Dose: 8 unit Insulin Aspart (Novolog) 0 unit SC ACHS [facility] PRN Reason: Protocol Last Admin: 05/13/17 08:14 Dose: 2 unit Insulin Detemir (Levemir) 8 unit SC HS [facility] Last Admin: 05/12/17 23:28 Dose: Not Given Isosorbide Mononitrate (Imdur) 60 mg PO DAILY [facility] Last Admin: 05/13/17 09:36 Dose: 60 mg Metoclopramide HCl (Reglan) 5 mg IVP Q6 [facility] Last Admin: 05/13/17 05:15 Dose: Not Given Multivitamins (Hexavitamin) 1 tab PO DAILY [facility] Last Admin: 05/13/17 09:36 Dose: 1 tab Fluticasone/Salmeterol (Advair Diskus 250/50) 1 puff INH RQ12 [facility] Last Admin: 05/13/17 07:35 Dose: 1 puff - Labs Labs: 05/13/17 06:15 05/13/17 06:15 PT 14.3 SECONDS (9.7-12.2) H 05/07/17 11:33 INR 1.2 05/07/17 11:33 APTT 33 SECONDS (21-34) 05/08/17 06:48 Attending/Attestation - Attestation I have personally seen and examined this patient.: Yes I have fully participated in the care of the patient.: Yes I have reviewed all pertinent clinical information, including history, physical exam and plan: Yes Notes (Text): 05/13/17 10:46 Patient was seen and examined at 10:30 AM 05/13/17 I spoke with patient through assistance of [employer] Interpretor Lucio #[id number]) Upon ROS: NO chest pain NO palpitations NO SOB/Cough/Wheezing NO lightheadedness/dizziness NO abdominal pain NO n/v/d/c (last bowel movement was this morning 05/13/17) NOT producing urine NO headaches NO new changes in vision NO new changes in hearing Agree with examination finding with resident I explained to patient his findings on Upper Endoscopy and Colonoscopy. Explained that he had a fungal infection involving his Esophagus and that he would have to be on an antifungal which we would provide Rx. Explained that he would need outpatient follow up for his Cirrhosis with a GI specialist and that he could obtain referral through his PMD Dr. Chatterjee Explained that he must follow up regularly with his Highway Technician Dr. Jiménez/ Areli for his history of Heart Failure Explained that he will have to continue his HD at [facility] according to his schedule He would like to go to PT at [facility] as outpatient. He has declined [facility]. I have spoken with PT Riddhi and he is unsteady on his feet but is able to use the walker safely. I have spoken with Counter Top Maker Yarely and she has contacted [facility] PT and patient will need to call [phone] for an appointment when he is ready to go. Patient is stable for discharge. The following instructions will need to be provided to patient in written form: 1). Schedule follow up with your primary care doctor Dr. Chatterjee to take place in the next 7 days. Call his office at [phone] to schedule this appointment. 2). Through Dr. Chatterjee obtain referral for [employer] for further management of your Cirrhosis. 3). Schedule follow up with your Highway Technician Dr. Roque/Jorje to take place in the next 7 to 14 days. Call his office at [phone] to schedule this appointment. 4). You have chosen to get outpatient physical therapy at [facility]. Please call [facility] at [phone] to schedule this appointment with their physical therapy department as soon as possible. You must bring your prescription for Physical Therapy with you to your appointment and this prescription has been provided to you. 5). You will have a Walker delivered to your house. Counter Top Maker Yarely is arranging this. 6). Please make sure that you follow your dialysis schedule at [facility] on Wednesday , Wednesday, and Fridays 7). You will need to follow up your biopsy results for the Endoscopy and the Colonoscopy that you had performed on 05/12/17. Please make sure that you follow these up through your appointment with your Primary Care Physician Dr. Chatterjee. 8). The following prescriptions were provided to you: Carvedilol 3.125 mg 1 tablet by mouth 2x/day Cholestyramine 4gm 1 packet by mouth 1x/day Fluconazole 100 mg 1 tablet by mouth 1x/day until finished on 06/01/17 Advair 250/50 mcg 1 puff inhalation by mouth 2x/day Aspart Insulin 8 units SC 3 times a day (before breakfast, lunch, and dinner) Levemir Insulin 15 units SC at bedtime Aspirin 81 mg 1 tablet by mouth 1x/day Calcitriol 0.25 mcg 1 capsule by mouth 1x/day Vitamin D 50,000 Units 1 tablet by mouth every Wednesday until finished Furosemide 40 mg 1 tablet by mouth 2x/day Gabapentin 300 mg 1 tablet by mouth 3x/day Hydralazine 50 mg 1 tablet by mouth 3x/day Isosorbide Mononitrate 60 mg 1 tablet by mouth 1x/day Strovite 1 tablet by mouth 1x/day 9). Please take care and be well. Zeferino Ferreira D.O.
--- NOTE | 2017-05-13 14:14 | PN ---
LOCATION: Room 671, bed B. SUBJECTIVE: This is 51-year-old male seen and examined in rounds, appeared to be awake, alert and oriented. Denied any abdominal pain or reported active bleeding. The entire chart is reviewed including, but not limited to the most recent lab and radiology study results, current and previous medication list, current and the previous medical events. It has to be mentioned that today's lab showed low hemoglobin of 9.2, hematocrit 27.7, but normal platelet count with BUN 29, creatinine 3.4. Blood glucose level 181, the latest with the low calcium 8.2, increased phosphorus 5.1 with total bilirubin still elevated at 4.11, alkaline increased to 568 with low albumin 2.6. All the radiology study results were evaluated again including MRCP and abdominal ultrasound done early this week. No evidence of choledocholithiasis. However, the patient still has jaundice and intermittent upper quadrant discomfort and pain, less than before. PHYSICAL EXAMINATION: GENERAL: A 51-year-old male, awake, alert, oriented. VITAL SIGNS: Afebrile with pulse of 76, respiratory 20 to 22, blood pressure 120/66. HEENT: Showed pale, dry oral mucous membrane with bilateral icteric sclerae. LUNGS: Few scattered crepitations, decreased air entry at bases. HEART: Positive S1 and S2. ABDOMEN: Soft. Bowel sounds are present. No mass or organomegaly. No rebound, tenderness or guarding. EXTREMITIES: Mild lower extremity edematous changes. No clubbing or cyanosis. It has to be mentioned that the case discussed at length with Dr. Ferreira, the admitting MD. IMPRESSION: 1. Liver cirrhosis. 2. Alcoholism with alcoholic liver disease. 3. Jaundice with abnormal liver function test secondary to above. 4. Colon polyp, pathology report still pending. 5. Peptic ulcer disease. 6. Renal failure. 7. Anemia secondary to above. 8. The patient on hemodialysis. 9. Poorly controlled diabetes mellitus. SUGGESTION: 1. Continue current management. 2. The patient is to be sent for physical therapy as outpatient as reported by the admitting medical staff. 3. The patient may be discharged home on the current medication, and the above recommendation to follow as outpatient. Santiago Aparicio MD [facility] # [id number]
--- NOTE | 2017-05-13 18:26 | CP.PCM.DIS ---
<Zeferino Ferreira - Last Filed: 05/13/17 19:05> Provider - Provider Date of Admission: 05/07/17 15:38 Attending physician: Zeferino Ferreira MD Hospital Course - Lab Results Lab Results: Most Recent Lab Values WBC 5.6 K/uL (4.8-10.8) 05/13/17 06:15 RBC 2.94 Mil/uL (4.40-5.90) L 05/13/17 06:15 Hgb 9.2 g/dL (12.0-18.0) L 05/13/17 06:15 Hct 27.7 % (35.0-51.0) L 05/13/17 06:15 MCV 94.2 fL (80.0-94.0) H 05/13/17 06:15 MCH 31.2 pg (27.0-31.0) H 05/13/17 06:15 MCHC 33.1 g/dL (33.0-37.0) 05/13/17 06:15 RDW 14.7 % (11.5-14.5) H 05/13/17 06:15 Plt Count 223 K/uL (130-400) 05/13/17 06:15 MPV 9.6 fL (7.2-11.7) 05/13/17 06:15 Neut % (Auto) 65.8 % (50.0-75.0) 05/13/17 06:15 Lymph % (Auto) 12.2 % (20.0-40.0) L 05/13/17 06:15 [place] % (Auto) 18.7 % (0.0-10.0) H 05/13/17 06:15 Eos % (Auto) 1.9 % (0.0-4.0) 05/13/17 06:15 Baso % (Auto) 1.4 % (0.0-2.0) 05/13/17 06:15 Neut # 3.7 K/uL (1.8-7.0) 05/13/17 06:15 Lymph # 0.7 K/uL (1.0-4.3) L 05/13/17 06:15 [place] # 1.0 K/uL (0.0-0.8) H 05/13/17 06:15 Eos # 0.1 K/uL (0.0-0.7) 05/13/17 06:15 Baso # 0.1 K/uL (0.0-0.2) 05/13/17 06:15 Retic Count 3.6 % (0.5-1.5) H 05/08/17 06:48 PT 14.3 SECONDS (9.7-12.2) H 05/07/17 11:33 INR 1.2 05/07/17 11:33 APTT 33 SECONDS (21-34) 05/08/17 06:48 Puncture Site Rradial 05/10/17 18:40 pCO2 42 mm/Hg (35-45) 05/10/17 18:40 pO2 73 mm/Hg (80-100) L 05/10/17 18:40 HCO3 28.0 mmol/L (21-28) 05/10/17 18:40 ABG pH 7.44 (7.35-7.45) 05/10/17 18:40 ABG Total CO2 29.8 mmol/L (22-28) H 05/10/17 18:40 ABG O2 Saturation 99.1 % (95-98) H 05/10/17 18:40 ABG Base Excess 4.0 mmol/L (-2.0-3.0) H 05/10/17 18:40 ABG Hemoglobin 8.0 g/dL (11.7-17.4) L 05/10/17 18:40 ABG Carboxyhemoglobin 3.2 % (0.5-1.5) H 05/10/17 18:40 POC ABG HHb (Measured) 0.9 % (0.0-5.0) 05/10/17 18:40 ABG Methemoglobin 1.0 % (0.0-3.0) 05/10/17 18:40 Obed Test Pos 05/10/17 18:40 A-a O2 Difference 24.0 mm/Hg 05/10/17 18:40 Respiratory Index 0.3 05/10/17 18:40 Hgb O2 Saturation 94.9 % (95.0-98.0) L 05/10/17 18:40 FiO2 21.0 % 05/10/17 18:40 Sodium 133 mmol/L (132-148) 05/13/17 06:15 Potassium 4.0 mmol/L (3.6-5.2) 05/13/17 06:15 Chloride 95 mmol/L (98-107) L 05/13/17 06:15 Carbon Dioxide 26 mmol/L (22-30) 05/13/17 06:15 Anion Gap 16 (10-20) 05/13/17 06:15 BUN 29 mg/dL (9-20) H 05/13/17 06:15 Creatinine 3.4 MG/DL (0.8-1.5) H 05/13/17 06:15 Est GFR ( Amer) 23 05/13/17 06:15 Est GFR (Non-Af Amer) 19 05/13/17 06:15 POC Glucose (mg/dL) 181 mg/dL (65-110) H 05/13/17 11:22 Random Glucose 209 mg/dL (75-110) H 05/13/17 06:15 Hemoglobin A1c 5.4 % (4.2-6.5) 05/13/17 06:15 Calcium 8.2 mg/dl (8.6-10.4) L 05/13/17 06:15 Phosphorus 5.1 mg/dL (2.5-4.5) H 05/13/17 06:15 Magnesium 2.1 mg/dL (1.6-2.3) 05/13/17 06:15 Iron 55 ug/dL (49-181) 05/08/17 06:48 TIBC 232 ug/dL (250-450) L 05/08/17 06:48 % Saturation 23 (20-55) 05/08/17 06:48 Ferritin 537.0 ng/mL 05/08/17 04:00 Total Bilirubin 4.1 mg/dL (0.2-1.3) H 05/13/17 06:15 Direct Bilirubin 6.6 mg/dL (0.0-0.4) H 05/07/17 13:36 AST 32 U/L (17-59) 05/13/17 06:15 ALT 26 U/L (21-72) 05/13/17 06:15 Alkaline Phosphatase 568 U/L (38-126) H 05/13/17 06:15 Ammonia 29 umol/L (9-33) D 05/13/17 06:15 Total Creatine Kinase 51 U/L (55-170) L 05/08/17 13:05 CK-MB (Mass) 3.52 ng/mL (0.0-3.38) H 05/08/17 13:05 Troponin I < 0.0120 ng/mL (0.00-0.120) 05/07/17 11:33 Troponin I, Quant < 0.0120 ng/mL (0.00-0.120) 05/08/17 13:05 NT-Pro-B Natriuret Pep 670831 pg/mL (0-900) H 05/08/17 06:48 Total Protein 6.3 g/dL (6.3-8.3) 05/13/17 06:15 Albumin 2.6 g/dL (3.5-5.0) L 05/13/17 06:15 Globulin 3.7 gm/dL (2.2-3.9) 05/13/17 06:15 Albumin/Globulin Ratio 0.7 (1.0-2.1) L 05/13/17 06:15 Lipase 67 U/L (23-300) 05/07/17 11:33 Alpha Fetoprotein 2.2 ng/mL (0.0-7.5) 05/08/17 06:48 Carcinoembryonic Ag 3.7 ng/mL (0-3.0) H 05/08/17 13:05 CA 19-9 Antigen 24.6 U/mL (0-37) 05/10/17 07:19 Free PSA <0.1 ng/mL 05/10/17 07:19 % Free PSA Unable to calculate Percent (>25) 05/10/17 07:19 Total PSA 0.3 ng/mL (<=4.0) 05/10/17 07:19 Prostate Cancer Risk See note Percent 05/10/17 07:19 Urine Opiates Screen Negative (NEGATIVE) 05/09/17 08:47 Urine Methadone Screen Negative (NEGATIVE) 05/09/17 08:47 Ur Barbiturates Screen Negative (NEGATIVE) 05/09/17 08:47 Ur Phencyclidine Scrn Negative (NEGATIVE) 05/09/17 08:47 Ur Amphetamines Screen Negative (NEGATIVE) 05/09/17 08:47 U Benzodiazepines Scrn Negative (NEGATIVE) 05/09/17 08:47 U Oth Cocaine Metabols Negative (NEGATIVE) 05/09/17 08:47 U Cannabinoids Screen Negative (NEGATIVE) 05/09/17 08:47 HOPE 6 Profile Positive (NEGATIVE) H 05/08/17 06:48 HOPE Titer 1:80 H 05/08/17 06:48 HOPE Pattern Nucleolar H 05/08/17 06:48 Anti-Mitochondrial Ab Negative (Negative) 05/08/17 06:48 Anti-Smooth Muscle Ab Negative (Negative) 05/08/17 06:48 Hepatitis A IgM Ab Negative (NEGATIVE) 05/08/17 06:48 Hep Bs Antigen Negative (NEGATIVE) 05/08/17 06:48 Hep B Core IgM Ab Negative (NEGATIVE) 05/08/17 06:48 Hepatitis C Antibody Negative (NEGATIVE) 05/08/17 06:48 HIV 1&2 Antibody Screen Negative (NEGATIVE) 05/08/17 06:48 Infectious [place] Assay Negative (NEGATIVE) 05/08/17 13:05 Discharge Plan - Discharge Medications Prescriptions: Aspirin [Ecotrin] 81 mg PO DAILY #30 tabec Calcitriol 0.25 mcg PO DAILY #30 capsule Carvedilol [Coreg] 3.125 mg PO Q12H #60 tab Cholestyramine [Prevalite] 4 gm PO DAILY #30 packet Ergocalciferol (Vitamin D2) [Vitamin D2] 1 cap PO QWK #7 capsule Fluconazole [Diflucan] 100 mg PO DAILY #19 tab Fluticasone/Salmeterol 250/50 [Advair Diskus 250/50] 1 puff INH RQ12 #1 puff Furosemide [Lasix] 40 mg PO BID #60 tab Gabapentin 300 mg PO TID #90 capsule hydrALAZINE [Apresoline] 50 mg PO TID #90 tab Insulin Aspart, Recombinant [Novolog] 8 unit SC ACTID #240 unit Insulin Detemir [Levemir] 15 unit SC DAILY #450 unit Isosorbide Mononitrate [Imdur] 60 mg PO DAILY #30 tab - Follow Up Plan Condition: STABLE Disposition: HOME/ ROUTINE Instructions: Heart Failure (DC), Chest Pain (DC), Cirrhosis (DC), Hemodialysis (DC), Dialysis Diet (DC), Jaundice (DC), End Stage Kidney Disease ( DC) Additional Instructions: The following instructions will need to be provided to patient in written form: 1). Schedule follow up with your primary care doctor Dr. Chatterjee to take place in the next 7 days. Call his office at [phone] to schedule this appointment. 2). Through Dr. Chatterjee obtain referral for Crusher Loader Operator for further management of your Cirrhosis. 3). Schedule follow up with your Tele Grout Sewer Line Repairer Dr. Roque/Jorje to take place in the next 7 to 14 days. Call his office at [phone] to schedule this appointment. 4). You have chosen to get outpatient physical therapy at [facility]. Please call [facility] at [phone] to schedule this appointment with their physical therapy department as soon as possible. You must bring your prescription for Physical Therapy with you to your appointment and this prescription has been provided to you. 5). You will have a Walker delivered to your house. Dye Machine Operator Yarely is arranging this. 6). Please make sure that you follow your dialysis schedule at [facility] on Wednesday , Wednesday, and Fridays 7). You will need to follow up your biopsy results for the Endoscopy and the Colonoscopy that you had performed on 05/12/17. Please make sure that you follow these up through your appointment with your Primary Care Physician Dr. Chatterjee. 8). The following prescriptions were provided to you: Carvedilol 3.125 mg 1 tablet by mouth 2x/day Cholestyramine 4gm 1 packet by mouth 1x/day Fluconazole 100 mg 1 tablet by mouth 1x/day until finished on 06/01/17 Advair 250/50 mcg 1 puff inhalation by mouth 2x/day Aspart Insulin 8 units SC 3 times a day (before breakfast, lunch, and dinner) Levemir Insulin 15 units SC at bedtime Aspirin 81 mg 1 tablet by mouth 1x/day Calcitriol 0.25 mcg 1 capsule by mouth 1x/day Vitamin D 50,000 Units 1 tablet by mouth every Wednesday until finished Furosemide 40 mg 1 tablet by mouth 2x/day Gabapentin 300 mg 1 tablet by mouth 3x/day Hydralazine 50 mg 1 tablet by mouth 3x/day Isosorbide Mononitrate 60 mg 1 tablet by mouth 1x/day Strovite 1 tablet by mouth 1x/day 9). Please take care and be well. Referrals: Eloy Chatterjee MD [Medical Doctor] - Joselo Singleton MD [Staff Provider] - Attending/Attestation - Attestation I have personally seen and examined this patient.: Yes I have fully participated in the care of the patient.: Yes I have reviewed all pertinent clinical information, including history, physical exam and plan: Yes <Zohreh Lucas - Last Filed: 05/13/17 21:14> Provider - Provider Date of Admission: 05/07/17 15:38 Attending physician: Zeferino Ferreira MD Primary care physician: Shena Consults: Dr. Isidro Garcia Time Spent in preparation of Discharge (in minutes): 35 Diagnosis - Discharge Diagnosis (1) Chronic congestive heart failure Status: Acute Comment: Please see summary for more details (2) ESRD (end stage renal disease) Status: Acute Comment: Please see summary for more details (3) Hyperbilirubinemia Status: Acute Comment: Please see summary for more details (4) Jaundice Status: Acute Comment: Please see summary for more details (5) Diabetes mellitus Status: Chronic Comment: Please see summary for more details (6) Hypertension Status: Chronic Comment: Please see summary for more details Hospital Course - Lab Results Lab Results: Most Recent Lab Values WBC 5.6 K/uL (4.8-10.8) 05/13/17 06:15 RBC 2.94 Mil/uL (4.40-5.90) L 05/13/17 06:15 Hgb 9.2 g/dL (12.0-18.0) L 05/13/17 06:15 Hct 27.7 % (35.0-51.0) L 05/13/17 06:15 MCV 94.2 fL (80.0-94.0) H 05/13/17 06:15 MCH 31.2 pg (27.0-31.0) H 05/13/17 06:15 MCHC 33.1 g/dL (33.0-37.0) 05/13/17 06:15 RDW 14.7 % (11.5-14.5) H 05/13/17 06:15 Plt Count 223 K/uL (130-400) 05/13/17 06:15 MPV 9.6 fL (7.2-11.7) 05/13/17 06:15 Neut % (Auto) 65.8 % (50.0-75.0) 05/13/17 06:15 Lymph % (Auto) 12.2 % (20.0-40.0) L 05/13/17 06:15 [place] % (Auto) 18.7 % (0.0-10.0) H 05/13/17 06:15 Eos % (Auto) 1.9 % (0.0-4.0) 05/13/17 06:15 Baso % (Auto) 1.4 % (0.0-2.0) 05/13/17 06:15 Neut # 3.7 K/uL (1.8-7.0) 05/13/17 06:15 Lymph # 0.7 K/uL (1.0-4.3) L 05/13/17 06:15 [place] # 1.0 K/uL (0.0-0.8) H 05/13/17 06:15 Eos # 0.1 K/uL (0.0-0.7) 05/13/17 06:15 Baso # 0.1 K/uL (0.0-0.2) 05/13/17 06:15 Retic Count 3.6 % (0.5-1.5) H 05/08/17 06:48 PT 14.3 SECONDS (9.7-12.2) H 05/07/17 11:33 INR 1.2 05/07/17 11:33 APTT 33 SECONDS (21-34) 05/08/17 06:48 Puncture Site Rradial 05/10/17 18:40 pCO2 42 mm/Hg (35-45) 05/10/17 18:40 pO2 73 mm/Hg (80-100) L 05/10/17 18:40 HCO3 28.0 mmol/L (21-28) 05/10/17 18:40 ABG pH 7.44 (7.35-7.45) 05/10/17 18:40 ABG Total CO2 29.8 mmol/L (22-28) H 05/10/17 18:40 ABG O2 Saturation 99.1 % (95-98) H 05/10/17 18:40 ABG Base Excess 4.0 mmol/L (-2.0-3.0) H 05/10/17 18:40 ABG Hemoglobin 8.0 g/dL (11.7-17.4) L 05/10/17 18:40 ABG Carboxyhemoglobin 3.2 % (0.5-1.5) H 05/10/17 18:40 POC ABG HHb (Measured) 0.9 % (0.0-5.0) 05/10/17 18:40 ABG Methemoglobin 1.0 % (0.0-3.0) 05/10/17 18:40 Obed Test Pos 05/10/17 18:40 A-a O2 Difference 24.0 mm/Hg 05/10/17 18:40 Respiratory Index 0.3 05/10/17 18:40 Hgb O2 Saturation 94.9 % (95.0-98.0) L 05/10/17 18:40 FiO2 21.0 % 05/10/17 18:40 Sodium 133 mmol/L (132-148) 05/13/17 06:15 Potassium 4.0 mmol/L (3.6-5.2) 05/13/17 06:15 Chloride 95 mmol/L (98-107) L 05/13/17 06:15 Carbon Dioxide 26 mmol/L (22-30) 05/13/17 06:15 Anion Gap 16 (10-20) 05/13/17 06:15 BUN 29 mg/dL (9-20) H 05/13/17 06:15 Creatinine 3.4 MG/DL (0.8-1.5) H 05/13/17 06:15 Est GFR ( Amer) 23 05/13/17 06:15 Est GFR (Non-Af Amer) 19 05/13/17 06:15 POC Glucose (mg/dL) 181 mg/dL (65-110) H 05/13/17 11:22 Random Glucose 209 mg/dL (75-110) H 05/13/17 06:15 Hemoglobin A1c 5.4 % (4.2-6.5) 05/13/17 06:15 Calcium 8.2 mg/dl (8.6-10.4) L 05/13/17 06:15 Phosphorus 5.1 mg/dL (2.5-4.5) H 05/13/17 06:15 Magnesium 2.1 mg/dL (1.6-2.3) 05/13/17 06:15 Iron 55 ug/dL (49-181) 05/08/17 06:48 TIBC 232 ug/dL (250-450) L 05/08/17 06:48 % Saturation 23 (20-55) 05/08/17 06:48 Ferritin 537.0 ng/mL 05/08/17 04:00 Total Bilirubin 4.1 mg/dL (0.2-1.3) H 05/13/17 06:15 Direct Bilirubin 6.6 mg/dL (0.0-0.4) H 05/07/17 13:36 AST 32 U/L (17-59) 05/13/17 06:15 ALT 26 U/L (21-72) 05/13/17 06:15 Alkaline Phosphatase 568 U/L (38-126) H 05/13/17 06:15 Ammonia 29 umol/L (9-33) D 05/13/17 06:15 Total Creatine Kinase 51 U/L (55-170) L 05/08/17 13:05 CK-MB (Mass) 3.52 ng/mL (0.0-3.38) H 05/08/17 13:05 Troponin I < 0.0120 ng/mL (0.00-0.120) 05/07/17 11:33 Troponin I, Quant < 0.0120 ng/mL (0.00-0.120) 05/08/17 13:05 NT-Pro-B Natriuret Pep 992340 pg/mL (0-900) H 05/08/17 06:48 Total Protein 6.3 g/dL (6.3-8.3) 05/13/17 06:15 Albumin 2.6 g/dL (3.5-5.0) L 05/13/17 06:15 Globulin 3.7 gm/dL (2.2-3.9) 05/13/17 06:15 Albumin/Globulin Ratio 0.7 (1.0-2.1) L 05/13/17 06:15 Lipase 67 U/L (23-300) 05/07/17 11:33 Alpha Fetoprotein 2.2 ng/mL (0.0-7.5) 05/08/17 06:48 Carcinoembryonic Ag 3.7 ng/mL (0-3.0) H 05/08/17 13:05 CA 19-9 Antigen 24.6 U/mL (0-37) 05/10/17 07:19 Free PSA <0.1 ng/mL 05/10/17 07:19 % Free PSA Unable to calculate Percent (>25) 05/10/17 07:19 Total PSA 0.3 ng/mL (<=4.0) 05/10/17 07:19 Prostate Cancer Risk See note Percent 05/10/17 07:19 Urine Opiates Screen Negative (NEGATIVE) 05/09/17 08:47 Urine Methadone Screen Negative (NEGATIVE) 05/09/17 08:47 Ur Barbiturates Screen Negative (NEGATIVE) 05/09/17 08:47 Ur Phencyclidine Scrn Negative (NEGATIVE) 05/09/17 08:47 Ur Amphetamines Screen Negative (NEGATIVE) 05/09/17 08:47 U Benzodiazepines Scrn Negative (NEGATIVE) 05/09/17 08:47 U Oth Cocaine Metabols Negative (NEGATIVE) 05/09/17 08:47 U Cannabinoids Screen Negative (NEGATIVE) 05/09/17 08:47 HOPE 6 Profile Positive (NEGATIVE) H 05/08/17 06:48 HOPE Titer 1:80 H 05/08/17 06:48 HOPE Pattern Nucleolar H 05/08/17 06:48 Anti-Mitochondrial Ab Negative (Negative) 05/08/17 06:48 Anti-Smooth Muscle Ab Negative (Negative) 05/08/17 06:48 Hepatitis A IgM Ab Negative (NEGATIVE) 05/08/17 06:48 Hep Bs Antigen Negative (NEGATIVE) 05/08/17 06:48 Hep B Core IgM Ab Negative (NEGATIVE) 05/08/17 06:48 Hepatitis C Antibody Negative (NEGATIVE) 05/08/17 06:48 HIV 1&2 Antibody Screen Negative (NEGATIVE) 05/08/17 06:48 Infectious [place] Assay Negative (NEGATIVE) 05/08/17 13:05 - Hospital Course Hospital Course: Upon admission: This 51 yo Male with PMHx significant for CHF (EF 46%), ESRD, HTN and DM - presents to the ED c/o 3 episodes of chest pain today. He states that his first episode of chest pain occurred this morning at 10am, 30 minutes after starting his Dialysis session as an outpatient. He describes the pain as sub- sternal, dull and pressure-like, rated a 6/10. He denies any radiation of pain, and reports that this is his first such episode (despite prior admissions for chest pain). He received nitro in route by ALS, and that helped resolve his pain. He admits his other 2 episodes of chest pain resolved spontaneously. During our encounter, he denied any current chest pain. Overall, he reports he has been doing well with his medical therapy and HD-MWF. Since he has been attending dialysis regularly, he only requires 1-2 pillows to sleep at night ( previously required 4). He denies f/c, headache, dizziness, current CP, SOB, cough, n/v, d/c, overt swelling in his abdomen or LE, or any additional complaints. Hospital Course: Patient was admitted to r/o ACS. Consulted cardiology (Dr. Mantilla). Troponin negative x3. Continued asa 81 mg po daily. Recieved Prior echo results from 2016 and patient was diagnosed with nonischemic cardiomyopathy. Coreg was added. HTN was treated with hydralazine 50 po q 8 qing and lasix 40 mg q12. Nephrology (Dr. Felix) was consulted for Hx of ESRD on dialysis and followed during stay. Patient was found to be jaundiced and later found out he has a hx of cirrhosis. GI (Dr. Leach) consulted. CT Abdomen/Pelvis (05/07/17) showed mild ascites appreciated in the left greater the right hemiabdomen. Bowel loops are not distended at the sigmoid colon with a few diverticular are associated ( difficult to exclude colitis or enterocolitis. Cholelithiasis). Resolution of prior pyelonephritis and right psoas msucle phlegmon. Urinary bladder is distended with air fluid level and somewhat thicken suspicious for cystitis. Ciprofloxacin 400 QD and flagyl 500 mg Q8h were started for possible colitis. Abdominal US (05/07/17) showed hepatic cirrhosis, hepatomegaly, Splenomegaly, Ascites, and Cholelithasis without evidence of cholecystitis. Incidentally noted dependent debris within urinary bladder. MRCP showed gallstones and enlarged liver with gallbladder wall thickening but no signs of acute cholecystitis. Surgery was consulted and did not recommend surgical intervention at that time. CA19-9: 24.6 (05/10). Ammonia was elevated and treated with neomycin until levels normalized. Hepatitis panel was negative. HIV negative. Pruritic rash was due to hyperbilirubinemia and treated with cholestyramine 4g QD. EGD (05/12) showed Sarah esophagitis, hiatal hernia, and acute gastritis. Diflucan 200 mg PO x 1 dose 05/12/17 and then 100 mg PO 1x/day through 06/01/[address] Leach recommended ERCP if bilirubin continued to rise, but said if not, th elevated bilirubin is likely due to cirrhosis. Patient was found to have elevated CEA which is likely due to cirrhosis per Dr. Leach. AFP was 2.2 (normal). Colonoscopy showed transverse, descending, and sigmoid colon diverticulosis without bleeding, nonbleeding external and internal hemorrhoids, 1mm polyp in distal ascending colon. COPD was managed with duonebs as needed. DM was managed with Gabapentin and novolog 8 units sc ac tid. Normocytic anemia was likely due to patients hx of ESRD. We continued to monitor this with patients bloodwork. Upon discharge: Patient doing well and says he is feeling much better. Patient clear for discharge per Dr. Ferreira. Per Dr. Ferreira: I explained to patient his findings on Upper Endoscopy and Colonoscopy. Explained that he had a fungal infection involving his Esophagus and that he would have to be on an antifungal which we would provide Rx. Explained that he would need outpatient follow up for his Cirrhosis with a GI specialist and that he could obtain referral through his PMD Dr. Chatterjee Explained that he must follow up regularly with his Tele Grout Sewer Line Repairer Dr. Jiménez/ Areli for his history of Heart Failure Explained that he will have to continue his HD at [facility] according to his schedule He would like to go to PT at [facility] as outpatient. He has declined RADHA. I have spoken with PT Riddhi and he is unsteady on his feet but is able to use the walker safely. I have spoken with Dye Machine Operator Yarely and she has contacted [facility] PT and patient will need to call [phone] for an appointment when he is ready to go. Patient is stable for discharge. The following instructions will need to be provided to patient in written form: 1). Schedule follow up with your primary care doctor Dr. Chatterjee to take place in the next 7 days. Call his office at [phone] to schedule this appointment. 2). Through Dr. Chinai obtain referral for Crusher Loader Operator for further management of your Cirrhosis. 3). Schedule follow up with your Tele Grout Sewer Line Repairer Dr. Roque/Jorje to take place in the next 7 to 14 days. Call his office at [phone] to schedule this appointment. 4). You have chosen to get outpatient physical therapy at [facility]. Please call [facility] at [phone] to schedule this appointment with their physical therapy department as soon as possible. You must bring your prescription for Physical Therapy with you to your appointment and this prescription has been provided to you. 5). You will have a Walker delivered to your house. Dye Machine Operator Yarely is arranging this. 6). Please make sure that you follow your dialysis schedule at [facility] on Wednesday , Wednesday, and Fridays 7). You will need to follow up your biopsy results for the Endoscopy and the Colonoscopy that you had performed on 05/12/17. Please make sure that you follow these up through your appointment with your Primary Care Physician Dr. Chatterjee. 8). The following prescriptions were provided to you: Carvedilol 3.125 mg 1 tablet by mouth 2x/day Cholestyramine 4gm 1 packet by mouth 1x/day Fluconazole 100 mg 1 tablet by mouth 1x/day until finished on 06/01/17 Advair 250/50 mcg 1 puff inhalation by mouth 2x/day Aspart Insulin 8 units SC 3 times a day (before breakfast, lunch, and dinner) Levemir Insulin 15 units SC at bedtime Aspirin 81 mg 1 tablet by mouth 1x/day Calcitriol 0.25 mcg 1 capsule by mouth 1x/day Vitamin D 50,000 Units 1 tablet by mouth every Wednesday until finished Furosemide 40 mg 1 tablet by mouth 2x/day Gabapentin 300 mg 1 tablet by mouth 3x/day Hydralazine 50 mg 1 tablet by mouth 3x/day Isosorbide Mononitrate 60 mg 1 tablet by mouth 1x/day Strovite 1 tablet by mouth 1x/day 9). Please take care and be well. Please note this is a summary of events. For more details please see complete medical record. Discharge Exam - Head Exam Head Exam: NORMAL INSPECTION - Additional Findings Additional findings: - Constitutional Appears: Non-toxic, No Acute Distress - Head Exam Head Exam: NORMAL INSPECTION - Eye Exam Eye Exam: EOMI, Scleral icterus - ENT Exam ENT Exam: Mucous Membranes Moist - Respiratory Exam Respiratory Exam: Clear to Ausculation Bilateral, NORMAL BREATHING PATTERN. absent: Rales, Rhonchi, Wheezes - Cardiovascular Exam Cardiovascular Exam: REGULAR RHYTHM, +S1, +S2. absent: Bradycardia, Tachycardia , Murmur - GI/Abdominal Exam GI & Abdominal Exam: Distended, Soft, Normal Bowel Sounds. absent: Tenderness - Extremities Exam Extremities Exam: Normal Inspection. absent: Calf Tenderness, Pedal Edema Additional comments: s/p left great toe amputation - Neurological Exam Neurological Exam: Alert, Awake - Psychiatric Exam Psychiatric exam: Normal Affect, Normal Mood - Skin Skin Exam: Dry, Intact, Warm Additional comments: jaundice
[2017-05-14] MEDS ORDERED: Ergocalciferol 50,000 Intl Units Cap PO SCH (10:00)
== END 2017-05-13 16:30 | disposition home or self-care (01) | DRG 291 ==
LOC: C.ER 11:01 → C.9E 15:38 → C.5S 21:24 → C.6T 05-08 20:56
PROVIDERS: ADMIT Family Medicine; ATTEND Family Medicine
PROC: 5A1D60Z (ICD-10-PCS; 2017-05-07)
PROC: 0DBK8ZX Excision of Ascending Colon, Via Natural or Artificial Opening Endoscopic, Diagnostic (ICD-10-PCS; principal; 2017-05-12 12:10)
PROC: 0DB88ZX Excision of Small Intestine, Via Natural or Artificial Opening Endoscopic, Diagnostic (ICD-10-PCS; 2017-05-12 12:10)
DX: I13.2 Hypertensive heart and chronic kidney disease with heart failure and with stage 5 chronic kidney disease, or end stage renal disease (principal); I50.23 Acute on chronic systolic (congestive) heart failure; N18.6 End stage renal disease; I31.3 Pericardial effusion (noninflammatory); B37.81 Candidal esophagitis; K80.00 Calculus of gallbladder with acute cholecystitis without obstruction; E11.22 Type 2 diabetes mellitus with diabetic chronic kidney disease; K72.90 Hepatic failure, unspecified without coma; E11.65 Type 2 diabetes mellitus with hyperglycemia; I27.2 Other secondary pulmonary hypertension; Z99.2 Dependence on renal dialysis; D64.9 Anemia, unspecified; F41.9 Anxiety disorder, unspecified; I25.10 Atherosclerotic heart disease of native coronary artery without angina pectoris; M19.049 Primary osteoarthritis, unspecified hand; M17.9 Osteoarthritis of knee, unspecified; E78.00 Pure hypercholesterolemia, unspecified; I25.5 Ischemic cardiomyopathy; K70.31 Alcoholic cirrhosis of liver with ascites; J44.9 Chronic obstructive pulmonary disease, unspecified; K63.5 Polyp of colon; K29.00 Acute gastritis without bleeding; Z79.4 Long term (current) use of insulin

== ENCOUNTER 2017-06-11 13:36 | Inpatient (IN) | payer MEDICARE, OTHER ==
[2017-06-11 13:37] VITALS: BMI 21.5
--- NOTE | 2017-06-11 14:04 | CT ---
PROCEDURE: CT HEAD WITHOUT CONTRAST. HISTORY: Code Stroke COMPARISON: Unenhanced head CT 02/01/2015. TECHNIQUE: Axial computed tomography images were obtained through the head/brain without intravenous contrast. Radiation dose: Total exam DLP = 862.89 mGy-cm. This CT exam was performed using one or more of the following dose reduction techniques: Automated exposure control, adjustment of the mA and/or kV according to patient size, and/or use of iterative reconstruction technique. FINDINGS: HEMORRHAGE: No intracranial hemorrhage. BRAIN: There is a marginal expansion and ventricular sulcal and cisternal spaces as well as trace periventricular white matter lucency compatible with mild increase in age-related neuro degenerative changes. No mass effect is identified and there is no suspicious extra-axial fluid collection. Corticomedullary differentiation remains adequately preserved. Posterior fossa contents are unremarkable. VENTRICLES: Unremarkable. No hydrocephalus. CALVARIUM: Unremarkable. PARANASAL SINUSES: Unremarkable as visualized. No significant inflammatory changes. MASTOID AIR CELLS: Unremarkable as visualized. No inflammatory changes. OTHER FINDINGS: None. IMPRESSION: Minimal increase in age-related neuro degenerative findings which are nevertheless mild overall. No acute intracranial findings are identified at this time. Follow-up MRI or CT are available as clinically warranted. Findings discussed with Dr. Talavera 06/11/2017 2:00 p.m. with written down and read back verification.
[2017-06-11 14:24] LABS: BASO # 0.1 K/uL (0.0-0.2); EOS # 0.1 K/uL (0.0-0.7); EOS % 1.4 % (0.0-4.0); HEMATOCRIT 28.2 % (35.0-51.0); LYMPH # 1.2 K/uL (1.0-4.3); LYMPH % 16.2 % (20.0-40.0); MEAN CELL VOLUME 92.7 fL (80.0-94.0); MEAN CORPUSCULAR HEMOGLOBIN 31.5 pg (27.0-31.0); MEAN PLATELET VOLUME 10.7 fL (7.2-11.7); MONO % 27.6 % (0.0-10.0); RED CELL DISTRIBUTION WIDTH 15.8 % (11.5-14.5); WHITE BLOOD COUNT 7.3 K/uL (4.8-10.8)
[2017-06-11 14:31] LABS: PLATELET COUNT 116 K/uL (130-400)
[2017-06-11 14:33] LABS: INR 1.4
[2017-06-11 14:34] LABS: CHLORIDE 93 mmol/L (98-107)
--- NOTE | 2017-06-11 14:34 | CP.PCM.CON ---
History of Present Illness - History of Present Illness History of Present Illness: 51 y/o HM with sudden slurred speech, facial drooping todat after 2 hours of dialysis. Sent to ED- now patient alert, no slurred speech. Neuro workup in progress. PMH: ESRD HTN DM 2 CARDIOMYOPATHY CAD PVD CIRRHOSIS PSH: AMPUTAION LEFT TOE AV FISTULA HERNIA REPAIR Review of Systems - Constitutional Constitutional: Fatigue, Lethargy, Malaise, Weakness - EENT Eyes: Decreased Night Vision, Other Visual Disturbances Ears: absent: As Per HPI, Decreased Hearing, Ear Discharge, Ear Pain, Tinnitus, Abnormal Hearing, Disequilibrium, Dizziness, Other Nose/Mouth/Throat: absent: As Per HPI, Epistaxis, Nasal Congestion, Nasal Discharge, Nasal Obstruction, Nasal Trauma, Nose Pain, Post Nasal Drip, Sinus Pain, Sinus Pressure, Bleeding Gums, Change in Voice, Dental Pain, Dry Mouth, Dysphagia, Halitosis, Hoarsness, Lip Swelling, Mouth Lesions, Mouth Pain, Odynophagia, Sore Throat, Throat Swelling, Tongue Swelling, Facial Pain, Neck Pain, Neck Mass, Other - Cardiovascular Cardiovascular: Dyspnea on Exertion, Edema - Respiratory Respiratory: Cough, Dyspnea on Exertion - Gastrointestinal Gastrointestinal: absent: As Per HPI, Abdominal Pain, Belching, Bloating, Change in Bowel Habits, Change in Stool Character, Coffee Ground Emesis, Constipation, Cramping, Diarrhea, Dyspepsia, Dysphagia, Early Satiety, Excessive Flatus, Fecal Incontinence, Heartburn, Hematemesis, Hematochezia, Loose Stools, Melena, Nausea, Odynophagia, Temesmus, Vomiting, Other - Genitourinary Genitourinary: As Per HPI - Musculoskeletal Musculoskeletal: Myalgias, Stiffness - Integumentary Integumentary: Unusual Bruising - Neurological Neurological: As Per HPI Past Patient History - Infectious Disease Hx of Infectious Diseases: None - Tetanus Immunizations Tetanus Immunization: Unknown - Past Medical History & Family History Past Medical History?: Yes - Past Social History Smoking Status: Never Smoked Chewing Tobacco Use: No Cigar Use: No Alcohol: None Drugs: Denies Home Situation {Lives}: With Family - CARDIAC Hx Cardiac Disorders: Yes (CAD) Hx Congestive Heart Failure: Yes Hx Hypertension: Yes - PULMONARY Hx Asthma: Yes Hx Pneumonia: Yes - NEUROLOGICAL Hx Neurological Disorder: No - HEENT Hx HEENT Problems: Yes 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 eye vision blurred, uses eyeglasses for reading - RENAL Hx Chronic Kidney Disease: Yes Hx Dialysis: Yes Date of Last Dialysis Treatment: 05/07/17 - ENDOCRINE/METABOLIC Hx Diabetes Mellitus Type 2: Yes (for 15 years) - HEMATOLOGICAL/ONCOLOGICAL Hx Blood Disorders: Yes Hx Anemia: Yes - INTEGUMENTARY Hx Dermatological Problems: No - MUSCULOSKELETAL/RHEUMATOLOGICAL Hx Arthritis: Yes - GASTROINTESTINAL Hx Gastrointestinal Disorders: Yes Hx Gastritis: Yes - PSYCHIATRIC Hx Psychophysiologic Disorder: Yes Hx Anxiety: Yes Hx Depression: Yes Hx Substance Use: No - SURGICAL HISTORY Hx Surgeries: Yes Hx Amputation: Yes (L Hallux amputation 2011) Hx Vascular Access Device: Yes Other/Comment: L inguinal hernia repairs x 2. L eye surgery. Left arm AV fistula - ANESTHESIA Hx Anesthesia: Yes Hx Anesthesia Reactions: No Hx Malignant Hyperthermia: No Meds Allergies/Adverse Reactions: Allergies Allergy/AdvReac Type Severity Reaction Status Date / Time Penicillins Allergy Verified 06/11/17 13:51 Physical Exam - Constitutional Appears: Chronically Ill - Head Exam Head Exam: ATRAUMATIC, NORMAL INSPECTION - Eye Exam Eye Exam: EOMI, Normal appearance - Neck Exam Neck exam: Positive for: Normal Inspection. Negative for: Tenderness - Respiratory Exam Respiratory Exam: Clear to Auscultation Bilateral, NORMAL BREATHING PATTERN - Cardiovascular Exam Cardiovascular Exam: REGULAR RHYTHM, +S1 - GI/Abdominal Exam GI & Abdominal Exam: Organomegaly, Soft. absent: Tenderness - Extremities Exam Extremities exam: Positive for: pedal edema, tenderness - Neurological Exam Neurological exam: Alert, CN II-XII Intact - Skin Skin Exam: Dry, Warm Results - Vital Signs Recent Vital Signs: Last Vital Signs Temp 97.6 F 06/11/17 13:40 Pulse 82 06/11/17 13:40 Resp 20 06/11/17 13:40 BP 137/92 H 06/11/17 13:40 Pulse Ox 95 06/11/17 13:40 - Labs Result Diagrams: 06/11/17 14:19 Labs: Laboratory Results - last 24 hr 06/11/17 06/11/17 13:41 14:19 WBC 7.3 RBC 3.05 L Hgb 9.6 L Hct 28.2 L MCV 92.7 MCH 31.5 H MCHC 34.0 RDW 15.8 H Plt Count 116 L D MPV 10.7 Neut % (Auto) 53.8 Lymph % (Auto) 16.2 L Crook % (Auto) 27.6 H Eos % (Auto) 1.4 Baso % (Auto) 1.0 Neut # 3.9 Lymph # 1.2 Crook # 2.0 H Eos # 0.1 Baso # 0.1 POC Glucose (mg/dL) 110 Assessment & Plan (1) Type 2 diabetes mellitus with diabetic nephropathy Status: Acute (2) TIA (transient ischemic attack) Status: Acute (3) PVD (peripheral vascular disease) Status: Acute (4) ESRD (end stage renal disease) Status: Acute (5) Altered mental status Status: Acute (6) Chronic congestive heart failure Status: Acute - Assessment and Plan (Free Text) Plan: NEURO WORKUP SAME MEDS AWAIT LABS DIALYSIS MWF
[2017-06-11 14:35] LABS: SODIUM 132 mmol/L (132-148)
[2017-06-11 14:37] LABS: ALB/GLOB RATIO 0.6 (1.0-2.1); BILIRUBIN,TOTAL 10.8 mg/dL (0.2-1.3); CARBON DIOXIDE 32 mmol/L (22-30); CHOLESTEROL 191 mg/dL (0-199); GFR AFRICAN-AMERICAN 49; TOTAL PROTEIN 8.9 g/dL (6.3-8.3)
[2017-06-11 14:38] LABS: ALKALINE PHOSPHATASE 1328 U/L (38-126); ALT/SGPT 35 U/L (21-72); AST/SGOT 92 U/L (17-59); BLOOD UREA NITROGEN 25 mg/dL (9-20); CALCIUM 8.9 mg/dl (8.6-10.4); GLUCOSE,RANDOM 108 mg/dL (75-110); POTASSIUM 5.2 mmol/L (3.6-5.2)
--- NOTE | 2017-06-11 14:41 | RAD ---
HISTORY: CVA alert COMPARISON: Comparison chest dated 05/07/2017 FINDINGS: LUNGS: Poor inspiration with low lung volumes, crowded bronchovascular markings and mild bibasilar atelectasis. The central pulmonary vasculature is slightly increased though this is likely due to semi-erect patient positioning and poor inspiration as well. PLEURA: No significant pleural effusion identified, no pneumothorax apparent. CARDIOVASCULAR: Cardiomegaly. OSSEOUS STRUCTURES: No significant abnormalities. VISUALIZED UPPER ABDOMEN: Normal. OTHER FINDINGS: None. IMPRESSION: Poor inspiration with low lung volumes, crowded bronchovascular markings and mild bibasilar atelectasis. The central pulmonary vasculature is slightly increased though this is likely due to semi-erect patient positioning and poor inspiration as well. Cardiomegaly.
[2017-06-11 14:57] LABS: EOSINOPHIL 3 % (0-4); NEUTROPHIL 62 % (50-75); TOTAL CELLS COUNTED 100
--- NOTE | 2017-06-11 16:37 | MRI ---
PROCEDURE: MRI of the brain dated 06/11/2017 HISTORY: CVA. COMPARISON: Comparison made with CT scan brain obtained earlier same day. TECHNIQUE: Multiplanar, multisequence MR images of the brain were obtained without intravenous contrast enhancement. . Note that the examination is limited by motion artifact FINDINGS: HEMORRHAGE: No acute parenchymal, subarachnoid or extra-axial hemorrhage. No hemosiderin deposition identified on gradient echo weighted sequence DWI: There is an elliptical shaped acute infarcts seen in the right lateral basal ganglia extending superiorly into the right coronal radiata. . BRAIN PARENCHYMA: Very mild diffuse/confluent chronic periventricular white matter ischemic changes are seen extending peripherally into the deep and to a lesser degree subcortical white matter both cerebral hemispheres. Chronic appearing lacunar-type infarcts seen adjacent to to the superior aspect left caudate head. . Questionable chronic right cerebellar infarct Moderate generalized volume loss. . VENTRICLES: No obstructive hydrocephalus CRANIUM: Calvarium appears intact ORBITS: Changes of bilateral cataract surgery again noted. PARANASAL SINUSES/MASTOIDS: Mild mucosal thickening seen within the maxillary sinuses. Minimal mucosal thickening in the sphenoid and ethmoid air complex extending superiorly into the inferior margin of the frontal sinus. . There appears to be some minimal mucosal thickening multiple left-sided mastoid air common cells VASCULAR SYSTEM: Visualized major vascular flow voids at skull base are patent. OTHER FINDINGS: Re- demonstrated are changes of bilateral cataract surgery IMPRESSION: Limited motion degraded study. There is an acute right basal ganglia/coronal radiata junction infarct of. Chronic white matter and left basal ganglia ischemic changes. No evidence of acute intracranial hemorrhage. Moderate generalized volume loss. See above discussion for additional findings and details. Note these findings were discussed with Dr Talavera at approximately 4:27 p.m. with written down and read back verification.
--- NOTE | 2017-06-11 18:11 | C.PDOC ---
History Of Present Illness 51 year old male was brought to the ED via ALS from dialysis for evaluation of left facial droop, slurred speech, left arm and leg weakness noted by ALS. According to dialysis nurse, via telephone, patient fell asleep at 10:15am with no slurred speech and at baseline. Patient was awoken at 12:50pm, after completion of dialysis, and symptoms were noticed. Patient denies any physical complaints. Chief Complaint (Nursing): Weakness/Neurological Deficit History Per: Patient, EMS (ALS), Other (Dialysis Center) Onset/Duration Of Symptoms: Hrs Current Symptoms Are (Timing): Still Present Reports Recently: Treated By A Physician Recent travel outside of the [place]: No Past Medical History Reviewed: Historical Data, Nursing Documentation, Vital Signs Vital Signs: Last Vital Signs Temp 98.1 F 06/11/17 18:07 Pulse 76 06/11/17 18:07 Resp 18 06/11/17 18:07 BP 126/75 06/11/17 18:07 Pulse Ox 93 L 06/11/17 18:35 - Medical History PMH: Anemia, Anxiety, Arthritis, Asthma, Back Problems, CAD, CHF, Depression, Diabetes, Gastritis, HTN, Hypercholesterolemia, Pneumonia, Chronic Kidney Disease - [facility] Procedures BYPASS LEFT BRACHIAL ARTERY TO UPPER ARM VEIN, OPEN APPROACH (11/28/16) CENTRAL VENOUS CATHETER PLACEMENT WITH GUIDANCE (10/12/13) CORONAR ARTERIOGR-2 CATH (10/17/14) EXCISION OF ASCENDING COLON, ENDO, DIAGN (05/07/17) EXCISION OF SMALL INTESTINE, ENDO, DIAGN (05/07/17) INFLUENZA VACCINATION (09/24/13) INSERTION OF INFUSION DEV INTO SUP VENA CAVA, PERC APPROACH (11/28/16) LEFT HEART CARDIAC CATH (10/17/14) LT HEART ANGIOCARDIOGRAM (10/17/14) PERFORMANCE OF URINARY FILTRATION, MULTIPLE (05/07/17) VACCINATION NEC (09/24/13) Family History: States: Diabetes - Social History Hx Tobacco Use: No Hx Alcohol Use: No Hx Substance Use: No - Immunization History Hx Tetanus Toxoid Vaccination: No Hx Influenza Vaccination: No Hx Pneumococcal Vaccination: No Review Of Systems Constitutional: Negative for: Fever Cardiovascular: Negative for: Chest Pain Gastrointestinal: Negative for: Vomiting, Diarrhea Neurological: Positive for: Weakness (left arm and left leg ), Other (left facial droop and slurred speech ) Physical Exam - Physical Exam Appears: Non-toxic, In Acute Distress Skin: Warm, Dry Head: Atraumatic Eye(s): bilateral: Normal Inspection Oral Mucosa: Moist Neck: Supple Chest: Symmetrical, No Deformity Cardiovascular: Rhythm Regular, No Murmur Respiratory: No Rales, No Rhonchi, No Wheezing, Other (clear to auscultation bilaterally ) Gastrointestinal/Abdominal: Soft, No Tenderness, No Distention, No Guarding, No Rebound Extremity: Other (Decreased size marker strength of the left upper extremity. Pronator drift of the left arm. Patient was unable to keep left leg off of the stretcher for more than 10 seconds. ) Neurological/Psych: Oriented x3, No Normal Speech (slurred speech ), Other ( Left facial droop ) ED Course And Treatment - Laboratory Results Result Diagrams: 06/11/17 14:19 06/11/17 14:19 ECG: Interpreted By Me, Viewed By Me ECG Rhythm: Sinus Rhythm Interpretation Of ECG: Right axis deviation. Normal intervals. Rate From EC O2 Sat by Pulse Oximetry: 93 (RA) - CT Scan/US CT HEAD WITHOUT CONTRAST. Other Rad Studies (CT/US): Read By Radiologist, Radiology Report Reviewed CT/US Interpretation: FINDINGS: HEMORRHAGE: No intracranial hemorrhage. BRAIN : There is a marginal expansion and ventricular sulcal and cisternal spaces as well as trace periventricular white matter lucency compatible with mild increase in age-related neuro degenerative changes. No mass effect is identified and there is no suspicious extra-axial fluid collection. Corticomedullary differentiation remains adequately preserved. Posterior fossa contents are unremarkable. VENTRICLES: Unremarkable. No hydrocephalus. CALVARIUM: Unremarkable. PARANASAL SINUSES: Unremarkable as visualized. No significant inflammatory changes. MASTOID AIR CELLS: Unremarkable as visualized. No inflammatory changes. OTHER FINDINGS: None. IMPRESSION: Minimal increase in age-related neuro degenerative findings which are nevertheless mild overall. No acute intracranial findings are identified at this time. Follow-up MRI or CT are available as clinically warranted. Findings discussed with Dr. Talavera 06/11/2017 2:00 p.m. with written down and read back verification. MRI of the brain Other Rad Studies (CT/US): Read By Radiologist, Radiology Report Reviewed CT/US Interpretation: FINDINGS: HEMORRHAGE: No acute parenchymal, subarachnoid or extra-axial hemorrhage. No hemosiderin deposition identified on gradient echo weighted sequence. DWI: There is an elliptical shaped acute infarcts seen in the right lateral basal ganglia extending superiorly into the right coronal radiata. . BRAIN PARENCHYMA: Very mild diffuse/confluent chronic periventricular white matter ischemic changes are seen extending peripherally into the deep and to a lesser degree subcortical white matter both cerebral hemispheres. Chronic appearing lacunar-type infarcts seen adjacent to to the superior aspect left caudate head. . Questionable chronic right cerebellar infarct. Moderate generalized volume loss. . VENTRICLES: No obstructive hydrocephalus. CRANIUM: Calvarium appears intact. ORBITS: Changes of bilateral cataract surgery again noted. PARANASAL SINUSES/MASTOIDS: Mild mucosal thickening seen within the maxillary sinuses. Minimal mucosal thickening in the sphenoid and ethmoid air complex extending superiorly into the inferior margin of the frontal sinus. . There appears to be some minimal mucosal thickening multiple left-sided mastoid air common cells. VASCULAR SYSTEM: Visualized major vascular flow voids at skull base are patent. OTHER FINDINGS: Re- demonstrated are changes of bilateral cataract surgery. IMPRESSION: Limited motion degraded study. There is an acute right basal ganglia/coronal radiata junction infarct of. Chronic white matter and left basal ganglia ischemic changes. No evidence of acute intracranial hemorrhage. Moderate generalized volume loss. See above discussion for additional findings and details. Note these findings were discussed with Dr Talavera at approximately 4:27 p.m. with written down and read back verification. Progress Note: Following CT scan, case discussed with Dr. Muir, neurology radio control crane operator. Dr. muir recommends Aspirin therapy and admission. Spoke to PMD, Dr. Chávez, and they were made aware of the case. After MRI spoke to Dr. Muir and reviewed findings of the MRI. Critical Care Time - Critical Care Note Total Time (in mins): 60 Documented critical care: time excludes all time spent performing seperately billable procedures. NIHSS Stroke Scale - Date/Time Evaluation Performed Date Performed: 06/11/17 Time Performed: 14:25 When Was NIHSS Performed: Baseline - How Severe is the Stroke Level of Consciousness: 1=Drowsy LOC to Questions: 0=Both comments correct LOC to commands: 0=Obeys both correctly Best Gaze: 0=Normal Visual: 0=No visual loss Facial: 2=Partial (lower face paralysis) Motor Arm - Left: 2=Falls before 10 sec Motor Arm - Right: 0=No drift Motor Leg - Left: 2=Falls before 5 sec Motor Leg - Right: 0=No drift Limb Ataxia: 0=Absent Sensory: 0=Normal Best Language: 0=No aphasia Dysarthia: 1=Mild to moderate slurring Extinction & Inattention (Neglect): 0=Normal, no object Score: 8 rTPA Inclusion/Exclusion - Refusal of Treatment Patient Refused Treatment: No - Inclusion Criteria for Altepase Patient is 18 years or Older: Yes The Clinical Diagnosis of Ischemic Stroke That is Causing a Potentially Disabling Neurological Deficit: Yes Time of Onset is Well Established to be Less Than 270 Minute Before Treatment Would Begin: No Risk/Benefit Discussed With Patient/Family Member Present: No Disposition - Disposition Disposition: HOME/ ROUTINE Disposition Time: 15:00 Condition: GUARDED - Clinical Impression Clinical Impression: CVA (cerebral vascular accident) - Scribe Statement The provider has reviewed the documentation as recorded by the Scribe Dominga Zapata All medical record entries made by the Scribe were at my direction and personally dictated by me. I have reviewed the chart and agree that the record accurately reflects my personal performance of the history, physical exam, medical decision making, and the department course for this patient. I have also personally directed, reviewed, and agree with the discharge instructions and disposition.
[2017-06-11] MEDS: Fluticasone-Salmeterol 250-50mcg Diskus INH SCH (21:06)
[2017-06-12 07:43] LABS: CHOLESTEROL 204 mg/dL (0-199)
--- NOTE | 2017-06-12 09:00 | CP.PCM.PN ---
Subjective - Date & Time of Evaluation Date of Evaluation: 06/12/17 Time of Evaluation: 08:57 - Subjective Subjective: Comfortable in bed; ap[pears sleepy labs reveal elevated total bili- similar as before s/p dialysis 06/11 on high dose gabapentin on plavix- likely had TIA Objective - Vital Signs/Intake and Output Vital Signs (last 24 hours): Temp Pulse Resp BP Pulse Ox 98 F 83 20 137/80 94 L 06/12/17 07:00 06/12/17 07:00 06/12/17 07:00 06/12/17 07:00 06/12/17 07:00 Intake and Output: 06/12/17 06/12/17 06:59 18:59 Intake Total 0 Balance 0 - Medications Medications: Current Medications Aspirin (Ecotrin) 81 mg PO DAILY LONG Calcitriol (Rocaltrol) 0.25 mcg PO DAILY LONG Calcium Acetate (Phoslo) 667 mg PO TIDCC LONG Clopidogrel Bisulfate (Plavix) 75 mg PO DAILY LONG Ergocalciferol (Drisdol 50,000 Intl Units Cap) 1 cap PO QWK LONG Furosemide (Lasix) 40 mg PO BID LONG Gabapentin (Neurontin) 300 mg PO DAILY LONG Hydralazine HCl (Apresoline) 50 mg PO TID LONG Isosorbide Mononitrate (Imdur) 60 mg PO DAILY LONG Multivitamins (Hexavitamin) 1 tab PO DAILY LONG Rosuvastatin Calcium (Crestor) 20 mg PO HS [facility] Last Admin: 06/11/17 21:02 Dose: Not Given Fluticasone/Salmeterol (Advair Diskus 250/50) 1 puff INH RQ12 [facility] Last Admin: 06/11/17 21:06 Dose: Not Given Vitamin B Complex/Vitamin C (Berocca) 1 tab PO DAILY LONG - Labs Labs: 06/11/17 14:19 06/11/17 14:19 PT 15.6 SECONDS (9.7-12.2) H 06/11/17 14:19 INR 1.4 06/11/17 14:19 APTT 36 SECONDS (21-34) H 06/11/17 14:19 - Constitutional Appears: No Acute Distress, Confused, Chronically Ill - Head Exam Head Exam: ATRAUMATIC, NORMAL INSPECTION - Eye Exam Eye Exam: EOMI, Scleral icterus - Neck Exam Neck Exam: Normal Inspection. absent: Tenderness - Respiratory Exam Respiratory Exam: Clear to Ausculation Bilateral, NORMAL BREATHING PATTERN - Cardiovascular Exam Cardiovascular Exam: REGULAR RHYTHM, +S1 - GI/Abdominal Exam GI & Abdominal Exam: Distended, Soft - Extremities Exam Extremities Exam: Normal Inspection. absent: Tenderness - Neurological Exam Neurological Exam: Altered, CN II-XII Intact - Skin Skin Exam: Dry, Warm Assessment and Plan (1) Type 2 diabetes mellitus with diabetic nephropathy Status: Acute (2) TIA (transient ischemic attack) Status: Acute (3) PVD (peripheral vascular disease) Status: Acute (4) ESRD (end stage renal disease) Status: Acute (5) Altered mental status Status: Acute (6) Chronic congestive heart failure Status: Acute (7) Cirrhosis Status: Acute - Assessment and Plan (Free Text) Plan: Dialysis MWF Decrease gabapentin dose as pt more lethargic
--- NOTE | 2017-06-12 10:34 | CP.PCM.HP ---
History of Present Illness - History of Present Illness History of Present Illness: Pt was brought to hospital after acute onset of slurred speech and left sided weakness. This occured while receiving dialysis. As per ER doctor by the time he came to the hospital it was too late for TPA. PT speech is slurred but he is able to communicate. Pt is a new patient to me, first seen in my office the first week of May. Pt told me at the time he had been hospitalized earlier this year and since then could not walk without help, yet he was not sure if he had had a cva. PT was schedulled to get an MRI and started on asa and cholesterol meds. PT has had an elevated LFT and recent work up revealed +hep A. PT had no knowledge of ho liver disease. HIV recently was also negative. PMHx: Anemia Hypercholesterolemia End stage renal disease Peripheral Vascular Disease Diabetes Hypertension Vitamin D defficiency Cirrhosis of liver Disorder of kidney and Ureter Cardiomegaly Asthma Nonspecific elevation of levels of transaminase and lactic acid dehydrogenase PSHX: Inguinal hernia repair Knee repair Toe amputation social: -smoking, never smoker -ETOH -Drugs Family: Father- Diabetes Mother- Diabetes Present on Admission - Present on Admission Any Indicators Present on Admission: No History of Uncontrolled Diabetes: No Review of Systems - Constitutional Constitutional: absent: Anorexia, Chills, Fever, Headache - EENT Ears: absent: Decreased Hearing Nose/Mouth/Throat: absent: Epistaxis, Bleeding Gums - Cardiovascular Cardiovascular: absent: Chest Pain with Activity, Diaphoresis - Respiratory Respiratory: absent: Wheezing, Chest Congestion - Gastrointestinal Gastrointestinal: absent: Abdominal Pain - Genitourinary Genitourinary: absent: Hematuria - Musculoskeletal Musculoskeletal: absent: Joint Swelling Past Patient History - Infectious Disease Hx of Infectious Diseases: None - Tetanus Immunizations Tetanus Immunization: Unknown - Past Medical History & Family History Past Medical History?: Yes - Past Social History Smoking Status: Never Smoked - CARDIAC Hx Congestive Heart Failure: Yes Hx Hypercholesterolemia: Yes Hx Hypertension: Yes - PULMONARY Hx Asthma: Yes Hx Pneumonia: Yes - NEUROLOGICAL Hx Neurological Disorder: No - HEENT Hx HEENT Problems: Yes 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 eye vision blurred, uses eyeglasses for reading - RENAL Hx Chronic Kidney Disease: Yes - ENDOCRINE/METABOLIC Hx Diabetes Mellitus Type 2: Yes (for 15 years) - HEMATOLOGICAL/ONCOLOGICAL Hx Anemia: Yes - INTEGUMENTARY Hx Dermatological Problems: No - MUSCULOSKELETAL/RHEUMATOLOGICAL Hx Arthritis: Yes Hx Falls: No - GASTROINTESTINAL Hx Gastritis: Yes - PSYCHIATRIC Hx Anxiety: Yes Hx Depression: Yes Hx Substance Use: No - SURGICAL HISTORY Hx Surgeries: Yes Hx Amputation: Yes (L Hallux amputation 2011) Hx Vascular Access Device: Yes Other/Comment: L inguinal hernia repairs x 2. L eye surgery. Left arm AV fistula - ANESTHESIA Hx Anesthesia: Yes Hx Anesthesia Reactions: No Hx Malignant Hyperthermia: No Meds Allergies/Adverse Reactions: Allergies Allergy/AdvReac Type Severity Reaction Status Date / Time Penicillins Allergy Verified 06/11/17 13:51 Physical Exam - Head Exam Head Exam: ATRAUMATIC - Eye Exam Eye Exam: Normal appearance, PERRL - ENT Exam ENT Exam: Mucous Membranes Moist - Respiratory Exam Respiratory Exam: Clear to Auscultation Bilateral - Cardiovascular Exam Cardiovascular Exam: REGULAR RHYTHM, +S1, +S2 - GI/Abdominal Exam GI & Abdominal Exam: Normal Bowel Sounds - Rectal Exam Rectal Exam: Deferred - Extremities Exam Extremities exam: Negative for: joint swelling - Neurological Exam Neurological exam: Alert Additional comments: Pt with slurred speech and left hemiparesis Results - Vital Signs Recent Vital Signs: Last Vital Signs Temp 98 F 06/12/17 07:00 Pulse 83 06/12/17 07:00 Resp 20 06/12/17 07:00 BP 137/80 06/12/17 07:00 Pulse Ox 94 L 06/12/17 07:00 - Labs Result Diagrams: 06/11/17 14:19 06/11/17 14:19 Labs: Laboratory Results - last 24 hr 06/11/17 06/11/17 06/11/17 13:41 14:19 14:19 WBC 7.3 RBC 3.05 L Hgb 9.6 L Hct 28.2 L MCV 92.7 MCH 31.5 H MCHC 34.0 RDW 15.8 H Plt Count 116 L D MPV 10.7 Neut % (Auto) 53.8 Lymph % (Auto) 16.2 L Ritchie % (Auto) 27.6 H Eos % (Auto) 1.4 Baso % (Auto) 1.0 Neut # 3.9 Lymph # 1.2 Ritchie # 2.0 H Eos # 0.1 Baso # 0.1 Neutrophils % (Manual) 62 Lymphocytes % (Manual) 18 L Monocytes % (Manual) 17 H Eosinophils % (Manual) 3 Platelet Estimate Slightly decreased L Polychromasia Slight Hypochromasia (manual) Slight Anisocytosis (manual) Slight Target Cells Slight PT 15.6 H INR 1.4 APTT 36 H Sodium Potassium Chloride Carbon Dioxide Anion Gap BUN Creatinine Est GFR ( Amer) Est GFR (Non-Af Amer) POC Glucose (mg/dL) 110 Random Glucose Calcium Total Bilirubin AST ALT Alkaline Phosphatase Troponin I Total Protein Albumin Globulin Albumin/Globulin Ratio Triglycerides Cholesterol LDL Cholesterol Direct HDL Cholesterol Blood Type Antibody Screen 06/11/17 06/11/17 06/11/17 14:19 14:41 22:58 WBC RBC Hgb Hct MCV MCH MCHC RDW Plt Count MPV Neut % (Auto) Lymph % (Auto) Ritchie % (Auto) Eos % (Auto) Baso % (Auto) Neut # Lymph # Ritchie # Eos # Baso # Neutrophils % (Manual) Lymphocytes % (Manual) Monocytes % (Manual) Eosinophils % (Manual) Platelet Estimate Polychromasia Hypochromasia (manual) Anisocytosis (manual) Target Cells PT INR APTT Sodium 132 Potassium 5.2 Chloride 93 L Carbon Dioxide 32 H Anion Gap 12 BUN 25 H Creatinine 1.8 H Est GFR ( Amer) 49 Est GFR (Non-Af Amer) 40 POC Glucose (mg/dL) 145 H Random Glucose 108 Calcium 8.9 Total Bilirubin 10.8 H AST 92 H D ALT 35 Alkaline Phosphatase 1328 H Troponin I < 0.0120 Total Protein 8.9 H Albumin 3.3 L D Globulin 5.5 H Albumin/Globulin Ratio 0.6 L Triglycerides 173 H D Cholesterol 191 LDL Cholesterol Direct 127 HDL Cholesterol 20 L Blood Type A POSITIVE Antibody Screen Negative 06/12/17 06/12/17 06:44 06:56 WBC RBC Hgb Hct MCV MCH MCHC RDW Plt Count MPV Neut % (Auto) Lymph % (Auto) Ritchie % (Auto) Eos % (Auto) Baso % (Auto) Neut # Lymph # Ritchie # Eos # Baso # Neutrophils % (Manual) Lymphocytes % (Manual) Monocytes % (Manual) Eosinophils % (Manual) Platelet Estimate Polychromasia Hypochromasia (manual) Anisocytosis (manual) Target Cells PT INR APTT Sodium Potassium Chloride Carbon Dioxide Anion Gap BUN Creatinine Est GFR ( Amer) Est GFR (Non-Af Amer) POC Glucose (mg/dL) 111 H Random Glucose Calcium Total Bilirubin AST ALT Alkaline Phosphatase Troponin I Total Protein Albumin Globulin Albumin/Globulin Ratio Triglycerides 171 H Cholesterol 204 H LDL Cholesterol Direct 127 HDL Cholesterol 22 L Blood Type Antibody Screen Assessment & Plan - Assessment and Plan (Free Text) Assessment: acute cva with left hemiparesis no candidate for TPA per ER neuro consulted in ER added plavix as he had been on asa added statn npo until swallow judd dvt prophylaxis hold bp meds for sbp<160 carotid us mri echo monitor bp and sugar closely renal cosult to Dr. Felix his nephorologyst - Date & Time Date: 06/11/17 Time: 17:00
--- NOTE | 2017-06-12 12:41 | CP.PCM.PN ---
Subjective - Date & Time of Evaluation Date of Evaluation: 06/12/17 Time of Evaluation: 12:38 - Subjective Subjective: PT is alert and oriented surronded by family members at bed side. PT reports feeling ok. Still has significant difficulty with speech, but able to communicate. Pt remembers everything that happened yesterday. Pt is hungry , happy to start on diet denies chest pain or sob. Objective - Vital Signs/Intake and Output Vital Signs (last 24 hours): Temp Pulse Resp BP Pulse Ox 98.6 F 84 20 141/87 95 06/12/17 12:00 06/12/17 12:00 06/12/17 12:00 06/12/17 12:00 06/12/17 12:00 Intake and Output: 06/12/17 06/12/17 06:59 18:59 Intake Total 0 Balance 0 - Medications Medications: Current Medications Aspirin (Ecotrin) 81 mg PO DAILY [facility] Calcitriol (Rocaltrol) 0.25 mcg PO DAILY [facility] Calcium Acetate (Phoslo) 667 mg PO TIDCC [facility] Last Admin: 06/12/17 11:28 Dose: Not Given Clopidogrel Bisulfate (Plavix) 75 mg PO DAILY [facility] Ergocalciferol (Drisdol 50,000 Intl Units Cap) 1 cap PO QWK [facility] Furosemide (Lasix) 40 mg PO BID [facility] Last Admin: 06/12/17 10:00 Dose: Not Given Gabapentin (Neurontin) 300 mg PO DAILY [facility] Heparin Sodium (Porcine) (Heparin) 5,000 units SC Q12 [facility] Hydralazine HCl (Apresoline) 50 mg PO TID [facility] Last Admin: 06/12/17 11:25 Dose: Not Given Isosorbide Mononitrate (Imdur) 60 mg PO DAILY [facility] Multivitamins (Hexavitamin) 1 tab PO DAILY [facility] Rosuvastatin Calcium (Crestor) 20 mg PO HS [facility] Last Admin: 06/11/17 21:02 Dose: Not Given Fluticasone/Salmeterol (Advair Diskus 250/50) 1 puff INH RQ12 [facility] Last Admin: 06/11/17 21:06 Dose: Not Given Vitamin B Complex/Vitamin C (Berocca) 1 tab PO DAILY [facility] - Labs Labs: 06/11/17 14:19 06/11/17 14:19 PT 15.6 SECONDS (9.7-12.2) H 06/11/17 14:19 INR 1.4 06/11/17 14:19 APTT 36 SECONDS (21-34) H 06/11/17 14:19 - Constitutional Appears: Non-toxic, No Acute Distress - Eye Exam Eye Exam: Normal appearance - ENT Exam ENT Exam: Mucous Membranes Moist - Respiratory Exam Respiratory Exam: Clear to Ausculation Bilateral - GI/Abdominal Exam GI & Abdominal Exam: Normal Bowel Sounds - Extremities Exam Extremities Exam: Normal Inspection - Neurological Exam Neurological Exam: Alert, Awake Neuro motor strength exam: Left Upper Extremity: 0, Right Upper Extremity: 4, Left Lower Extremity: 2/1, Right Lower Extremity: 4 Assessment and Plan - Assessment and Plan (Free Text) Assessment: Acute cva/ complete by the time he presented to ER mri shows right basial ganglia /coronal radiata junction infarct. acute. There are some chronic ischemic changes as well. was on asa at home recently started on whelchol due to elevated ldl and elevated lft pt had +hep A ab out. neuro eval consulted yesterday mra and carotid us 2d echo added plavix as he was on asa at home Hold bp meds unles bp >160 start statin with close attntion to liver anemia monitor iron studies told he has a weak heart 2d echo HD per Dr Felix Rehab ordered New; diarrhea stool study
[2017-06-12] MEDS: Multiple Vitamins Tab PO SCH (12:55)
[2017-06-12] MEDS: Vitamin B Complex/Vitamin C Tab PO SCH (12:57)
[2017-06-12] MEDS: Cholestyramine 4 gm/Pkt UD PO SCH ×2 (15:08→22:42)
[2017-06-12] MEDS: Fluticasone-Salmeterol 250-50mcg Diskus INH SCH (20:19)
--- NOTE | 2017-06-12 22:01 | CON ---
NEUROLOGY CONSULTATION DATE: REASON FOR CONSULTATION: Left-sided weakness. HISTORY OF PRESENTING ILLNESS: The patient is a 51-year-old male who was brought yesterday from a dialysis unit after he was noted to have slurring of speech and weakness on the left side. The patient was brought here to the hospital where he was evaluated and admitted with acute stroke. The patient is unable to give history. History is mainly from the chart because of this patient's current mental status. REVIEW OF SYSTEMS: No cough. No sputum production. No fever. No chest pain. No palpitations. No headaches. PAST MEDICAL HISTORY: Include anemia, hypercholesterolemia, end-stage renal disease on dialysis, peripheral vascular disease, diabetes mellitus, hypertension, vitamin D deficiency, liver cirrhosis, cardiomegaly, and asthma. PAST SURGICAL HISTORY: Include inguinal hernia repair and toe amputation. SOCIAL HISTORY: He is a nonsmoker, nonalcoholic, and does not use any illicit drugs. FAMILY HISTORY: Parents have diabetes. PHYSICAL EXAMINATION: GENERAL: The patient is a middle-aged male who looks older for age, lying in the bed in no acute distress. VITAL SIGNS: Blood pressure is 141/87, heart rate is 84 per minute, breathing at the rate of 15, and current temperature is 98.6 degrees Fahrenheit. HEENT: Head is normocephalic and atraumatic. NECK: Supple. There are no carotid bruits. LUNGS: Clear. CARDIOVASCULAR: S1 and S2 audible. No murmurs. ABDOMEN: Soft and nontender. Bowel sounds are present. NEUROLOGIC: Mental status: The patient is sleepy, but arousable. He follows simple commands. He does have dysarthria. Cranial nerve examination: Pupils are 3 mm bilaterally, reactive to light. Visual solorzano are full. Extraocular movements are intact. There is slight decrease in the nasolabial fold on the left side. He is moving right side spontaneously. Power appears to be 4-5/5. Power on the left side is 0/5. Reflexes are absent. Plantars, no response. Gait is untested because of the left-sided weakness. LABORATORY DATA: Labs reviewed shows WBC of 7.3, hemoglobin 9.6, hematocrit 28.2, and platelets 116. His INR is 1.4. Sodium is 132, potassium 5.2, chloride of 93, carbon dioxide 32, BUN of 25, creatinine of 1.8, and glucose of 108. His cholesterol is 191, LDL is 127, HDL is 20. He had CT head done which shows no acute intracranial pathology. Subsequently, he had MRI of the brain done, which shows limited motion degraded study. There is an acute right basal ganglia/tripp radiata junction infarct. Chronic white matter and basal ganglia ischemic changes. No evidence of acute intracranial hemorrhage. IMPRESSION: 1. Cerebrovascular accident with left hemiparesis and dysarthria. 2. End-stage renal disease on hemodialysis. RECOMMENDATIONS: 1. The patient to have a carotid Doppler study. 2. The patient also to have an echocardiogram. 3. The patient was on aspirin at home. Plavix was added, which needs to be continued along with aspirin. 4. The patient also to be continued on statin. 5. The patient to have physical therapy evaluation. 6. The patient is a good rehab candidate. 7. Please continue supportive care and treatment. Thank you for the opportunity to participate in the care of this patient. Lidya Orlando MD
[2017-06-13 00:12] LABS: POTASSIUM 4.2 mmol/L (3.6-5.2)
[2017-06-13 00:14] LABS: ALB/GLOB RATIO 0.6 (1.0-2.1); CALCIUM 9.4 mg/dl (8.6-10.4)
[2017-06-13 00:27] LABS: BILIRUBIN,DIRECT 10.9 mg/dL (0.0-0.4); BILIRUBIN,TOTAL 11.8 mg/dL (0.2-1.3)
[2017-06-13] MEDS: Cholestyramine 4 gm/Pkt UD PO SCH ×3 (06:19→22:27)
[2017-06-13 09:01] LABS: HEMATOCRIT 29.3 % (35.0-51.0); MEAN CELL VOLUME 93.5 fL (80.0-94.0); MEAN CORPUSCULAR HEMOGLOBIN 31.5 pg (27.0-31.0); MEAN CORPUSCULAR HGB CONC 33.7 g/dL (33.0-37.0); MEAN PLATELET VOLUME 11.5 fL (7.2-11.7); WHITE BLOOD COUNT 6.2 K/uL (4.8-10.8)
[2017-06-13] MEDS: Vitamin B Complex/Vitamin C Tab PO SCH (09:01)
[2017-06-13] MEDS: Multiple Vitamins Tab PO SCH (09:01)
[2017-06-13 09:11] LABS: POTASSIUM 4.3 mmol/L (3.6-5.2)
[2017-06-13 09:12] LABS: BILIRUBIN,TOTAL 11.2 mg/dL (0.2-1.3)
[2017-06-13 09:13] LABS: ALB/GLOB RATIO 0.7 (1.0-2.1); CALCIUM 8.9 mg/dl (8.6-10.4); TOTAL PROTEIN 7.6 g/dL (6.3-8.3)
--- NOTE | 2017-06-13 13:56 | CP.PCM.PN ---
Subjective - Date & Time of Evaluation Date of Evaluation: 06/13/17 Time of Evaluation: 13:52 - Subjective Subjective: Pt reports feeling better. His speech is better and he reports now able to raise left hand. Pt denies sob or chest pain. Pt does not like hospital food, but otherwise no complaints. Pt had some nose bleed but better now. Objective - Vital Signs/Intake and Output Vital Signs (last 24 hours): Temp Pulse Resp BP Pulse Ox 97.3 F L 77 20 138/83 96 06/13/17 12:31 06/13/17 12:33 06/13/17 12:31 06/13/17 12:31 06/13/17 12:33 Intake and Output: 06/13/17 06/13/17 06:59 18:59 Intake Total 240 Balance 240 - Medications Medications: Current Medications Aspirin (Ecotrin) 81 mg PO DAILY [facility] Last Admin: 06/13/17 09:00 Dose: 81 mg Calcitriol (Rocaltrol) 0.25 mcg PO DAILY [facility] Last Admin: 06/13/17 09:01 Dose: 0.25 mcg Calcium Acetate (Phoslo) 667 mg PO TIDCC [facility] Last Admin: 06/13/17 13:00 Dose: 667 mg Cholestyramine Resin (Questran) 4 gm PO Q8 [facility] Last Admin: 06/13/17 12:59 Dose: 4 gm Clopidogrel Bisulfate (Plavix) 75 mg PO DAILY [facility] Last Admin: 06/13/17 09:00 Dose: 75 mg Ergocalciferol (Drisdol 50,000 Intl Units Cap) 1 cap PO QWK [facility] Famotidine (Pepcid) 20 mg PO BID [facility] Last Admin: 06/13/17 09:01 Dose: 20 mg Furosemide (Lasix) 40 mg PO BID [facility] Last Admin: 06/13/17 09:01 Dose: 40 mg Gabapentin (Neurontin) 300 mg PO DAILY [facility] Last Admin: 06/13/17 09:00 Dose: 300 mg Heparin Sodium (Porcine) (Heparin) 5,000 units SC Q12 [facility] Last Admin: 06/13/17 09:01 Dose: 5,000 units Hydralazine HCl (Apresoline) 50 mg PO TID [facility] Last Admin: 06/13/17 13:00 Dose: Not Given Isosorbide Mononitrate (Imdur) 60 mg PO DAILY [facility] Last Admin: 06/13/17 09:01 Dose: 60 mg Multivitamins (Hexavitamin) 1 tab PO DAILY [facility] Last Admin: 06/13/17 09:01 Dose: 1 tab Rifaximin (Xifaxan) 550 mg PO BID [facility] Last Admin: 06/13/17 09:32 Dose: 550 mg Rosuvastatin Calcium (Crestor) 20 mg PO HS [facility] Last Admin: 06/12/17 22:50 Dose: 20 mg Fluticasone/Salmeterol (Advair Diskus 250/50) 1 puff INH RQ12 [facility] Last Admin: 06/12/17 20:19 Dose: Not Given Vitamin B Complex/Vitamin C (Berocca) 1 tab PO DAILY [facility] Last Admin: 06/13/17 09:01 Dose: 1 tab - Labs Labs: 06/13/17 08:45 06/13/17 08:45 PT 15.6 SECONDS (9.7-12.2) H 06/11/17 14:19 INR 1.4 06/11/17 14:19 APTT 36 SECONDS (21-34) H 06/11/17 14:19 - Constitutional Appears: No Acute Distress - Eye Exam Eye Exam: EOMI - ENT Exam ENT Exam: Mucous Membranes Moist - Respiratory Exam Respiratory Exam: Clear to Ausculation Bilateral - Cardiovascular Exam Cardiovascular Exam: RRR, +S1, +S2 - GI/Abdominal Exam GI & Abdominal Exam: Soft, Normal Bowel Sounds - Extremities Exam Extremities Exam: Pedal Edema - Neurological Exam Neuro motor strength exam: Left Upper Extremity: 2/1, Left Lower Extremity: 2/1 Assessment and Plan - Assessment and Plan (Free Text) Assessment: CVA sp acute infarct clinically improving will repeat swallow eval awaiting MRA and carotid us will need rehab bp is stable jv; cont dialyisis had some confussion earlier this admit elevated ammonia on rifaximin now monitor lft with statin
--- NOTE | 2017-06-13 16:56 | MRI ---
PROCEDURE: Magnetic Resonance Angiography Brain. HISTORY: acute cva COMPARISON: Correlation made with prior MRI brain dated 06/11/2017 TECHNIQUE: 3D time of flight MR angiography of the intracranial arteries was performed. Rotating maximum intensity projection images were generated. FINDINGS: INTERNAL CAROTID ARTERIES: Unremarkable. The skull base, petrous, cavernous and supraclinoid segments are bilaterally widely patient. ANTERIOR CEREBRAL ARTERIES: Unremarkable. A1 and A2 segments are widely patent. Smaller distal branches unremarkable, as visualized. MIDDLE CEREBRAL ARTERIES: Unremarkable. M1 and M2 segments are widely patent. Perisylvian branches grossly symmetric. POSTERIOR CIRCULATION: Basilar Artery: Unremarkable. Distal Vertebral Arteries: Minor asymmetry of the distal vertebral arteries, right side of which is larger in caliber/ more dominant than the left. . Posterior Cerebral Arteries: Unremarkable. Posterior Inferior Cerebellar Arteries: Unremarkable. ANEURYSM/ VASCULAR MALFORMATIONS: None. OTHER FINDINGS: None. IMPRESSION: Unremarkable MR angiography of the brain. No evidence of large aneurysm nor vascular malformation. . Note that preliminary report was provided by [facility] radiology service
[2017-06-13] MEDS: Fluticasone-Salmeterol 250-50mcg Diskus INH SCH (19:47)
[2017-06-14] MEDS: Cholestyramine 4 gm/Pkt UD PO SCH ×3 (05:43→22:20)
[2017-06-14 07:27] LABS: POTASSIUM 4.8 mmol/L (3.6-5.2)
[2017-06-14 07:29] LABS: ALB/GLOB RATIO 0.8 (1.0-2.1); BILIRUBIN,TOTAL 11.1 mg/dL (0.2-1.3); TOTAL PROTEIN 7.6 g/dL (6.3-8.3)
[2017-06-14 07:30] LABS: CALCIUM 9.2 mg/dl (8.6-10.4)
--- NOTE | 2017-06-14 09:28 | US ---
HISTORY: elevated alk phos COMPARISON: None. TECHNIQUE: Sonographic evaluation of the abdomen. FINDINGS: LIVER: Measures 22.7 cm. Diffusely increased echogenicity of the liver parenchyma. Smooth contour. No mass. No biliary ductal dilatation. Hepatopetal portal venous flow. Portal venous flow is pulsatile which may be associated with right heart failure. Please correlate. GALLBLADDER: Contracted. Cholelithiasis noted. Sludge noted. Thickened gallbladder wall up to 5 mm common nonspecific particularly in conjunction with contracted status. Nevertheless, consider cholecystitis. Negative sonographic Darling sign. No pericholecystic fluid appreciated. COMMON BILE DUCT: Measures 2 mm. No stones. No dilatation. PANCREAS: Limited visualization. No gross abnormality. RIGHT KIDNEY: Measures 10.6cm. Normal echogenicity. No calculus, mass or hydronephrosis. LEFT KIDNEY: Measures 11.7cm. Normal echogenicity. No calculus, mass, or hydronephrosis. SPLEEN: Minimal splenomegaly. The spleen measures 13.2 cm in greatest dimension. No focal mass. AORTA: No aneurysmal dilatation. IVC: Unremarkable. OTHER FINDINGS: Trace ascites. IMPRESSION: Hepatomegaly with diffuse fatty infiltration. No evidence of biliary obstruction. Cholelithiasis with thickened gallbladder wall but no sonographic Darling sign or pericholecystic fluid. Findings equivocal for cholecystitis. Minimal splenomegaly. Trace ascites. Pulsatile portal venous flow. This may be seen in conjunction with right heart failure.
[2017-06-14] MEDS: Fluticasone-Salmeterol 250-50mcg Diskus INH SCH ×2 (09:31→19:40)
--- NOTE | 2017-06-14 11:17 | CP.PCM.PN ---
Subjective - Date & Time of Evaluation Date of Evaluation: 06/14/17 Time of Evaluation: 11:15 - Subjective Subjective: more alert now s/p abdominal US- very echogenic liver, smooth border- likely liver failure due to passive congestion, right CHF for dialysis today BP controlled echo report pending Objective - Vital Signs/Intake and Output Vital Signs (last 24 hours): Temp Pulse Resp BP Pulse Ox 97.9 F 75 18 142/89 95 06/14/17 07:45 06/14/17 07:45 06/14/17 07:45 06/14/17 07:45 06/14/17 07:45 Intake and Output: 06/14/17 06/14/17 06:59 18:59 Intake Total 120 Output Total 0 Balance 120 - Medications Medications: Current Medications Aspirin (Ecotrin) 81 mg PO DAILY [facility] Last Admin: 06/13/17 09:00 Dose: 81 mg Calcitriol (Rocaltrol) 0.25 mcg PO DAILY [facility] Last Admin: 06/13/17 09:01 Dose: 0.25 mcg Calcium Acetate (Phoslo) 667 mg PO TIDCC [facility] Last Admin: 06/13/17 19:15 Dose: 667 mg Cholestyramine Resin (Questran) 4 gm PO Q8 [facility] Last Admin: 06/14/17 05:43 Dose: 4 gm Clopidogrel Bisulfate (Plavix) 75 mg PO DAILY [facility] Last Admin: 06/13/17 09:00 Dose: 75 mg Ergocalciferol (Drisdol 50,000 Intl Units Cap) 1 cap PO QWK [facility] Famotidine (Pepcid) 20 mg PO BID [facility] Last Admin: 06/13/17 19:16 Dose: 20 mg Furosemide (Lasix) 40 mg PO BID [facility] Last Admin: 06/13/17 19:15 Dose: 40 mg Gabapentin (Neurontin) 300 mg PO DAILY [facility] Last Admin: 06/13/17 09:00 Dose: 300 mg Heparin Sodium (Porcine) (Heparin) 5,000 units SC Q12 [facility] Last Admin: 06/13/17 22:26 Dose: 5,000 units Hydralazine HCl (Apresoline) 50 mg PO TID [facility] Last Admin: 06/13/17 19:16 Dose: 50 mg Isosorbide Mononitrate (Imdur) 60 mg PO DAILY [facility] Last Admin: 06/13/17 09:01 Dose: 60 mg Multivitamins (Hexavitamin) 1 tab PO DAILY [facility] Last Admin: 06/13/17 09:01 Dose: 1 tab Rifaximin (Xifaxan) 550 mg PO BID [facility] Last Admin: 06/13/17 19:24 Dose: 550 mg Rosuvastatin Calcium (Crestor) 20 mg PO HS [facility] Last Admin: 06/13/17 22:27 Dose: Not Given Fluticasone/Salmeterol (Advair Diskus 250/50) 1 puff INH RQ12 [facility] Last Admin: 06/14/17 09:31 Dose: Not Given Vitamin B Complex/Vitamin C (Berocca) 1 tab PO DAILY [facility] Last Admin: 06/13/17 09:01 Dose: 1 tab - Labs Labs: 06/13/17 08:45 06/14/17 07:04 PT 15.6 SECONDS (9.7-12.2) H 06/11/17 14:19 INR 1.4 06/11/17 14:19 APTT 36 SECONDS (21-34) H 06/11/17 14:19 - Constitutional Appears: No Acute Distress, Chronically Ill - Head Exam Head Exam: ATRAUMATIC, NORMAL INSPECTION - Eye Exam Eye Exam: EOMI, Scleral icterus - Neck Exam Neck Exam: Normal Inspection. absent: Tenderness - Respiratory Exam Respiratory Exam: Decreased Breath Sounds, NORMAL BREATHING PATTERN - Cardiovascular Exam Cardiovascular Exam: REGULAR RHYTHM, +S1 - GI/Abdominal Exam GI & Abdominal Exam: Distended, Soft - Extremities Exam Extremities Exam: Pedal Edema. absent: Tenderness - Neurological Exam Neurological Exam: Alert, CN II-XII Intact - Skin Skin Exam: Dry, Warm Assessment and Plan (1) Type 2 diabetes mellitus with diabetic nephropathy Status: Acute (2) TIA (transient ischemic attack) Status: Acute (3) PVD (peripheral vascular disease) Status: Acute (4) ESRD (end stage renal disease) Status: Acute (5) Altered mental status Status: Acute (6) Chronic congestive heart failure Status: Acute (7) Cirrhosis Status: Acute - Assessment and Plan (Free Text) Plan: dialysis now with adequate UF check phos, PTH check echo results neuro eval as needed
[2017-06-14] MEDS: Vitamin B Complex/Vitamin C Tab PO SCH (11:53)
[2017-06-14] MEDS: Multiple Vitamins Tab PO SCH (11:53)
--- NOTE | 2017-06-14 14:21 | VASCLAB ---
PROCEDURE: HISTORY: Acute CVA COMPARISON: No previous vascular exam. TECHNIQUE: Grayscale and duplex Doppler evaluation of the cervical carotid and vertebral arteries were performed. The common carotid, carotid bifurcations and cervical Internal Carotid Artery (ICA) and proximal External Carotid Artery (ECA) were evaluated. The vertebral arteries were evaluated for gross patency and flow direction. Report prepared by WILL Baez FINDINGS: RIGHT CAROTID ARTERIES: 1. Common Carotid Artery: No significant focal plaque formation of the right common carotid artery. Maximum Peak Systolic velocity: 68 cm/sec: End-diastolic velocity 13 cm/sec. 2. Carotid Bifurcation: Heterogeneous plaque formation. Maximum Peak Systolic velocity: 54 cm/sec: End-diastolic velocity 13 cm/sec. 3. Internal Carotid Artery: Plaque description: Heterogeneous 3.1. Proximal Segment: Peak systolic velocity 67 cm/sec: End-diastolic velocity 21 cm/sec - % stenosis 0-15% 3.2. Middle Segment: Peak systolic velocity 71 cm/sec: End-diastolic velocity 21 cm/sec - % stenosis 0-15% 3.3. Distal Segment: Peak systolic velocity 79 cm/sec: End-diastolic velocity 28 cm/sec - % stenosis 0-15% 4. External Carotid Artery: No significant focal plaque formation. Peak systolic velocity 77 cm/sec 5. ICA/CCA Ratio: 1.4 LEFT CAROTID ARTERIES: 1. Common Carotid Artery: No significant focal plaque formation of the left common carotid artery. Maximum Peak Systolic velocity: 74 cm/sec: End-diastolic velocity 12 cm/sec. 2. Carotid Bifurcation: Heterogeneous plaque formation. Maximum Peak Systolic velocity: 48 cm/sec: End-diastolic velocity 10 cm/sec. 3. Internal Carotid Artery: Plaque description: Heterogeneous 3.1. Proximal Segment: Peak systolic velocity 68 cm/sec: End-diastolic velocity 18 cm/sec - % stenosis 0-15% 3.2. Middle Segment: Peak systolic velocity 63 cm/sec: End-diastolic velocity 19 cm/sec - % stenosis 0-15% 3.3. Distal Segment: Peak systolic velocity 58 cm/sec: End-diastolic velocity 21 cm/sec - % stenosis 0-15% 4. External Carotid Artery: No significant focal plaque formation. Peak systolic velocity 106 cm/sec 5. ICA/CCA Ratio: 1.1 VERTEBRAL ARTERIES: 1. Right Vertebral Artery: The right vertebral artery flow direction is antegrade. 2. Left Vertebral Artery: The left vertebral artery flow direction is antegrade. OTHER FINDINGS: 1. Right Brachial Blood pressure: 140 mmHg. 2. Left Brachial Blood pressure: 140 mmHg. IMPRESSION: RIGHT: Duplex scan does not suggest hemodynamically significant stenosis of the right extracranial carotid arteries. LEFT: Duplex scan does not suggest hemodynamically significant stenosis of the left extracranial carotid arteries.
--- NOTE | 2017-06-14 22:43 | PN ---
NEUROLOGY PROGRESS NOTE DATE: SUBJECTIVE: The patient is lying on the bed, in no acute distress. Denies having any headache or dizziness. PHYSICAL EXAMINATION VITAL SIGNS: His blood pressure 130/86, heart rate is 81 per minute, breathing at a rate of 16 per minute and temperature is 98.3 degree Fahrenheit. HEENT: Normocephalic and atraumatic. NECK: Supple. There are no carotid bruits. LUNGS: Clear. CARDIOVASCULAR EXAM: S1 and S2 audible. No murmurs. ABDOMEN: Soft and nontender. Bowel sounds are present. NEUROLOGIC EXAMINATION: Mental Status: The patient is awake and alert. He knows he is in the hospital. He knows the year and month. He follows all simple commands. Cranial nerve examination: Pupils are 2 mm bilaterally reactive to light. Extraocular movements are intact. There is decrease in the nasolabial fold on the left side. Motor examination: Tone is normal. There is left side hemiparesis with power 3/5 on the left side and power on the right side is 4-5/5. Plantars upgoing on the left side and downgoing on the right side. IMPRESSION: Cerebrovascular accident with right basal ganglia infarction causing left-sided hemiparesis. RECOMMENDATIONS: 1. The patient had a carotid Doppler study done, which shows no significant stenosis. 2. The patient to have echocardiogram. 3. The patient to be continued on aspirin and Plavix. 4. The patient also to be continued on statin. 5. The patient to have Physical Therapy. 6. There appears to be improvement in the left-sided weakness. 7. The patient is a good rehab candidate. Thank you the opportunity to participate in the care of this patient. Lidya Orlando MD
[2017-06-15] MEDS: Cholestyramine 4 gm/Pkt UD PO SCH ×3 (06:07→21:34)
[2017-06-15] MEDS: Fluticasone-Salmeterol 250-50mcg Diskus INH SCH ×2 (08:36→19:24)
[2017-06-15] MEDS: Vitamin B Complex/Vitamin C Tab PO SCH (09:40)
[2017-06-15] MEDS: Multiple Vitamins Tab PO SCH (09:40)
--- NOTE | 2017-06-15 13:44 | CP.PCM.PN ---
Subjective - Date & Time of Evaluation Date of Evaluation: 06/15/17 Time of Evaluation: 13:42 - Subjective Subjective: seen and examined family at bedside pt tolerating po intake, ate lunch c/o rt shoulder pain. denies any sob chest pain nausea vomiting diarrhea fevers chills dizziness abdominal pain abd US noted Objective - Vital Signs/Intake and Output Vital Signs (last 24 hours): Temp Pulse Resp BP Pulse Ox 98.1 F 78 18 150/90 100 06/15/17 07:35 06/15/17 07:35 06/15/17 07:35 06/15/17 09:39 06/15/17 07:35 Intake and Output: 06/15/17 06/15/17 06:59 18:59 Intake Total 240 Balance 240 - Medications Medications: Current Medications Aspirin (Ecotrin) 81 mg PO DAILY [facility] Last Admin: 06/15/17 09:41 Dose: 81 mg Calcitriol (Rocaltrol) 0.25 mcg PO DAILY [facility] Last Admin: 06/15/17 09:40 Dose: 0.25 mcg Calcium Acetate (Phoslo) 667 mg PO TIDCC [facility] Last Admin: 06/15/17 13:08 Dose: 667 mg Cholestyramine Resin (Questran) 4 gm PO Q8 [facility] Last Admin: 06/15/17 13:10 Dose: 4 gm Clopidogrel Bisulfate (Plavix) 75 mg PO DAILY [facility] Last Admin: 06/15/17 09:41 Dose: 75 mg Ergocalciferol (Drisdol 50,000 Intl Units Cap) 1 cap PO QWK [facility] Famotidine (Pepcid) 20 mg PO BID [facility] Last Admin: 06/15/17 09:39 Dose: 20 mg Furosemide (Lasix) 40 mg PO BID [facility] Last Admin: 06/15/17 09:39 Dose: 40 mg Gabapentin (Neurontin) 300 mg PO DAILY [facility] Last Admin: 06/15/17 09:39 Dose: 300 mg Hydralazine HCl (Apresoline) 50 mg PO TID [facility] Last Admin: 06/15/17 13:08 Dose: 50 mg Isosorbide Mononitrate (Imdur) 60 mg PO DAILY [facility] Last Admin: 06/15/17 09:40 Dose: 60 mg Multivitamins (Hexavitamin) 1 tab PO DAILY [facility] Last Admin: 06/15/17 09:40 Dose: 1 tab Rifaximin (Xifaxan) 550 mg PO BID [facility] Last Admin: 06/15/17 09:43 Dose: 550 mg Rosuvastatin Calcium (Crestor) 20 mg PO HS [facility] Last Admin: 06/14/17 22:19 Dose: 20 mg Fluticasone/Salmeterol (Advair Diskus 250/50) 1 puff INH RQ12 [facility] Last Admin: 06/15/17 08:36 Dose: 1 puff Vitamin B Complex/Vitamin C (Berocca) 1 tab PO DAILY [facility] Last Admin: 06/15/17 09:40 Dose: 1 tab - Labs Labs: 06/13/17 08:45 06/14/17 07:04 PT 15.6 SECONDS (9.7-12.2) H 06/11/17 14:19 INR 1.4 06/11/17 14:19 APTT 36 SECONDS (21-34) H 06/11/17 14:19 - Constitutional Appears: Non-toxic, No Acute Distress, Chronically Ill - Head Exam Head Exam: NORMAL INSPECTION - Eye Exam Eye Exam: Normal appearance - ENT Exam ENT Exam: Mucous Membranes Moist, Normal Exam - Neck Exam Neck Exam: Normal Inspection - Respiratory Exam Respiratory Exam: Decreased Breath Sounds, NORMAL BREATHING PATTERN - Cardiovascular Exam Cardiovascular Exam: REGULAR RHYTHM, RRR - GI/Abdominal Exam GI & Abdominal Exam: Distended, Soft, Hypoactive Bowel Sounds - Extremities Exam Extremities Exam: Normal Inspection - Neurological Exam Neurological Exam: Alert, Awake Assessment and Plan (1) CVA (cerebral vascular accident) Status: Acute (2) Cirrhosis Status: Acute (3) ESRD (end stage renal disease) Status: Acute (4) Type 2 diabetes mellitus with diabetic nephropathy Status: Acute (5) Altered mental status Status: Acute - Assessment and Plan (Free Text) Assessment: improved mental status hd tomorrow, max uf as tolerated
--- NOTE | 2017-06-15 15:51 | CP.PCM.PN ---
Subjective - Date & Time of Evaluation Date of Evaluation: 06/15/17 Time of Evaluation: 15:48 - Subjective Subjective: Pt reports being very sleepy came to see him and found him sleeping , difficult to awake but once he did, fully coherent but goes back to sleep. Pt denies any discomfort Objective - Vital Signs/Intake and Output Vital Signs (last 24 hours): Temp Pulse Resp BP Pulse Ox 98.1 F 78 18 150/90 100 06/15/17 07:35 06/15/17 07:35 06/15/17 07:35 06/15/17 09:39 06/15/17 07:35 Intake and Output: 06/15/17 06/15/17 06:59 18:59 Intake Total 540 Balance 540 - Medications Medications: Current Medications Aspirin (Ecotrin) 81 mg PO DAILY [facility] Last Admin: 06/15/17 09:41 Dose: 81 mg Calcitriol (Rocaltrol) 0.25 mcg PO DAILY [facility] Last Admin: 06/15/17 09:40 Dose: 0.25 mcg Calcium Acetate (Phoslo) 667 mg PO TIDCC [facility] Last Admin: 06/15/17 13:08 Dose: 667 mg Cholestyramine Resin (Questran) 4 gm PO Q8 [facility] Last Admin: 06/15/17 13:10 Dose: 4 gm Clopidogrel Bisulfate (Plavix) 75 mg PO DAILY [facility] Last Admin: 06/15/17 09:41 Dose: 75 mg Ergocalciferol (Drisdol 50,000 Intl Units Cap) 1 cap PO QWK [facility] Famotidine (Pepcid) 20 mg PO BID [facility] Last Admin: 06/15/17 09:39 Dose: 20 mg Furosemide (Lasix) 40 mg PO BID [facility] Last Admin: 06/15/17 09:39 Dose: 40 mg Gabapentin (Neurontin) 300 mg PO DAILY [facility] Last Admin: 06/15/17 09:39 Dose: 300 mg Hydralazine HCl (Apresoline) 50 mg PO TID [facility] Last Admin: 06/15/17 13:08 Dose: 50 mg Isosorbide Mononitrate (Imdur) 60 mg PO DAILY [facility] Last Admin: 06/15/17 09:40 Dose: 60 mg Multivitamins (Hexavitamin) 1 tab PO DAILY [facility] Last Admin: 06/15/17 09:40 Dose: 1 tab Rifaximin (Xifaxan) 550 mg PO BID [facility] Last Admin: 06/15/17 09:43 Dose: 550 mg Rosuvastatin Calcium (Crestor) 20 mg PO HS [facility] Last Admin: 06/14/17 22:19 Dose: 20 mg Fluticasone/Salmeterol (Advair Diskus 250/50) 1 puff INH RQ12 [facility] Last Admin: 06/15/17 08:36 Dose: 1 puff Vitamin B Complex/Vitamin C (Berocca) 1 tab PO DAILY [facility] Last Admin: 06/15/17 09:40 Dose: 1 tab - Labs Labs: 06/13/17 08:45 06/14/17 07:04 PT 15.6 SECONDS (9.7-12.2) H 06/11/17 14:19 INR 1.4 06/11/17 14:19 APTT 36 SECONDS (21-34) H 06/11/17 14:19 - Constitutional Appears: No Acute Distress - Head Exam Head Exam: NORMAL INSPECTION - Eye Exam Eye Exam: Normal appearance - ENT Exam ENT Exam: Mucous Membranes Moist - Respiratory Exam Respiratory Exam: NORMAL BREATHING PATTERN (no change in neuro exam , but very sleeepy today) Assessment and Plan - Assessment and Plan (Free Text) Assessment: sp acute ismchemic infarct mra neg carotid us not significant stenosis cont plavix was on asa as out and had cva anyway bp with holding parameters swallwing thick nectar well per RN 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 arnold fatty liver gall stones with elvated alk phos but no acute cholecystitis or obstruction anemia stable pt with significant comorbities and overall poor health
--- NOTE | 2017-06-15 17:14 | CARD ---
APPROVED REPORT EXAM: Two-dimensional and M-mode echocardiogram with Doppler and color Doppler. INDICATION CVA/TIA tia vs cva M-Mode DIMENSIONS RVDd2.11 (2.1-3.2cm)Left Atrium (MM)4.37 (2.5-4.0cm) IVSd1.99 (0.7-1.1cm)Aortic Root3.24 (2.2-3.7cm) LVDd5.12 (4.0-5.6cm)Aortic Cusp Exc.1.68 (1.5-2.0cm) PWd1.64 (0.7-1.1cm)FS (%) 16 % LVDs4.30 (2.0-3.8cm)LVEF (%)34 (>50%) Aortic Valve AoV Peak Phwemwhv320.0cm/Yohannes Peak GR.13mmHg Mitral Valve MV E Lougxtnl03.3cm/sMV A Xhmehibp54.5cm/sE/A ratio1.6 TDI E/Lateral E'0.0E/Medial E'0.0 Tricuspid Valve TR Peak [id number]/sTR Peak Gr.[id number] LEFT VENTRICLE The left ventricle is normal size. There is normal left ventricular wall thickness. The systolic function is mildly to moderately impaired. There is global hypokinesis of the left ventricle. RIGHT VENTRICLE The right ventricle is normal size. ATRIA The left atrium is mildly dilated. The right atrium size is normal. AORTIC VALVE The aortic valve is normal in structure. MITRAL VALVE The mitral valve is normal in structure. TRICUSPID VALVE There is mild to moderate tricuspid regurgitation. <Conclusion> Mild to moderate LV systolic dysfunction. Dilated LA. Mild to moderate TR. Trace to small pericardial effusion.
--- NOTE | 2017-06-15 20:48 | PN ---
DATE: SUBJECTIVE: The patient is lying on the bed, in no acute distress. He does complain of mild headache. PHYSICAL EXAMINATION VITAL SIGNS: His blood pressure is 115/76, heart rate is 77 per minute, breathing at a rate of 16 per minute, and temperature is 98 degrees Fahrenheit. HEENT: Head is normocephalic and atraumatic. NECK: Supple. There are no carotid bruits. LUNGS: Clear. CARDIOVASCULAR: S1 and S2 audible. No murmurs. ABDOMEN: Soft and nontender. Bowel sounds are present. NEUROLOGY: Mental status: The patient is awake, alert. He knows he is in the hospital. He follows all simple commands. Cranial nerve examination: Pupils; 2 mm bilaterally, and minimally reactive to light. Extraocular movements are intact. There is decreased nasolabial fold on the left side. Motor examination: Tone is normal. Power: There is left hemiparesis with power about 3/5 on the left side and 4/5 on the right side. Plantars are upgoing on the left side and downgoing on the right side. IMPRESSION: 1. Cerebrovascular accident with right basal ganglia infarction causing left sided hemiparesis. 2. End stage renal disease, on hemodialysis. The patient had an echocardiogram done which shows no thrombus, mild to moderate left ventricular dysfunction. 3. The patient to be continue on aspirin and Plavix. 4. The patient also to be continued on statin. 5. The patient is a good rehab candidate. 6. The patient to have Tylenol as needed for headache. 7. Please continue supportive care and treatment. Thank you for the opportunity to participate in the care of this patient. Lidya Orlando MD
[2017-06-16] MEDS: Cholestyramine 4 gm/Pkt UD PO SCH ×2 (06:00→13:48)
[2017-06-16 07:21] LABS: HEMATOCRIT 30.1 % (35.0-51.0); MEAN CELL VOLUME 93.9 fL (80.0-94.0); MEAN CORPUSCULAR HEMOGLOBIN 31.7 pg (27.0-31.0); MEAN CORPUSCULAR HGB CONC 33.7 g/dL (33.0-37.0); MEAN PLATELET VOLUME 11.5 fL (7.2-11.7); RED CELL DISTRIBUTION WIDTH 16.3 % (11.5-14.5); WHITE BLOOD COUNT 6.3 K/uL (4.8-10.8)
[2017-06-16] MEDS: Vitamin B Complex/Vitamin C Tab PO SCH (09:25)
[2017-06-16] MEDS: Multiple Vitamins Tab PO SCH (09:25)
[2017-06-16 09:27] LABS: LYMPH # 1.1 K/uL (1.0-4.3); MONO # 1.2 K/uL (0.0-0.8)
[2017-06-16] MEDS: Fluticasone-Salmeterol 250-50mcg Diskus INH SCH (09:27)
[2017-06-16 09:28] LABS: BASO # 0.1 K/uL (0.0-0.2); EOS # 0.1 K/uL (0.0-0.7)
--- NOTE | 2017-06-16 14:32 | CP.PCM.PN ---
Subjective - Date & Time of Evaluation Date of Evaluation: 06/16/17 Time of Evaluation: 14:24 - Subjective Subjective: Remains awake , lethargic NH3 level-50 For dialysis now Echo consistent with moderately severe LV dysfunction Eating ok as per family Objective - Vital Signs/Intake and Output Vital Signs (last 24 hours): Temp Pulse Resp BP Pulse Ox 97.7 F 83 19 152/89 H 95 06/16/17 07:15 06/16/17 13:43 06/16/17 07:15 06/16/17 13:43 06/16/17 07:15 Intake and Output: 06/16/17 06/16/17 06:59 18:59 Intake Total 118 Balance 118 - Medications Medications: Current Medications Acetaminophen (Tylenol 325mg Tab) 650 mg PO Q6 PRN PRN Reason: Headache Aspirin (Ecotrin) 81 mg PO DAILY [facility] Last Admin: 06/16/17 09:25 Dose: 81 mg Calcitriol (Rocaltrol) 0.25 mcg PO DAILY [facility] Last Admin: 06/16/17 09:25 Dose: 0.25 mcg Calcium Acetate (Phoslo) 667 mg PO TIDCC [facility] Last Admin: 06/16/17 11:57 Dose: 667 mg Cholestyramine Resin (Questran) 4 gm PO Q8 [facility] Last Admin: 06/16/17 13:48 Dose: 4 gm Clopidogrel Bisulfate (Plavix) 75 mg PO DAILY [facility] Last Admin: 06/16/17 09:25 Dose: 75 mg Ergocalciferol (Drisdol 50,000 Intl Units Cap) 1 cap PO QWK [facility] Famotidine (Pepcid) 20 mg PO DAILY [facility] Furosemide (Lasix) 40 mg PO BID [facility] Last Admin: 06/16/17 09:24 Dose: Not Given Gabapentin (Neurontin) 300 mg PO DAILY [facility] Last Admin: 06/16/17 09:25 Dose: 300 mg Hydralazine HCl (Apresoline) 25 mg PO TID [facility] Last Admin: 06/16/17 13:44 Dose: Not Given Isosorbide Mononitrate (Imdur) 60 mg PO DAILY [facility] Last Admin: 06/16/17 09:24 Dose: Not Given Multivitamins (Hexavitamin) 1 tab PO DAILY [facility] Last Admin: 06/16/17 09:25 Dose: 1 tab Rifaximin (Xifaxan) 550 mg PO BID [facility] Last Admin: 06/16/17 09:25 Dose: 550 mg Rosuvastatin Calcium (Crestor) 10 mg PO HS [facility] Fluticasone/Salmeterol (Advair Diskus 250/50) 1 puff INH RQ12 [facility] Last Admin: 06/16/17 09:27 Dose: 1 puff Vitamin B Complex/Vitamin C (Berocca) 1 tab PO DAILY [facility] Last Admin: 06/16/17 09:25 Dose: 1 tab - Labs Labs: 06/16/17 07:06 06/14/17 07:04 PT 15.6 SECONDS (9.7-12.2) H 06/11/17 14:19 INR 1.4 06/11/17 14:19 APTT 36 SECONDS (21-34) H 06/11/17 14:19 - Constitutional Appears: No Acute Distress, Confused, Chronically Ill - Head Exam Head Exam: ATRAUMATIC, NORMAL INSPECTION - Eye Exam Eye Exam: EOMI, Normal appearance - Neck Exam Neck Exam: Normal Inspection. absent: Tenderness - Respiratory Exam Respiratory Exam: Clear to Ausculation Bilateral, NORMAL BREATHING PATTERN - Cardiovascular Exam Cardiovascular Exam: REGULAR RHYTHM, +S1 - GI/Abdominal Exam GI & Abdominal Exam: Soft. absent: Tenderness - Extremities Exam Extremities Exam: Normal Inspection. absent: Tenderness - Neurological Exam Neurological Exam: Altered, CN II-XII Intact - Skin Skin Exam: Dry, Warm Assessment and Plan (1) Type 2 diabetes mellitus with diabetic nephropathy Status: Acute (2) TIA (transient ischemic attack) Status: Acute (3) PVD (peripheral vascular disease) Status: Acute (4) ESRD (end stage renal disease) Status: Acute (5) Altered mental status Status: Acute (6) Chronic congestive heart failure Status: Acute (7) Cirrhosis Status: Acute - Assessment and Plan (Free Text) Plan: Dialysis now with adequate UF Keep dry weight low due to fluid overload state/CHF
[2017-06-16 15:23] VITALS: RESP 16; TEMP 97.4
--- NOTE | 2017-06-16 15:35 | CP.PCM.DIS ---
Provider - Provider Date of Admission: 06/11/17 16:00 Attending physician: Jojo Chávez MD Time Spent in preparation of Discharge (in minutes): 30 Hospital Course - Lab Results Lab Results: Micro Results 06/12/17 21:09 Stool Stool Culture - Final NO SALMONELLA, SHIGELLA OR CAMPYLOBACTER ISOLATED. Most Recent Lab Values WBC 6.3 K/uL (4.8-10.8) 06/16/17 07:06 RBC 3.21 Mil/uL (4.40-5.90) L 06/16/17 07:06 Hgb 10.2 g/dL (12.0-18.0) L 06/16/17 07:06 Hct 30.1 % (35.0-51.0) L 06/16/17 07:06 MCV 93.9 fL (80.0-94.0) 06/16/17 07:06 MCH 31.7 pg (27.0-31.0) H 06/16/17 07:06 MCHC 33.7 g/dL (33.0-37.0) 06/16/17 07:06 RDW 16.3 % (11.5-14.5) H 06/16/17 07:06 Plt Count 166 K/uL (130-400) 06/16/17 07:06 MPV 11.5 fL (7.2-11.7) 06/16/17 07:06 Neut % (Auto) 61.0 % (50.0-75.0) 06/16/17 07:06 Lymph % (Auto) 17.0 % (20.0-40.0) L 06/16/17 07:06 [place] % (Auto) 19.0 % (0.0-10.0) H 06/16/17 07:06 Eos % (Auto) 2.0 % (0.0-4.0) 06/16/17 07:06 Baso % (Auto) 1.0 % (0.0-2.0) 06/16/17 07:06 Neut # 3.9 K/uL (1.8-7.0) 06/16/17 07:06 Lymph # 1.1 K/uL (1.0-4.3) 06/16/17 07:06 [place] # 1.2 K/uL (0.0-0.8) H 06/16/17 07:06 Eos # 0.1 K/uL (0.0-0.7) 06/16/17 07:06 Baso # 0.1 K/uL (0.0-0.2) 06/16/17 07:06 Neutrophils % (Manual) 62 % (50-75) 06/11/17 14:19 Lymphocytes % (Manual) 18 % (20-40) L 06/11/17 14:19 Monocytes % (Manual) 17 % (0-10) H 06/11/17 14:19 Eosinophils % (Manual) 3 % (0-4) 06/11/17 14:19 Platelet Estimate Slightly decreased (NORMAL) L 06/11/17 14:19 Polychromasia Slight 06/11/17 14:19 Hypochromasia (manual) Slight 06/11/17 14:19 Anisocytosis (manual) Slight 06/11/17 14:19 Target Cells Slight 06/11/17 14:19 PT 15.6 SECONDS (9.7-12.2) H 06/11/17 14:19 INR 1.4 06/11/17 14:19 APTT 36 SECONDS (21-34) H 06/11/17 14:19 Sodium 131 mmol/L (132-148) L 06/14/17 07:04 Potassium 4.8 mmol/L (3.6-5.2) 06/14/17 07:04 Chloride 92 mmol/L (98-107) L 06/14/17 07:04 Carbon Dioxide 24 mmol/L (22-30) 06/14/17 07:04 Anion Gap 20 (10-20) 06/14/17 07:04 BUN 53 mg/dL (9-20) H 06/14/17 07:04 Creatinine 3.9 mg/dL (0.8-1.5) H 06/14/17 07:04 Est GFR ( Amer) 20 06/14/17 07:04 Est GFR (Non-Af Amer) 16 06/14/17 07:04 POC Glucose (mg/dL) 130 mg/dL (65-110) H 06/16/17 11:44 Random Glucose 83 mg/dL (75-110) 06/14/17 07:04 Hemoglobin A1c 6.4 % (4.2-6.5) 06/12/17 06:44 Calcium 9.2 mg/dl (8.6-10.4) 06/14/17 07:04 Phosphorus 6.9 mg/dL (2.5-4.5) H 06/14/17 13:45 Total Bilirubin 11.1 mg/dL (0.2-1.3) H 06/14/17 07:04 Direct Bilirubin 10.9 mg/dL (0.0-0.4) H 06/12/17 23:58 AST 48 U/L (17-59) 06/14/17 07:04 ALT 30 U/L (21-72) 06/14/17 07:04 Alkaline Phosphatase 1293 U/L (38-126) H 06/14/17 07:04 Ammonia 50 umol/L (9-33) H D 06/16/17 07:06 Troponin I < 0.0120 ng/mL (0.00-0.120) 06/11/17 14:19 Total Protein 7.6 g/dL (6.3-8.3) 06/14/17 07:04 Albumin 3.3 g/dL (3.5-5.0) L 06/14/17 07:04 Globulin 4.4 gm/dL (2.2-3.9) H 06/14/17 07:04 Albumin/Globulin Ratio 0.8 (1.0-2.1) L 06/14/17 07:04 Triglycerides 171 mg/dL (0-149) H 06/12/17 06:44 Cholesterol 204 mg/dL (0-199) H 06/12/17 06:44 LDL Cholesterol Direct 127 mg/dL (0-129) 06/12/17 06:44 HDL Cholesterol 22 mg/dL (30-70) L 06/12/17 06:44 PTH Intact Whole Molec 43 pg/mL (14-64) 06/14/17 13:45 Stool Leukocytes, Qual Negative (NEGATIVE) 06/12/17 21:09 Hep Bs Antigen Negative (NEGATIVE) 06/14/17 15:24 Blood Type A POSITIVE 06/11/17 14:41 Antibody Screen Negative 06/11/17 14:41 - Hospital Course Hospital Course: Pt was admitted with left hemiparesis. Pt had MRI which showed right ischemic infarct acute. pt had MRA and carotid us which did not show hemodynamically significant stenosis. pt was treaed mediacally. neuro consulted. PT's hosptial course complcated by mental status changes with elevated ammonia. PT has chronic liver disease pt was started on rifaximin and lactulose. Pt has chronic sifnificant medical problems with very poor prognosis. Discharge Exam - Head Exam Head Exam: ATRAUMATIC, NORMAL INSPECTION Discharge Plan - Follow Up Plan Condition: GUARDED Disposition: REHAB FACILITY/REHAB UNIT
[2017-06-16 17:39] VITALS: BP 138/91
[2017-06-16 19:01] VITALS: PULSE 93; O2SAT 96
--- NOTE | 2017-06-17 14:23 | CARD ---
APPROVED REPORT EKG Measurement Heart [id number] <Conclusion> Normal sinus rhythm Rightward axis Abnormal QRS-T angle, consider primary T wave abnormality Abnormal ECG
[2017-06-18] MEDS ORDERED: Ergocalciferol 50,000 Intl Units Cap PO SCH (10:00)
== END 2017-06-16 20:25 | DRG 64 ==
LOC: C.ER 13:36 → C.6T 16:00
PROVIDERS: ADMIT Internal Medicine; ATTEND Internal Medicine
PROC: 5A1D70Z Performance of Urinary Filtration, Intermittent, Less than 6 Hours Per Day (ICD-10-PCS; principal; 2017-06-11)
DX: I63.9 Cerebral infarction, unspecified (principal); N18.6 End stage renal disease; E11.21 Type 2 diabetes mellitus with diabetic nephropathy; E11.51 Type 2 diabetes mellitus with diabetic peripheral angiopathy without gangrene; K72.90 Hepatic failure, unspecified without coma; I69.354 Hemiplegia and hemiparesis following cerebral infarction affecting left non-dominant side; I25.10 Atherosclerotic heart disease of native coronary artery without angina pectoris; D63.1 Anemia in chronic kidney disease; E11.22 Type 2 diabetes mellitus with diabetic chronic kidney disease; I12.9 Hypertensive chronic kidney disease with stage 1 through stage 4 chronic kidney disease, or unspecified chronic kidney disease; E78.00 Pure hypercholesterolemia, unspecified; H54.61 Unqualified visual loss, right eye, normal vision left eye; H54.62 Unqualified visual loss, left eye, normal vision right eye; I50.9 Heart failure, unspecified; J45.909 Unspecified asthma, uncomplicated; K74.60 Unspecified cirrhosis of liver; K76.0 Fatty (change of) liver, not elsewhere classified; K80.20 Calculus of gallbladder without cholecystitis without obstruction; Z99.2 Dependence on renal dialysis